=== PATIENT | male | born 1950 | race Caucasian/White ===

== ENCOUNTER 2018-03-29 13:04 | Inpatient (IN) ==
[2018-03-29] MEDS ORDERED: LACTATED RINGERS 1,000 ML IV ONE (13:56)
[2018-03-29] MEDS ORDERED: VANCOMYCIN 1,000 MG in 0.9 % SODIUM CHLORIDE 250 ML IV ONE ×2 (13:56→23:00)
--- NOTE | 2018-03-29 14:01 | Emergency Department Note ---
Lower Extremity Injury HPI - General Chief Complaint: Extremity Injury, Lower Stated Complaint: left toe pain Time Seen by Provider: 03/29/18 13:54 Source: patient Limitations: no limitations - History of Present Illness HPI Narrative: Patient comes in with the chief complaint of drainage and wound issues to the left large toe, history of gout in the past. Drainage and wound have been present for about 3 or 4 weeks, his was not informed of this. He wears socks all the time. He tends to sleep upright with his feet pain down. Poor historian. does state that he had a bout of diarrhea 2 weeks ago for which she was seen at [facility], admitted overnight and given IV fluids up. Was told he had renal insufficiency, poor kidney function, continues taking Plavix as well as aspirin. He is on methadone for chronic pain, denies chest pain he has a slight cough at this point, denies syncope, no fevers or chills, he does have neuropathy, poor sensation to both feet. History of high pass graft surgery to his left leg secondary to peripheral vascular disease. MD complaint: foot injury - Related Data Home Medications Medication Instructions Recorded Confirmed acetaminophen 325 mg tablet 650 mg PO TID PRN tab 12/21/16 12/31/16 albuterol sulfate HFA 90 2 puff INHALATION QID g 12/21/16 12/31/16 mcg/actuation aerosol inhaler allopurinol 300 mg tablet 300 mg PO QAM tab 12/21/16 12/31/16 aspirin 325 mg tablet 325 mg PO QDAY 12/21/16 12/31/16 atorvastatin 40 mg tablet 20 mg PO QHS tab 12/21/16 12/31/16 benzonatate 200 mg capsule 200 mg PO TID PRN 12/21/16 12/31/16 cholecalciferol (vitamin D3) 1,000 2,000 unit PO QAM tab 12/21/16 12/31/16 unit tablet clopidogrel 75 mg tablet 75 mg PO QDAY 12/21/16 12/31/16 diazepam 5 mg tablet 10 mg PO QID 12/21/16 12/31/16 furosemide 40 mg tablet 40 mg PO QDAY 12/21/16 12/31/16 ipratropium 20 mcg-albuterol 100 1 puff INHALATION QID 12/21/16 12/31/16 mcg/actuation mist for inhalation levothyroxine 175 mcg tablet 175 mcg PO QAM tab 12/21/16 12/31/16 lisinopril 10 mg tablet 10 mg PO QHS tab 12/21/16 12/31/16 magnesium oxide 420 mg tablet 420 mg PO BID tab 12/21/16 12/31/16 methadone 10 mg tablet 80 mg PO QDAY tab 12/21/16 12/31/16 mometasone 1 puff INHALATION BID 12/21/16 12/31/16 multivitamin with minerals capsule 1 cap PO QDAY 12/21/16 12/31/16 omeprazole 20 mg capsule,delayed 20 mg PO QAM cap 12/21/16 12/31/16 release polyethylene glycol 3350 17 17 g PO QDAY g 12/21/16 12/31/16 gram/dose oral powder potassium citrate ER 10 mEq (1,080 10 meq PO TID tab 12/21/16 12/31/16 mg) tablet,extended release tamsulosin 0.4 mg capsule 0.8 mg PO QPM cap 12/21/16 12/31/16 Allergies Allergy/AdvReac Type Severity Reaction Status Date / Time codeine Allergy Unknown Unknown Verified 12/31/16 10:42 interferon chanell-2b,recomb. Allergy Unknown Unknown Verified 12/31/16 10:42 interferon beta-1b Allergy Unknown Unknown Verified 12/31/16 10:42 theophylline Allergy Unknown Unknown Verified 12/31/16 10:42 peginterferon Allergy Unknown Unknown Uncoded 12/31/16 10:42 Review of Systems All systems ED: reviewed and negative except as stated. Cardiovascular: Denies: chest pain, palpitations Respiratory: Reports: shortness of breath, cough Genitourinary: Reports: other (decreased urinary output). Denies: dysuria Past Medical History - Past Medical History Source: obtained from family Medical history: Reports: chronic anticoagulation, chronic narcotics, COPD, other (history of gout) Surgical history ED: Reports: colectomy, colostomy, orthopedic, other, vascular surgery Family history: Reports: no significant family history - Social History smoking status: Former smoker Alcohol use: Reports: Occasionally Physical Exam Limitations: no limitations General appearance: alert, in no apparent distress Head: atraumatic, normocephalic Eye: Present: normal appearance, PERRL. Absent: EOMI ENT: normal exam, mucous membranes moist, normal external ear exam, nasal congestion Neck: Present: normal inspection, full ROM, trachea midline. Absent: te nderness, meningismus, lymphadenopathy Chest: Present: normal inspection, symmetric chest wall rise, rash. Absent: tenderness Respiratory: Present: wheezes. Absent: accessory muscle use, prolonged expiratory phase Cardiovascular: Present: regular rate, normal rhythm, normal heart sounds Abdominal: Present: soft, distention, normal bowel sounds. Absent: tenderness, guarding, rebound Extremities: Present: tenderness, pedal edema, joint swelling, other (diminished sensations in both feet. He does have 3+ pedal edema, dorsalis pedis pulses not palpable. Ulceration to the dorsum of his left large toe which is weeping fluid. Probing the wound does extend down to the joint, IP of his left large toe.) Back: Present: normal inspection, full ROM. Absent: CVA tenderness (R), CVA tenderness (L), vertebral tenderness Neurological: Present: alert, oriented X3 Psychiatric: Present: flat affect Skin: Present: warm, dry, intact, rash. Absent: cyanosis Course - Reevaluation(s) Reevaluation #1: We started IV fluids up. It is difficult to get his blood pressure much over 70s or 80s even with IV fluid Hyd ration, I believe that he might be on too much blood pressure medication, he certainly has renal insult from looking at his creatinine in February 12 last admission at [facility] March 13. He had an episode of diarrhea at that time and it sounds like he was dehydrated and he was hydrated and sent home at that time. He still does take lisinopril 20 mg a day and this might be too much blood pressure medication for him. I discussed this with Dr. Flynn and at this time he will need to be admitted for #1 hypotension #2 dehydration #3 left large toe infection. Vital Signs Temperature 98.0 F 03/29/18 13:05 Pulse Rate 78 03/29/18 13:05 Respiratory Rate 18 03/29/18 13:05 Blood Pressure 74/44 03/29/18 13:05 Pulse Oximetry (%) 97 03/29/18 13:05 Temperature 98.0 F 03/29/18 13:05 Pulse Rate 68 03/29/18 14:16 Respiratory Rate 18 03/29/18 13:05 Blood Pressure 83/51 03/29/18 15:46 Pulse Oximetry (%) 96 03/29/18 14:16 Extremity Injury, Lower - MDM Narrative Medical decision making narrative: Final diagnosis is cellulitis left leg #2 left large toe wound. #3 hypotension number for dehydration #5 renal insufficiency, acute on chronic. - Lab Data Result diagrams: 03/29/18 14:05 03/29/18 14:05 Lab Results 03/29/18 03/29/18 03/29/18 Range/Units 14:05 14:05 14:07 WBC 6.8 (4.5-11.0) K/mcL RBC 3.52 L (4.50-5.90) M/mcL Hgb 11.5 L (13.5-16.5) g/dL Hct 34.5 L (41.0-55.0) % MCV 97.9 (80.0-100.0) fL MCH 32.7 (26.0-34.0) pg MCHC 33.4 (31.0-36.0) g/dL RDW 12.9 (11.5-14.5) % Plt Count 182 (140-440) K/mcL MPV 9.6 (7.4-10.4) fL Gran % 64.7 (38.0-78.0) % Lymph % (Auto) 15.9 (15.5-49.0) % [place] % (Auto) 11.1 (1.0-12.0) % Eos % (Auto) 7.8 H (0.0-7.0) % Baso % (Auto) 0.5 (0.0-2.0) % Gran # 4.4 (1.8-8.0) K/mcL Lymph # (Auto) 1.1 L (1.5-4.8) K/mcL [place] # (Auto) 0.7 (0.1-0.9) K/mcL Eos # (Auto) 0.5 (0.0-0.7) K/mcL Baso # (Auto) 0 (0.0-0.3) K/mcL ESR 47 H (0-15) mm/hr VBG Lactic Acid 1.0 (0.5-2.0) mmol/L Sodium 140 (133-145) mmol/L Potassium 4.7 (3.3-5.1) mmol/L Chloride 100 (96-108) mmol/L Carbon Dioxide 31 H (22-30) mmol/L Anion Gap 9.0 (8-16) BUN 52 H (8-23) mg/dl Creatinine 2.9 H (0.7-1.2) mg/dl GFR Calculation 22 Glucose 84 (70-105) mg/dL Calcium 9.1 (8.6-10.4) mg/dl Total Bilirubin 0.3 (0.0-1.0) mg/dL AST 23 (0-37) U/l ALT 16 (0-40) U/l Alkaline Phosphatase 66 (39-117) U/L Total Protein 7.2 (5.9-8.4) gm/dL Albumin 3.9 (3.2-5.2) gm/dL Globulin 3.3 (2.2-3.7) gm/dL Albumin/Globulin Ratio 1.2 (1.0-2.3) Urine Color Urine Appearance Urine pH (5.0-9.0) Ur Specific [place] (1.000-1.035) Urine Protein (NEG) mg/dL Urine Glucose (UA) (NEG) mg/dL Urine Ketones (NEG) mg/dL Urine Occult Blood (<0.03) mg/dL Urine Nitrate (NEG) Urine Bilirubin (NEG) mg/dL Urine Urobilinogen (NEG) mg/dL Ur Leukocyte Esterase (NEG) /uL Ur Culture Indicated? 03/29/18 Range/Units 14:35 WBC (4.5-11.0) K/mcL RBC (4.50-5.90) M/mcL Hgb (13.5-16.5) g/dL Hct (41.0-55.0) % MCV (80.0-100.0) fL MCH (26.0-34.0) pg MCHC (31.0-36.0) g/dL RDW (11.5-14.5) % Plt Count (140-440) K/mcL MPV (7.4-10.4) fL Gran % (38.0-78.0) % Lymph % (Auto) (15.5-49.0) % [place] % (Auto) (1.0-12.0) % Eos % (Auto) (0.0-7.0) % Baso % (Auto) (0.0-2.0) % Gran # (1.8-8.0) K/mcL Lymph # (Auto) (1.5-4.8) K/mcL [place] # (Auto) (0.1-0.9) K/mcL Eos # (Auto) (0.0-0.7) K/mcL Baso # (Auto) (0.0-0.3) K/mcL ESR (0-15) mm/hr VBG Lactic Acid (0.5-2.0) mmol/L Sodium (133-145) mmol/L Potassium (3.3-5.1) mmol/L Chloride (96-108) mmol/L Carbon Dioxide (22-30) mmol/L Anion Gap (8-16) BUN (8-23) mg/dl Creatinine (0.7-1.2) mg/dl GFR Calculation Glucose (70-105) mg/dL Calcium (8.6-10.4) mg/dl Total Bilirubin (0.0-1.0) mg/dL AST (0-37) U/l ALT (0-40) U/l Alkaline Phosphatase (39-117) U/L Total Protein (5.9-8.4) gm/dL Albumin (3.2-5.2) gm/dL Globulin (2.2-3.7) gm/dL Albumin/Globulin Ratio (1.0-2.3) Urine Color Yellow Urine Appearance Clear Urine pH 5.0 (5.0-9.0) Ur Specific [place] 1.024 (1.000-1.035) Urine Protein Neg (NEG) mg/dL Urine Glucose (UA) Negative (NEG) mg/dL Urine Ketones Neg (NEG) mg/dL Urine Occult Blood Neg (<0.03) mg/dL Urine Nitrate Neg (NEG) Urine Bilirubin Neg (NEG) mg/dL Urine Urobilinogen Neg (NEG) mg/dL Ur Leukocyte Esterase Neg (NEG) /uL Ur Culture Indicated? 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
--- NOTE | 2018-03-29 14:31 | XRay Report ---
CLINICAL INFORMATION: Infection in the left first digit TECHNIQUE: AP, oblique, lateral left first digit COMPARISON: None. FINDINGS: There is a dressing in place. No cortical bone destruction. No plain film evidence for osteomyelitis. There is no soft tissue gas or radiopaque foreign body. IMPRESSION: No plain film evidence for osteomyelitis. Interpreted and Authenticated by: Anam Mccarthy 03/29/18
--- NOTE | 2018-03-29 14:32 | XRay Report ---
INDICATION: Fever TECHNIQUE: AP chest x-ray,portable semiupright COMPARISON: None FINDINGS:Lungs are negative. No parenchymal infiltrate or mass. Heart size and vascularity are normal. Cherelle and mediastinum are negative. IMPRESSION: Negative AP chest x-ray Interpreted and Authenticated by: Anam Mccarthy 03/29/18
[2018-03-29 15:02] LABS: Basophils # (Auto) 0 K/mcL (0.0-0.3); Basophils % (Auto) 0.5 % (0.0-2.0); Eosinophils # (Auto) 0.5 K/mcL (0.0-0.7); Eosinophils % (Auto) 7.8 % (0.0-7.0); Granulocytes % (Auto) 64.7 % (38.0-78.0); Lymphocytes # (Auto) 1.1 K/mcL (1.5-4.8); Lymphocytes % (Auto) 15.9 % (15.5-49.0); Mean Cell Volume 97.9 fL (80.0-100.0); Mean Corpuscular HGB Conc 33.4 g/dL (31.0-36.0); Monocytes # (Auto) 0.7 K/mcL (0.1-0.9); Monocytes % (Auto) 11.1 % (1.0-12.0); Platelet Count 182 K/mcL (140-440); RBC 3.52 M/mcL (4.50-5.90); Red Cell Distribution Width 12.9 % (11.5-14.5)
[2018-03-29 15:11] LABS: ALT/SGPT 16 U/l (0-40); Albumin 3.9 gm/dL (3.2-5.2); Albumin/Globulin Ratio 1.2 (1.0-2.3); Alkaline Phosphatase 66 U/L (39-117); Blood Urea Nitrogen 52 mg/dl (8-23)
[2018-03-29 15:41] LABS: Erythrocyte Sedimentation Rate 47 mm/hr (0-15)
[2018-03-29 15:43] LABS: Appearance,Urine CLEAR; Bilirubin,Urine NEG (NEG); Color,Urine YELLOW; Glucose,Urine (UA) NEGATIVE (NEG); Leukocyte Esterase,Urine NEG /uL (NEG); Protein,Urine NEG (NEG); Specific Gravity,Urine 1.024 (1.000-1.035); Urine Blood NEG mg/dL (<0.03); Urobilinogen,Urine NEG (NEG)
[2018-03-29] MEDS ORDERED: 0.9 % SODIUM CHLORIDE 1,000 ML IV SCH ×2 (16:15→22:00)
[2018-03-29 16:57] LABS: C-Reactive Protein 8.6 mg/dl (0.0-0.8)
[2018-03-29 17:13] LABS: Eosinophils % (Manual) 8 % (0-7); Lymphocytes % 15 % (15-49); Monocytes % (Manual) 6 % (1-12); Platelet Estimate NORMAL (NORMAL); RBC Morphology NORMAL (NORMAL); Segmented Neutrophils % 71 % (38-78)
--- NOTE | 2018-03-29 17:22 | Internal Med History&Physical ---
Medical - H&P: HPI Patient information: Note initiated : 03/29/18 at 5:13 pm Service Date, if different from initiated Date: [] Patient: Dmitry Luna 68 y/o M admitted on for left toe pain. Chief Complaint: [] History of present illness: Mr. Luna is a 68 year old M Presents to the ED for left toe redness swelling and drainage. He was in [facility] 2 weeks ago for diarrhea and acute kidney injury. Showed improvement with his acute kidney injury after IV fluids and was discharged the next day. Was given prednisone for what was thought to be a gout flare. Diarrhea has improved since that admission as well. He states he has had a wound to the dorsum of his left great toe for several months and that is been draining for at least a month. He believes it started from his shoes causing a pressure wound. He has been treating himself with [id number] topical antimicrobials has not seen her primary care provider for this. Because of the continued and worsening drainage swelling redness he came in. 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 He resides in a recliner most of the day. He will get up 10 times or so throughout the day and walk around his mobile home. But otherwise is sedentary and sleeps in his chair as well because he states he has COPD and he is short of breath when he lays flat. Denies any history of heart failure or [place]. He does take Lasix as needed for swelling in his legs. He has oxygen at home for his COPD and uses it occasionally as needed, but not consistently. In the ED he was found to be hypotensive with systolic pressures as low as 65 and were consistently running in the 80s after IV fluid hydration at the time I saw him his last systolic was 91. He also found to have significant purulent drainage from his toe which was cultured and cleaned up in the ED. And his renal function was found to be poor. Unknown what his baseline is but it was 2.9 today creatinine. It was 2.2 on discharge to [facility] and for on admission to [facility]. Last recorded labs in the system are in 2017 which are in the mid ones. He follows with the [facility] and is in between providers at the [facility]. He denies any fevers or chills. Review of Systems: Pertinent positives as above. Has chronic cough and shortness of breath at baseline. Denies headache/fever/chills/nausea/vomiting/chest or abdominal pain/diarrhea. Remaining 10 point review of systems reviewed negative Medical - H&P: PMH Medical history: Medical History (Last Reviewed 12/31/16 @ 10:43 by Nelly Zarate, RN) History of strokes DVT in the past x1 with thyroidism Hypertension COPD on as needed oxygen Chronic kidney disease at least stage III probably for next line peripheral vascular disease with bilateral lower extremity grafting Peripheral neuropathy since the vascular surgery Anxiety Chronic pain from the left left leg after surgery BPH GERD Past Surgical History (Last Reviewed 12/31/16 @ 10:43 by Nelly Zarate, RN) H/O angioplasty (Chronic) H/O laparoscopy (Chronic) History of Wilver fundoplication (Chronic) History of colon surgery (Chronic) History of colonoscopy (Chronic) History of decompression of median nerve (Chronic) History of esophagogastroduodenoscopy (EGD) (Chronic 02/14/12) History of facial surgery (Chronic) History of left knee surgery (Chronic ~1979) History of repair of left rotator cuff (Chronic) History of right-sided carotid endarterectomy (Chronic) History of shoulder surgery (Chronic) History of surgery (Chronic) Family History (Last Reviewed 12/31/16 @ 10:43 by Nelly Zarate, HIEU) Mother CAD (coronary artery disease) CVA (cerebral vascular accident) Father CAD (coronary artery disease) CVA (cerebral vascular accident) Grandfather Leukemia Grandmother Alcoholism Murder Grandfather Prostate cancer Social History (Last Updated 12/31/16 @ 11:15 by Dmitry Chavez MD) Quit smoking 20 years ago denies alcohol use occasionally ambulates with a cane lives at home with his Medical - H&P: Meds Home Medications Medication Instructions Recorded Confirmed Type acetaminophen 325 mg tablet 650 mg PO TID PRN tab 12/21/16 03/29/18 History albuterol sulfate HFA 90 2 puff INHALATION QID g 12/21/16 03/29/18 History mcg/actuation aerosol inhaler allopurinol 300 mg tablet 300 mg PO QAM tab 12/21/16 03/29/18 History aspirin 325 mg tablet 325 mg PO TID 12/21/16 03/29/18 History atorvastatin 40 mg tablet 20 mg PO QHS tab 12/21/16 03/29/18 History cholecalciferol (vitamin D3) 1,000 2,000 unit PO QAM tab 12/21/16 03/29/18 History unit tablet ipratropium 20 mcg-albuterol 100 1 puff INHALATION QID 12/21/16 03/29/18 History mcg/actuation mist for inhalation levothyroxine 175 mcg tablet 150 mcg PO QAM tab 12/21/16 03/29/18 History lisinopril 10 mg tablet 20 mg PO BID tab 12/21/16 03/29/18 History magnesium oxide 420 mg tablet 420 mg PO BID tab 12/21/16 03/29/18 History methadone 10 mg tablet 80 mg PO QDAY tab 12/21/16 03/29/18 History mometasone 1 puff INHALATION BID 12/21/16 03/29/18 History multivitamin with minerals capsule 1 cap PO QDAY 12/21/16 03/29/18 History omeprazole 20 mg capsule,delayed 20 mg PO QAM cap 12/21/16 03/29/18 History release tamsulosin 0.4 mg capsule 0.8 mg PO QPM cap 12/21/16 03/29/18 History Clopidogrel Bisulfate [Plavix] 75 mg PO QDAY 03/29/18 03/29/18 History Docusate Sodium [Colace] 100 mg PO QID 03/29/18 03/29/18 History Allergies Allergy/AdvReac Type Severity Reaction Status Date / Time codeine Allergy Unknown Unknown Verified 12/31/16 10:42 interferon chanell-2b,recomb. Allergy Unknown Unknown Verified 12/31/16 10:42 interferon beta-1b Allergy Unknown Unknown Verified 12/31/16 10:42 theophylline Allergy Unknown Unknown Verified 12/31/16 10:42 peginterferon Allergy Unknown Unknown Uncoded 12/31/16 10:42 Medical - H&P: Exam - Constitutional Vitals: Temp Pulse Resp BP Pulse Ox 98.0 F 70 18 111/74 97 03/29/18 13:05 03/29/18 17:01 03/29/18 13:05 03/29/18 17:01 03/29/18 17:01 Exam: General: Alert, Awake, No acute Distress Eyes/N/T: EOMI, PEERL, DMM Head/Neck: neck supple, normocephalic atraumatic CV: RRR, No murmurs, normal s1/s2 Pulm: Clear b/l, no wheezing/rhonchi/rales Abd: soft, nontender, +BS x4 Ext: no clubbing/cyanosis, 2+ b/l LE edema. Left toe with open nonhealing wound on dorsum, Neuro: Alert, no focal deficits, moves all extremities, symmetrical strength b/l upper/lower, decreased sensations bilateral lower extremities chronic Skin: warm/dry Medical - H&P: Reslt - Labs CBC & Chem 7: 03/29/18 14:05 03/29/18 14:05 Labs: Short CBC 03/29/18 Range/Units 14:05 WBC 6.8 (4.5-11.0) K/mcL Hgb 11.5 L (13.5-16.5) g/dL Hct 34.5 L (41.0-55.0) % Plt Count 182 (140-440) K/mcL BMP 03/29/18 14:05 Sodium 140 Potassium 4.7 Chloride 100 Carbon Dioxide 31 H BUN 52 H Creatinine 2.9 H Glucose 84 Calcium 9.1 Liver Function 03/29/18 Range/Units 14:05 Total Bilirubin 0.3 (0.0-1.0) mg/dL AST 23 (0-37) U/l ALT 16 (0-40) U/l Alkaline Phosphatase 66 (39-117) U/L Albumin 3.9 (3.2-5.2) gm/dL Urine 03/29/18 Range/Units 14:35 Urine Color Yellow Urine Appearance Clear Urine pH 5.0 (5.0-9.0) Ur Specific [place] 1.024 (1.000-1.035) Urine Protein Neg (NEG) mg/dL Urine Glucose (UA) Negative (NEG) mg/dL - Impressions Chest x-ray unremarkable urinalysis unremarkable toe x-ray did not show evidence of osteo-myelitis. Medical - H&P: A/P - Narrative A/P Narrative: A: *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(): *Hypotension: likely 2/2 intravascular volume depletion and medications *Left great toe nonhealing wound likely infected: -ESR 47, crp 8 *PVD with b/l LE grafting 15yrs ago with subsequent peripheral neuropathy and chronic pain -is on ASA/Plavix/statin *Chronic pain: as above, on methadone *Hypothyroid: *HTN: on lisinopril *Peripheral edema: On prn Lasix *Anxiety: *GERD *COPD(prn home O2): * P: -IVF's -monitor BP closely -Tino, pending WC -trend CRP -Wound care -LE arterial u/s -cont asa/plavix/statin -hold lisinopril and lasix -pt/ot -f/u with Dr. Carrasco depending on imaging -ppx: heparin/pepcid
[2018-03-29] MEDS ORDERED: IPRATROPIUM/ALBUTEROL 3 ML AMPUL.NEB NEB ONE (18:15)
[2018-03-29] MEDS ORDERED: SENNOSIDES 1 TABLET PO PRN (18:38)
[2018-03-29] MEDS ORDERED: IPRATROPIUM/ALBUTEROL 3 ML AMPUL.NEB NEB PRN (18:38)
[2018-03-29] MEDS ORDERED: POTASSIUM CHLORIDE 40 MEQ in DEXTROSE 5% IN WATER 500 ML IV PRN (18:38)
[2018-03-29] MEDS ORDERED: ACETAMINOPHEN 325 MG TABLET PO PRN (18:38)
[2018-03-29] MEDS ORDERED: MAGNESIUM SULFATE 2 GM/50 ML BAG IV PRN (18:38)
[2018-03-29] MEDS ORDERED: POTASSIUM CHLORIDE 20 MEQ TABLET PO PRN ×2 (18:38)
[2018-03-29] MEDS ORDERED: PIPERACILLIN SODIUM/TAZOBACTAM 3.375 GM in DEXTROSE 5% IN WATER 50 ML IV SCH (18:38)
[2018-03-29] MEDS ORDERED: ONDANSETRON 4 MG/2 ML VIAL IV PRN (18:38)
[2018-03-29] MEDS ORDERED: POLYETHYLENE GLYCOL 3350 17 GM PACKET PO PRN (18:38)
[2018-03-29] MEDS ORDERED: ALBUTEROL SULFATE 1 PUFF INHALER INH PRN (19:50)
[2018-03-29] MEDS ORDERED: VANCOMYCIN PER PHARMACY IV ONE (19:52)
[2018-03-29] MEDS ORDERED: ATORVASTATIN 20 MG TABLET PO SCH (21:00)
[2018-03-29] MEDS ORDERED: FAMOTIDINE 20 MG TABLET PO SCH (21:00)
[2018-03-29] MEDS ORDERED: TAMSULOSIN 0.4 MG CAPSULE PO SCH (21:00)
[2018-03-29] MEDS: IPRATROPIUM/ALBUTEROL SULFATE 1 PUFF INHALER INH SCH (21:12)
[2018-03-29] MEDS: DOCUSATE SODIUM 100 MG CAPSULE PO SCH (21:20)
[2018-03-29] MEDS: MOMETASONE INH SCH (21:21)
[2018-03-29] MEDS: HEPARIN 5,000 UNIT/ML VIAL SQ SCH (21:21)
[2018-03-29] MEDS: METHADONE 5 MG TABLET PO SCH (22:44)
[2018-03-29] MEDS: 0.9 % SODIUM CHLORIDE 10 ML SYRINGE IV SCH (22:45)
[2018-03-29] MEDS: guaiFENesin 600 MG TAB.SR.12H PO PRN (22:47)
[2018-03-30] MEDS: PIPERACILLIN SODIUM/TAZOBACTAM 2.25 GM in DEXTROSE 5% IN WATER 50 ML IV SCH ×4 (00:21→19:21)
[2018-03-30] MEDS: METHADONE 5 MG TABLET PO SCH ×6 (00:49→20:22)
[2018-03-30] MEDS ORDERED: 0.9 % SODIUM CHLORIDE 1,000 ML IV SCH ×2 (02:00→11:00)
[2018-03-30 05:30] LABS: Basophils # (Auto) 0 K/mcL (0.0-0.3); Basophils % (Auto) 0.6 % (0.0-2.0); Eosinophils # (Auto) 0.4 K/mcL (0.0-0.7); Lymphocytes % (Auto) 22.8 % (15.5-49.0); Mean Cell Volume 99.2 fL (80.0-100.0); Monocytes # (Auto) 0.5 K/mcL (0.1-0.9); Monocytes % (Auto) 12.6 % (1.0-12.0); Platelet Count 157 K/mcL (140-440); RBC 3.45 M/mcL (4.50-5.90); Red Cell Distribution Width 12.9 % (11.5-14.5)
[2018-03-30] MEDS: 0.9 % SODIUM CHLORIDE 10 ML SYRINGE IV SCH ×4 (05:41→19:21)
[2018-03-30 05:52] LABS: ALT/SGPT 14 U/l (0-40); Albumin 3.4 gm/dL (3.2-5.2); Albumin/Globulin Ratio 1.1 (1.0-2.3); Alkaline Phosphatase 61 U/L (39-117); Bilirubin,Direct < 0.2 mg/dL (0.0-0.3); Blood Urea Nitrogen 41 mg/dl (8-23); C-Reactive Protein 6.6 mg/dl (0.0-0.8); Gamma Glutamyl Transpeptidase 49 U/L (8-61); Uric Acid 6.1 mg/dL (2.5-8.0)
[2018-03-30] MEDS ORDERED: LEVOTHYROXINE 150 MCG TABLET PO SCH (07:30)
--- NOTE | 2018-03-30 07:40 | Internal Med Progress Note ---
Medical - PN: Subj Patient information: Note initiated : 03/30/18 at 7:36 am Service Date, if different from initiated Date: [] Patient: Dmitry Luna 68 y/o M admitted on 03/29/18 for left toe pain. Chief Complaint: [] Interval history: Mr. Luna is a 68 year old M Presents to the ED for left toe redness swelling and drainage. He was in [facility] 2 weeks ago for diarrhea and acute kidney injury. Showed improvement with his acute kidney injury after IV fluids and was discharged the next day. Was given prednisone for what was thought to be a gout flare. Diarrhea has improved since that admission as well. He states he has had a wound to the dorsum of his left great toe for several months and that is been draining for at least a month. He believes it started from his shoes causing a pressure wound. He has been treating himself with [id number] topical antimicrobials has not seen her primary care provider for this. Because of the continued and worsening drainage swelling redness he came in. 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 He resides in a recliner most of the day. He will get up 10 times or so throughout the day and walk around his mobile home. But otherwise is sedentary and sleeps in his chair as well because he states he has COPD and he is short of breath when he lays flat. Denies any history of heart failure or SD. He does take Lasix as needed for swelling in his legs. He has oxygen at home for his COPD and uses it occasionally as needed, but not consistently. In the ED he was found to be hypotensive with systolic pressures as low as 65 and were consistently running in the 80s after IV fluid hydration at the time I saw him his last systolic was 91. He also found to have significant purulent drainage from his toe which was cultured and cleaned up in the ED. And his renal function was found to be poor. Unknown what his baseline is but it was 2.9 today creatinine. It was 2.2 on discharge to [facility] and for on admission to [facility]. Last recorded labs in the system are in 2017 which are in the mid ones. He follows with [facility] and is in between providers at the [facility]. He denies any fevers or chills. 03/30 Seems to be feeling better today, no drainage of the wound today. Pressure stable. Wound culture growing staph aureus. CRP decreasing. Does have chronic mild cough and shortness of breath, but otherwise no complaints. Review of Systems: denies headache/fever/chills/nausea/vomiting/chest or abdominal pain/cough/dyspnea/diarrhea. Otherwise see above. - Constitutional Vitals: Vital Signs Temp Pulse Resp BP Pulse Ox 98.2 F 66 12 114/73 89 L 03/30/18 04:01 03/30/18 07:03 03/30/18 07:03 03/30/18 07:00 03/30/18 07:03 Period Temp Pulse Resp BP Sys/Robbins Pulse Ox Last 24 Hr 97.4 F-98.2 F 58-88 7-27 65-157/44-79 83-98 Intake and Output 03/29/18 03/30/18 03/30/18 21:59 05:59 13:59 Intake Total 1937 662 50 Output Total 1025 Balance 1937 50 Weight 108.862 kg Intake & Output: Intake & Output 03/29/18 03/30/18 03/30/18 21:59 05:59 13:59 Intake Total 1937 50 Output Total 1025 Balance 1937 50 Weight 108.[place] [address] 50 Sodium Chloride 0.9% 1,000 ml @ 688 250 mls/hr IV .Q4H [facility] Rx#: [id number] Lactated Ringers 1,000 ml @ 1000 Wide Open IV .Q0M ONE Rx#: [id number] Zosyn 2.25 gm In Dextrose 5% in 50 50 Water 50 ml @ 100 mls/hr IV Q6H [facility] Rx#:[id number] Vancomycin 1,000 mg In Sodium 250 250 Chloride 0.9% 250 ml @ 250 mls/ hr IV ONCE ONE Rx#:[id number] Output: Void Amount 1025 Other: Urine Appearance Clear Clear Urine Color Dark Yellow Bright Yellow Exam: General: Alert, Awake, No acute Distress Eyes/N/T: EOMI, Head/Neck: neck supple, CV: RRR, No murmurs, Pulm: Clear b/l, no wheezing/rhonchi/rales Abd: soft, nontender, +BS x4 Ext: no clubbing/cyanosis, 2+ b/l LE edema. Left toe with open nonhealing wound on dorsum, Neuro: Alert, no focal deficits, moves all extremities, decreased sensations bilateral lower extremities chronic Skin: warm/dry Medical - PN: Obj Da - Labs CBC & Chem 7: 03/30/18 03:31 03/30/18 03:31 Labs: Abnormal Lab Results 03/30/18 03/30/18 03/29/18 03:31 03:31 14:05 WBC 4.2 L RBC 3.45 L Hgb 11.3 L Hct 34.3 L [place] % (Auto) 12.6 H Eos % (Auto) 10.0 H Lymph # (Auto) 1.0 L Eosinophils % (Manual) ESR Carbon Dioxide Anion Gap 7.0 L BUN 41 H Creatinine 2.1 H Calcium 8.3 L C-Reactive Protein 6.6 H 8.6 H 03/29/18 03/29/18 03/29/18 14:05 14:05 14:05 WBC RBC 3.52 L Hgb 11.5 L Hct 34.5 L [place] % (Auto) Eos % (Auto) 7.8 H Lymph # (Auto) 1.1 L Eosinophils % (Manual) 8 H ESR 47 H Carbon Dioxide 31 H Anion Gap BUN 52 H Creatinine 2.9 H Calcium C-Reactive Protein Meds: Medications Acetaminophen (Tylenol) 650 mg PO TID PRN PRN Reason: Pain Albuterol Sulfate (Ventolin) 1 puff INH Q4HP PRN PRN Reason: Shortness Of Breath Albuterol/Ipratropium (Duoneb) 3 ml NEB Q4HP PRN PRN Reason: Shortness Of Breath Last Admin: 03/30/18 04:23 Dose: 3 ml Documented by: Albuterol/Ipratropium (Combivent) 1 puff INH QID [facility] Last Admin: 03/29/18 21:12 Dose: Not Given Documented by: Allopurinol (Zylopriim) 300 mg PO QAM [facility] Atorvastatin Calcium (Lipitor) 20 mg PO HS [facility] Last Admin: 03/29/18 21:20 Dose: 20 mg Documented by: Clopidogrel Bisulfate (Plavix) 75 mg PO QDAY [facility] Docusate Sodium (Colace) 100 mg PO BID [facility] Last Admin: 03/29/18 21:20 Dose: 100 mg Documented by: Famotidine (Pepcid) 20 mg PO HS [facility] Last Admin: 03/29/18 21:20 Dose: 20 mg Documented by: Guaifenesin (Mucinex) 600 mg PO BIDP PRN PRN Reason: Congestion Last Admin: 03/29/18 22:47 Dose: 600 mg Documented by: Heparin Sodium (Porcine) (Heparin) 5,000 unit SQ Q12 [facility] Last Admin: 03/29/18 21:21 Dose: 5,000 unit Documented by: Potassium Chloride 40 meq/ (Dextrose) 520 mls @ 130 mls/hr IV ONCE PRN PRN Reason: Potassium < 3 Magnesium Sulfate (Magnesium Sulfate) 2 gm in 50 mls @ 50 mls/hr IV ONCE PRN PRN Reason: Magnesium </= 1.6 Piperacillin Sod/Tazobactam (Sod 2.25 gm/ Dextrose) 50 mls @ 100 mls/hr IV Q6H [facility] Last Infusion: 03/30/18 07:17 Dose: Infused Documented by: Sodium Chloride (Sodium Chloride 0.9%) 1,000 mls @ 125 mls/hr IV .Q8H [facility] Stop: 03/30/18 09:59 Last Admin: 03/30/18 02:16 Dose: 125 mls/hr Documented by: Levothyroxine Sodium (Synthroid) 150 mcg PO QAMAC BHAKTI Methadone HCl (Dolophine) 10 mg PO Q4H [facility] Last Admin: 03/30/18 03:10 Dose: 10 mg Documented by: Ondansetron HCl (Zofran) 4 mg IV Q4HP PRN PRN Reason: Nausea And Vomiting Mometasone Inhaler 1 dose INH BID [facility] Last Admin: 03/29/18 21:21 Dose: Not Given Documented by: Polyethylene Glycol (Miralax) 17 gm PO DAILYP PRN PRN Reason: Constipation Potassium Chloride (Kdur) 40 meq PO ONCE PRN PRN Reason: Potssium is 3-3.5 Potassium Chloride (Kdur) 40 meq PO ONCE PRN PRN Reason: Potassium < 3 Senna (Senokot) 2 tab PO HSP PRN PRN Reason: Constipation Sodium Chloride (Saline Flush) 10 ml IV Q8 [facility] Last Admin: 03/30/18 05:41 Dose: 10 ml Documented by: Tamsulosin HCl (Flomax) 0.8 mg PO QPM BHAKTI Last Admin: 03/29/18 21:21 Dose: 0.8 mg Documented by: Vancomycin HCl (Vancomycin Per Pharmacy) 1 order IV ONCE ONE Stop: 03/29/18 19:53 Last Admin: 03/29/18 23:45 Dose: Not Given Documented by: Medical - PN: A/P - Time Spent With Patient Total time spent is greater than 50% in coordination of care (as documented) at patient's floor/unit and/or counseling patient: - Narrative A/P Narrative: A: *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(): -2.1<2.9 *Hypotension: likely 2/2 intravascular volume depletion and medications -resolved with IVF's *Left great toe nonhealing wound with infection: -ESR 47, crp 8 -WC growing Staph aureus (MRSA screen +) *PVD with b/l LE grafting 15yrs ago with subsequent peripheral neuropathy and chronic pain -is on ASA/Plavix/statin *Chronic pain: as above, on methadone *Hypothyroid: *HTN: on lisinopril *Peripheral edema: On prn Lasix *Anxiety: *GERD *COPD(prn home O2): * P: -IVF's today -Zosyn/vanco, pending final WC -trend CRP -Wound care consult -LE arterial u/s -cont asa/plavix/statin -hold lisinopril and lasix -pt/ot -f/u with Dr. Carrasco depending on imaging -ppx: heparin/pepcid Medical - PN: Qual - VTE Deep Vein Thrombosis/Pulmonary Embolism Present on Admission: No
[2018-03-30] MEDS: HEPARIN 5,000 UNIT/ML VIAL SQ SCH ×2 (08:35→20:24)
[2018-03-30] MEDS: guaiFENesin 600 MG TAB.SR.12H PO PRN (08:35)
[2018-03-30] MEDS: DOCUSATE SODIUM 100 MG CAPSULE PO SCH ×2 (08:35→20:23)
[2018-03-30] MEDS ORDERED: ALLOPURINOL 300 MG TABLET PO SCH (09:00)
[2018-03-30] MEDS ORDERED: CLOPIDOGREL 75 MG TABLET PO SCH (09:00)
[2018-03-30] MEDS ORDERED: METHADONE HCL 80 MG PO SCH (09:00)
[2018-03-30 09:32] LABS: Vancomycin,Random 13.3 ug/mL
[2018-03-30] MEDS ORDERED: VANCOMYCIN PER PHARMACY IV SCH ×2 (09:45→13:38)
[2018-03-30] MEDS ORDERED: VANCOMYCIN 1,500 MG in 0.9 % SODIUM CHLORIDE 500 ML IV SCH (10:00)
[2018-03-30] MEDS ORDERED: POLYETHYLENE GLYCOL 3350 17 GM PACKET PO ONE (11:08)
[2018-03-30] MEDS: IPRATROPIUM/ALBUTEROL SULFATE 1 PUFF INHALER INH SCH ×4 (11:55→20:34)
[2018-03-30] MEDS: MOMETASONE INH SCH (11:56)
[2018-03-30] MEDS ORDERED: POTASSIUM CHLORIDE 20 MEQ TABLET PO PRN ×2 (13:38)
[2018-03-30] MEDS ORDERED: POLYETHYLENE GLYCOL 3350 17 GM PACKET PO PRN (13:38)
[2018-03-30] MEDS ORDERED: ONDANSETRON 4 MG/2 ML VIAL IV PRN (13:38)
[2018-03-30] MEDS ORDERED: MAGNESIUM SULFATE 2 GM/50 ML BAG IV PRN (13:38)
[2018-03-30] MEDS ORDERED: SENNOSIDES 1 TABLET PO PRN (13:38)
[2018-03-30] MEDS ORDERED: guaiFENesin 600 MG TAB.SR.12H PO PRN (13:38)
[2018-03-30] MEDS ORDERED: ACETAMINOPHEN 325 MG TABLET PO PRN (13:38)
[2018-03-30] MEDS ORDERED: ALBUTEROL SULFATE 1 PUFF INHALER INH PRN (13:38)
[2018-03-30] MEDS ORDERED: POTASSIUM CHLORIDE 40 MEQ in DEXTROSE 5% IN WATER 500 ML IV PRN (13:38)
--- NOTE | 2018-03-30 13:52 | Ultrasound Report ---
CLINICAL INFORMATION: Nonhealing left toe wound TECHNIQUE: Grayscale and color flow Doppler spectral imaging COMPARISON: None. FINDINGS: Patient is a history of bilateral common femoral and superficial femoral artery stents. These are not well visualized. Right common femoral artery is patent. No velocity elevation. Triphasic flow is demonstrated. No detectable hemodynamically significant stenosis or occlusion in the right superficial femoral artery. Doppler wave form in the mid and distal right superficial femoral artery is monophasic. A proximal stenosis is not identified. Right popliteal artery is patent without focal stenosis identified. No focal velocity elevation. Waveforms in the distal popliteal artery is monophasic. Anterior tibial artery, peroneal artery, posterior tibial artery appear patent in the right calf. Dorsalis pedis artery is patent although systolic flow velocity is diminished with maximum systolic flow velocity of 36 cm/s. Monophasic waveforms are demonstrated. Left common femoral artery is patent with probable biphasic waveform. Left superficial femoral artery appears patent without detectable stenosis. Left popliteal artery demonstrates monophasic flow but no detectable stenosis. No velocity elevation. Left anterior tibial artery, peroneal artery, and posterior tibial artery are visualized and are at least partially patent. There is flow in the left dorsalis pedis artery with maximum systolic flow velocity of 105. Monophasic waveforms are demonstrated previously Anatomic evaluation including CTA or MRA may be helpful for better evaluation IMPRESSION: 1. No detectable occlusions or significant stenoses. 2. Monophasic waveforms are demonstrated in both calves without detectable proximal stenosis Interpreted and Authenticated by: Anam Mccarthy 03/30/18
--- NOTE | 2018-03-30 14:05 | General Surgery Consult Note ---
History of Present Illness Patient information: Note initiated : 03/30/18 at 1:56 pm Service Date, if different from initiated Date: [] Patient: Dmitry Luna 68 y/o M admitted on 03/29/18 for left toe pain. Chief Complaint: [] Consult date: 03/30/18 Requesting physician: Jasbir Flynn (Cellulitis Left 1 st toe) History of present illness: I saw this patient in room 120/D with ICU nursing staff. Mr. Luna is a 68/M admitted via ER with CSSSI, evolving sepsis AND left 1 st toe cellulitis. Patient recalls that about a month ago, he noticed pain and swelling of LEFT 1 st toe. He attributes this to pressure from wearing cowboy boots and walking . Denies h/o fever, chills bleeding. He did have some drainage from dorsal ulcer of LEFT 1 st IPJ. Upon admission, he had an X Ray of toe, which is negative for osteomyelitis. He had vascular Doppler studies showing monophasic waveforms over pedal vessels Left foot, ( H/O Stents on both LE arteries ) He was recently admitted at [facility] [place] Treated for dehydration with IV fluids, observed and discharged. Noted to have CKD. Creatinine 2.6, prior to hydration. Now he has creatinine of 2.1. He has MRSA on nasal swab. Medications and Allergies Home Medications Medication Instructions Recorded Confirmed Type acetaminophen 325 mg tablet 650 mg PO TID PRN tab 12/21/16 03/29/18 History albuterol sulfate HFA 90 2 puff INHALATION QID g 12/21/16 03/29/18 History mcg/actuation aerosol inhaler allopurinol 300 mg tablet 300 mg PO QAM tab 12/21/16 03/29/18 History aspirin 325 mg tablet 325 mg PO TID 12/21/16 03/29/18 History atorvastatin 40 mg tablet 20 mg PO QHS tab 12/21/16 03/29/18 History cholecalciferol (vitamin D3) 1,000 2,000 unit PO QAM tab 12/21/16 03/29/18 History unit tablet ipratropium 20 mcg-albuterol 100 1 puff INHALATION QID 12/21/16 03/29/18 History mcg/actuation mist for inhalation levothyroxine 175 mcg tablet 150 mcg PO QAM tab 12/21/16 03/29/18 History lisinopril 10 mg tablet 20 mg PO BID tab 12/21/16 03/29/18 History magnesium oxide 420 mg tablet 420 mg PO BID tab 12/21/16 03/29/18 History methadone 10 mg tablet 20 mg PO TID tab 12/21/16 03/31/18 History mometasone 1 puff INHALATION BID 12/21/16 03/29/18 History multivitamin with minerals capsule 1 cap PO QDAY 12/21/16 03/29/18 History omeprazole 20 mg capsule,delayed 20 mg PO QAM cap 12/21/16 03/29/18 History release tamsulosin 0.4 mg capsule 0.8 mg PO QPM cap 12/21/16 03/29/18 History Clopidogrel Bisulfate [Plavix] 75 mg PO QDAY 03/29/18 03/29/18 History Docusate Sodium [Colace] 100 mg PO QID 03/29/18 03/29/18 History Doxycycline Monohydrate 100 mg PO BID #14 tab 04/01/18 Rx Allergies Allergy/AdvReac Type Severity Reaction Status Date / Time theophylline Allergy Intermediate "Hard to Verified 03/30/18 13:58 breath" interferon beta-1b AdvReac Severe "Mentally Verified 03/30/18 13:58 went crazy" codeine AdvReac Mild Itching/Upset Verified 03/30/18 13:58 Stomach Exam Temp Pulse Resp BP Pulse Ox 98.4 F 96 H 10 L 146/67 96 03/30/18 13:00 03/30/18 13:00 03/30/18 13:00 03/30/18 13:00 03/30/18 13:00 - General physical appearance well developed, well nourished, no distress, obese - Eyes PERRL, normal ocular movement - ENT normal pinna, normal nares, normal mucosa, no congestion, other (HARD OF HEARING, Wears hearing aid Right ear. ) - Head Head exam IM: Present: atraumatic, normal inspection, normocephalic - Neck no masses, no bruits, trachea midline - Cardiovascular Cardiovascular exam IM: Present: normal rate and rhythm - Respiratory normal respiratory effort, clear to auscultation - Abdomen Abdomen: Present: soft, non tender, bowel sounds - Integumentary Present: other (Cellulitis and CSSSI around Left great toe dorsal aspect of IPJ, Extending to anterior lower 1/2 of [place] area. ) - Neurologic Present: other (Peripheral neuropathy) - Musculoskeletal Present: other (Dry ulcer dorsal aspect of LEFT 1 st toe IPJ. Toe nails are mycotic both feet. ) - Psychiatric Present: oriented to person, oriented to place, speech is normal Results - Labs 03/31/18 04:09 03/31/18 04:09 Abnormal lab results 03/29/18 03/29/18 03/29/18 Range/Units 14:05 14:05 14:05 WBC (4.5-11.0) K/mcL RBC 3.52 L (4.50-5.90) M/mcL Hgb 11.5 L (13.5-16.5) g/dL Hct 34.5 L (41.0-55.0) % [place] % (Auto) (1.0-12.0) % Eos % (Auto) 7.8 H (0.0-7.0) % Lymph # (Auto) 1.1 L (1.5-4.8) K/mcL Eosinophils % (Manual) 8 H (0-7) % ESR 47 H (0-15) mm/hr Carbon Dioxide 31 H (22-30) mmol/L Anion Gap (8-16) BUN 52 H (8-23) mg/dl Creatinine 2.9 H (0.7-1.2) mg/dl Calcium (8.6-10.4) mg/dl C-Reactive Protein (0.0-0.8) mg/dl 03/29/18 03/30/18 03/30/18 Range/Units 14:05 03:31 03:31 WBC 4.2 L (4.5-11.0) K/mcL RBC 3.45 L (4.50-5.90) M/mcL Hgb 11.3 L (13.5-16.5) g/dL Hct 34.3 L (41.0-55.0) % [place] % (Auto) 12.6 H (1.0-12.0) % Eos % (Auto) 10.0 H (0.0-7.0) % Lymph # (Auto) 1.0 L (1.5-4.8) K/mcL Eosinophils % (Manual) (0-7) % ESR (0-15) mm/hr Carbon Dioxide (22-30) mmol/L Anion Gap 7.0 L (8-16) BUN 41 H (8-23) mg/dl Creatinine 2.1 H (0.7-1.2) mg/dl Calcium 8.3 L (8.6-10.4) mg/dl C-Reactive Protein 8.6 H 6.6 H (0.0-0.8) mg/dl Diabetes panel 03/29/18 03/30/18 Range/Units 14:05 03:31 Sodium 140 140 (133-145) mmol/L Potassium 4.7 4.9 (3.3-5.1) mmol/L Chloride 100 105 (96-108) mmol/L Carbon Dioxide 31 H 28 (22-30) mmol/L BUN 52 H 41 H (8-23) mg/dl Creatinine 2.9 H 2.1 H (0.7-1.2) mg/dl Glucose 84 88 (70-105) mg/dL Calcium 9.1 8.3 L (8.6-10.4) mg/dl AST 23 23 (0-37) U/l ALT 16 14 (0-40) U/l Alkaline Phosphatase 66 61 (39-117) U/L Total Protein 7.2 6.6 (5.9-8.4) gm/dL Albumin 3.9 3.4 (3.2-5.2) gm/dL Triglycerides 74 (<150) mg/dl Calcium panel 03/29/18 03/30/18 Range/Units 14:05 03:31 Calcium 9.1 8.3 L (8.6-10.4) mg/dl Phosphorus 3.4 (2.7-4.5) mg/dL Albumin 3.9 3.4 (3.2-5.2) gm/dL Pituitary panel 03/29/18 03/30/18 Range/Units 14:05 03:31 Sodium 140 140 (133-145) mmol/L Potassium 4.7 4.9 (3.3-5.1) mmol/L Chloride 100 105 (96-108) mmol/L Carbon Dioxide 31 H 28 (22-30) mmol/L BUN 52 H 41 H (8-23) mg/dl Creatinine 2.9 H 2.1 H (0.7-1.2) mg/dl Glucose 84 88 (70-105) mg/dL Calcium 9.1 8.3 L (8.6-10.4) mg/dl Adrenal panel 03/29/18 03/30/18 Range/Units 14:05 03:31 Sodium 140 140 (133-145) mmol/L Potassium 4.7 4.9 (3.3-5.1) mmol/L Chloride 100 105 (96-108) mmol/L Carbon Dioxide 31 H 28 (22-30) mmol/L BUN 52 H 41 H (8-23) mg/dl Creatinine 2.9 H 2.1 H (0.7-1.2) mg/dl Glucose 84 88 (70-105) mg/dL Calcium 9.1 8.3 L (8.6-10.4) mg/dl Total Bilirubin 0.3 0.2 (0.0-1.0) mg/dL AST 23 23 (0-37) U/l ALT 16 14 (0-40) U/l Alkaline Phosphatase 66 61 (39-117) U/L Total Protein 7.2 6.6 (5.9-8.4) gm/dL Albumin 3.9 3.4 (3.2-5.2) gm/dL All other labs normal. Assessment and Plan (1) Cellulitis of toe of left foot Status: Acute (2) Cellulitis and abscess of toe of right foot Assessment: Cellulitis Right leg and ?? abscess LEFT first toe IPJ. Plan: Continue current treatment . Possible debridement at bedside and tissue samples for c/s Status: Acute Comment: Responding to IV Zosyn ansd Vancomycin
[2018-03-30] MEDS: MUPIROCIN OINT 2% 22GM TOPICAL SCH (19:26)
[2018-03-30] MEDS: ATORVASTATIN 20 MG TABLET PO SCH (20:23)
[2018-03-30] MEDS: FAMOTIDINE 20 MG TABLET PO SCH (20:23)
[2018-03-30] MEDS: TAMSULOSIN 0.4 MG CAPSULE PO SCH (20:23)
[2018-03-30] MEDS: PATIENTS OWN MEDICATION 1 DOSE MISCELL INH SCH (20:28)
[2018-03-30] MEDS: IPRATROPIUM/ALBUTEROL 3 ML AMPUL.NEB NEB PRN (21:18)
[2018-03-31] MEDS: METHADONE 5 MG TABLET PO SCH ×6 (00:17→21:13)
[2018-03-31] MEDS: 0.9 % SODIUM CHLORIDE 10 ML SYRINGE IV SCH ×5 (00:46→21:24)
[2018-03-31] MEDS: PIPERACILLIN SODIUM/TAZOBACTAM 2.25 GM in DEXTROSE 5% IN WATER 50 ML IV SCH ×2 (00:49→05:42)
[2018-03-31] MEDS: IPRATROPIUM/ALBUTEROL 3 ML AMPUL.NEB NEB PRN (04:36)
[2018-03-31 04:54] LABS: Basophils # (Auto) 0 K/mcL (0.0-0.3); Basophils % (Auto) 0.4 % (0.0-2.0); Eosinophils # (Auto) 0.5 K/mcL (0.0-0.7); Eosinophils % (Auto) 11.2 % (0.0-7.0); Granulocytes % (Auto) 45.9 % (38.0-78.0); Lymphocytes # (Auto) 1.2 K/mcL (1.5-4.8); Mean Cell Volume 97.9 fL (80.0-100.0); Mean Corpuscular HGB Conc 33.2 g/dL (31.0-36.0); Monocytes # (Auto) 0.5 K/mcL (0.1-0.9); Monocytes % (Auto) 13.5 % (1.0-12.0); Platelet Count 162 K/mcL (140-440); RBC 3.55 M/mcL (4.50-5.90); Red Cell Distribution Width 12.3 % (11.5-14.5)
[2018-03-31 05:45] LABS: Blood Urea Nitrogen 25 mg/dl (8-23)
--- NOTE | 2018-03-31 07:20 | Internal Med Progress Note ---
Medical - PN: Subj Patient information: Note initiated : 03/31/18 at 7:16 am Service Date, if different from initiated Date: [] Patient: Dmitry Luna 68 y/o M admitted on 03/29/18 for left toe pain. Chief Complaint: [] Interval history: Mr. Luna is a 68 year old M Presents to the ED for left toe redness swelling and drainage. He was in [facility] 2 weeks ago for diarrhea and acute kidney injury. Showed improvement with his acute kidney injury after IV fluids and was discharged the next day. Was given prednisone for what was thought to be a gout flare. Diarrhea has improved since that admission as well. He states he has had a wound to the dorsum of his left great toe for several months and that is been draining for at least a month. He believes it started from his shoes causing a pressure wound. He has been treating himself with [id number] topical antimicrobials has not seen her primary care provider for this. Because of the continued and worsening drainage swelling redness he came in. 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 He resides in a recliner most of the day. He will get up 10 times or so throughout the day and walk around his mobile home. But otherwise is sedentary and sleeps in his chair as well because he states he has COPD and he is short of breath when he lays flat. Denies any history of heart failure or CT. He does take Lasix as needed for swelling in his legs. He has oxygen at home for his COPD and uses it occasionally as needed, but not consistently. In the ED he was found to be hypotensive with systolic pressures as low as 65 and were consistently running in the 80s after IV fluid hydration at the time I saw him his last systolic was 91. He also found to have significant purulent drainage from his toe which was cultured and cleaned up in the ED. And his renal function was found to be poor. Unknown what his baseline is but it was 2.9 today creatinine. It was 2.2 on discharge to [facility] and for on admission to [facility]. Last recorded labs in the system are in 2017 which are in the mid ones. He follows with [facility] and is in [facility] providers at the [facility]. He denies any fevers or chills. 03/30 Seems to be feeling better today, no drainage of the wound today. Pressure stable. Wound culture growing staph aureus. CRP decreasing. Does have chronic mild cough and shortness of breath, but otherwise no complaints. 03/31 Feeling better. Renal function and inflammatory markers improving. Seen by Dr. field yesterday. Awaiting final culture sensitivities Review of Systems: denies headache/fever/chills/nausea/vomiting/chest or abdominal pain/cough/dyspnea/diarrhea. Otherwise see above. - Constitutional Vitals: Vital Signs Temp Pulse Resp BP Pulse Ox 98.1 F 72 20 129/70 91 03/31/18 06:55 03/31/18 04:36 03/31/18 06:55 03/31/18 06:55 03/31/18 06:55 Period Temp Pulse Resp BP Sys/Robbins Pulse Ox Last 24 Hr 97.9 F-98.8 F 64-96 10-20 118-146/63-86 91-96 Intake and Output 03/30/18 03/31/18 03/31/18 21:59 05:59 13:59 Intake Total 50 150 Output Total 1000 200 Balance -950 -50 Weight 111.584 kg Intake & Output: Intake & Output 03/30/18 03/31/18 03/31/18 21:59 05:59 13:59 Intake Total 50 150 Output Total 1000 200 Balance -950 -50 Weight 111.584 kg Intake: IV 50 50 Zosyn 2.25 gm In Dextrose 5% in 50 50 Water 50 ml @ 100 mls/hr IV Q6H [facility] Rx#:[id number] Oral 100 Output: Void Amount 1000 200 Other: Meal Dinner Percent of Meal Consumed 100% Feeding Ability Independent Urine Color Bright Yellow Urine Odor Normal Stool Size Large Stool Color Brown Stool Consistency Formed Exam: General: Alert, Awake, No acute Distress Eyes/N/T: EOMI, Head/Neck: neck supple, CV: RRR, No murmurs, Pulm: Clear b/l, no wheezing/rhonchi/rales Abd: soft, nontender, +BS x4 Ext: no clubbing/cyanosis, 1-2+ b/l LE edema improving. Left toe with open nonhealing wound on dorsum dressing in place, Neuro: Alert, no focal deficits, moves all extremities, decreased sensations bilateral lower extremities chronic Skin: warm/dry Medical - PN: Obj Da - Labs CBC & Chem 7: 03/31/18 04:09 03/31/18 04:09 Labs: Abnormal Lab Results 03/31/18 03/31/18 03/30/18 04:09 04:09 03:31 WBC 4.1 L RBC 3.55 L Hgb 11.6 L Hct 34.8 L [place] % (Auto) 13.5 H Eos % (Auto) 11.2 H Lymph # (Auto) 1.2 L Eosinophils % (Manual) ESR Carbon Dioxide Anion Gap 7.0 L BUN 25 H 41 H Creatinine 1.5 H 2.1 H Calcium 8.3 L C-Reactive Protein 6.6 H 03/30/18 03/29/18 03/29/18 03:31 14:05 14:05 WBC 4.2 L RBC 3.45 L Hgb 11.3 L Hct 34.3 L [place] % (Auto) 12.6 H Eos % (Auto) 10.0 H Lymph # (Auto) 1.0 L Eosinophils % (Manual) 8 H ESR Carbon Dioxide Anion Gap BUN Creatinine Calcium C-Reactive Protein 8.6 H 03/29/18 03/29/18 14:05 14:05 WBC RBC 3.52 L Hgb 11.5 L Hct 34.5 L [place] % (Auto) Eos % (Auto) 7.8 H Lymph # (Auto) 1.1 L Eosinophils % (Manual) ESR 47 H Carbon Dioxide 31 H Anion Gap BUN 52 H Creatinine 2.9 H Calcium C-Reactive Protein Meds: Medications Acetaminophen (Tylenol) 650 mg PO TID PRN PRN Reason: Pain Albuterol Sulfate (Ventolin) 1 puff INH Q4HP PRN PRN Reason: Shortness Of Breath Albuterol/Ipratropium (Duoneb) 3 ml NEB Q4HP PRN PRN Reason: Shortness Of Breath Last Admin: 03/31/18 04:36 Dose: 3 ml Documented by: Albuterol/Ipratropium (Combivent) 1 puff INH QID BHAKTI Last Admin: 03/30/18 20:34 Dose: Not Given Documented by: Allopurinol (Zylopriim) 300 mg PO QAM BHAKTI Atorvastatin Calcium (Lipitor) 20 mg PO HS [facility] Last Admin: 03/30/18 20:23 Dose: 20 mg Documented by: Clopidogrel Bisulfate (Plavix) 75 mg PO QDAY [facility] Docusate Sodium (Colace) 100 mg PO BID [facility] Last Admin: 03/30/18 20:23 Dose: 100 mg Documented by: Famotidine (Pepcid) 20 mg PO HS [facility] Last Admin: 03/30/18 20:23 Dose: 20 mg Documented by: Guaifenesin (Mucinex) 600 mg PO BIDP PRN PRN Reason: Congestion Heparin Sodium (Porcine) (Heparin) 5,000 unit SQ Q12 [facility] Last Admin: 03/30/18 20:24 Dose: 5,000 unit Documented by: Potassium Chloride 40 meq/ (Dextrose) 520 mls @ 130 mls/hr IV ONCE PRN PRN Reason: Potassium < 3 Magnesium Sulfate (Magnesium Sulfate) 2 gm in 50 mls @ 50 mls/hr IV ONCE PRN PRN Reason: Magnesium </= 1.6 Piperacillin Sod/Tazobactam (Sod 2.25 gm/ Dextrose) 50 mls @ 100 mls/hr IV Q6H [facility] Last Admin: 03/31/18 05:42 Dose: 100 mls/hr Documented by: Vancomycin HCl 1,500 mg/ (Sodium Chloride) 500 mls @ 333.3 mls/hr IV Q24H [facility] Levothyroxine Sodium (Synthroid) 150 mcg PO QAMAC [facility] Methadone HCl (Dolophine) 10 mg PO Q4H [facility] Last Admin: 03/31/18 03:59 Dose: 10 mg Documented by: Mupirocin (Bactroban Oint 2%) 0 dose TOPICAL BID [facility] Last Admin: 03/30/18 19:26 Dose: 1 dose Documented by: Ondansetron HCl (Zofran) 4 mg IV Q4HP PRN PRN Reason: Nausea And Vomiting Patient Own Medication () 1 dose INH BID [facility] Last Admin: 03/30/18 20:28 Dose: Not Given Documented by: Polyethylene Glycol (Miralax) 17 gm PO DAILYP PRN PRN Reason: Constipation Potassium Chloride (Kdur) 40 meq PO ONCE PRN PRN Reason: Potssium is 3-3.5 Potassium Chloride (Kdur) 40 meq PO ONCE PRN PRN Reason: Potassium < 3 Senna (Senokot) 2 tab PO HSP PRN PRN Reason: Constipation Sodium Chloride (Saline Flush) 10 ml IV Q8 [facility] Last Admin: 03/31/18 05:43 Dose: 10 ml Documented by: Tamsulosin HCl (Flomax) 0.8 mg PO QPM [facility] Last Admin: 03/30/18 20:23 Dose: 0.8 mg Documented by: Vancomycin HCl (Vancomycin Per Pharmacy) 1 order IV UD [facility] Medical - PN: A/P - Time Spent With Patient Total time spent is greater than 50% in coordination of care (as documented) at patient's floor/unit and/or counseling patient: - Narrative A/P Narrative: A: *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(): -1.5<2.1<2.9 *Hypotension: likely 2/2 intravascular volume depletion and medications -resolved with IVF's *Left great toe nonhealing wound with infection: -ESR 47 & crp 8 on admit, CRP improved -WC growing Staph aureus (MRSA screen +) -arterial u/l LE's no sig stenosis *PVD with b/l LE grafting 15yrs ago with subsequent peripheral neuropathy and chronic pain -is on ASA/Plavix/statin *Chronic pain: as above, on methadone *Hypothyroid: *HTN: on lisinopril *Peripheral edema: On prn Lasix *Anxiety: *GERD *COPD(prn home O2): * P: -Zosyn/vanco, pending final WC -trend CRP -Wound care consult, -cont asa/plavix/statin -hold lisinopril and lasix -pt/ot -ppx: heparin/pepcid Medical - PN: Qual - VTE Deep Vein Thrombosis/Pulmonary Embolism Present on Admission: No
[2018-03-31] MEDS: LEVOTHYROXINE 150 MCG TABLET PO SCH (08:10)
[2018-03-31] MEDS: DOCUSATE SODIUM 100 MG CAPSULE PO SCH ×2 (09:47→21:12)
[2018-03-31] MEDS: HEPARIN 5,000 UNIT/ML VIAL SQ SCH ×2 (09:47→21:14)
[2018-03-31] MEDS: CLOPIDOGREL 75 MG TABLET PO SCH (09:48)
[2018-03-31] MEDS: ALLOPURINOL 300 MG TABLET PO SCH (09:48)
[2018-03-31] MEDS: MUPIROCIN OINT 2% 22GM TOPICAL SCH ×2 (09:49→21:15)
[2018-03-31] MEDS: IPRATROPIUM/ALBUTEROL SULFATE 1 PUFF INHALER INH SCH ×5 (09:50→21:35)
[2018-03-31] MEDS: PATIENTS OWN MEDICATION 1 DOSE MISCELL INH SCH ×2 (09:51→21:35)
[2018-03-31] MEDS ORDERED: VANCOMYCIN 1,500 MG in 0.9 % SODIUM CHLORIDE 500 ML IV SCH (10:00)
--- NOTE | 2018-03-31 10:16 | Discharge Summary ---
Medical - DS: Prov Patient information: Note initiated : 03/31/18 at 10:13 am Service Date, if different from initiated Date: [] Patient: Dmitry Luna 68 y/o M admitted on 03/29/18 for left toe pain. Chief Complaint: [] Date of admission: 03/29/18 18:36 Discharge date: 04/01/18 Consults: 03/29/18 16:08 Consult to Physician [CONS] Stat Comment: Consulting Provider: Jasbir Flynn Reason For Exam: Physician to Consult 03/29/18 18:38 Consult to Physician [CONS] Routine Comment: nonhealing left toe wound Consulting Provider: Newton Mead Reason For Exam: Physician to Consult Medical - DS: Meds - Discharge Medications Prescriptions: Linezolid [Zyvox] 600 mg PO Q12 #14 tab Active and Home Medications: Home Medications acetaminophen 325 mg tablet 650 mg PO TID PRN tab 12/21/16 [History Confirmed 03/29/18 Last Taken Unknown] albuterol sulfate HFA 90 mcg/actuation aerosol inhaler 2 puff INHALATION QID g 12/21/16 [History Confirmed 03/29/18 Last Taken Unknown] allopurinol 300 mg tablet 300 mg PO QAM tab 12/21/16 [History Confirmed 03/29/18 Last Taken Unknown] aspirin 325 mg tablet 325 mg PO TID 12/21/16 [History Confirmed 03/29/18 Last Taken Unknown] atorvastatin 40 mg tablet 20 mg PO QHS tab 12/21/16 [History Confirmed 03/29/18 Last Taken Unknown] cholecalciferol (vitamin D3) 1,000 unit tablet 2,000 unit PO QAM tab 12/21/16 [History Confirmed 03/29/18 Last Taken Unknown] ipratropium 20 mcg-albuterol 100 mcg/actuation mist for inhalation 1 puff INHALATION QID 12/21/16 [History Confirmed 03/29/18 Last Taken Unknown] levothyroxine 175 mcg tablet 150 mcg PO QAM tab 12/21/16 [History Confirmed 03/29/18 Last Taken Unknown] lisinopril 10 mg tablet 20 mg PO BID tab 12/21/16 [History Confirmed 03/29/18 Last Taken Unknown] magnesium oxide 420 mg tablet 420 mg PO BID tab 12/21/16 [History Confirmed 03/29/18 Last Taken Unknown] methadone 10 mg tablet 10 mg PO Q4H tab 12/21/16 [History Confirmed 03/29/18 Last Taken Unknown] mometasone 1 puff INHALATION BID 12/21/16 [History Confirmed 03/29/18 Last Taken Unknown] multivitamin with minerals capsule 1 cap PO QDAY 12/21/16 [History Confirmed 03/29/18 Last Taken Unknown] omeprazole 20 mg capsule,delayed release 20 mg PO QAM cap 12/21/16 [History Confirmed 03/29/18 Last Taken Unknown] tamsulosin 0.4 mg capsule 0.8 mg PO QPM cap 12/21/16 [History Confirmed 03/29/18 Last Taken Unknown] Clopidogrel Bisulfate [Plavix] 75 mg PO QDAY 03/29/18 [History Confirmed 03/29/18 Last Taken Unknown] Docusate Sodium [Colace] 100 mg PO QID 03/29/18 [History Confirmed 03/29/18 Last Taken Unknown] Home Medications acetaminophen 325 mg tablet 650 mg PO TID PRN tab 12/21/16 [History Confirmed 03/29/18 Last Taken Unknown] albuterol sulfate HFA 90 mcg/actuation aerosol inhaler 2 puff INHALATION QID g 12/21/16 [History Confirmed 03/29/18 Last Taken Unknown] allopurinol 300 mg tablet 300 mg PO QAM tab 12/21/16 [History Confirmed 03/29/18 Last Taken Unknown] aspirin 325 mg tablet 325 mg PO TID 12/21/16 [History Confirmed 03/29/18 Last Taken Unknown] atorvastatin 40 mg tablet 20 mg PO QHS tab 12/21/16 [History Confirmed 03/29/18 Last Taken Unknown] cholecalciferol (vitamin D3) 1,000 unit tablet 2,000 unit PO QAM tab 12/21/16 [History Confirmed 03/29/18 Last Taken Unknown] ipratropium 20 mcg-albuterol 100 mcg/actuation mist for inhalation 1 puff INH ALATION QID 12/21/16 [History Confirmed 03/29/18 Last Taken Unknown] levothyroxine 175 mcg tablet 150 mcg PO QAM tab 12/21/16 [History Confirmed 03/29/18 Last Taken Unknown] lisinopril 10 mg tablet 20 mg PO BID tab 12/21/16 [History Confirmed 03/29/18 Last Taken Unknown] magnesium oxide 420 mg tablet 420 mg PO BID tab 12/21/16 [History Confirmed 03/29/18 Last Taken Unknown] methadone 10 mg tablet 20 mg PO TID tab 12/21/16 [History Confirmed 03/31/18 Last Taken Unknown] mometasone 1 puff INHALATION BID 12/21/16 [History Confirmed 03/29/18 Last Taken Unknown] multivitamin with minerals capsule 1 cap PO QDAY 12/21/16 [History Confirmed 03/29/18 Last Taken Unknown] omeprazole 20 mg capsule,delayed release 20 mg PO QAM cap 12/21/16 [History Confirmed 03/29/18 Last Taken Unknown] tamsulosin 0.4 mg capsule 0.8 mg PO QPM cap 12/21/16 [History Confirmed 03/29/18 Last Taken Unknown] Clopidogrel Bisulfate [Plavix] 75 mg PO QDAY 03/29/18 [History Confirmed 03/29/18 Last Taken Unknown] Docusate Sodium [Colace] 100 mg PO QID 03/29/18 [History Confirmed 03/29/18 Last Taken Unknown] Linezolid [Zyvox] 600 mg PO Q12 #14 tab 03/31/18 [Rx Last Taken Unknown] Medical - DS: Hosp Hospital course: Mr. Luna is a 68 year old M Mr. Luna is a 68 year old M Presents to the ED for left toe redness swelling and drainage. He was in [facility] 2 weeks ago for diarrhea and acute kidney injury. Showed improvement with his acute kidney injury after IV fluids and was discharged the next day. Was given prednisone for what was thought to be a gout flare. Diarrhea has improved since that admission as well. He states he has had a wound to the dorsum of his left great toe for several months and that is been draining for at least a month. He believes it started from his shoes causing a pressure wound. He has been treating himself with [id number] topical antimicrobials has not seen her primary care provider for this. Because of the continued and worsening drainage swelling redness he came in. 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 He resides in a recliner most of the day. He will get up 10 times or so throughout the day and walk around his mobile home. But otherwise is sedentary and sleeps in his chair as well because he states he has COPD and he is short of breath when he lays flat. Denies any history of heart failure or [place]. He does take Lasix as needed for swelling in his legs. He has oxygen at home for his COPD and uses it occasionally as needed, but not consistently. In the ED he was found to be hypotensive with systolic pressures as low as 65 and were consistently running in the 80s after IV fluid hydration at the time I saw him his last systolic was 91. He also found to have significant purulent drainage from his toe which was cultured and cleaned up in the ED. And his renal function was found to be poor. Unknown what his baseline is but it was 2.9 today creatinine. It was 2.2 on discharge to [facility] and for on admission to [facility]. Last recorded labs in the system are in 2017 which are in the mid ones. [facility] follows [facility] and is in [facility] providers at [facility]. He denies any fevers or chills. 03/30 Seems to be feeling better today, no drainage of the wound today. Pressure stable. Wound culture growing staph aureus. CRP decreasing. Does have chronic mild cough and shortness of breath, but otherwise no complaints. 03/31 Feeling better. Renal function and inflammatory markers improving. Seen by Dr. slater yesterday. Awaiting final culture sensitivities 04/01 Doing well today. No overnight issues. No new complaints. Culture grew back MRSA. Started on Zyvox. Stable for discharge Discharge diagnosis: Left great toe nonhealing wound infection with cellulitis Secondary discharge diagnosis: Hypotension from medications and volume depletion acute kidney injury on chronic kidney disease stage III-IV peripheral vascular disease with previous grafting chronic pain hypothyroidism hypertension peripheral edema anxiety GERD COPD - Time Spent with Patient Total time spent providing and/or coordinating discharge services: Greater than 30 minutes Medical - DS: Exam - Constitutional Vitals: Vital Signs Temp Pulse Pulse Resp BP BP Pulse Ox 03/31/18 06:55 98.1 F 20 129/70 91 03/31/18 04:36 72 19 03/31/18 04:00 97.9 F 66 20 121/69 91 03/31/18 00:00 98.7 F 72 18 118/63 92 03/30/18 21:18 70 20 03/30/18 20:15 98.1 F 70 20 126/67 93 03/30/18 13:21 12 03/30/18 13:00 98.4 F 96 H 10 L 146/67 96 03/30/18 12:17 10 L 03/30/18 12:00 98.8 F 10 L 132/82 03/30/18 11:59 10 L 03/30/18 11:00 18 129/72 Intake and Output 03/30/18 03/31/18 03/31/18 21:59 05:59 13:59 Intake Total 50 150 120 Output Total 1000 200 Balance -950 -50 120 Intake: IV 50 50 Zosyn 2.25 gm In Dextrose 5% in 50 50 Water 50 ml @ 100 mls/hr IV Q6H [facility] Rx#:[id number] Oral 100 120 Output: Void Amount 1000 200 Other: Meal Dinner Breakfast Percent of Meal Consumed 100% 100% Feeding Ability Independent Urine Color Bright Yellow Urine Odor Normal Stool Size Large Stool Color Brown Stool Consistency Formed Weight 111.584 kg Medical - DS: Data Labs on day of discharge: Labs from last 24 hours 03/31/18 03/31/18 03/31/18 04:09 04:09 04:09 WBC 4.1 L RBC 3.55 L Hgb 11.6 L Hct 34.8 L MCV 97.9 MCH 32.5 MCHC 33.2 RDW 12.3 Plt Count 162 MPV 9.0 Gran % 45.9 Lymph % (Auto) 29.0 [place] % (Auto) 13.5 H Eos % (Auto) 11.2 H Baso % (Auto) 0.4 Gran # 1.9 Lymph # (Auto) 1.2 L [place] # (Auto) 0.5 Eos # (Auto) 0.5 Baso # (Auto) 0 Sodium 137 Potassium 5.0 Chloride 102 Carbon Dioxide 27 Anion Gap 8.0 BUN 25 H Creatinine 1.5 H GFR Calculation 48 Glucose 84 Calcium 9.0 C-Reactive Protein 4.0 H Preliminary micro results at discharge 03/29/18 13:45 Wound Culture - Preliminary Foot - Left Staphylococcus aureus Medical - DS: A/P - Patient/Caregiver Discharge Instructions Activity: increase activity as tolerated Diet: Cardiac Prescriptions: Linezolid [Zyvox] 600 mg PO Q12 #14 tab - Follow up Plan Follow up with: Newton Mead MD [Physician] - 04/07/18 10:00 am Disposition: Home, Self-Care Prognosis: Fair Rehab Potential: Fair Overall status at discharge: patient is progressing back to baseline Medical - DS: Qual - VTE Deep Vein Thrombosis/Pulmonary Embolism Present on Admission: No
[2018-03-31] MEDS: PIPERACILLIN SODIUM/TAZOBACTAM 3.375 GM in DEXTROSE 5% IN WATER 50 ML IV SCH ×3 (12:34→23:35)
--- NOTE | 2018-03-31 15:19 | General Surgery Progress Note ---
Subjective Patient reports: other (Progressing well. Transferred from ICU to Med Surg floor. Ambulating freeely. C/O drainage from Right great toe wound dorsal aspect of IPJ. ) Narrative: Note initiated : 03/31/18 at 3:16 pm Service Date, if different from initiated Date: [] Patient: Dmitry Luna 68 y/o M admitted on 03/29/18 for left toe pain. Chief Complaint: [] Objective Temp Pulse Resp BP Pulse Ox 97.8 F 72 20 118/68 92 03/31/18 11:14 03/31/18 04:36 03/31/18 11:14 03/31/18 11:14 03/31/18 11:14 - Additional Data Intake & Output - Last 24 hours: Intake & Output 03/29/18 03/30/18 03/31/18 04/01/18 05:59 05:59 05:59 05:59 Intake Total 2600 3023 670 Output Total 1025 3425 Balance 1575 -402 670 Weight 240 lb 246 lb 03/31/18 15:17 AVSS. No change DAISY. L/E: Significant improvement in cellulitis of left foot and leg. Edema Right leg has started to resolve. Eschar dorsal surface of left FIRST toe IPJ with fluctuance. 04/02/18 13:44 - Labs 03/31/18 04:09 03/31/18 04:09 Diabetes panel 03/31/18 Range/Units 04:09 Sodium 137 (133-145) mmol/L Potassium 5.0 (3.3-5.1) mmol/L Chloride 102 (96-108) mmol/L Carbon Dioxide 27 (22-30) mmol/L BUN 25 H (8-23) mg/dl Creatinine 1.5 H (0.7-1.2) mg/dl Glucose 84 (70-105) mg/dL Calcium 9.0 (8.6-10.4) mg/dl Calcium panel 03/31/18 Range/Units 04:09 Calcium 9.0 (8.6-10.4) mg/dl Pituitary panel 03/31/18 Range/Units 04:09 Sodium 137 (133-145) mmol/L Potassium 5.0 (3.3-5.1) mmol/L Chloride 102 (96-108) mmol/L Carbon Dioxide 27 (22-30) mmol/L BUN 25 H (8-23) mg/dl Creatinine 1.5 H (0.7-1.2) mg/dl Glucose 84 (70-105) mg/dL Calcium 9.0 (8.6-10.4) mg/dl Adrenal panel 03/31/18 Range/Units 04:09 Sodium 137 (133-145) mmol/L Potassium 5.0 (3.3-5.1) mmol/L Chloride 102 (96-108) mmol/L Carbon Dioxide 27 (22-30) mmol/L BUN 25 H (8-23) mg/dl Creatinine 1.5 H (0.7-1.2) mg/dl Glucose 84 (70-105) mg/dL Calcium 9.0 (8.6-10.4) mg/dl Assessment and Plan (1) Cellulitis of toe of left foot Status: Acute (2) Cellulitis and abscess of toe of right foot Status: Acute - Narrative A/P Narrative: Assessment: Satisfactory progress and resolution of cellulitis. Abscess dorsal surface of left first toe IPJ Plan: Debridement at bedside and tissue for c/s. - Time Spent With Patient Total time spent is greater than 50% in coordination of care (as documented) at patient's floor/unit and/or counseling patient: 25 - 35 minutes
--- NOTE | 2018-03-31 15:44 | General Surgery Procedure Note ---
Date of procedure: Note initiated : 03/31/18 at 3:42 pm Service Date, if different from initiated Date: [] Pre-op diagnosis: Abscess dorsal aspect of RIGHT first toe IPJ Post-op diagnosis: same Procedure: Excisional debridement at bedside. Findings: 1 x 0.5 x 0.3 CM abscess involving skin, sub cutaneous synovial tissue. Tissue for culture and sensitivity. Anesthesia: none Surgeon: Newton Mead Estimated blood loss: 1 Pathology: other Condition: stable Disposition: floor (Procedure well tolerated.)
--- NOTE | 2018-03-31 16:14 | Operative Note ---
DATE OF OPERATION: 03/31/2018 PREOPERATIVE DIAGNOSIS: Abscess of skin and subcutaneous tissue synovial, dorsal aspect right first toe interphalangeal joint. POSTOPERATIVE DIAGNOSIS: Abscess of skin and subcutaneous tissue synovial, dorsal aspect right first toe interphalangeal joint. OPERATION: Excision and debridement at bedside. SURGEON: Newton Mead M.D. ANESTHESIA: None. FINDINGS: 1 x 0.5 x 0.3 cm abscess involving the skin and subcutaneous synovial tissue. Tissue obtained for culture and sensitivity. PROCEDURE: After informing the patient about the intended surgical debridement at the bedside, this was carried out with the help of nursing aide. The area was widely cleaned, prepped and draped in a standard fashion. Using a pickup and scissors, the nonviable skin was excised. The subcutaneous tissue and synovial tissue was then carefully debrided selectively with sharp dissection. Deep tissue specimen obtained for culture and sensitivity. Hemostasis achieved with pressure. Bacitracin ointment, dry gauze and absorbent dressings were applied and procedure terminated. Operation was well tolerated. VD:john Job ID: [id number] Doc ID: [id number] Newton Mead MD
[2018-03-31] MEDS: ATORVASTATIN 20 MG TABLET PO SCH (21:13)
[2018-03-31] MEDS: TAMSULOSIN 0.4 MG CAPSULE PO SCH (21:14)
[2018-03-31] MEDS: FAMOTIDINE 20 MG TABLET PO SCH (21:14)
[2018-04-01] MEDS: PIPERACILLIN SODIUM/TAZOBACTAM 3.375 GM in DEXTROSE 5% IN WATER 50 ML IV SCH (05:06)
[2018-04-01] MEDS: 0.9 % SODIUM CHLORIDE 10 ML SYRINGE IV SCH (05:11)
--- NOTE | 2018-04-01 07:41 | Internal Med Progress Note ---
Medical - PN: Subj Patient information: Note initiated : 04/01/18 at 7:39 am Service Date, if different from initiated Date: [] Patient: Dmitry Luna 68 y/o M admitted on 03/29/18 for left toe pain. Chief Complaint: [] Interval history: Mr. Luna is a 68 year old M Presents to the ED for left toe redness swelling and drainage. He was in [facility] 2 weeks ago for diarrhea and acute kidney injury. Showed improvement with his acute kidney injury after IV fluids and was discharged the next day. Was given prednisone for what was thought to be a gout flare. Diarrhea has improved since that admission as well. He states he has had a wound to the dorsum of his left great toe for several months and that is been draining for at least a month. He believes it started from his shoes causing a pressure wound. He has been treating himself with [id number] topical antimicrobials has not seen her primary care provider for this. Because of the continued and worsening drainage swelling redness he came in. 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 He resides in a recliner most of the day. He will get up 10 times or so throughout the day and walk around his mobile home. But otherwise is sedentary and sleeps in his chair as well because he states he has COPD and he is short of breath when he lays flat. Denies any history of heart failure or [place]. He does take Lasix as needed for swelling in his legs. He has oxygen at home for his COPD and uses it occasionally as needed, but not consistently. In the ED he was found to be hypotensive with systolic pressures as low as 65 and were consistently running in the 80s after IV fluid hydration at the time I saw him his last systolic was 91. He also found to have significant purulent drainage from his toe which was cultured and cleaned up in the ED. And his renal function was found to be poor. Unknown what his baseline is but it was 2.9 today creatinine. It was 2.2 on discharge to [facility] and for on admission to [facility]. Last recorded labs in the system are in 2017 which are in the mid ones. He follows with the [place] and is in between providers at the [place]. He denies any fevers or chills. 03/30 Seems to be feeling better today, no drainage of the wound today. Pressure stable. Wound culture growing staph aureus. CRP decreasing. Does have chronic mild cough and shortness of breath, but otherwise no complaints. 03/31 Feeling better. Renal function and inflammatory markers improving. Seen by Dr. field yesterday. Awaiting final culture sensitivities 04/01 Doing well today. No overnight issues. No new complaints. Review of Systems: denies headache/fever/chills/nausea/vomiting/chest or abdominal pain/cough/dyspnea/diarrhea. Otherwise see above. - Constitutional Vitals: Vital Signs Temp Pulse Resp BP Pulse Ox 97.5 F 69 12 130/60 90 04/01/18 03:57 04/01/18 03:57 04/01/18 03:57 04/01/18 03:57 04/01/18 03:57 Period Temp Pulse Resp BP Sys/Robbins Pulse Ox Last 24 Hr 97.5 F-98.6 F 69-72 12-20 118-140/60-90 90-95 Intake and Output 03/31/18 04/01/18 04/01/18 21:59 05:59 13:59 Intake Total 630 740 Output Total 1050 1300 Balance -420 -560 Weight 111.584 kg Intake & Output: Intake & Output 03/31/18 04/01/18 04/01/18 21:59 05:59 13:59 Intake Total 630 740 Output Total 1050 1300 Balance -420 -560 Weight 111.584 kg Intake: IV 50 50 Zosyn 3.375 gm In Dextrose 5% 50 50 in Water 50 ml @ 100 mls/hr IV Q6H [facility] Rx#:[id number] Oral 580 690 Output: Void Amount 1050 1300 Other: Meal Dinner Percent of Meal Consumed 100% Urine Appearance Clear Clear Urine Color Pale Pale # Voids 1 Exam: General: Alert, Awake, No acute Distress Eyes/N/T: EOMI, Head/Neck: neck supple, CV: RRR, No murmurs, Pulm: Clear b/l, no wheezing/rhonchi/rales Abd: soft, nontender, +BS x4 Ext: no clubbing/cyanosis, 1-2+ b/l LE edema improving. Left toe with dressings intact neuro: Alert, no focal deficits, moves all extremities, decreased sensations bilateral lower extremities chronic Skin: warm/dry Medical - PN: Obj Da - Labs CBC & Chem 7: 03/31/18 04:09 03/31/18 04:09 Labs: Abnormal Lab Results 03/31/18 03/31/18 03/31/18 04:09 04:09 04:09 WBC 4.1 L RBC 3.55 L Hgb 11.6 L Hct 34.8 L [place] % (Auto) 13.5 H Eos % (Auto) 11.2 H Lymph # (Auto) 1.2 L Eosinophils % (Manual) ESR Carbon Dioxide Anion Gap BUN 25 H Creatinine 1.5 H Calcium C-Reactive Protein 4.0 H 03/30/18 03/30/18 03/29/18 03:31 03:31 14:05 WBC 4.2 L RBC 3.45 L Hgb 11.3 L Hct 34.3 L [place] % (Auto) 12.6 H Eos % (Auto) 10.0 H Lymph # (Auto) 1.0 L Eosinophils % (Manual) ESR Carbon Dioxide Anion Gap 7.0 L BUN 41 H Creatinine 2.1 H Calcium 8.3 L C-Reactive Protein 6.6 H 8.6 H 03/29/18 03/29/18 03/29/18 14:05 14:05 14:05 WBC RBC 3.52 L Hgb 11.5 L Hct 34.5 L [place] % (Auto) Eos % (Auto) 7.8 H Lymph # (Auto) 1.1 L Eosinophils % (Manual) 8 H ESR 47 H Carbon Dioxide 31 H Anion Gap BUN 52 H Creatinine 2.9 H Calcium C-Reactive Protein Meds: Medications Acetaminophen (Tylenol) 650 mg PO TID PRN PRN Reason: Pain Albuterol Sulfate (Ventolin) 1 puff INH Q4HP PRN PRN Reason: Shortness Of Breath Albuterol/Ipratropium (Duoneb) 3 ml NEB Q4HP PRN PRN Reason: Shortness Of Breath Last Admin: 03/31/18 04:36 Dose: 3 ml Documented by: Albuterol/Ipratropium (Combivent) 1 puff INH QID [facility] Last Admin: 03/31/18 21:35 Dose: 1 puff Documented by: Allopurinol (Zylopriim) 300 mg PO QAM [facility] Last Admin: 03/31/18 09:48 Dose: 300 mg Documented by: Atorvastatin Calcium (Lipitor) 20 mg PO HS [facility] Last Admin: 03/31/18 21:13 Dose: 20 mg Documented by: Clopidogrel Bisulfate (Plavix) 75 mg PO QDAY [facility] Last Admin: 03/31/18 09:48 Dose: 75 mg Documented by: Docusate Sodium (Colace) 100 mg PO BID [facility] Last Admin: 03/31/18 21:12 Dose: 100 mg Documented by: Famotidine (Pepcid) 20 mg PO HS [facility] Last Admin: 03/31/18 21:14 Dose: 20 mg Documented by: Guaifenesin (Mucinex) 600 mg PO BIDP PRN PRN Reason: Congestion Heparin Sodium (Porcine) (Heparin) 5,000 unit SQ Q12 [facility] Last Admin: 03/31/18 21:14 Dose: 5,000 unit Documented by: Potassium Chloride 40 meq/ (Dextrose) 520 mls @ 130 mls/hr IV ONCE PRN PRN Reason: Potassium < 3 Magnesium Sulfate (Magnesium Sulfate) 2 gm in 50 mls @ 50 mls/hr IV ONCE PRN PRN Reason: Magnesium </= 1.6 Vancomycin HCl 1,500 mg/ (Sodium Chloride) 500 mls @ 333.3 mls/hr IV Q24H [facility] Last Infusion: 03/31/18 12:49 Dose: Infused Documented by: Piperacillin Sod/Tazobactam (Sod 3.375 gm/ Dextrose) 50 mls @ 100 mls/hr IV Q6H [facility] Last Admin: 04/01/18 05:06 Dose: 100 mls/hr Documented by: Levothyroxine Sodium (Synthroid) 150 mcg PO QAMAC [facility] Last Admin: 03/31/18 08:10 Dose: 150 mcg Documented by: Methadone HCl (Dolophine) 10 mg PO QID [facility] Last Admin: 03/31/18 21:13 Dose: 10 mg Documented by: Mupirocin (Bactroban Oint 2%) 0 dose TOPICAL BID [facility] Last Admin: 03/31/18 21:15 Dose: 1 dose Documented by: Ondansetron HCl (Zofran) 4 mg IV Q4HP PRN PRN Reason: Nausea And Vomiting Patient Own Medication () 1 dose INH BID [facility] Last Admin: 03/31/18 21:35 Dose: 1 dose Documented by: Polyethylene Glycol (Miralax) 17 gm PO DAILYP PRN PRN Reason: Constipation Potassium Chloride (Kdur) 40 meq PO ONCE PRN PRN Reason: Potssium is 3-3.5 Potassium Chloride (Kdur) 40 meq PO ONCE PRN PRN Reason: Potassium < 3 Senna (Senokot) 2 tab PO HSP PRN PRN Reason: Constipation Sodium Chloride (Saline Flush) 10 ml IV Q8 [facility] Last Admin: 04/01/18 05:11 Dose: 10 ml Documented by: Tamsulosin HCl (Flomax) 0.8 mg PO QPM [facility] Last Admin: 03/31/18 21:14 Dose: 0.8 mg Documented by: Vancomycin HCl (Vancomycin Per Pharmacy) 1 order IV UD [facility] Medical - PN: A/P - Time Spent With Patient Total time spent is greater than 50% in coordination of care (as documented) at patient's floor/unit and/or counseling patient: - Narrative A/P Narrative: A: *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(): -1.5<2.1<2.9 *Hypotension: likely 2/2 intravascular volume depletion and medications -resolved with IVF's *Left great toe nonhealing wound with abscess and surrounding cellulitis: s/p bedside Debridement by wound surgeon (03/31) -ESR 47 & crp 8 on admit, CRP improved -WC growing MRSA -arterial u/l LE's no sig stenosis *PVD with b/l LE grafting 15yrs ago with subsequent peripheral neuropathy and chronic pain -is on ASA/Plavix/statin *Chronic pain: as above, on methadone *Hypothyroid: *HTN: on lisinopril *Peripheral edema: On prn Lasix *Anxiety: *GERD *COPD(prn home O2): * P: -d/c Zosyn/vanco and start zyvox -Wound care following, -cont asa/plavix/statin -restart lisinopril, hold lasix -pt/ot -ppx: heparin/pepcid Medical - PN: Qual - VTE Deep Vein Thrombosis/Pulmonary Embolism Present on Admission: No
[2018-04-01] MEDS ORDERED: LINEZOLID 600 MG TABLET PO SCH (09:00)
[2018-04-01] MEDS ORDERED: LISINOPRIL 20 MG TABLET PO SCH (09:00)
[2018-04-01] MEDS: LEVOTHYROXINE 150 MCG TABLET PO SCH (09:09)
[2018-04-01] MEDS: METHADONE 5 MG TABLET PO SCH (09:09)
[2018-04-01] MEDS: CLOPIDOGREL 75 MG TABLET PO SCH (09:09)
[2018-04-01] MEDS: ALLOPURINOL 300 MG TABLET PO SCH (09:10)
[2018-04-01] MEDS: DOCUSATE SODIUM 100 MG CAPSULE PO SCH (09:10)
[2018-04-01] MEDS: HEPARIN 5,000 UNIT/ML VIAL SQ SCH (09:10)
[2018-04-01] MEDS: PATIENTS OWN MEDICATION 1 DOSE MISCELL INH SCH (09:13)
[2018-04-01] MEDS: IPRATROPIUM/ALBUTEROL SULFATE 1 PUFF INHALER INH SCH (09:14)
[2018-04-01] MEDS: MUPIROCIN OINT 2% 22GM TOPICAL SCH (09:14)
--- NOTE | 2018-04-01 09:27 | General Surgery Progress Note ---
Subjective Narrative: Note initiated : 04/01/18 at 9:25 am Service Date, if different from initiated Date: [] Patient: Dmitry Luna 68 y/o M admitted on 03/29/18 for left toe pain. Chief Complaint: [] Patient seen on rounds with Scarlet HAGEN. Doing well. LEFT foot csssi responding to local wound care. MRSA wound LEFT 1 st toe and Nasal swab. ( Colonized ) Objective Temp Pulse Resp BP Pulse Ox 97.2 F 67 12 138/78 93 04/01/18 08:00 04/01/18 08:00 04/01/18 08:00 04/01/18 08:00 04/01/18 08:00 AVSS. No changes DAISY. L/E. Resolving inflammatory changes LEFT foot and 1 st toe wound. - Additional Data Intake & Output - Last 24 hours: Intake & Output 03/30/18 03/31/18 04/01/18 04/02/18 05:59 05:59 05:59 05:59 Intake Total 2600 3023 2040 Output Total 1025 3425 2350 Balance 1575 -402 -310 Weight 240 lb 246 lb 246 lb - Labs 03/31/18 04:09 03/31/18 04:09 Assessment and Plan (1) Cellulitis of toe of left foot Status: Acute Current Visit: Yes (2) Cellulitis and abscess of toe of right foot Problem details: Responding to IV Zosyn ansd Vancomycin Status: Acute Current Visit: Yes - Time Spent With Patient Total time spent is greater than 50% in coordination of care (as documented) at patient's floor/unit and/or counseling patient: Assessment: CSSSI cMRSA Left foot skin and sub q and wound first toe . Responding to treatment. Discussed with Dr. Flynn, Hospitalist Physician. Plan: OK to discharge home with instructions. Clean with chlorhexidine soap and pat dry. LOCAL wound care and Bactroban ointment to LEFT FIRST toe wound. PO antibiotics per Dr. Flynn. F/u at wound care center ONE week. 15 - 24 minutes
== END 2018-04-01 12:50 | disposition home or self-care (01) | DRG 571 ==
LOC: ED 13:04 → ICU 18:35 → MEDSUR 03-30 18:45
PROVIDERS: ADMIT Internal Medicine; ATTEND Internal Medicine

== ENCOUNTER 2019-09-07 18:45 | Inpatient (IN) ==
[2019-09-07] MEDS ORDERED: VANCOMYCIN 1,000 MG in 0.9 % SODIUM CHLORIDE 250 ML IV ONE (20:00)
[2019-09-07 20:37] LABS: Hematocrit 29.6 % (40.1-51.0); Hemoglobin 9.8 g/dL (13.7-17.5); Mean Cell Volume 98.7 fL (80.0-100.0); Mean Corpuscular HGB Conc 33.1 g/dL (31.0-36.0); Mean Platelet Volume 10.3 fL (7.4-10.4); Platelet Count 398 K/mcL (140-440); Red Cell Distribution Width 12.7 % (11.5-14.5); WBC 11.2 K/mcL (4.50-11.00)
[2019-09-07 20:54] LABS: ALT/SGPT 33 U/l (0-40); AST/SGOT 41 U/l (0-37); Albumin 3.2 gm/dL (3.2-5.2); Albumin/Globulin Ratio 0.6 (1.0-2.3); Alkaline Phosphatase 132 U/L (39-117); Bilirubin,Total 0.2 mg/dL (0.0-1.0); Blood Urea Nitrogen 40 mg/dl (8-23); Calcium 9.3 mg/dl (8.6-10.4); Carbon Dioxide 28 mmol/L (22-30); Chloride 92 mmol/L (96-108); Globulin 5.1 gm/dL (2.2-3.7); Glomerular Filtration Rate 34; Glucose 124 mg/dL (70-105)
[2019-09-07 21:18] LABS: Band Neutrophils % 1 % (0-10); Eosinophils % (Manual) 2 % (0-7); Hypochromasia 1+ (NONE SEEN); Lymphocytes % 14 % (15-49); Monocytes % (Manual) 8 % (1-12); Platelet Estimate NORMAL (NORMAL); RBC Morphology ABNORM (NORMAL); Segmented Neutrophils % 75 % (38-78)
[2019-09-07] MEDS ORDERED: METHADONE 5 MG TABLET PO ONE (21:30)
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
[2019-09-08] MEDS ORDERED: ONDANSETRON 4 MG/2 ML VIAL IV PRN (00:34)
[2019-09-08] MEDS ORDERED: VANCOMYCIN PER PHARMACY IV ONE (00:40)
[2019-09-08] MEDS ORDERED: cefTRIAXone 1 GM in DEXTROSE 5% IN WATER 50 ML IV SCH (00:45)
[2019-09-08] MEDS ORDERED: METHADONE 20 MG PO SCH (00:45)
[2019-09-08] MEDS ORDERED: LORazepam 2 MG/ML VIAL IV PRN (00:47)
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
[2019-09-08] MEDS ORDERED: cefTRIAXone 1 GM VIAL ONE (01:16)
[2019-09-08] MEDS: 0.9 % SODIUM CHLORIDE 1,000 ML IV SCH ×3 (01:35→16:27)
[2019-09-08] MEDS ORDERED: IBUPROFEN 200 MG TABLET PO PRN (03:51)
[2019-09-08] MEDS: 0.9 % SODIUM CHLORIDE 10 ML SYRINGE IV SCH ×3 (04:05→21:11)
--- NOTE | 2019-09-08 04:50 | Ultrasound Report ---
CLINICAL INFORMATION: Diffuse edema and pain COMPARISON: None. FINDINGS: The entire deep venous system including the common femoral, superficial femoral, popliteal and paired trifurcation calf veins are easily compressible and show normal venous blood flow on color and spectral Doppler. No evidence of thrombus IMPRESSION: Negative exam - no evidence of deep vein thrombosis. Interpreted and Authenticated by: Anam Jimenez 09/08/19
[2019-09-08] MEDS: METHADONE 5 MG TABLET PO SCH ×3 (06:16→21:10)
[2019-09-08] MEDS ORDERED: VANCOMYCIN PER PHARMACY IV SCH (06:30)
[2019-09-08 07:02] LABS: Basophils # (Auto) 0.01 K/mcL (0.00-0.30); Basophils % (Auto) 0.1 % (0.0-2.0); Eosinophils # (Auto) 0.17 K/mcL (0.00-0.70); Eosinophils % (Auto) 1.7 % (0.0-7.0); Granulocytes % (Auto) 79.1 % (38.0-78.0); Hemoglobin 9.3 g/dL (13.7-17.5); Lymphocytes # (Auto) 1.22 K/mcL (1.50-4.80); Lymphocytes % (Auto) 12.3 % (15.5-49.0); Mean Cell Volume 97.9 fL (80.0-100.0); Mean Corpuscular HGB Conc 33.2 g/dL (31.0-36.0); Mean Platelet Volume 10.3 fL (7.4-10.4); Monocytes # (Auto) 0.68 K/mcL (0.10-0.90); Monocytes % (Auto) 6.8 % (1.0-12.0); Platelet Count 393 K/mcL (140-440); RBC 2.86 M/mcL (4.63-6.08); Red Cell Distribution Width 12.8 % (11.5-14.5)
[2019-09-08] MEDS: LEVOTHYROXINE SODIUM 112 MCG TABLET PO SCH (07:12)
[2019-09-08] MEDS: OMEPRAZOLE 20 MG CAPSULE PO SCH (07:12)
[2019-09-08 07:42] LABS: ALT/SGPT 30 U/l (0-40); AST/SGOT 38 U/l (0-37); Albumin 2.9 gm/dL (3.2-5.2); Albumin/Globulin Ratio 0.6 (1.0-2.3); Alkaline Phosphatase 120 U/L (39-117); Bilirubin,Total 0.3 mg/dL (0.0-1.0); Blood Urea Nitrogen 39 mg/dl (8-23); Carbon Dioxide 26 mmol/L (22-30); Chloride 90 mmol/L (96-108); Glomerular Filtration Rate 38; Glucose 109 mg/dL (70-105); HDL Cholesterol 37 mg/dl (>40); LDL Cholesterol,Calculated 46 mg/dl (SEE CHART); Non-HDL Cholesterol 65 (LDL TARGET+30); Triglycerides 97 mg/dl (<150)
[2019-09-08] MEDS ORDERED: MULTIVITAMIN WITH MINERALS PO SCH (09:00)
[2019-09-08] MEDS ORDERED: DOCUSATE SODIUM 100 MG CAPSULE PO SCH (09:00)
[2019-09-08] MEDS: HEPARIN 5,000 UNIT/ML VIAL SQ SCH ×2 (10:08→21:07)
[2019-09-08] MEDS: ASPIRIN 81 MG TAB.CHEW CHEWED SCH (10:08)
[2019-09-08] MEDS: DOCUSATE SODIUM 100 MG CAPSULE PO SCH ×2 (10:08→21:08)
[2019-09-08] MEDS: MULTIVIT,THER IRON,CA,FA & MIN 1 TABLET PO SCH ×2 (10:09→21:08)
[2019-09-08] MEDS: VANCOMYCIN 1,500 MG in 0.9 % SODIUM CHLORIDE 500 ML IV SCH ×2 (10:09→21:08)
[2019-09-08] MEDS: CLOPIDOGREL 75 MG TABLET PO SCH (10:09)
[2019-09-08] MEDS: ALLOPURINOL 300 MG TABLET PO SCH (10:10)
[2019-09-08] MEDS: THIAMINE 100 MG TABLET PO SCH ×3 (10:10→21:08)
[2019-09-08] MEDS: VITAMIN D3 1,000 UNIT TABLET PO SCH (10:10)
[2019-09-08] MEDS: VITAMIN B COMPLEX 1 CAPSULE PO SCH ×2 (10:10→21:08)
[2019-09-08] MEDS: ALBUTEROL SULFATE 200 PUFF INHALER INH SCH ×4 (10:13→21:09)
[2019-09-08] MEDS: MOMETASONE INH SCH ×2 (10:13→21:09)
[2019-09-08] MEDS: IPRATROPIUM/ALBUTEROL SULFATE 1 PUFF INHALER INH SCH ×4 (10:18→21:08)
[2019-09-08] MEDS ORDERED: SODIUM CHLORIDE NASAL 1 SPRAY BOTTLE NAS PRN (10:51)
[2019-09-08] MEDS ORDERED: cefTRIAXone 1 GM VIAL IV SCH (15:00)
[2019-09-08] MEDS: SODIUM CHLORIDE NASAL 1 SPRAY BOTTLE NAS PRN ×2 (16:21→21:08)
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
--- NOTE | 2019-09-08 17:58 | Cat Scan Report ---
CLINICAL INFORMATION: Diffuse left lower extremity cellulitis. Evaluate for necrotizing fasciitis COMPARISON: None. TECHNIQUE: 0.625 mm helical slices were obtained from the super acetabular region through the entire lower extremity including the foot and ankle. Following reconstruction, 2.5 in the sagittal, coronal and axial reformatted images were processed and reviewed in bone and soft tissue windows FINDINGS: There is no evidence of osteomyelitis or other focal osseous abnormality. The left hip, patellofemoral and tibiofemoral joints, ankle mortise and all joints of the foot are normal with alignment without arthritic change. The muscle and fascial planes are unremarkable: there is no evidence of necrotizing fasciitis. There is, however, marked diffuse cellulitis confined to the subcutaneous fat. Within the thigh, predominantly involvement is in the medial and posterior soft tissues. In this region, there is a 5.5 cm x 12 cm simple appearing fluid collection in the subcutaneous fat adjacent to the lateral compartment. In the calf, cellulitis predominantly within the anterolateral subcutaneous fat with a 5.5 x 19 cm fluid collection in the anterior subcutaneous fat of the pretibial region. IMPRESSION: 1. No evidence of necrotizing fasciitis. The muscle and fascial planes of the thigh and calf are unremarkable. 2. Moderate cellulitis predominantly in the posterior lateral subcutaneous soft tissues of the thigh and and the anterior lateral subcutaneous soft tissues of the calf. Within the cellulitis, there are two simple appearing fluid collections: 12 x 5.5 cm in the posterior medial soft tissues of the calf and 19 x 5.5 cm in the anterior activity is fat in the pretibial region Interpreted and Authenticated by: Anam Jimenez 09/08/19
--- NOTE | 2019-09-08 18:52 | Ultrasound Report ---
CLINICAL INFORMATION: alcoholism COMPARISON: None. FINDINGS: Liver is mildly enlarged - 19 cm in vertical dimension midclavicular line. Liver is hyperechoic compatible with fatty change or other diffuse hepatocellular process. No focal hepatic lesion. Gallbladder and bile ducts are normal CBD is 6 mm. Both kidneys, and spleen are normal. Aorta and pancreas not visualized. No free fluid IMPRESSION: Mildly enlarged hyperechoic liver compatible with fatty change or other diffuse hepatocellular process. Interpreted and Authenticated by: Anam Jimenez 09/08/19
[2019-09-08] MEDS: PIPERACILLIN SODIUM/TAZOBACTAM 3.375 GM in DEXTROSE 5% IN WATER 50 ML IV SCH ×2 (19:46→23:45)
[2019-09-08] MEDS: ATORVASTATIN 40 MG TABLET PO SCH (21:07)
[2019-09-08] MEDS: TAMSULOSIN 0.4 MG CAPSULE PO SCH (21:07)
[2019-09-09] MEDS: METHOCARBAMOL 750 MG TABLET PO PRN ×2 (00:11→19:59)
[2019-09-09] MEDS: 0.9 % SODIUM CHLORIDE 10 ML SYRINGE IV SCH ×3 (04:12→22:25)
[2019-09-09] MEDS: 0.9 % SODIUM CHLORIDE 1,000 ML IV SCH ×3 (04:12→16:16)
[2019-09-09] MEDS: SODIUM CHLORIDE NASAL 1 SPRAY BOTTLE NAS PRN ×2 (05:52→09:24)
[2019-09-09] MEDS: PIPERACILLIN SODIUM/TAZOBACTAM 3.375 GM in DEXTROSE 5% IN WATER 50 ML IV SCH ×3 (05:52→20:42)
[2019-09-09] MEDS: METHADONE 5 MG TABLET PO SCH ×3 (05:53→21:21)
[2019-09-09 06:50] LABS: Basophils # (Auto) 0.03 K/mcL (0.00-0.30); Basophils % (Auto) 0.4 % (0.0-2.0); Eosinophils # (Auto) 0.28 K/mcL (0.00-0.70); Eosinophils % (Auto) 3.5 % (0.0-7.0); Granulocytes % (Auto) 63.3 % (38.0-78.0); Hematocrit 27.7 % (40.1-51.0); Hemoglobin 8.7 g/dL (13.7-17.5); Lymphocytes # (Auto) 1.86 K/mcL (1.50-4.80); Lymphocytes % (Auto) 23.1 % (15.5-49.0); Mean Cell Volume 104.1 fL (80.0-100.0); Mean Corpuscular HGB Conc 31.4 g/dL (31.0-36.0); Mean Platelet Volume 10.1 fL (7.4-10.4); Monocytes # (Auto) 0.78 K/mcL (0.10-0.90); Monocytes % (Auto) 9.7 % (1.0-12.0); Platelet Count 360 K/mcL (140-440); RBC 2.66 M/mcL (4.63-6.08); WBC 8.1 K/mcL (4.50-11.00)
[2019-09-09 07:14] LABS: ALT/SGPT 45 U/l (0-40); AST/SGOT 64 U/l (0-37); Albumin 2.3 gm/dL (3.2-5.2); Albumin/Globulin Ratio 0.5 (1.0-2.3); Alkaline Phosphatase 102 U/L (39-117); Bilirubin,Total 0.2 mg/dL (0.0-1.0); Blood Urea Nitrogen 28 mg/dl (8-23); Calcium 8.6 mg/dl (8.6-10.4); Carbon Dioxide 24 mmol/L (22-30); Chloride 97 mmol/L (96-108); Glomerular Filtration Rate 47; Glucose 88 mg/dL (70-105)
[2019-09-09] MEDS: THIAMINE 100 MG TABLET PO SCH ×3 (09:23→21:22)
[2019-09-09] MEDS: LEVOTHYROXINE SODIUM 112 MCG TABLET PO SCH (09:23)
[2019-09-09] MEDS: DOCUSATE SODIUM 100 MG CAPSULE PO SCH ×2 (09:23→21:22)
[2019-09-09] MEDS: VITAMIN D3 1,000 UNIT TABLET PO SCH (09:23)
[2019-09-09] MEDS: CLOPIDOGREL 75 MG TABLET PO SCH (09:23)
[2019-09-09] MEDS: ASPIRIN 81 MG TAB.CHEW CHEWED SCH (09:23)
[2019-09-09] MEDS: OMEPRAZOLE 20 MG CAPSULE PO SCH (09:23)
[2019-09-09] MEDS: MULTIVIT,THER IRON,CA,FA & MIN 1 TABLET PO SCH ×2 (09:23→21:22)
[2019-09-09] MEDS: VITAMIN B COMPLEX 1 CAPSULE PO SCH ×2 (09:23→21:22)
[2019-09-09] MEDS: ALLOPURINOL 300 MG TABLET PO SCH (09:23)
[2019-09-09] MEDS: IPRATROPIUM/ALBUTEROL SULFATE 1 PUFF INHALER INH SCH ×4 (09:24→22:44)
[2019-09-09] MEDS: HEPARIN 5,000 UNIT/ML VIAL SQ SCH ×2 (09:30→21:23)
[2019-09-09] MEDS: MOMETASONE INH SCH ×2 (09:30→22:44)
--- NOTE | 2019-09-09 09:44 | Ultrasound Report ---
CLINICAL INFORMATION: Peripheral arterial vascular disease. History of bilateral common femoral and popliteal artery grafts COMPARISON: None. FINDINGS: The infrarenal abdominal aorta and both common iliac arteries are obscured by bowel gas. There is stenoses of approximately 50% of both distal external iliac arteries. Both [place] superficial femoral arteries are occluded. Bilateral common femoral to popliteal artery bypass grafts are widely patent. A 75% stenosis of the right profunda femoral origin is appreciated. The left profunda femoral artery is not visualized and presumably occluded. The right popliteal artery is widely patent. 75% stenoses are seen in the proximal right posterior tibial and distal anterior tibial arteries. Patient refused examination of the left popliteal and trifurcation arteries. IMPRESSION: 1. Abdominal aorta and common iliac arteries obscured by bowel gas. 2. 50% stenosis of both distal external iliac arteries 3. Both [place] superficial femoral arteries are completely occluded. Bilateral common femoral to popliteal bypass are widely patent. 4. 75% stenosis of the right profunda femoris origin. The left profunda femoris artery is not visualized and may be occluded. 5. Right trifurcation arteries: 75% stenosis proximal posterior tibial artery and 75% stenosis distal anterior tibial tibial artery. 6. Patient refused left popliteal and trifurcation artery exam. Suggest: CT abdominal aortogram with run off. If the patient cannot not tolerate iodinated contrast only been a MRI abdominal aortogram with runoff would be adequate substitute exam. Interpreted and Authenticated by: Anam Jimenez 09/09/19
[2019-09-09] MEDS: ALBUTEROL SULFATE 200 PUFF INHALER INH SCH ×4 (09:50→22:44)
--- NOTE | 2019-09-09 09:59 | Internal Med Progress Note ---
SUBJECTIVE Subjective Patient information: Note initiated : 09/09/19 at 9:53 am Service Date, if different from initiated Date: [] Patient: Dmitry Luna 69 y/o M admitted on 09/07/19 for left lower leg swelling. Chief Complaint: History of present illness: Mr. Luna is a 69 year old M with a history of CKD stage 3, hepatitis C, COPD, and high blood pressure who was presented to the ER due to left leg redness and pain. As per patient, patient left leg has been red, warm and painful for 2 weeks. He just came back from a trip 3 days before the the symptoms are started. He cannot exclude the possibility of insect bites. Otherwise patient denies headache, dizziness, chest pain, shortness of breath, nausea, vomiting, fever, chills, abdominal pain or dysuria. Patient denies drinking alcohol but he is a alcohol abuser from his medical chart. In the ER, ultrasound Doppler vein was performed. 09/08-patient on broad-spectrum antibiotics. CT lower extremity shows no evidence of neck fashion however extent cellulitis. Wound care on board. On antibiotic coverage including Zosyn/vancomycin. Cultures pending. White count down from 11.2-8.1. Sodium improved to 133, creatinine down from 2-1.5, mild LFT elevation noted Constitutional Vitals: Vital Signs Temp Pulse Resp BP Pulse Ox 100.3 F H 80 18 144/66 96 09/09/19 06:33 09/09/19 06:33 09/09/19 06:33 09/09/19 06:33 09/09/19 06:33 Period Temp Pulse Resp BP Sys/Robbins Pulse Ox Last 24 Hr 98.7 F-100.7 F 70-89 12-24 128-144/66-85 90-98 Intake and Output 09/08/19 09/09/19 09/09/19 21:59 05:59 13:59 Intake Total 2490 1290 290 Output Total 800 975 325 Balance 1690 315 -35 Weight 101.831 kg alert and oriented Anxious Nonlabored breathing Left leg significant redness extending up to the groin/medial thigh with purulent discharge back of calf Obese Intake & Output: Intake & Output 09/08/19 09/09/19 09/09/19 21:59 05:59 13:59 Intake Total 2490 1290 290 Output Total 800 975 325 Balance 1690 315 -35 Weight 101.831 kg Intake: IV 1050 1050 50 Sodium Chloride 0.9% 1,000 ml @ 1000 1000 75 mls/hr IV .[id number] [facility] Rx#: [id number] Zosyn 3.375 gm In Dextrose 5% 50 50 50 in Water 50 ml @ 100 mls/hr IV Q6H [facility] Rx#:[id number] Oral 1440 240 240 Output: Void Amount 800 975 325 Other: Meal Breakfast Breakfast Percent of Meal Consumed 100% 100% Feeding Ability Independent Urine Appearance Clear Clear Urine Color Bright Yellow Bright Yellow Stool Size Moderate Small Stool Color Brown Brown Stool Consistency Formed Treva # Voids 1 # Bowel Movements 1 1 OBJ DATA Labs CBC & Chem 7: 09/09/19 05:16 09/09/19 05:16 Labs: Abnormal Lab Results 09/09/19 09/09/19 09/08/19 05:16 05:16 05:45 WBC RBC 2.66 L 2.86 L Hgb 8.7 L 9.3 L Hct 27.7 L 28.0 L MCV 104.1 H Gran % 79.1 H Lymph % (Auto) 12.3 L Lymph # (Auto) 1.22 L Lymphocytes % RBC Morphology Hypochromasia Sodium Chloride BUN 28 H Creatinine 1.5 H Glucose AST 64 H ALT 45 H Alkaline Phosphatase Albumin 2.3 L Globulin 5.0 H Albumin/Globulin Ratio 0.5 L HDL Cholesterol 09/08/19 09/07/19 09/07/19 05:45 19:41 19:41 WBC 11.2 H RBC 3.00 L Hgb 9.8 L Hct 29.6 L MCV Gran % Lymph % (Auto) Lymph # (Auto) Lymphocytes % 14 L RBC Morphology Abnorm A Hypochromasia 1+ A Sodium 131 L Chloride 90 L 92 L BUN 39 H 40 H Creatinine 1.8 H 2.0 H Glucose 109 H 124 H AST 38 H 41 H ALT Alkaline Phosphatase 120 H 132 H Albumin 2.9 L Globulin 5.0 H 5.1 H Albumin/Globulin Ratio 0.6 L 0.6 L HDL Cholesterol 37 L Meds: Medications Albuterol Sulfate (Ventolin) 2 puff INH QID [facility] Last Admin: 09/09/19 09:50 Dose: Not Given Documented by: Albuterol/Ipratropium (Combivent) 1 puff INH QID [facility] Last Admin: 09/09/19 09:24 Dose: 1 puff Documented by: Allopurinol (Zylopriim) 300 mg PO QAM [facility] Last Admin: 09/09/19 09:23 Dose: 300 mg Documented by: Aspirin (Aspirin) 81 mg CHEWED DAILY [facility] Last Admin: 09/09/19 09:23 Dose: 81 mg Documented by: Atorvastatin Calcium (Lipitor) 20 mg PO QHS [facility] Last Admin: 09/08/19 21:07 Dose: 20 mg Documented by: Clopidogrel Bisulfate (Plavix) 75 mg PO DAILY [facility] Last Admin: 09/09/19 09:23 Dose: 75 mg Documented by: Docusate Sodium (Colace) 100 mg PO BID [facility] Last Admin: 09/09/19 09:23 Dose: 100 mg Documented by: Heparin Sodium (Porcine) (Heparin) 5,000 unit SQ Q12 [facility] Last Admin: 09/09/19 09:30 Dose: 5,000 unit Documented by: Sodium Chloride (Sodium Chloride 0.9%) 1,000 mls @ 75 mls/hr IV .[id number] [facility] Last Admin: 09/09/19 09:03 Dose: 75 mls/hr Documented by: Vancomycin HCl 1,500 mg/ (Sodium Chloride) 500 mls @ 333.3 mls/hr IV Q12H [facility] Last Admin: 09/08/19 21:08 Dose: 333 mls/hr Documented by: Piperacillin Sod/Tazobactam (Sod 3.375 gm/ Dextrose) 50 mls @ 100 mls/hr IV Q6H [facility]; Protocol Last Infusion: 09/09/19 06:22 Dose: Infused Documented by: Ibuprofen (Motrin) 200 mg PO Q6HP PRN; Protocol PRN Reason: PAIN/FEVER > 101 Last Admin: 09/08/19 04:20 Dose: 200 mg Documented by: Iron Carb/Multivit/[place]/Folic Acid (Multivitamin W/Minerals) 1 tab PO BID [facility] Stop: 09/12/19 21:01 Last Admin: 09/09/19 09:23 Dose: 1 tab Documented by: Levothyroxine Sodium (Synthroid) 112 mcg PO QAMAC [facility] Last Admin: 09/09/19 09:23 Dose: 112 mcg Documented by: Lorazepam (Ativan) 0.5 mg IV Q6HP PRN PRN Reason: Alcohol Withdrawal Methadone HCl (Dolophine) 20 mg PO Q8 [facility] Last Admin: 09/09/19 05:53 Dose: 20 mg Documented by: Methocarbamol (Robaxin) 750 mg PO BIDP PRN PRN Reason: Muscle Spasm Last Admin: 09/09/19 00:11 Dose: 750 mg Documented by: Omeprazole (Prilosec) 20 mg PO QAMAC [facility] Last Admin: 09/09/19 09:23 Dose: 20 mg Documented by: Ondansetron HCl (Zofran) 4 mg IV Q6HP PRN PRN Reason: Nausea And Vomiting Mometasone 1 Puff (Inhaler) 1 dose INH BID [facility] Last Admin: 09/09/19 09:30 Dose: Not Given Documented by: Sodium Chloride (Saline Flush) 10 ml IV Q8 [facility] Last Admin: 09/09/19 04:12 Dose: Not Given Documented by: Sodium Chloride ([place] Nasal) 1 spray GILES Q4HP PRN PRN Reason: Congestion Last Admin: 09/09/19 09:24 Dose: 1 spray Documented by: Tamsulosin HCl (Flomax) 0.8 mg PO QPM [facility] Last Admin: 09/08/19 21:07 Dose: 0.8 mg Documented by: Thiamine HCl (Vitamin B1) 100 mg PO TID [facility] Stop: 09/10/19 21:01 Last Admin: 09/09/19 09:23 Dose: 100 mg Documented by: Vancomycin HCl (Vancomycin Per Pharmacy) 1 order IV UD [facility]; Protocol Vitamin B Complex (Vitamin B Complex) 1 cap PO BID [facility] Stop: 09/12/19 21:01 Last Admin: 09/09/19 09:23 Dose: 1 cap Documented by: Vitamin D (Vitamin D3) 2,000 unit PO QAM [facility] Last Admin: 09/09/19 09:23 Dose: 2,000 unit Documented by: A/P Narrative A/P Narrative: A: * Left lower extremity complicated skin-soft tissue infection: CT no evidence of necrotizing fasciitis however extensive soft tissue cellulitis. Continue broad-spectrum antibiotic as per ID. * Severe sepsis secondary to above. Multiple endorgan dysfunction with elevated LFTs/creatinine. * Acute on chronic KD: Improving. Creatinine down from 2-1.5 * History of hep C * History of COPD continue bronchodilators * History of alcohol abuse low CIWA scores. Continue multivitamin * Hypertension continue thiazide/JAMEY inhibitor * Peripheral disease continue aspirin Plavix Lipitor * DVT prophylaxis on heparin Plan * Continue antibiotics per ID * Sepsis management guidelines * Avoid nephrotoxins/monitor renal function * pre-existing medical condition management on home medications * Wound care/PT OT/dietary intervention * Discharge planning likely SNF Time Spent With Patient Time: Total time spent is greater than 50% in coordination of care (as documented) at patient's floor/unit and/or counseling patient: QUALITY VTE Deep Vein Thrombosis/Pulmonary Embolism Present on Admission: No
--- NOTE | 2019-09-09 11:24 | Internal Med Progress Note ---
SUBJECTIVE Subjective Patient information: Note initiated : 09/09/19 at 11:20 am Service Date, if different from initiated Date: [] Patient: Dmitry Luna 69 y/o M admitted on 09/07/19 for left lower leg swelling. Chief Complaint: [Pt feels slightly better than yesterday. denied any fever, chills, n/v, diarrhea. Is keeping the left leg elevated. ] Constitutional Vitals: Vital Signs Temp Pulse Resp BP Pulse Ox 37.9 C H 80 18 144/66 96 09/09/19 06:33 09/09/19 06:33 09/09/19 06:33 09/09/19 06:33 09/09/19 06:33 Period Temp Pulse Resp BP Sys/Robbins Pulse Ox Last 24 Hr 37.1 C-38.2 C 70-89 12-24 128-144/66-85 90-98 Intake and Output 09/08/19 09/09/19 09/09/19 21:59 05:59 13:59 Intake Total 2490 1290 290 Output Total 800 975 525 Balance 1690 315 -235 Weight 101.831 kg Intake & Output: Intake & Output 09/08/19 09/09/19 09/09/19 21:59 05:59 13:59 Intake Total 2490 1290 290 Output Total 800 975 525 Balance 1690 315 -235 Weight 101.831 kg Intake: IV 1050 1050 50 Sodium Chloride 0.9% 1,000 ml @ 1000 1000 75 mls/hr IV .[id number] [facility] Rx#: [id number] Zosyn 3.375 gm In Dextrose 5% 50 50 50 in Water 50 ml @ 100 mls/hr IV Q6H [facility] Rx#:[id number] Oral 1440 240 240 Output: Void Amount 800 975 525 Other: Meal Breakfast Breakfast Percent of Meal Consumed 100% 100% Feeding Ability Independent Urine Appearance Clear Clear Urine Color Bright Yellow Bright Yellow Stool Size Moderate Small Stool Color Brown Brown Stool Consistency Formed Treva # Voids 1 # Bowel Movements 1 1 Additional findings Additional findings: ao x 3, in nad chest has b/l expiratory wheezing and VBS with prolonged expiration s1 s2 normal bs ++, nttd left leg and thigh: the redness has slightly receded from marked areas. Still is exquisitely tender. Has 3 scabbed areas. No crepitus felt Left foot: swollen with redness on dorsal aspect with DP palpable OBJ DATA Labs CBC & Chem 7: 09/09/19 05:16 09/09/19 05:16 Labs: Abnormal Lab Results 09/09/19 09/09/19 09/08/19 05:16 05:16 05:45 WBC RBC 2.66 L 2.86 L Hgb 8.7 L 9.3 L Hct 27.7 L 28.0 L MCV 104.1 H Gran % 79.1 H Lymph % (Auto) 12.3 L Lymph # (Auto) 1.22 L Lymphocytes % RBC Morphology Hypochromasia Sodium Chloride BUN 28 H Creatinine 1.5 H Glucose AST 64 H ALT 45 H Alkaline Phosphatase Albumin 2.3 L Globulin 5.0 H Albumin/Globulin Ratio 0.5 L HDL Cholesterol 09/08/19 09/07/19 09/07/19 05:45 19:41 19:41 WBC 11.2 H RBC 3.00 L Hgb 9.8 L Hct 29.6 L MCV Gran % Lymph % (Auto) Lymph # (Auto) Lymphocytes % 14 L RBC Morphology Abnorm A Hypochromasia 1+ A Sodium 131 L Chloride 90 L 92 L BUN 39 H 40 H Creatinine 1.8 H 2.0 H Glucose 109 H 124 H AST 38 H 41 H ALT Alkaline Phosphatase 120 H 132 H Albumin 2.9 L Globulin 5.0 H 5.1 H Albumin/Globulin Ratio 0.6 L 0.6 L HDL Cholesterol 37 L Meds: Medications Albuterol Sulfate (Ventolin) 2 puff INH QID [facility] Last Admin: 09/09/19 09:50 Dose: Not Given Documented by: Albuterol/Ipratropium (Combivent) 1 puff INH QID [facility] Last Admin: 09/09/19 09:24 Dose: 1 puff Documented by: Allopurinol (Zylopriim) 300 mg PO QAM [facility] Last Admin: 09/09/19 09:23 Dose: 300 mg Documented by: Aspirin (Aspirin) 81 mg CHEWED DAILY [facility] Last Admin: 09/09/19 09:23 Dose: 81 mg Documented by: Atorvastatin Calcium (Lipitor) 20 mg PO QHS [facility] Last Admin: 09/08/19 21:07 Dose: 20 mg Documented by: Clopidogrel Bisulfate (Plavix) 75 mg PO DAILY [facility] Last Admin: 09/09/19 09:23 Dose: 75 mg Documented by: Docusate Sodium (Colace) 100 mg PO BID [facility] Last Admin: 09/09/19 09:23 Dose: 100 mg Documented by: Heparin Sodium (Porcine) (Heparin) 5,000 unit SQ Q12 [facility] Last Admin: 09/09/19 09:30 Dose: 5,000 unit Documented by: Sodium Chloride (Sodium Chloride 0.9%) 1,000 mls @ 75 mls/hr IV .[id number] [facility] Last Admin: 09/09/19 09:03 Dose: 75 mls/hr Documented by: Vancomycin HCl 1,500 mg/ (Sodium Chloride) 500 mls @ 333.3 mls/hr IV Q12H [facility] Last Admin: 09/08/19 21:08 Dose: 333 mls/hr Documented by: Piperacillin Sod/Tazobactam (Sod 3.375 gm/ Dextrose) 50 mls @ 100 mls/hr IV Q6H [facility]; Protocol Last Infusion: 09/09/19 06:22 Dose: Infused Documented by: Ibuprofen (Motrin) 200 mg PO Q6HP PRN; Protocol PRN Reason: PAIN/FEVER > 101 Last Admin: 09/08/19 04:20 Dose: 200 mg Documented by: Iron Carb/Multivit/[place]/Folic Acid (Multivitamin W/Minerals) 1 tab PO BID [facility] Stop: 09/12/19 21:01 Last Admin: 09/09/19 09:23 Dose: 1 tab Documented by: Levothyroxine Sodium (Synthroid) 112 mcg PO [facility] Last Admin: 09/09/19 09:23 Dose: 112 mcg Documented by: Lorazepam (Ativan) 0.5 mg IV Q6HP PRN PRN Reason: Alcohol Withdrawal Methadone HCl (Dolophine) 20 mg PO Q8 [facility] Last Admin: 09/09/19 05:53 Dose: 20 mg Documented by: Methocarbamol (Robaxin) 750 mg PO BIDP PRN PRN Reason: Muscle Spasm Last Admin: 09/09/19 00:11 Dose: 750 mg Documented by: Omeprazole (Prilosec) 20 mg PO QAMAC [facility] Last Admin: 09/09/19 09:23 Dose: 20 mg Documented by: Ondansetron HCl (Zofran) 4 mg IV Q6HP PRN PRN Reason: Nausea And Vomiting Mometasone 1 Puff (Inhaler) 1 dose INH BID [facility] Last Admin: 09/09/19 09:30 Dose: Not Given Documented by: Sodium Chloride (Saline Flush) 10 ml IV Q8 [facility] Last Admin: 09/09/19 04:12 Dose: Not Given Documented by: Sodium Chloride ([place] Nasal) 1 spray GILES Q4HP PRN PRN Reason: Congestion Last Admin: 09/09/19 09:24 Dose: 1 spray Documented by: Tamsulosin HCl (Flomax) 0.8 mg PO QPM [facility] Last Admin: 09/08/19 21:07 Dose: 0.8 mg Documented by: Thiamine HCl (Vitamin B1) 100 mg PO TID [facility] Stop: 09/10/19 21:01 Last Admin: 09/09/19 09:23 Dose: 100 mg Documented by: Vancomycin HCl (Vancomycin Per Pharmacy) 1 order IV UD [facility]; Protocol Vitamin B Complex (Vitamin B Complex) 1 cap PO BID [facility] Stop: 09/12/19 21:01 Last Admin: 09/09/19 09:23 Dose: 1 cap Documented by: Vitamin D (Vitamin D3) 2,000 unit PO QAM [facility] Last Admin: 09/09/19 09:23 Dose: 2,000 unit Documented by: A/P Narrative A/P Narrative: A: 1. Left lower extremity complicated skin-soft tissue infection: pain disproportionate to exam findings. CT leg neg for nec fascitis, but shows extensive cellulitis and 2 simple but large fluid collections in anterior tibial and thigh area. Clinically redness receding with antibiotics. 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 NIKO: resolving 3. COPD: on 2-3 l of O2 via NC Recommendations: - US guided drainage of left leg fluid collections. Send aspirate for GS and C/S - Continue IV Vanc per pharmacy assisted dosing. Vanc level of 16 noted - Continue IV Zosyn 3.375 gm q6 hrs - will deescalate antibiotics based on Cx results. - await wound Cx and blood Cx - Decolonization with 2% CHG wipes once daily for 5 days, day 2/5. - leg elevation - wound care will follow Nicko Lazo MD Infectious diseases Time Spent With Patient Time: Total time spent is greater than 50% in coordination of care (as documented) at patient's floor/unit and/or counseling patient: QUALITY VTE Deep Vein Thrombosis/Pulmonary Embolism Present on Admission: No
[2019-09-09] MEDS: VANCOMYCIN 1,500 MG in 0.9 % SODIUM CHLORIDE 500 ML IV SCH ×2 (12:28→22:19)
--- NOTE | 2019-09-09 17:33 | Ultrasound Report ---
CLINICAL INFORMATION: Complex cystic area fluid collection in the subcutaneous fat medial anterior calf COMPARISON: None. TECHNIQUE: Procedure and risks including the possibility of inadequate drainage and bleeding were explained to the patient. He understood and wished to proceed. An 8 cm fusiform complex fluid collection in the subcutaneous fat in the anterior medial mid calf was first localized. It contains multiple septations. The skin overlying the lesion was marked, prepped and locally anesthetized with 1% lidocaine using a 25-gauge needle. An 18-gauge Yueh needle was then placed under sonographic guidance into the center of the cavity.. Unfortunately only approximately 5 cc of sanguinous - additional fluid could be aspirated even after saline was infused in an attempt to break up adhesions. The original fluid was sent for Gram stain and culture. No apparent complication. IMPRESSION: 8 cm complex fluid collection in the subcutaneous fat of the anterior medial mid calf. This yielded 5 cc of sanguinous fluid with did not appear purulent. Fluid was sent for Gram stain culture and sensitivity. No complications Interpreted and Authenticated by: Anam Jimenez 09/09/19
[2019-09-09] MEDS: HYDROmorphone 0.5 MG/0.5 ML SYRINGE IV PRN (21:05)
[2019-09-09] MEDS: ACETAMINOPHEN 650 MG/65 ML BOTTLE IV PRN (21:05)
[2019-09-09] MEDS: ATORVASTATIN 40 MG TABLET PO SCH (21:22)
[2019-09-09] MEDS: TAMSULOSIN 0.4 MG CAPSULE PO SCH (21:22)
[2019-09-10] MEDS: PIPERACILLIN SODIUM/TAZOBACTAM 3.375 GM in DEXTROSE 5% IN WATER 50 ML IV SCH ×3 (01:03→12:25)
[2019-09-10] MEDS: 0.9 % SODIUM CHLORIDE 10 ML SYRINGE IV SCH ×3 (04:11→20:21)
[2019-09-10] MEDS: METHADONE 5 MG TABLET PO SCH ×3 (06:00→22:15)
[2019-09-10] MEDS: 0.9 % SODIUM CHLORIDE 1,000 ML IV SCH ×2 (06:02→20:56)
[2019-09-10 06:35] LABS: Basophils # (Auto) 0.03 K/mcL (0.00-0.30); Basophils % (Auto) 0.5 % (0.0-2.0); Eosinophils # (Auto) 0.33 K/mcL (0.00-0.70); Eosinophils % (Auto) 5.7 % (0.0-7.0); Granulocytes % (Auto) 57.5 % (38.0-78.0); Hemoglobin 8.7 g/dL (13.7-17.5); Lymphocytes # (Auto) 1.51 K/mcL (1.50-4.80); Lymphocytes % (Auto) 26.2 % (15.5-49.0); Mean Cell Volume 104.5 fL (80.0-100.0); Mean Corpuscular HGB Conc 31.1 g/dL (31.0-36.0); Mean Platelet Volume 10.1 fL (7.4-10.4); Monocytes # (Auto) 0.58 K/mcL (0.10-0.90); Monocytes % (Auto) 10.1 % (1.0-12.0); Platelet Count 378 K/mcL (140-440); RBC 2.68 M/mcL (4.63-6.08); Red Cell Distribution Width 12.9 % (11.5-14.5); WBC 5.8 K/mcL (4.50-11.00)
[2019-09-10 07:03] LABS: Chloride 98 mmol/L (96-108)
[2019-09-10 07:13] LABS: ALT/SGPT 72 U/l (0-40); AST/SGOT 94 U/l (0-37); Albumin 2.1 gm/dL (3.2-5.2); Albumin/Globulin Ratio 0.4 (1.0-2.3); Alkaline Phosphatase 102 U/L (39-117); Bilirubin,Total 0.3 mg/dL (0.0-1.0); Blood Urea Nitrogen 20 mg/dl (8-23); Calcium 8.6 mg/dl (8.6-10.4); Carbon Dioxide 24 mmol/L (22-30); Glomerular Filtration Rate 62; Glucose 115 mg/dL (70-105)
--- NOTE | 2019-09-10 09:27 | Internal Med Progress Note ---
SUBJECTIVE Subjective Patient information: Note initiated : 09/10/19 at 9:22 am Service Date, if different from initiated Date: [] Patient: Dmitry Luna 69 y/o M admitted on 09/07/19 for left lower leg swelling. Chief Complaint: [] History of present illness: Mr. Luna is a 69 year old M with a history of CKD stage 3, hepatitis C, COPD, and high blood pressure who was presented to the ER due to left leg redness and pain. As per patient, patient left leg has been red, warm and painful for 2 weeks. He just came back from a trip 3 days before the the symptoms are started. He cannot exclude the possibility of insect bites. Otherwise patient denies headache, dizziness, chest pain, shortness of breath, nausea, vomiting, fever, chills, abdominal pain or dysuria. Patient denies drinking alcohol but he is a alcohol abuser from his medical chart. In the ER, ultrasound Doppler vein was performed. 09/08-patient on broad-spectrum antibiotics. CT lower extremity shows no evidence of neck fashion however extent cellulitis. Wound care on board. On antibiotic coverage including Zosyn/vancomycin. Cultures pending. White count down from 11.2-8.1. Sodium improved to 133, creatinine down from 2-1.5, mild LFT elevation noted 09/09-patient doing well. Status post ultrasound-guided drainage lower extremity abscess. Cultures pending. On antibiotic coverage per ID. Clinically improving but endorses to pain left lower extremity 6-8 out of 10 managed on opioids/. No overnight fever or chills. White count normalized at 5.8 creatinine down to 1.2. Elevated LFTs. Constitutional Vitals: Vital Signs Temp Pulse Resp BP Pulse Ox 97.1 F 77 16 126/71 94 09/10/19 07:24 09/10/19 07:24 09/10/19 07:54 09/10/19 07:24 09/10/19 07:54 Period Temp Pulse Resp BP Sys/Robbins Pulse Ox Last 24 Hr 97.1 F-100.0 F 75-83 14-18 102-146/62-82 91-94 Intake and Output 09/09/19 09/10/19 09/10/19 21:59 05:59 13:59 Intake Total 855 1050 Output Total 875 1255 Weight 103.691 kg Alert oriented Left lower extremity covered in dressing/soaking noted Improving erythema now down to the popliteal fossa. Edema no anxiety Intake & Output: Intake & Output 09/09/19 09/10/19 09/10/19 21:59 05:59 13:59 Intake Total 855 1050 Output Total 875 1255 Weight 103.691 kg Intake: IV 165 1050 Sodium Chloride 0.9% 1,000 ml @ 1000 75 mls/hr IV .[id number] [id number] Rx#: [id number] Zosyn 3.375 gm In Dextrose 5% 100 50 in Water 50 ml @ 100 mls/hr IV Q6H [facility]AK[facility] Rx#:[id number] Oral 690 Output: Void Amount 875 1255 Other: Meal Dinner Percent of Meal Consumed 100% Feeding Ability Independent Urine Appearance Clear Clear Urine Color Bright Yellow Bright Yellow Urine Odor Normal Stool Size Moderate Stool Color Brown Stool Consistency Formed # Bowel Movements 1 # of times incontinent of 0 Bowels OBJ DATA Labs CBC & Chem 7: 09/10/19 05:24 09/10/19 05:24 Labs: Abnormal Lab Results 09/10/19 09/10/19 09/09/19 05:24 05:24 05:16 WBC RBC 2.68 L Hgb 8.7 L Hct 28.0 L MCV 104.5 H Gran % Lymph % (Auto) Lymph # (Auto) Lymphocytes % RBC Morphology Hypochromasia Sodium Chloride BUN 28 H Creatinine 1.5 H Glucose 115 H AST 94 H 64 H ALT 72 H 45 H Alkaline Phosphatase Albumin 2.1 L 2.3 L Globulin 5.0 H 5.0 H Albumin/Globulin Ratio 0.4 L 0.5 L HDL Cholesterol 09/09/19 09/08/19 09/08/19 05:16 05:45 05:45 WBC RBC 2.66 L 2.86 L Hgb 8.7 L 9.3 L Hct 27.7 L 28.0 L MCV 104.1 H Gran % 79.1 H Lymph % (Auto) 12.3 L Lymph # (Auto) 1.22 L Lymphocytes % RBC Morphology Hypochromasia Sodium 131 L Chloride 90 L BUN 39 H Creatinine 1.8 H Glucose 109 H AST 38 H ALT Alkaline Phosphatase 120 H Albumin 2.9 L Globulin 5.0 H Albumin/Globulin Ratio 0.6 L HDL Cholesterol 37 L 09/07/19 09/07/19 19:41 19:41 WBC 11.2 H RBC 3.00 L Hgb 9.8 L Hct 29.6 L MCV Gran % Lymph % (Auto) Lymph # (Auto) Lymphocytes % 14 L RBC Morphology Abnorm A Hypochromasia 1+ A Sodium Chloride 92 L BUN 40 H Creatinine 2.0 H Glucose 124 H AST 41 H ALT Alkaline Phosphatase 132 H Albumin Globulin 5.1 H Albumin/Globulin Ratio 0.6 L HDL Cholesterol Meds: Medications Albuterol Sulfate (Ventolin) 2 puff INH QID [facility] Last Admin: 09/09/19 22:44 Dose: Not Given Documented by: Albuterol/Ipratropium (Combivent) 1 puff INH QID [facility] Last Admin: 09/09/19 22:44 Dose: 1 puff Documented by: Allopurinol (Zylopriim) 300 mg PO QAM [facility] Last Admin: 09/09/19 09:23 Dose: 300 mg Documented by: Aspirin (Aspirin) 81 mg CHEWED DAILY [facility] Last Admin: 09/09/19 09:23 Dose: 81 mg Documented by: Atorvastatin Calcium (Lipitor) 20 mg PO QHS [facility] Last Admin: 09/09/19 21:22 Dose: 20 mg Documented by: Clopidogrel Bisulfate (Plavix) 75 mg PO DAILY [facility] Last Admin: 09/09/19 09:23 Dose: 75 mg Documented by: Docusate Sodium (Colace) 100 mg PO BID [facility] Last Admin: 09/09/19 21:22 Dose: 100 mg Documented by: Heparin Sodium (Porcine) (Heparin) 5,000 unit SQ Q12 [facility] Last Admin: 09/09/19 21:23 Dose: 5,000 unit Documented by: Hydromorphone HCl (Dilaudid) 0.25 mg IV Q4HP PRN; Protocol PRN Reason: Per Pain Protocol Last Admin: 09/09/19 21:05 Dose: 0.25 mg Documented by: Sodium Chloride (Sodium Chloride 0.9%) 1,000 mls @ 75 mls/hr IV .[id number] [facility] Last Admin: 09/10/19 06:02 Dose: 75 mls/hr Documented by: Vancomycin HCl 1,500 mg/ (Sodium Chloride) 500 mls @ 333.3 mls/hr IV Q12H [facility] Last Admin: 09/09/19 22:19 Dose: 333 mls/hr Documented by: Piperacillin Sod/Tazobactam (Sod 3.375 gm/ Dextrose) 50 mls @ 100 mls/hr IV Q6H [facility]; Protocol Last Admin: 09/10/19 06:02 Dose: 100 mls/hr Documented by: Acetaminophen (Ofirmev) 650 mg in 65 mls @ 130 mls/hr IV Q6HP PRN; Protocol PRN Reason: PAIN/FEVER > 101 Last Infusion: 09/09/19 21:35 Dose: Infused Documented by: Ibuprofen (Motrin) 200 mg PO Q6HP PRN; Protocol PRN Reason: PAIN/FEVER > 101 Last Admin: 09/08/19 04:20 Dose: 200 mg Documented by: Iron Carb/Multivit/Moselle/Folic Acid (Multivitamin W/Minerals) 1 tab PO BID [facility] Stop: 09/12/19 21:01 Last Admin: 09/09/19 21:22 Dose: 1 tab Documented by: Levothyroxine Sodium (Synthroid) 112 mcg PO [facility] Last Admin: 09/09/19 09:23 Dose: 112 mcg Documented by: Lorazepam (Ativan) 0.5 mg IV Q6HP PRN PRN Reason: Alcohol Withdrawal Methadone HCl (Dolophine) 20 mg PO Q8 [facility] Last Admin: 09/10/19 06:00 Dose: 20 mg Documented by: Methocarbamol (Robaxin) 750 mg PO BIDP PRN PRN Reason: Muscle Spasm Last Admin: 09/09/19 19:59 Dose: 750 mg Documented by: Omeprazole (Prilosec) 20 mg PO QAMAC [facility] Last Admin: 09/09/19 09:23 Dose: 20 mg Documented by: Ondansetron HCl (Zofran) 4 mg IV Q6HP PRN PRN Reason: Nausea And Vomiting Mometasone 1 Puff (Inhaler) 1 dose INH BID [facility] Last Admin: 09/09/19 22:44 Dose: Not Given Documented by: Sodium Chloride (Saline Flush) 10 ml IV Q8 [facility] Last Admin: 09/10/19 04:11 Dose: Not Given Documented by: Sodium Chloride (Bacon Nasal) 1 spray GILES Q4HP PRN PRN Reason: Congestion Last Admin: 09/09/19 09:24 Dose: 1 spray Documented by: Tamsulosin HCl (Flomax) 0.8 mg PO QPM [facility] Last Admin: 09/09/19 21:22 Dose: 0.8 mg Documented by: Thiamine HCl (Vitamin B1) 100 mg PO TID [facility] Stop: 09/10/19 21:01 Last Admin: 09/09/19 21:22 Dose: 100 mg Documented by: Vancomycin HCl (Vancomycin Per Pharmacy) 1 order IV UD [facility]; Protocol Vitamin B Complex (Vitamin B Complex) 1 cap PO BID [facility] Stop: 09/12/19 21:01 Last Admin: 09/09/19 21:22 Dose: 1 cap Documented by: Vitamin D (Vitamin D3) 2,000 unit PO QAM [facility] Last Admin: 09/09/19 09:23 Dose: 2,000 unit Documented by: A/P Narrative A/P Narrative: A: * Left lower extremity complicated skin-soft tissue infection: CT no evidence of necrotizing fasciitis however extensive soft tissue cellulitis with area of abscess pocket. Status post drainage by IR. Await cultures. On antibiotic coverage per ID * Severe sepsis secondary to above. Multiple endorgan dysfunction with elevated LFTs/creatinine now with gradual improvement. White count normalized. * Acute on chronic KD: Improving. Creatinine down from 2->1.2 * History of hep C,/elevated LFTs. Continue monitoring * History of COPD continue bronchodilators * History of alcohol abuse-continue MVI/watch for withdrawals * Hypertension continue thiazide/JAMEY inhibitor * Peripheral disease continue aspirin Plavix Lipitor * DVT prophylaxis on heparin Plan * Continue antibiotics per ID * MRSA decolonization per ID * Monitor renal function * pre-existing medical condition management on home medications * Wound care/PT OT/dietary intervention * Discharge planning likely SNF in 48 hours pending wound culture sensitivities and antibiotic de-escalation Time Spent With Patient Time: Total time spent is greater than 50% in coordination of care (as documented) at patient's floor/unit and/or counseling patient: Total time spent with greater than 50% in coordination of care (as documented) at patient's floor/unit and/or counseling patient:: Greater than 35 minutes QUALITY VTE Deep Vein Thrombosis/Pulmonary Embolism Present on Admission: No
[2019-09-10] MEDS: VITAMIN D3 1,000 UNIT TABLET PO SCH (11:52)
[2019-09-10] MEDS: ASPIRIN 81 MG TAB.CHEW CHEWED SCH (11:53)
[2019-09-10] MEDS: VITAMIN B COMPLEX 1 CAPSULE PO SCH ×2 (11:53→20:21)
[2019-09-10] MEDS: OMEPRAZOLE 20 MG CAPSULE PO SCH (11:53)
[2019-09-10] MEDS: DOCUSATE SODIUM 100 MG CAPSULE PO SCH ×2 (11:53→20:20)
[2019-09-10] MEDS: CLOPIDOGREL 75 MG TABLET PO SCH (11:54)
[2019-09-10] MEDS: THIAMINE 100 MG TABLET PO SCH ×3 (11:54→20:20)
[2019-09-10] MEDS: ALLOPURINOL 300 MG TABLET PO SCH (11:54)
[2019-09-10] MEDS: MULTIVIT,THER IRON,CA,FA & MIN 1 TABLET PO SCH ×2 (11:54→20:20)
[2019-09-10] MEDS: LEVOTHYROXINE SODIUM 112 MCG TABLET PO SCH (11:54)
[2019-09-10] MEDS: HEPARIN 5,000 UNIT/ML VIAL SQ SCH ×2 (11:55→20:19)
[2019-09-10] MEDS: MOMETASONE INH SCH ×2 (11:55→20:21)
[2019-09-10] MEDS: ALBUTEROL SULFATE 200 PUFF INHALER INH SCH ×4 (11:56→20:21)
[2019-09-10] MEDS: VANCOMYCIN 1,500 MG in 0.9 % SODIUM CHLORIDE 500 ML IV SCH (12:11)
[2019-09-10] MEDS: IPRATROPIUM/ALBUTEROL SULFATE 1 PUFF INHALER INH SCH ×4 (12:12→20:19)
[2019-09-10] MEDS: SODIUM CHLORIDE NASAL 1 SPRAY BOTTLE NAS PRN ×2 (13:06→17:25)
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
--- NOTE | 2019-09-10 13:36 | Internal Med Progress Note ---
SUBJECTIVE Subjective Patient information: Note initiated : 09/10/19 at 1:35 pm Service Date, if different from initiated Date: [] Patient: Dmitry Luna 69 y/o M admitted on 09/07/19 for left lower leg swelling. Chief Complaint: [] Pt feels better than yesterday. Denies any fever, chills, nausea, vomiting, diarrhea. Reports less pain in the left leg. Constitutional Vitals: Vital Signs Temp Pulse Resp BP Pulse Ox 37.3 C H 77 20 144/92 92 09/10/19 12:00 09/10/19 07:24 09/10/19 12:00 09/10/19 12:00 09/10/19 12:00 Period Temp Pulse Resp BP Sys/Robbins Pulse Ox Last 24 Hr 36.2 C-37.8 C 75-83 14-20 126-146/62-92 91-94 Intake and Output 09/09/19 09/10/19 09/10/19 21:59 05:59 13:59 Intake Total 855 1550 170 Output Total 875 1255 1 Balance -20 295 169 Weight 103.691 kg Intake & Output: Intake & Output 09/09/19 09/10/19 09/10/19 21:59 05:59 13:59 Intake Total 855 1550 170 Output Total 875 1255 1 Balance -20 295 169 Weight 103.691 kg Intake: IV 165 1550 50 Sodium Chloride 0.9% 1,000 ml @ 1000 75 mls/hr IV .[id number] [facility] Rx#: [id number] Zosyn 3.375 gm In Dextrose 5% 100 50 50 in Water 50 ml @ 100 mls/hr IV Q6H [facility] Rx#:[id number] Vancomycin 1,500 mg In Sodium 500 Chloride 0.9% 500 ml @ 333.3 mls/hr IV Q12H [facility] Rx#: [id number] Oral 690 120 Output: Void Amount 875 1255 1 Other: Meal Dinner Breakfast Percent of Meal Consumed 100% 100% Feeding Ability Independent Urine Appearance Clear Clear Urine Color Bright Yellow Bright Yellow Urine Odor Normal Stool Size Moderate Stool Color Brown Stool Consistency Formed # Bowel Movements 1 # of times incontinent of 0 Bowels Additional findings Additional findings: ao x 3, in nad no thrush chest has mild wheezing (less than yesterday) with Rt > Lt s1 s2 normal, no m/r bs ++, non tender, distended left leg and thigh: the redness is clearly receding from marked areas, and is less tender. There are prominent wrinkles over left leg. No blisters. Few dark scabbed areas at sites of previous blisters, clotted blood? Distal foot looks less swollen and red, and less tender OBJ DATA Labs CBC & Chem 7: 09/10/19 05:24 09/10/19 05:24 Labs: Abnormal Lab Results 09/10/19 09/10/19 09/09/19 05:24 05:24 05:16 WBC RBC 2.68 L Hgb 8.7 L Hct 28.0 L MCV 104.5 H Gran % Lymph % (Auto) Lymph # (Auto) Lymphocytes % RBC Morphology Hypochromasia Sodium Chloride BUN 28 H Creatinine 1.5 H Glucose 115 H AST 94 H 64 H ALT 72 H 45 H Alkaline Phosphatase Albumin 2.1 L 2.3 L Globulin 5.0 H 5.0 H Albumin/Globulin Ratio 0.4 L 0.5 L HDL Cholesterol 09/09/19 09/08/19 09/08/19 05:16 05:45 05:45 WBC RBC 2.66 L 2.86 L Hgb 8.7 L 9.3 L Hct 27.7 L 28.0 L MCV 104.1 H Gran % 79.1 H Lymph % (Auto) 12.3 L Lymph # (Auto) 1.22 L Lymphocytes % RBC Morphology Hypochromasia Sodium 131 L Chloride 90 L BUN 39 H Creatinine 1.8 H Glucose 109 H AST 38 H ALT Alkaline Phosphatase 120 H Albumin 2.9 L Globulin 5.0 H Albumin/Globulin Ratio 0.6 L HDL Cholesterol 37 L 09/07/19 09/07/19 19:41 19:41 WBC 11.2 H RBC 3.00 L Hgb 9.8 L Hct 29.6 L MCV Gran % Lymph % (Auto) Lymph # (Auto) Lymphocytes % 14 L RBC Morphology Abnorm A Hypochromasia 1+ A Sodium Chloride 92 L BUN 40 H Creatinine 2.0 H Glucose 124 H AST 41 H ALT Alkaline Phosphatase 132 H Albumin Globulin 5.1 H Albumin/Globulin Ratio 0.6 L HDL Cholesterol Meds: Medications Albuterol Sulfate (Ventolin) 2 puff INH QID [facility] Last Admin: 09/10/19 13:07 Dose: Not Given Documented by: Albuterol/Ipratropium (Combivent) 1 puff INH QID [facility] Last Admin: 09/10/19 13:06 Dose: 1 puff Documented by: Allopurinol (Zylopriim) 300 mg PO QAM [facility] Last Admin: 09/10/19 11:54 Dose: 300 mg Documented by: Aspirin (Aspirin) 81 mg CHEWED DAILY [facility] Last Admin: 09/10/19 11:53 Dose: 81 mg Documented by: Atorvastatin Calcium (Lipitor) 20 mg PO QHS [facility] Last Admin: 09/09/19 21:22 Dose: 20 mg Documented by: Cefepime HCl (Maxipime) 2 gm IV Q8H [facility]; Protocol Clopidogrel Bisulfate (Plavix) 75 mg PO DAILY [facility] Last Admin: 09/10/19 11:54 Dose: 75 mg Documented by: Docusate Sodium (Colace) 100 mg PO BID [facility] Last Admin: 09/10/19 11:53 Dose: 100 mg Documented by: Heparin Sodium (Porcine) (Heparin) 5,000 unit SQ Q12 [facility] Last Admin: 09/10/19 11:55 Dose: 5,000 unit Documented by: Hydromorphone HCl (Dilaudid) 0.25 mg IV Q4HP PRN; Protocol PRN Reason: Per Pain Protocol Last Admin: 09/09/19 21:05 Dose: 0.25 mg Documented by: Sodium Chloride (Sodium Chloride 0.9%) 1,000 mls @ 75 mls/hr IV .[id number] [facility] Last Admin: 09/10/19 06:02 Dose: 75 mls/hr Documented by: Acetaminophen (Ofirmev) 650 mg in 65 mls @ 130 mls/hr IV Q6HP PRN; Protocol PRN Reason: PAIN/FEVER > 101 Last Infusion: 09/09/19 21:35 Dose: Infused Documented by: Ibuprofen (Motrin) 200 mg PO Q6HP PRN; Protocol PRN Reason: PAIN/FEVER > 101 Last Admin: 09/08/19 04:20 Dose: 200 mg Documented by: Iron Carb/Multivit/[place]/Folic Acid (Multivitamin W/Minerals) 1 tab PO BID [facility] Stop: 09/12/19 21:01 Last Admin: 09/10/19 11:54 Dose: 1 tab Documented by: Levothyroxine Sodium (Synthroid) 112 mcg PO QAMAC [facility] Last Admin: 09/10/19 11:54 Dose: 112 mcg Documented by: Lorazepam (Ativan) 0.5 mg IV Q6HP PRN PRN Reason: Alcohol Withdrawal Methadone HCl (Dolophine) 20 mg PO Q8 [facility] Last Admin: 09/10/19 06:00 Dose: 20 mg Documented by: Methocarbamol (Robaxin) 750 mg PO BIDP PRN PRN Reason: Muscle Spasm Last Admin: 09/09/19 19:59 Dose: 750 mg Documented by: Mupirocin (Bactroban Oint 2%) 1 dose TOPICAL DAILY [facility] Omeprazole (Prilosec) 20 mg PO QAMAC [facility] Last Admin: 09/10/19 11:53 Dose: 20 mg Documented by: Ondansetron HCl (Zofran) 4 mg IV Q6HP PRN PRN Reason: Nausea And Vomiting Mometasone 1 Puff (Inhaler) 1 dose INH BID [facility] Last Admin: 09/10/19 11:55 Dose: Not Given Documented by: Sodium Chloride (Saline Flush) 10 ml IV Q8 [facility] Last Admin: 09/10/19 12:18 Dose: Not Given Documented by: Sodium Chloride ([place] Nasal) 1 spray GILES Q4HP PRN PRN Reason: Congestion Last Admin: 09/10/19 13:06 Dose: 1 spray Documented by: Tamsulosin HCl (Flomax) 0.8 mg PO QPM [facility] Last Admin: 09/09/19 21:22 Dose: 0.8 mg Documented by: Thiamine HCl (Vitamin B1) 100 mg PO TID [facility] Stop: 09/10/19 21:01 Last Admin: 09/10/19 11:54 Dose: 100 mg Documented by: Vitamin B Complex (Vitamin B Complex) 1 cap PO BID [facility] Stop: 09/12/19 21:01 Last Admin: 09/10/19 11:53 Dose: 1 cap Documented by: Vitamin D (Vitamin D3) 2,000 unit PO QAM [facility] Last Admin: 09/10/19 11:52 Dose: 2,000 unit Documented by: A/P Narrative A/P Narrative: A: 1. Left lower extremity complicated skin-soft tissue infection: pain disproportionate to exam findings. CT leg neg for nec fascitis, but shows extensive cellulitis and 2 simple but large fluid collections in anterior tibial and thigh area. 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 NIKO: resolving 3. COPD: on 2-3 l of O2 via NC Recommendations: - Stop IV Vanc and IV Zosyn - Start IV Cefepime 2 gm q8 hrs - will switch to a PO option at discharge. anticipate 2 week course given complicated nature of infection - Decolonization with 2% CHG wipes once daily for 5 days, day 3/5. - leg elevation - wound care will follow Nicko Lazo MD Infectious diseases Time Spent With Patient Time: Total time spent is greater than 50% in coordination of care (as documented) at patient's floor/unit and/or counseling patient: QUALITY VTE Deep Vein Thrombosis/Pulmonary Embolism Present on Admission: No
[2019-09-10] MEDS: CEFEPIME 2 GM VIAL IV SCH ×2 (14:29→22:16)
[2019-09-10] MEDS: HYDROmorphone 0.5 MG/0.5 ML SYRINGE IV PRN (20:19)
[2019-09-10] MEDS: METHOCARBAMOL 750 MG TABLET PO PRN (20:20)
[2019-09-10] MEDS: ATORVASTATIN 40 MG TABLET PO SCH (20:20)
[2019-09-10] MEDS: TAMSULOSIN 0.4 MG CAPSULE PO SCH (20:20)
[2019-09-11] MEDS: HYDROmorphone 0.5 MG/0.5 ML SYRINGE IV PRN ×5 (00:22→17:39)
[2019-09-11] MEDS: ACETAMINOPHEN 650 MG/65 ML BOTTLE IV PRN ×2 (02:36→20:11)
[2019-09-11] MEDS: CEFEPIME 2 GM VIAL IV SCH ×3 (05:51→21:58)
[2019-09-11] MEDS: 0.9 % SODIUM CHLORIDE 10 ML SYRINGE IV SCH ×3 (05:54→22:03)
[2019-09-11] MEDS: HEPARIN 5,000 UNIT/ML VIAL SQ SCH ×2 (07:47→20:15)
[2019-09-11] MEDS: VITAMIN B COMPLEX 1 CAPSULE PO SCH ×2 (07:48→20:15)
[2019-09-11] MEDS: CLOPIDOGREL 75 MG TABLET PO SCH (07:48)
[2019-09-11] MEDS: VITAMIN D3 1,000 UNIT TABLET PO SCH (07:48)
[2019-09-11] MEDS: ALLOPURINOL 300 MG TABLET PO SCH (07:48)
[2019-09-11] MEDS: ASPIRIN 81 MG TAB.CHEW CHEWED SCH (07:48)
[2019-09-11] MEDS: OMEPRAZOLE 20 MG CAPSULE PO SCH (07:48)
[2019-09-11] MEDS: LEVOTHYROXINE SODIUM 112 MCG TABLET PO SCH (07:48)
[2019-09-11] MEDS: DOCUSATE SODIUM 100 MG CAPSULE PO SCH ×2 (07:48→21:39)
[2019-09-11] MEDS: MULTIVIT,THER IRON,CA,FA & MIN 1 TABLET PO SCH ×2 (07:48→21:59)
[2019-09-11] MEDS: ALBUTEROL SULFATE 200 PUFF INHALER INH SCH ×4 (07:49→21:46)
[2019-09-11] MEDS: METHADONE 5 MG TABLET PO SCH ×3 (07:55→21:58)
[2019-09-11] MEDS: MOMETASONE INH SCH ×2 (07:58→21:46)
[2019-09-11] MEDS: 0.9 % SODIUM CHLORIDE 1,000 ML IV SCH ×3 (09:18→23:31)
[2019-09-11] MEDS: IPRATROPIUM/ALBUTEROL SULFATE 1 PUFF INHALER INH SCH ×4 (09:19→20:15)
[2019-09-11 10:01] LABS: ALT/SGPT 69 U/l (0-40); AST/SGOT 70 U/l (0-37); Albumin 2.5 gm/dL (3.2-5.2); Albumin/Globulin Ratio 0.5 (1.0-2.3); Alkaline Phosphatase 111 U/L (39-117); Bilirubin,Direct < 0.2 mg/dL (0.0-0.3); Bilirubin,Total 0.3 mg/dL (0.0-1.0); Blood Urea Nitrogen 17 mg/dl (8-23); Calcium 9.3 mg/dl (8.6-10.4); Carbon Dioxide 23 mmol/L (22-30); Chloride 99 mmol/L (96-108); Globulin 4.9 gm/dL (2.2-3.7); Glomerular Filtration Rate 78; Glucose 107 mg/dL (70-105); Lactate Dehydrogenase 181 U/L (94-250); Phosphorous 3.2 mg/dL (2.7-4.5); Triglycerides 119 mg/dl (<150); Uric Acid 3.8 mg/dL (2.5-8.0)
[2019-09-11 10:06] LABS: Basophils # (Auto) 0.03 K/mcL (0.00-0.30); Basophils % (Auto) 0.5 % (0.0-2.0); Eosinophils # (Auto) 0.33 K/mcL (0.00-0.70); Eosinophils % (Auto) 5.9 % (0.0-7.0); Granulocytes % (Auto) 50.9 % (38.0-78.0); Hematocrit 28.8 % (40.1-51.0); Hemoglobin 9.4 g/dL (13.7-17.5); Mean Cell Volume 101.1 fL (80.0-100.0); Mean Corpuscular HGB Conc 32.6 g/dL (31.0-36.0); Mean Platelet Volume 10.1 fL (7.4-10.4); Monocytes % (Auto) 10.7 % (1.0-12.0); Platelet Count 431 K/mcL (140-440); RBC 2.85 M/mcL (4.63-6.08); Red Cell Distribution Width 12.6 % (11.5-14.5); WBC 5.6 K/mcL (4.50-11.00)
[2019-09-11] MEDS: MUPIROCIN OINT 2% 22GM TOPICAL SCH (10:30)
--- NOTE | 2019-09-11 11:00 | Internal Med Progress Note ---
SUBJECTIVE Subjective Patient information: Note initiated : 09/11/19 at 10:57 am Service Date, if different from initiated Date: [] Patient: Dmitry Luna 69 y/o M admitted on 09/07/19 for left lower leg swelling. Chief Complaint: [] History of present illness: Mr. Luna is a 69 year old M with a history of CKD stage 3, hepatitis C, COPD, and high blood pressure who was presented to the ER due to left leg redness and pain. As per patient, patient left leg has been red, warm and painful for 2 weeks. He just came back from a trip 3 days before the the symptoms are started. He cannot exclude the possibility of insect bites. Otherwise patient denies headache, dizziness, chest pain, shortness of breath, nausea, vomiting, fever, chills, abdominal pain or dysuria. Patient denies drinking alcohol but he is a alcohol abuser from his medical chart. In the ER, ultrasound Doppler vein was performed. 09/08-patient on broad-spectrum antibiotics. CT lower extremity shows no evidence of neck fashion however extent cellulitis. Wound care on board. On antibiotic coverage including Zosyn/vancomycin. Cultures pending. White count down from 11.2-8.1. Sodium improved to 133, creatinine down from 2-1.5, mild LFT elevation noted 09/09-patient doing well. Status post ultrasound-guided drainage lower extremity abscess. Cultures pending. On antibiotic coverage per ID. Clinically improving but endorses to pain left lower extremity 6-8 out of 10 managed on opioids/. No overnight fever or chills. White count normalized at 5.8 creatinine down to 1.2. Elevated LFTs. 09/10-patient complains of 8 out of 10 10 out of 10 pain and unable to sleep at night. Started breakthrough medication on top of existing methadone. Wound culture Pseudomonas. ID recommends continuing cefepime. Wound care ongoing by Dr. james. Will likely undergo debridement. White count 5.6, LFTs downtrending creatinine at 1 Constitutional Vitals: Vital Signs Temp Pulse Resp BP Pulse Ox 97 F 79 18 141/87 93 09/11/19 07:30 09/11/19 07:30 09/11/19 07:30 09/11/19 07:30 09/11/19 07:30 Period Temp Pulse Resp BP Sys/Robbins Pulse Ox Last 24 Hr 97 F-99.2 F 73-80 12-20 141-157/83-94 91-98 Intake and Output 09/10/19 09/11/19 09/11/19 21:59 05:59 13:59 Intake Total 6882 834 2435 Output Total 580 880 875 Balance 670 -595 125 Weight 116.301 kg Alert oriented Nonlabored breathing Left lower extremity redness improving receding erythema and induration. Dressing in place. No anxiety Intake & Output: Intake & Output 09/10/19 09/11/19 09/11/19 21:59 05:59 13:59 Intake Total 3294 706 1770 Output Total 580 880 875 Balance 670 -595 125 Weight 116.301 kg Intake: IV 1000 65 1000 Sodium Chloride 0.9% 1,000 ml @ 1000 1000 75 mls/hr IV .[id number] [facility] Rx#: [id number] Oral 250 220 Output: Void Amount 580 880 875 Other: Meal Dinner Breakfast Percent of Meal Consumed 100% 100% Feeding Ability Independent Urine Appearance Clear Clear Clear Urine Color Bright Yellow Bright Yellow Bright Yellow Urine Odor Normal Normal Normal OBJ DATA Labs CBC & Chem 7: 09/11/19 08:47 09/11/19 08:47 Labs: Abnormal Lab Results 09/11/19 09/11/19 09/10/19 08:47 08:47 05:24 RBC 2.85 L Hgb 9.4 L Hct 28.8 L MCV 101.1 H BUN Creatinine Glucose 107 H 115 H GGT 126 H AST 70 H 94 H ALT 69 H 72 H Albumin 2.5 L 2.1 L Globulin 4.9 H 5.0 H Albumin/Globulin Ratio 0.5 L 0.4 L 09/10/19 09/09/19 09/09/19 05:24 05:16 05:16 RBC 2.68 L 2.66 L Hgb 8.7 L 8.7 L Hct 28.0 L 27.7 L MCV 104.5 H 104.1 H BUN 28 H Creatinine 1.5 H Glucose GGT AST 64 H ALT 45 H Albumin 2.3 L Globulin 5.0 H Albumin/Globulin Ratio 0.5 L Meds: Medications Hydrocodone Bitart/Acetaminophen ([place] 5/325mg) 1 - 2 tab PO Q4HP PRN; Protocol PRN Reason: Per Pain Protocol Albuterol Sulfate (Ventolin) 2 puff INH QID [facility] Last Admin: 09/11/19 07:49 Dose: Not Given Documented by: Albuterol/Ipratropium (Combivent) 1 puff INH QID [facility] Last Admin: 09/11/19 09:19 Dose: 1 puff Documented by: Allopurinol (Zylopriim) 300 mg PO QAM [facility] Last Admin: 09/11/19 07:48 Dose: 300 mg Documented by: Aspirin (Aspirin) 81 mg CHEWED DAILY [facility] Last Admin: 09/11/19 07:48 Dose: 81 mg Documented by: Atorvastatin Calcium (Lipitor) 20 mg PO QHS [facility] Last Admin: 09/10/19 20:20 Dose: 20 mg Documented by: Cefepime HCl (Maxipime) 2 gm IV Q8H [facility]; Protocol Last Admin: 09/11/19 05:51 Dose: 2 gm Documented by: Clopidogrel Bisulfate (Plavix) 75 mg PO DAILY [facility] Last Admin: 09/11/19 07:48 Dose: 75 mg Documented by: Docusate Sodium (Colace) 100 mg PO BID [facility] Last Admin: 09/11/19 07:48 Dose: 100 mg Documented by: Heparin Sodium (Porcine) (Heparin) 5,000 unit SQ Q12 [facility] Last Admin: 09/11/19 07:47 Dose: 5,000 unit Documented by: Hydromorphone HCl (Dilaudid) 0.25 mg IV Q4HP PRN; Protocol PRN Reason: Per Pain Protocol Last Admin: 09/11/19 07:34 Dose: 0.25 mg Documented by: Sodium Chloride (Sodium Chloride 0.9%) 1,000 mls @ 75 mls/hr IV .[id number] [facility] Last Admin: 09/11/19 10:30 Dose: 75 mls/hr Documented by: Acetaminophen (Ofirmev) 650 mg in 65 mls @ 130 mls/hr IV Q6HP PRN; Protocol PRN Reason: PAIN/FEVER > 101 Last Infusion: 09/11/19 03:10 Dose: Infused Documented by: Ibuprofen (Motrin) 200 mg PO Q6HP PRN; Protocol PRN Reason: PAIN/FEVER > 101 Last Admin: 09/08/19 04:20 Dose: 200 mg Documented by: Iron Carb/Multivit/Tab/Folic Acid (Multivitamin W/Minerals) 1 tab PO BID [facility] Stop: 09/12/19 21:01 Last Admin: 09/11/19 07:48 Dose: 1 tab Documented by: Levothyroxine [facility]) [facility] Last Admin: 09/11/19 07:48 Dose: 112 mcg Documented by: Lorazepam (Ativan) 0.5 mg IV Q6HP PRN PRN Reason: Alcohol Withdrawal Methadone HCl (Dolophine) 20 mg PO Q8 [facility] Last Admin: 09/11/19 07:55 Dose: 20 mg Documented by: Methocarbamol (Robaxin) 750 mg PO BIDP PRN PRN Reason: Muscle Spasm Last Admin: 09/10/19 20:20 Dose: 750 mg Documented by: Mupirocin (Bactroban Oint 2%) 1 dose TOPICAL DAILY [facility] Last Admin: 09/11/19 10:30 Dose: 1 dose Documented by: Omeprazole ([facility]c) [facility] Last Admin: 09/11/19 07:48 Dose: 20 mg Documented by: Ondansetron HCl (Zofran) 4 mg IV Q6HP PRN PRN Reason: Nausea And Vomiting Mometasone 1 Puff (Inhaler) 1 dose INH BID [facility] Last Admin: 09/11/19 07:58 Dose: Not Given Documented by: Sodium Chloride (Saline Flush) 10 ml IV Q8 [facility] Last Admin: 09/11/19 05:54 Dose: Not Given Documented by: Sodium Chloride ([place] Nasal) 1 spray GILES Q4HP PRN PRN Reason: Congestion Last Admin: 09/10/19 17:25 Dose: 1 spray Documented by: Tamsulosin HCl (Flomax) 0.8 mg PO QPM [facility] Last Admin: 09/10/19 20:20 Dose: 0.8 mg Documented by: Vitamin B Complex (Vitamin B Complex) 1 cap PO BID [facility] Stop: 09/12/19 21:01 Last Admin: 09/11/19 07:48 Dose: 1 cap Documented by: Vitamin D (Vitamin D3) 2,000 unit PO QAM [facility] Last Admin: 09/11/19 07:48 Dose: 2,000 unit Documented by: A/P Narrative A/P Narrative: A: * Left lower extremity complicated skin-soft tissue infection: Status post drainage by IR. Pseudomonas on cultures. Continuing on antibiotic coverage per ID * Severe sepsis secondary to above. Clinically resolved. Multiple endorgan dysfunction with elevated LFTs/creatinine now with gradual improvement. * Acute on chronic KD: Improving. Creatinine down from 2->1 * History of hep C,/elevated LFTs. Continue monitoring * History of COPD continue bronchodilators * History of alcohol abuse-continue MVI/watch for withdrawals * Hypertension continue thiazide/JAMEY inhibitor * Peripheral disease continue aspirin Plavix Lipitor * DVT prophylaxis on heparin Plan * Continue antibiotics per ID * MRSA decolonization per ID * Monitor renal function * pre-existing medical condition management on home medications * Wound care/PT OT/dietary intervention * Discharge planning likely SNF Time Spent With Patient Time: Total time spent is greater than 50% in coordination of care (as documented) at patient's floor/unit and/or counseling patient: Total time spent with greater than 50% in coordination of care (as documented) at patient's floor/unit and/or counseling patient:: Greater than 35 minutes QUALITY VTE Deep Vein Thrombosis/Pulmonary Embolism Present on Admission: No
[2019-09-11] MEDS: HYDROcodone/APAP 5/325MG TABLET PO PRN ×2 (11:40→18:36)
--- NOTE | 2019-09-11 11:46 | Internal Med Progress Note ---
SUBJECTIVE Subjective Patient information: Note initiated : 09/11/19 at 11:41 am Service Date, if different from initiated Date: [] Patient: Dmitry Luna 69 y/o M admitted on 09/07/19 for left lower leg swelling. Chief Complaint: [] Patient feels the same as yesterday in terms of leg pain. Denies any fever, chills, nausea, vomiting, diarrhea. Request for more methadone for pain control. Patient is elevating left leg with few pillows. Constitutional Vitals: Vital Signs Temp Pulse Resp BP Pulse Ox 36.1 C 79 18 141/87 93 09/11/19 07:30 09/11/19 07:30 09/11/19 07:30 09/11/19 07:30 09/11/19 07:30 Period Temp Pulse Resp BP Sys/Robbins Pulse Ox Last 24 Hr 36.1 C-37.3 C 73-80 12-20 141-157/83-94 91-98 Intake and Output 09/10/19 09/11/19 09/11/19 21:59 05:59 13:59 Intake Total 6411 146 3538 Output Total 580 880 875 Balance 670 -595 125 Weight 116.301 kg Intake & Output: Intake & Output 09/10/19 09/11/19 09/11/19 21:59 05:59 13:59 Intake Total 2241 619 2381 Output Total 580 880 875 Balance 670 -595 125 Weight 116.301 kg Intake: IV 1000 65 1000 Sodium Chloride 0.9% 1,000 ml @ 1000 1000 75 mls/hr IV .[id number] [facility] Rx#: [id number] Oral 250 220 Output: Void Amount 580 880 875 Other: Meal Dinner Breakfast Percent of Meal Consumed 100% 100% Feeding Ability Independent Urine Appearance Clear Clear Clear Urine Color Bright Yellow Bright Yellow Bright Yellow Urine Odor Normal Normal Normal Additional findings Additional findings: Alert, oriented x3 No thrush Chest clear to auscultation with no wheezing Left leg and thigh: The redness continues to recede beyond the marked areas. There are few scabs with some fluid seeping through them over the leg. Tender. Few dark areas of skin. Prominent wrinkles over the surface. Distal foot appears minimally swollen with no redness OBJ DATA Labs CBC & Chem 7: 09/11/19 08:47 09/11/19 08:47 Labs: Abnormal Lab Results 09/11/19 09/11/19 09/10/19 08:47 08:47 05:24 RBC 2.85 L Hgb 9.4 L Hct 28.8 L MCV 101.1 H BUN Creatinine Glucose 107 H 115 H GGT 126 H AST 70 H 94 H ALT 69 H 72 H Albumin 2.5 L 2.1 L Globulin 4.9 H 5.0 H Albumin/Globulin Ratio 0.5 L 0.4 L 09/10/19 09/09/19 09/09/19 05:24 05:16 05:16 RBC 2.68 L 2.66 L Hgb 8.7 L 8.7 L Hct 28.0 L 27.7 L MCV 104.5 H 104.1 H BUN 28 H Creatinine 1.5 H Glucose GGT AST 64 H ALT 45 H Albumin 2.3 L Globulin 5.0 H Albumin/Globulin Ratio 0.5 L Meds: Medications Hydrocodone Bitart/Acetaminophen ([place] 5/325mg) 1 - 2 tab PO Q4HP PRN; Protocol PRN Reason: Per Pain Protocol Last Admin: 09/11/19 11:40 Dose: 2 tab Documented by: Albuterol Sulfate (Ventolin) 2 puff INH QID [facility] Last Admin: 09/11/19 07:49 Dose: Not Given Documented by: Albuterol/Ipratropium (Combivent) 1 puff INH QID [facility] Last Admin: 09/11/19 09:19 Dose: 1 puff Documented by: Allopurinol (Zylopriim) 300 mg PO QAM [facility] Last Admin: 09/11/19 07:48 Dose: 300 mg Documented by: Aspirin (Aspirin) 81 mg CHEWED DAILY [facility] Last Admin: 09/11/19 07:48 Dose: 81 mg Documented by: Atorvastatin Calcium (Lipitor) 20 mg PO QHS [facility] Last Admin: 09/10/19 20:20 Dose: 20 mg Documented by: Cefepime HCl (Maxipime) 2 gm IV Q8H [facility]; Protocol Last Admin: 09/11/19 05:51 Dose: 2 gm Documented by: Clopidogrel Bisulfate (Plavix) 75 mg PO DAILY [facility] Last Admin: 09/11/19 07:48 Dose: 75 mg Documented by: Docusate Sodium (Colace) 100 mg PO BID [facility] Last Admin: 09/11/19 07:48 Dose: 100 mg Documented by: Heparin Sodium (Porcine) (Heparin) 5,000 unit SQ Q12 [facility] Last Admin: 09/11/19 07:47 Dose: 5,000 unit Documented by: Hydromorphone HCl (Dilaudid) 0.25 mg IV Q4HP PRN; Protocol PRN Reason: Per Pain Protocol Last Admin: 09/11/19 07:34 Dose: 0.25 mg Documented by: Sodium Chloride (Sodium Chloride 0.9%) 1,000 mls @ 75 mls/hr IV .[id number] [facility] Last Admin: 09/11/19 10:30 Dose: 75 mls/hr Documented by: Acetaminophen (Ofirmev) 650 mg in 65 mls @ 130 mls/hr IV Q6HP PRN; Protocol PRN Reason: PAIN/FEVER > 101 Last Infusion: 09/11/19 03:10 Dose: Infused Documented by: Ibuprofen (Motrin) 200 mg PO Q6HP PRN; Protocol PRN Reason: PAIN/FEVER > 101 Last Admin: 09/08/19 04:20 Dose: 200 mg Documented by: Iron Carb/Multivit/Josephine/Folic Acid (Multivitamin W/Minerals) 1 tab PO BID [facility] Stop: 09/12/19 21:01 Last Admin: 09/11/19 07:48 Dose: 1 tab Documented by: [facility]othy[facility]ine [facility]) [facility] Admin: 09/11/19 07:48 Dose: 112 mcg Documented by: Lorazepam (Ativan) 0.5 mg IV Q6HP PRN PRN Reason: Alcohol Withdrawal Methadone HCl (Dolophine) 20 mg PO Q8 [facility] Last Admin: 09/11/19 07:55 Dose: 20 mg Documented by: Methocarbamol (Robaxin) 750 mg PO BIDP PRN PRN Reason: Muscle Spasm Last Admin: 09/10/19 20:20 Dose: 750 mg Documented by: Mupirocin (Bactroban Oint 2%) 1 dose TOPICAL DAILY [facility] Last Admin: 09/11/19 10:30 Dose: 1 dose Documented by: Omeprazole (Prilosec) 20 mg PO QAMAC [facility] Last Admin: 09/11/19 07:48 Dose: 20 mg Documented by: Ondansetron HCl (Zofran) 4 mg IV Q6HP PRN PRN Reason: Nausea And Vomiting Mometasone 1 Puff (Inhaler) 1 dose INH BID [facility] Last Admin: 09/11/19 07:58 Dose: Not Given Documented by: Sodium Chloride (Saline Flush) 10 ml IV Q8 [facility] Last Admin: 09/11/19 05:54 Dose: Not Given Documented by: Sodium Chloride ([place] Nasal) 1 spray GILES Q4HP PRN PRN Reason: Congestion Last Admin: 09/10/19 17:25 Dose: 1 spray Documented by: Tamsulosin HCl (Flomax) 0.8 mg PO QPM [facility] Last Admin: 09/10/19 20:20 Dose: 0.8 mg Documented by: Vitamin B Complex (Vitamin B Complex) 1 cap PO BID [facility] Stop: 09/12/19 21:01 Last Admin: 09/11/19 07:48 Dose: 1 cap Documented by: Vitamin D (Vitamin D3) 2,000 unit PO QAM [facility] Last Admin: 09/11/19 07:48 Dose: 2,000 unit Documented by: A/P Narrative A/P Narrative: A: 1. Left lower extremity complicated skin-soft tissue infection: pain disproportionate to exam findings. CT leg neg for nec fascitis, but shows e xtensive cellulitis and 2 simple but large fluid collections in anterior tibial and thigh area. 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 COPD: on 2L off and on via NC Recommendations: - Continue IV Cefepime 2 gm q8 hrs - consider US of left lower extremity to assess fluid collections. if they are bigger or similar in size, consider surgical debridement - will switch to a PO option at discharge. anticipate 2 week course given complicated nature of infection - Decolonization with 2% CHG wipes once daily for 5 days, day 4/5. - leg elevation - wound care will follow. Nicko Lazo MD Infectious diseases Time Spent With Patient Time: Total time spent is greater than 50% in coordination of care (as documented) at patient's floor/unit and/or counseling patient: QUALITY VTE Deep Vein Thrombosis/Pulmonary Embolism Present on Admission: No
[2019-09-11 12:12] LABS: Influenza A PRESUMED NEGATIVE; Influenza B PRESUMED NEGATIVE
--- NOTE | 2019-09-11 17:00 | General Surgery Progress Note ---
SUBJECTIVE Subjective Patient information: Note initiated : 09/11/19 at 4:55 pm Service Date, if different from initiated Date: [] Patient: Dmitry Luna 69 y/o M admitted on 09/07/19 for left lower leg swelling. Chief Complaint: [] Additional PMFSH (Level 3 Only): Patient seen on rounds. Reports feeling well. Undergoing MIST treatment and local wound care at this time. Constitutional Vitals: Vital Signs Temp Pulse Resp BP Pulse Ox 97.3 F 75 16 149/86 95 09/11/19 15:59 09/11/19 15:59 09/11/19 15:59 09/11/19 15:59 09/11/19 15:59 Period Temp Pulse Resp BP Sys/Robbins Pulse Ox Last 24 Hr 96.9 F-98.3 F 73-80 12-20 127-157/77-94 91-98 Intake and Output 09/11/19 09/11/19 09/11/19 05:59 13:59 21:59 Intake Total 285 1000 Output Total 880 1175 475 Balance -595 -175 -475 Weight 256 lb 6.4 oz Intake & Output: Intake & Output 09/11/19 09/11/19 09/11/19 05:59 13:59 21:59 Intake Total 285 1000 Output Total 880 1175 475 Balance -595 -175 -475 Weight 256 lb 6.4 oz Intake: IV 65 1000 Sodium Chloride 0.9% 1,000 ml @ 1000 75 mls/hr IV .[id number] [facility] Rx#: [id number] Oral 220 Output: Urine Catheter Amount 300 Void Amount 880 875 475 Other: Meal Breakfast Percent of Meal Consumed 100% Urine Appearance Clear Clear Clear Urine Color Bright Yellow Straw Bright Yellow Urine Odor Normal Normal Exam: No changes in DAISY. Plan of wound care discussed with Hospitalist Physician Dr. Bosch, Infectious Diseases Dr. Lazo and Smiley RN, Will continue with local wound care as of now. A/P Narrative A/P Narrative: Assessment: No acute interval changes. Local wound care and systemic antibiotics are ongoing at this time. Plan: Will check / reassess wounds tomorrow for local bedside debridement VS OR surgical debridement. Time Spent With Patient Time: Total time spent is greater than 50% in coordination of care (as documented) at patient's floor/unit and/or counseling patient: Total time spent with greater than 50% in coordination of care (as documented) at patient's floor/unit and/or counseling patient:: 15 - 24 minutes
[2019-09-11] MEDS: METHOCARBAMOL 750 MG TABLET PO PRN (17:40)
[2019-09-11] MEDS: ATORVASTATIN 40 MG TABLET PO SCH (20:15)
[2019-09-11] MEDS: TAMSULOSIN 0.4 MG CAPSULE PO SCH (20:15)
[2019-09-11] MEDS ORDERED: oxyCODONE 10 MG TAB.ER.12H PO SCH (21:00)
[2019-09-12] MEDS: HYDROcodone/APAP 5/325MG TABLET PO PRN ×3 (01:10→20:27)
[2019-09-12] MEDS: HYDROmorphone 0.5 MG/0.5 ML SYRINGE IV PRN ×3 (02:44→18:02)
[2019-09-12] MEDS: METHADONE 5 MG TABLET PO SCH ×3 (06:13→22:26)
[2019-09-12] MEDS: CEFEPIME 2 GM VIAL IV SCH ×3 (06:13→22:27)
[2019-09-12] MEDS: 0.9 % SODIUM CHLORIDE 10 ML SYRINGE IV SCH ×3 (06:13→23:35)
[2019-09-12 06:50] LABS: Basophils # (Auto) 0.03 K/mcL (0.00-0.30); Basophils % (Auto) 0.6 % (0.0-2.0); Eosinophils # (Auto) 0.38 K/mcL (0.00-0.70); Eosinophils % (Auto) 7.5 % (0.0-7.0); Granulocytes % (Auto) 49.4 % (38.0-78.0); Hematocrit 26.3 % (40.1-51.0); Hemoglobin 8.8 g/dL (13.7-17.5); Lymphocytes # (Auto) 1.69 K/mcL (1.50-4.80); Lymphocytes % (Auto) 33.1 % (15.5-49.0); Mean Cell Volume 96.7 fL (80.0-100.0); Mean Corpuscular HGB Conc 33.5 g/dL (31.0-36.0); Mean Platelet Volume 9.9 fL (7.4-10.4); Monocytes # (Auto) 0.48 K/mcL (0.10-0.90); Monocytes % (Auto) 9.4 % (1.0-12.0); Platelet Count 448 K/mcL (140-440); RBC 2.72 M/mcL (4.63-6.08); Red Cell Distribution Width 12.2 % (11.5-14.5); WBC 5.1 K/mcL (4.50-11.00)
[2019-09-12] MEDS: LEVOTHYROXINE SODIUM 112 MCG TABLET PO SCH (07:36)
[2019-09-12] MEDS: OMEPRAZOLE 20 MG CAPSULE PO SCH (07:36)
[2019-09-12 07:40] LABS: ALT/SGPT 60 U/l (0-40); AST/SGOT 57 U/l (0-37); Albumin 2.3 gm/dL (3.2-5.2); Albumin/Globulin Ratio 0.5 (1.0-2.3); Alkaline Phosphatase 99 U/L (39-117); Bilirubin,Direct < 0.2 mg/dL (0.0-0.3); Bilirubin,Total 0.2 mg/dL (0.0-1.0); Blood Urea Nitrogen 15 mg/dl (8-23); Calcium 8.7 mg/dl (8.6-10.4); Carbon Dioxide 25 mmol/L (22-30); Chloride 99 mmol/L (96-108); Globulin 4.6 gm/dL (2.2-3.7); Glomerular Filtration Rate 78; Glucose 129 mg/dL (70-105); Lactate Dehydrogenase 166 U/L (94-250); Phosphorous 3.1 mg/dL (2.7-4.5); Triglycerides 122 mg/dl (<150); Uric Acid 4.5 mg/dL (2.5-8.0)
--- NOTE | 2019-09-12 10:23 | Internal Med Progress Note ---
SUBJECTIVE Subjective Patient information: Note initiated : 09/12/19 at 10:19 am Service Date, if different from initiated Date: [] Patient: Dmitry Luna 69 y/o M admitted on 09/07/19 for left lower leg swelling. Chief Complaint: [] History of present illness: Mr. Luna is a 69 year old M with a history of CKD stage 3, hepatitis C, COPD, and high blood pressure who was presented to the ER due to left leg redness and pain. As per patient, patient left leg has been red, warm and painful for 2 weeks. He just came back from a trip 3 days before the the symptoms are started. He cannot exclude the possibility of insect bites. Otherwise patient denies headache, dizziness, chest pain, shortness of breath, nausea, vomiting, fever, chills, abdominal pain or dysuria. Patient denies drinking alcohol but he is a alcohol abuser from his medical chart. In the ER, ultrasound Doppler vein was performed. 09/08-patient on broad-spectrum antibiotics. CT lower extremity shows no evidence of neck fashion however extent cellulitis. Wound care on board. On antibiotic coverage including Zosyn/vancomycin. Cultures pending. White count down from 11.2-8.1. Sodium improved to 133, creatinine down from 2-1.5, mild LFT elevation noted 09/09-patient doing well. Status post ultrasound-guided drainage lower extremity abscess. Cultures pending. On antibiotic coverage per ID. Clinically improving but endorses to pain left lower extremity 6-8 out of 10 managed on opioids/. No overnight fever or chills. White count normalized at 5.8 creatinine down to 1.2. Elevated LFTs. 09/10-patient complains of 8 out of 10 10 out of 10 pain and unable to sleep at night. Started breakthrough medication on top of existing methadone. Wound culture Pseudomonas. ID recommends continuing cefepime. Wound care ongoing by Dr. james. Will likely undergo debridement. White count 5.6, LFTs downtrending creatinine at 1 09/11-patient doing well. Persistent pain and tenderness left lower extremity ordered lower extremity ultrasound rule out abscess/thigh ultrasound rule out DVT. Slept well. White count 5.1. Hemoglobin 8.8. Creatinine 1 LFTs downtrending Constitutional Vitals: Vital Signs Temp Pulse Resp BP Pulse Ox 98.2 F 74 20 149/92 95 09/12/19 08:00 09/12/19 08:00 09/12/19 08:00 09/12/19 08:00 09/12/19 08:00 Period Temp Pulse Resp BP Sys/Robbins Pulse Ox Last 24 Hr 96.9 F-98.4 F 68-76 16-20 127-168/77-92 93-95 Intake and Output 09/11/19 09/12/19 09/12/19 21:59 05:59 13:59 Intake Total 465 1696 240 Output Total 2000 414 600 Balance -1535 1221 -360 Weight 116.573 kg 116.573 kg Patient Weight 09/13/19 05:59 Weight 116.573 kg obese Minimal anxiety Alert oriented Swelling/dusky induration left pretibial area/thigh swelling Intake & Output: Intake & Output 09/11/19 09/12/19 09/12/19 21:59 05:59 13:59 Intake Total 465 1696 240 Output Total 2000 110 600 Balance -1535 1221 -360 Weight 116.573 kg 116.573 kg Intake: IV 65 976 Sodium Chloride 0.9% 1,000 ml @ 976 75 mls/hr IV .[id number] [facility] Rx#: [id number] Oral 400 720 240 Output: Void Amount 1999 475 600 Other: Meal Dinner Percent of Meal Consumed 100% Urine Appearance Clear Clear Urine Color Bright Yellow Bright Yellow Bright Yellow Urine Odor Normal Normal Normal Stool Size Moderate Stool Color Brown Stool Consistency Formed # Bowel Movements 1 OBJ DATA Labs CBC & Chem 7: 09/12/19 05:30 09/12/19 05:30 Labs: Abnormal Lab Results 09/12/19 09/12/19 09/11/19 05:30 05:30 08:47 RBC 2.72 L 2.85 L Hgb 8.8 L 9.4 L Hct 26.3 L 28.8 L MCV 101.1 H Plt Count 448 H Eos % (Auto) 7.5 H Glucose 129 H GGT 127 H AST 57 H ALT 60 H Albumin 2.3 L Globulin 4.6 H Albumin/Globulin Ratio 0.5 L 09/11/19 09/10/19 09/10/19 08:47 05:24 05:24 RBC 2.68 L Hgb 8.7 L Hct 28.0 L MCV 104.5 H Plt Count Eos % (Auto) Glucose 107 H 115 H GGT 126 H AST 70 H 94 H ALT 69 H 72 H Albumin 2.5 L 2.1 L Globulin 4.9 H 5.0 H Albumin/Globulin Ratio 0.5 L 0.4 L Meds: Medications Hydrocodone Bitart/Acetaminophen ([place] 5/325mg) 1 - 2 tab PO Q4HP PRN; Protocol PRN Reason: Per Pain Protocol Last Admin: 09/12/19 01:10 Dose: 2 tab Documented by: Albuterol Sulfate (Ventolin) 2 puff INH QID [facility] Last Admin: 09/11/19 21:46 Dose: Not Given Documented by: Albuterol/Ipratropium (Combivent) 1 puff INH QID [facility] Last Admin: 09/11/19 20:15 Dose: 1 puff Documented by: Allopurinol (Zylopriim) 300 mg PO QAM [facility] Last Admin: 09/11/19 07:48 Dose: 300 mg Documented by: Aspirin (Aspirin) 81 mg CHEWED DAILY [facility] Last Admin: 09/11/19 07:48 Dose: 81 mg Documented by: Atorvastatin Calcium (Lipitor) 20 mg PO QHS [facility] Last Admin: 09/11/19 20:15 Dose: 20 mg Documented by: Cefepime HCl (Maxipime) 2 gm IV Q8H [facility]; Protocol Last Admin: 09/12/19 06:13 Dose: 2 gm Documented by: Clopidogrel Bisulfate (Plavix) 75 mg PO DAILY [facility] Last Admin: 09/11/19 07:48 Dose: 75 mg Documented by: Docusate Sodium (Colace) 100 mg PO BID [facility] Last Admin: 09/11/19 21:39 Dose: Not Given Documented by: Heparin Sodium (Porcine) (Heparin) 5,000 unit SQ Q12 [facility] Last Admin: 09/11/19 20:15 Dose: 5,000 unit Documented by: Hydromorphone HCl (Dilaudid) 0.25 mg IV Q4HP PRN; Protocol PRN Reason: Per Pain Protocol Last Admin: 09/12/19 02:44 Dose: 0.25 mg Documented by: Sodium Chloride (Sodium Chloride 0.9%) 1,000 mls @ 75 mls/hr IV .[id number] [facility] Last Admin: 09/11/19 23:31 Dose: 75 mls/hr Documented by: Acetaminophen (Ofirmev) 650 mg in 65 mls @ 130 mls/hr IV Q6HP PRN; Protocol PRN Reason: PAIN/FEVER > 101 Last Infusion: 09/11/19 20:45 Dose: Infused Documented by: Ibuprofen (Motrin) 200 mg PO Q6HP PRN; Protocol PRN Reason: PAIN/FEVER > 101 Last Admin: 09/08/19 04:20 Dose: 200 mg Documented by: Iron Carb/Multivit/Chief Of Anesthesiology/Folic Acid (Multivitamin W/Minerals) 1 tab PO BID [facility] Stop: 09/12/19 21:01 Last Admin: 09/11/19 21:59 Dose: 1 tab Documented by: [facility]othy[facility]ine [facility]) [facility] Last Admin: 09/12/19 07:36 Dose: 112 mcg Documented by: Lorazepam (Ativan) 0.5 mg IV Q6HP PRN PRN Reason: Alcohol Withdrawal Methadone HCl (Dolophine) 20 mg PO Q8 [facility] Last Admin: 09/12/19 06:13 Dose: 20 mg Documented by: Methocarbamol (Robaxin) 750 mg PO BIDP PRN PRN Reason: Muscle Spasm Last Admin: 09/11/19 17:40 Dose: 750 mg Documented by: Mupirocin (Bactroban Oint 2%) 1 dose TOPICAL DAILY [facility] Last Admin: 09/11/19 10:30 Dose: 1 dose Documented by: Omeprazole ([facility]il[facility]c) [facility] Last Admin: 09/12/19 07:36 Dose: 20 mg Documented by: Ondansetron HCl (Zofran) 4 mg IV Q6HP PRN PRN Reason: Nausea And Vomiting Mometasone 1 Puff (Inhaler) 1 dose INH BID [facility] Last Admin: 09/11/19 21:46 Dose: Not Given Documented by: Sodium Chloride (Saline Flush) 10 ml IV Q8 [facility] Last Admin: 09/12/19 06:13 Dose: Not Given Documented by: Sodium Chloride ([place] Nasal) 1 spray GILES Q4HP PRN PRN Reason: Congestion Last Admin: 09/10/19 17:25 Dose: 1 spray Documented by: Tamsulosin HCl (Flomax) 0.8 mg PO QPM [facility] Last Admin: 09/11/19 20:15 Dose: 0.8 mg Documented by: Vitamin B Complex (Vitamin B Complex) 1 cap PO BID [facility] Stop: 09/12/19 21:01 Last Admin: 09/11/19 20:15 Dose: 1 cap Documented by: Vitamin D (Vitamin D3) 2,000 unit PO QAM [facility] Last Admin: 09/11/19 07:48 Dose: 2,000 unit Documented by: A/P Narrative A/P Narrative: A: * Left lower extremity complicated skin-soft tissue infection: Repeat ultrasound today to rule out abscess. Pseudomonas on cultures. Continuing on antibiotic coverage per ID * Severe sepsis secondary to above. Clinically resolved including endorgan dysfunction * Acute on chronic KD: Improving. Creatinine down to baseline from 2 * Anemia hemoglobin stable at 8.8 * History of hep C,/elevated LFTs. Stable * History of COPD continue bronchodilators * History of alcohol abuse-continue MVI/watch for withdrawals * Hypertension continue thiazide/JAMEY inhibitor * Peripheral disease continue aspirin Plavix Lipitor * DVT prophylaxis on heparin Plan * Continue antibiotics per ID * Lower extremity imaging for abscess/DVT * Monitor renal function * pre-existing medical condition management on home medications * Wound care/PT OT/dietary intervention * Discharge planning likely SNF Time Spent With Patient Time: Total time spent is greater than 50% in coordination of care (as documented) at patient's floor/unit and/or counseling patient: QUALITY VTE Deep Vein Thrombosis/Pulmonary Embolism Present on Admission: No
[2019-09-12] MEDS: HEPARIN 5,000 UNIT/ML VIAL SQ SCH ×2 (10:32→20:26)
[2019-09-12] MEDS: IPRATROPIUM/ALBUTEROL SULFATE 1 PUFF INHALER INH SCH ×4 (10:32→20:27)
[2019-09-12] MEDS: ALLOPURINOL 300 MG TABLET PO SCH (10:33)
[2019-09-12] MEDS: VITAMIN B COMPLEX 1 CAPSULE PO SCH ×2 (10:33→20:27)
[2019-09-12] MEDS: VITAMIN D3 1,000 UNIT TABLET PO SCH (10:34)
[2019-09-12] MEDS: MULTIVIT,THER IRON,CA,FA & MIN 1 TABLET PO SCH ×2 (10:34→20:27)
[2019-09-12] MEDS: CLOPIDOGREL 75 MG TABLET PO SCH (10:35)
[2019-09-12] MEDS: ASPIRIN 81 MG TAB.CHEW CHEWED SCH (10:35)
[2019-09-12] MEDS: MUPIROCIN OINT 2% 22GM TOPICAL SCH (10:35)
[2019-09-12] MEDS: METHOCARBAMOL 750 MG TABLET PO PRN (10:35)
[2019-09-12] MEDS: MOMETASONE INH SCH ×2 (10:35→20:28)
[2019-09-12] MEDS: DOCUSATE SODIUM 100 MG CAPSULE PO SCH ×2 (10:35→20:28)
[2019-09-12] MEDS: ALBUTEROL SULFATE 200 PUFF INHALER INH SCH ×4 (10:36→20:28)
--- NOTE | 2019-09-12 11:32 | General Surgery Progress Note ---
SUBJECTIVE Subjective Patient information: Note initiated : 09/12/19 at 11:21 am Service Date, if different from initiated Date: [] Patient: Dmitry Luna 69 y/o M admitted on 09/07/19 for left lower leg swelling. Chief Complaint: [] Additional PMFSH (Level 3 Only): Patient seen with Mildred HAGEN. Reviewed lab results and reports / pictures from reporting studies. WOUNDS of LLE EXAMINED He has well defined areas of tenderness and fluctuance along mid calf / leg. There is pitting edema of LEFT lateral thigh skin. Constitutional Vitals: Vital Signs Temp Pulse Resp BP Pulse Ox 98.2 F 74 20 149/92 95 09/12/19 08:00 09/12/19 08:00 09/12/19 08:00 09/12/19 08:00 09/12/19 08:00 Period Temp Pulse Resp BP Sys/Robbins Pulse Ox Last 24 Hr 96.9 F-98.4 F 68-76 16-20 127-168/77-92 93-95 Intake and Output 09/11/19 09/12/19 09/12/19 21:59 05:59 13:59 Intake Total 465 1696 240 Output Total 1999 475 600 Balance -1535 1221 -360 Weight 257 lb 257 lb Patient Weight 09/13/19 05:59 Weight 257 lb Intake & Output: Intake & Output 09/11/19 09/12/19 09/12/19 21:59 05:59 13:59 Intake Total 465 1696 240 Output Total 1999 475 600 Balance -1535 1221 -360 Weight 257 lb 257 lb Intake: IV 65 976 Sodium Chloride 0.9% 1,000 ml @ 976 75 mls/hr IV .[id number] [facility] Rx#: [id number] Oral 400 720 240 Output: Void Amount 1999 475 600 Other: Meal Dinner Percent of Meal Consumed 100% Urine Appearance Clear Clear Urine Color Bright Yellow Bright Yellow Bright Yellow Urine Odor Normal Normal Normal Stool Size Moderate Stool Color Brown Stool Consistency Formed # Bowel Movements 1 Exam: AVSS> No changes DAISY. Mild to moderate pain over LEFT mid leg and Left lateral thigh. Rest of the LLE inflammation / cellulitis has resolved. Skin Additional comments: DEMARCATED subcutaneous collection/s LEFT leg. NO obvious fluctuance but soft tissue pitting edema of LEFT lateral thigh. A/P Narrative A/P Narrative: Assessment: Will need surgical debridement in OR. D/W Dr. Bosch, Hospitalist Physician. Plan: Will schedule surgery tomorrow for I / D pulse lavage irrigation tissue for c/s and pathology an open packing. Spoke with patient about plan of care. Answered all his questions. Further recommendations as his condition evolves. Time Spent With Patient Time: Total time spent is greater than 50% in coordination of care (as documented) at patient's floor/unit and/or counseling patient: Total time spent with greater than 50% in coordination of care (as documented) at patient's floor/unit and/or counseling patient:: Greater than 35 minutes
[2019-09-12] MEDS: 0.9 % SODIUM CHLORIDE 1,000 ML IV SCH (12:53)
--- NOTE | 2019-09-12 14:16 | XRay Report ---
CLINICAL INFORMATION: Preop COMPARISON: 03/29/2018 FINDINGS: Heart size, mediastinum and pulmonary vessels are normal. Scattered tiny calcified granulomas seen in the periphery of both lungs. There is discoid atelectasis in the left base. Tiny Bochdalek hernia in the left medial supradiaphragmatic region demonstrate long-term stability (seen on [address] CT). No effusion IMPRESSION: Discoid atelectasis left base. No acute disease Interpreted and Authenticated by: Anam Jimenez 09/12/19
[2019-09-12] MEDS: ATORVASTATIN 40 MG TABLET PO SCH (20:27)
[2019-09-12] MEDS: TAMSULOSIN 0.4 MG CAPSULE PO SCH (20:27)
[2019-09-13] MEDS: HYDROmorphone 0.5 MG/0.5 ML SYRINGE IV PRN ×2 (00:41→08:14)
[2019-09-13] MEDS: METHOCARBAMOL 750 MG TABLET PO PRN ×2 (00:41→23:50)
[2019-09-13] MEDS: 0.9 % SODIUM CHLORIDE 1,000 ML IV SCH (02:24)
[2019-09-13] MEDS: METHADONE 5 MG TABLET PO SCH ×3 (06:04→21:17)
[2019-09-13] MEDS: CEFEPIME 2 GM VIAL IV SCH ×3 (06:04→21:16)
[2019-09-13] MEDS: 0.9 % SODIUM CHLORIDE 10 ML SYRINGE IV SCH ×3 (06:04→21:21)
[2019-09-13 06:20] LABS: Basophils # (Auto) 0.03 K/mcL (0.00-0.30); Basophils % (Auto) 0.5 % (0.0-2.0); Eosinophils # (Auto) 0.43 K/mcL (0.00-0.70); Eosinophils % (Auto) 7.5 % (0.0-7.0); Granulocytes % (Auto) 47.8 % (38.0-78.0); Hematocrit 28.3 % (40.1-51.0); Hemoglobin 9.2 g/dL (13.7-17.5); Lymphocytes # (Auto) 1.99 K/mcL (1.50-4.80); Lymphocytes % (Auto) 34.9 % (15.5-49.0); Mean Cell Volume 100.4 fL (80.0-100.0); Mean Corpuscular HGB Conc 32.5 g/dL (31.0-36.0); Mean Platelet Volume 9.7 fL (7.4-10.4); Monocytes # (Auto) 0.53 K/mcL (0.10-0.90); Monocytes % (Auto) 9.3 % (1.0-12.0); Platelet Count 479 K/mcL (140-440); RBC 2.82 M/mcL (4.63-6.08); Red Cell Distribution Width 12.1 % (11.5-14.5); WBC 5.7 K/mcL (4.50-11.00)
[2019-09-13 06:49] LABS: ALT/SGPT 58 U/l (0-40); AST/SGOT 56 U/l (0-37); Albumin 2.6 gm/dL (3.2-5.2); Albumin/Globulin Ratio 0.6 (1.0-2.3); Alkaline Phosphatase 106 U/L (39-117); Bilirubin,Direct < 0.2 mg/dL (0.0-0.3); Bilirubin,Total 0.2 mg/dL (0.0-1.0); Blood Urea Nitrogen 13 mg/dl (8-23); Carbon Dioxide 26 mmol/L (22-30); Chloride 101 mmol/L (96-108); Globulin 4.6 gm/dL (2.2-3.7); Glomerular Filtration Rate 78; Glucose 87 mg/dL (70-105); Lactate Dehydrogenase 189 U/L (94-250); Phosphorous 3.5 mg/dL (2.7-4.5); Triglycerides 106 mg/dl (<150); Uric Acid 4.7 mg/dL (2.5-8.0)
[2019-09-13] MEDS ORDERED: GENTAMICIN SULFATE IR SCH (07:30)
[2019-09-13] MEDS ORDERED: [UNRECOGNIZED DRUG - OTHER] IR SCH (07:30)
[2019-09-13] MEDS ORDERED: BACITRACIN IR SCH (07:30)
[2019-09-13] MEDS ORDERED: CLINDAMYCIN IR SCH (07:30)
[2019-09-13] MEDS: OMEPRAZOLE 20 MG CAPSULE PO SCH (07:53)
[2019-09-13] MEDS: LEVOTHYROXINE SODIUM 112 MCG TABLET PO SCH (07:53)
[2019-09-13] MEDS ORDERED: SCOPOLAMINE 1 PATCH PATCH TOPICAL PRN (09:00)
--- NOTE | 2019-09-13 10:26 | Internal Med Progress Note ---
SUBJECTIVE Subjective Patient information: Note initiated : 09/13/19 at 10:24 am Service Date, if different from initiated Date: [] Patient: Dmitry Luna 69 y/o M admitted on 09/07/19 for left lower leg swelling. Chief Complaint: [] History of present illness: Mr. Luna is a 69 year old M with a history of CKD stage 3, hepatitis C, COPD, and high blood pressure who was presented to the ER due to left leg redness and pain. As per patient, patient left leg has been red, warm and painful for 2 weeks. He just came back from a trip 3 days before the the symptoms are started. He cannot exclude the possibility of insect bites. Otherwise patient denies headache, dizziness, chest pain, shortness of breath, nausea, vomiting, fever, chills, abdominal pain or dysuria. Patient denies drinking alcohol but he is a alcohol abuser from his medical chart. In the ER, ultrasound Doppler vein was performed. 09/08-patient on broad-spectrum antibiotics. CT lower extremity shows no evidence of neck fashion however extent cellulitis. Wound care on board. On antibiotic coverage including Zosyn/vancomycin. Cultures pending. White count down from 11.2-8.1. Sodium improved to 133, creatinine down from 2-1.5, mild LFT elevation noted 09/09-patient doing well. Status post ultrasound-guided drainage lower extremity abscess. Cultures pending. On antibiotic coverage per ID. Clinically improving but endorses to pain left lower extremity 6-8 out of 10 managed on opioids/. No overnight fever or chills. White count normalized at 5.8 creatinine down to 1.2. Elevated LFTs. 09/10-patient complains of 8 out of 10 10 out of 10 pain and unable to sleep at night. Started breakthrough medication on top of existing methadone. Wound culture Pseudomonas. ID recommends continuing cefepime. Wound care ongoing by Dr. james. Will likely undergo debridement. White count 5.6, LFTs downtrending creatinine at 1 09/11-patient doing well. Persistent pain and tenderness left lower extremity ordered lower extremity ultrasound rule out abscess/thigh ultrasound rule out DVT. Slept well. White count 5.1. Hemoglobin 8.8. Creatinine 1 LFTs downtrending 09/12 patient undergoing surgical intervention. No overnight events. No concerns per staff. at bedside. Anticipate continued antibiotics/swing bed transfer to facilitate wound care/antibiotic coverage along with therapies and dietary intervention. Stable labs and hemodynamics. Constitutional Vitals: Vital Signs Temp Pulse Resp BP Pulse Ox 97.6 F 74 18 145/87 96 09/13/19 07:36 09/13/19 07:36 09/13/19 07:36 09/13/19 07:36 09/13/19 08:00 Period Temp Pulse Resp BP Sys/Robbins Pulse Ox Last 24 Hr 97.6 F-99.0 F 71-81 16-20 129-164/81-87 93-97 Intake and Output 09/12/19 09/13/19 09/13/19 21:59 05:59 13:59 Intake Total 1580 1500 Output Total 475 1125 Balance 1105 375 alert oriented No anxiety Nonlabored breathing Intake & Output: Intake & Output 09/12/19 09/13/19 09/13/19 21:59 05:59 13:59 Intake Total 1580 1500 Output Total 475 1125 Balance 1105 375 Intake: IV 1000 Sodium Chloride 0.9% 1,000 ml @ 1000 75 mls/hr IV .[id number] [facility] Rx#: [id number] Oral 1580 500 Output: Void Amount 475 1125 Other: Meal Dinner Percent of Meal Consumed 100% Feeding Ability Independent Urine Appearance Clear Clear Urine Color Bright Yellow Bright Yellow Bright Yellow Urine Odor Normal # Voids 1 # Bowel Movements 1 OBJ DATA Labs CBC & Chem 7: 09/13/19 05:01 09/14/19 05:11 Labs: Abnormal Lab Results 09/13/19 09/13/19 09/12/19 05:02 05:01 05:30 RBC 2.82 L 2.72 L Hgb 9.2 L 8.8 L Hct 28.3 L 26.3 L MCV 100.4 H Plt Count 479 H 448 H Eos % (Auto) 7.5 H 7.5 H Glucose GGT 136 H AST 56 H ALT 58 H Albumin 2.6 L Globulin 4.6 H Albumin/Globulin Ratio 0.6 L 09/12/19 09/11/19 09/11/19 05:30 08:47 08:47 RBC 2.85 L Hgb 9.4 L Hct 28.8 L MCV 101.1 H Plt Count Eos % (Auto) Glucose 129 H 107 H GGT 127 H 126 H AST 57 H 70 H ALT 60 H 69 H Albumin 2.3 L 2.5 L Globulin 4.6 H 4.9 H Albumin/Globulin Ratio 0.5 L 0.5 L Meds: Medications Hydrocodone Bitart/Acetaminophen ([place] 5/325mg) 1 - 2 tab PO Q4HP PRN; Protocol PRN Reason: Per Pain Protocol Last Admin: 09/12/19 20:27 Dose: 2 tab Documented by: Albuterol Sulfate (Ventolin) 2 puff INH QID [facility] Last Admin: 09/12/19 20:28 Dose: Not Given Documented by: Albuterol/Ipratropium (Combivent) 1 puff INH QID [facility] Last Admin: 09/12/19 20:27 Dose: 1 puff Documented by: Allopurinol (Zylopriim) 300 mg PO QAM [facility] Last Admin: 09/12/19 10:33 Dose: 300 mg Documented by: Aspirin (Aspirin) 81 mg CHEWED DAILY [facility] Last Admin: 09/12/19 10:35 Dose: 81 mg Documented by: Atorvastatin Calcium (Lipitor) 20 mg PO QHS [facility] Last Admin: 09/12/19 20:27 Dose: 20 mg Documented by: Cefepime HCl (Maxipime) 2 gm IV Q8H [facility]; Protocol Last Admin: 09/13/19 06:04 Dose: 2 gm Documented by: Clopidogrel Bisulfate (Plavix) 75 mg PO DAILY [facility] Last Admin: 09/12/19 10:35 Dose: 75 mg Documented by: Docusate Sodium (Colace) 100 mg PO BID [facility] Last Admin: 09/12/19 20:28 Dose: Not Given Documented by: Heparin Sodium (Porcine) (Heparin) 5,000 unit SQ Q12 [facility] Last Admin: 09/12/19 20:26 Dose: 5,000 unit Documented by: Hydromorphone HCl (Dilaudid) 0.25 mg IV Q4HP PRN; Protocol PRN Reason: Per Pain Protocol Last Admin: 09/13/19 08:14 Dose: 0.25 mg Documented by: Sodium Chloride (Sodium Chloride 0.9%) 1,000 mls @ 75 mls/hr IV .[id number] [facility] Last Admin: 09/13/19 02:24 Dose: 75 mls/hr Documented by: Acetaminophen (Ofirmev) 650 mg in 65 mls @ 130 mls/hr IV Q6HP PRN; Protocol PRN Reason: PAIN/FEVER > 101 Last Infusion: 09/11/19 20:45 Dose: Infused Documented by: Bacitracin 50,000 unit/Clindamycin Phosphate 600 mg/Gentamicin Sulfate 80 mg/Sodium Chloride 3,006 mls @ 3,006 mls/hr IR ONCE [facility] Stop: 09/13/19 13:00 Ibuprofen (Motrin) 200 mg PO Q6HP PRN; Protocol PRN Reason: PAIN/FEVER > 101 Last Admin: 09/08/19 04:20 Dose: 200 mg Documented by: Levothyroxine Sodium (Synthroid) 112 mcg PO QAMAC [facility] Last Admin: 09/13/19 07:53 Dose: Not Given Documented by: Lorazepam (Ativan) 0.5 mg IV Q6HP PRN PRN Reason: Alcohol Withdrawal Methadone HCl (Dolophine) 20 mg PO Q8 [facility] Last Admin: 09/13/19 06:04 Dose: 20 mg Documented by: Methocarbamol (Robaxin) 750 mg PO BIDP PRN PRN Reason: Muscle Spasm Last Admin: 09/13/19 00:41 Dose: 750 mg Documented by: Mupirocin (Bactroban Oint 2%) 1 dose TOPICAL DAILY [facility] Last Admin: 09/12/19 10:35 Dose: 1 dose Documented by: Omeprazole (Prilosec) 20 mg PO QAMAC [facility] Last Admin: 09/13/19 07:53 Dose: Not Given Documented by: Ondansetron HCl (Zofran) 4 mg IV Q6HP PRN PRN Reason: Nausea And Vomiting Mometasone 1 Puff (Inhaler) 1 dose INH BID [facility] Last Admin: 09/12/19 20:28 Dose: Not Given Documented by: Scopolamine (Transderm-Scop) 1 patch TOPICAL PREOP PRN PRN Reason: Nausea And Vomiting Stop: 09/13/19 14:00 Sodium Chloride (Saline Flush) 10 ml IV Q8 [facility] Last Admin: 09/13/19 06:04 Dose: Not Given Documented by: Sodium Chloride ([place] Nasal) 1 spray GILES Q4HP PRN PRN Reason: Congestion Last Admin: 09/10/19 17:25 Dose: 1 spray Documented by: Tamsulosin HCl (Flomax) 0.8 mg PO QPM [facility] Last Admin: 09/12/19 20:27 Dose: 0.8 mg Documented by: Vitamin D (Vitamin D3) 2,000 unit PO QAM [facility] Last Admin: 09/12/19 10:34 Dose: 2,000 unit Documented by: A/P Narrative A/P Narrative: * Left lower extremity complicated skin-soft tissue infection: On antibiotic coverage. Ongoing debridement today. * Severe sepsis secondary to above. Resolved * Acute on chronic KD: Improving. Now at baseline * Anemia hemoglobin stable at 8.8 * History of hep C,/elevated LFTs. Stable * History of COPD continue bronchodilators * History of alcohol abuse-continue MVI/watch for withdrawals * Hypertension continue thiazide/JAMEY inhibitor * Peripheral disease continue aspirin Plavix Lipitor * DVT prophylaxis on heparin Plan * Continue postop care per wound care * Antibiotics per infectious disease specialist * pre-existing medical condition management on home medications * PT OT/dietary intervention * Discharge planning likely Home Time Spent With Patient Time: Total time spent is greater than 50% in coordination of care (as documented) at patient's floor/unit and/or counseling patient: QUALITY VTE Deep Vein Thrombosis/Pulmonary Embolism Present on Admission: No
[2019-09-13] MEDS ORDERED: ONDANSETRON 4 MG/2 ML VIAL IV ONE (10:53)
[2019-09-13] MEDS ORDERED: DEXAMETHASONE 10 MG/ML VIAL IV ONE (10:53)
[2019-09-13] MEDS ORDERED: fentaNYL 100 MCG/2 ML VIAL IV ONE (10:53)
[2019-09-13] MEDS ORDERED: PROPOFOL 200 MG/20 ML VIAL IV ONE (10:53)
[2019-09-13] MEDS ORDERED: LIDOCAINE HCL/PF 100 MG/5 ML SYRINGE IV ONE (10:53)
[2019-09-13] MEDS ORDERED: KETAMINE 100 MG/ML ML IV ONE (10:53)
[2019-09-13] MEDS ORDERED: GLYCOPYRROLATE 0.2 MG/ML VIAL IV ONE (10:53)
[2019-09-13] MEDS ORDERED: MEPERIDINE 25 MG/ML SYRINGE IV PRN ×2 (11:28→12:12)
[2019-09-13] MEDS ORDERED: fentaNYL 100 MCG/2 ML VIAL IV PRN (11:28)
[2019-09-13] MEDS ORDERED: IPRATROPIUM/ALBUTEROL 3 ML AMPUL.NEB NEB PRN ×2 (11:28→12:12)
[2019-09-13] MEDS ORDERED: ONDANSETRON 4 MG/2 ML VIAL IV PRN ×2 (11:28→12:12)
[2019-09-13] MEDS ORDERED: KETOROLAC 15 MG/ML VIAL IV PRN ×2 (11:28→12:12)
[2019-09-13] MEDS ORDERED: LACTATED RINGERS 1,000 ML IV SCH ×2 (11:30→12:12)
--- NOTE | 2019-09-13 11:43 | Brief Operative Note ---
Brief Operative Note Date of procedure: 09/13/19 Pre-op diagnosis: CSSSI, LEFT LE, leg Resolving Sepsis Syndrome Post-op diagnosis: same Procedure: Exploration and excision debridement of sub cutaneous hematoma, necrotic fat, fascia and blood clot evacuation. Grafts/Implants: No Anesthesia: GLMA Findings: CSSSI Subcutaneous necrotic fat, fascia, blood clots. S/P CT guided aspiration earlier after admission. Complications: none Surgeon: Newton Mead Estimated blood loss (cc): 20 Specimens Removed/Pathology: other (Blood clots, necrotic tissue LEFT leg for c/s and histology) Condition: stable Disposition: PACU
[2019-09-13] MEDS ORDERED: HYDROmorphone 0.5 MG/0.5 ML SYRINGE IV PRN (12:12)
[2019-09-13] MEDS ORDERED: SODIUM CHLORIDE NASAL 1 SPRAY BOTTLE NAS PRN (12:12)
[2019-09-13] MEDS ORDERED: LORazepam 2 MG/ML VIAL IV PRN (12:12)
[2019-09-13] MEDS ORDERED: IBUPROFEN 200 MG TABLET PO PRN (12:12)
[2019-09-13] MEDS ORDERED: ACETAMINOPHEN 650 MG/65 ML BOTTLE IV PRN (12:12)
[2019-09-13] MEDS: ASPIRIN 81 MG TAB.CHEW CHEWED SCH (13:07)
[2019-09-13] MEDS: DOCUSATE SODIUM 100 MG CAPSULE PO SCH ×2 (13:07→21:20)
[2019-09-13] MEDS: MUPIROCIN OINT 2% 22GM TOPICAL SCH (13:07)
[2019-09-13] MEDS: IPRATROPIUM/ALBUTEROL SULFATE 1 PUFF INHALER INH SCH ×4 (13:07→21:20)
[2019-09-13] MEDS: HEPARIN 5,000 UNIT/ML VIAL SQ SCH ×2 (13:08→21:19)
[2019-09-13] MEDS: MOMETASONE INH SCH ×2 (13:08→21:21)
[2019-09-13] MEDS: CLOPIDOGREL 75 MG TABLET PO SCH (13:09)
[2019-09-13] MEDS: ALBUTEROL SULFATE 200 PUFF INHALER INH SCH ×4 (13:09→21:01)
[2019-09-13] MEDS: ALLOPURINOL 300 MG TABLET PO SCH (13:09)
[2019-09-13] MEDS: VITAMIN D3 1,000 UNIT TABLET PO SCH (13:09)
[2019-09-13] MEDS: HYDROcodone/APAP 5/325MG TABLET PO PRN ×2 (17:47→23:49)
[2019-09-13] MEDS: TAMSULOSIN 0.4 MG CAPSULE PO SCH (21:16)
[2019-09-13] MEDS: ATORVASTATIN 40 MG TABLET PO SCH (21:18)
[2019-09-14] MEDS: 0.9 % SODIUM CHLORIDE 10 ML SYRINGE IV SCH ×3 (04:41→21:50)
[2019-09-14] MEDS: HYDROcodone/APAP 5/325MG TABLET PO PRN ×3 (04:41→18:04)
[2019-09-14] MEDS: METHADONE 5 MG TABLET PO SCH ×3 (06:05→21:49)
[2019-09-14] MEDS: CEFEPIME 2 GM VIAL IV SCH ×3 (06:05→21:50)
[2019-09-14 07:01] LABS: ALT/SGPT 54 U/l (0-40); AST/SGOT 45 U/l (0-37); Albumin 2.9 gm/dL (3.2-5.2); Albumin/Globulin Ratio 0.6 (1.0-2.3); Alkaline Phosphatase 106 U/L (39-117); Bilirubin,Direct < 0.2 mg/dL (0.0-0.3); Bilirubin,Total 0.2 mg/dL (0.0-1.0); Blood Urea Nitrogen 15 mg/dl (8-23); Calcium 9.1 mg/dl (8.6-10.4); Carbon Dioxide 26 mmol/L (22-30); Chloride 99 mmol/L (96-108); Globulin 4.6 gm/dL (2.2-3.7); Glomerular Filtration Rate 78; Glucose 127 mg/dL (70-105); Lactate Dehydrogenase 177 U/L (94-250); Phosphorous 2.8 mg/dL (2.7-4.5); Triglycerides 106 mg/dl (<150); Uric Acid 5.4 mg/dL (2.5-8.0)
--- NOTE | 2019-09-14 07:33 | Operative Note ---
DATE OF OPERATION: 09/13/2019 PREOPERATIVE DIAGNOSES: Resolving sepsis syndrome, complicated skin and skin structure infection left leg and thigh. POSTOPERATIVE DIAGNOSES: 1. Resolving sepsis syndrome, complicated skin and skin structure infection left leg and thigh. No evidence of hematoma or abscess in the left thigh. 2. Complex collection of necrotic tissue, fascia, and blood clots, left leg, mid third medial to the rincon. 3. Final wound dimensions: 8 x 2 x 2.5 CM ANESTHESIA: General laryngeal mask. SURGEON: Newton Mead MD. INTRAOPERATIVE FINDINGS: Old blister infection of skin and subcutaneous tissues of left leg. Subcutaneous necrotic fat, and fascia along with blood clots. Past history of percutaneous aspiration under CT guidance for tissue diagnosis and cultures. PROCEDURE IN DETAIL: After obtaining informed consent, patient was taken to the operating room. He was anesthetized uneventfully in supine position using laryngeal mask airway. A timeout was called. He is already on IV antibiotics. Preoperative photograph was taken. Left lower extremity was widely cleaned, prepped and draped in the standard fashion. First, we attempted aspiration of the left posterior lateral thigh area of induration. There was no evidence of subcutaneous collection or abscess. This site was treated with a Tegaderm occlusive dressing. Gloves were changed. Attention was focused on the left leg wounds. First the adherent devitalized skin was removed with pickups. The fluctuant part of the mid leg medial to the rincon area was found to be fluctuant. First, we made a longitudinal incision and later extended this cephalad and caudad. Final dimensions were 8 x 2 x 2.5 cm. A digital exploration of the subcutaneous tissue was carried out and all the devitalized fat, blood clots and necrotic tissue, fascia was performed. Copious irrigation of this wound was carried out with pulse lavage irrigation using 3 liters of normal saline mixed with 50,000 units of bacitracin, 600 mg of clindamycin and 80 mg of gentamicin. Towards completion, the wound bed was clear. There were no residual pockets of any collections or necrotic debris. Hemostasis was achieved with pressure and elevation. We placed a large Xeroform gauze on the wound bed and reinforced this with 2-inch Kerlix packing soaked in Betadine gauze. This was further reinforced with Kerlix bandage, 4 x 4, ABD, Kerlix, Coban and JAMEY wrap from the toes up to the knee. ESTIMATED BLOOD LOSS: 20 mL. INSTRUMENT COUNT: Count of swabs, instruments and needles was reported to be correct. He recovered from anesthesia uneventfully. He was taken to in stable condition. I saw the patient in PACU. Subsequently, I went out and spoke with his , Jessica and updated her of progress. VD:yvonne Job ID: [id number] Doc ID: [id number] Newton WATSON
[2019-09-14] MEDS: OMEPRAZOLE 20 MG CAPSULE PO SCH (08:12)
[2019-09-14] MEDS: LEVOTHYROXINE SODIUM 112 MCG TABLET PO SCH (08:12)
[2019-09-14] MEDS ORDERED: LISINOPRIL/HCTZ 10/12.5MG TABLET PO SCH (09:00)
[2019-09-14] MEDS: VITAMIN D3 1,000 UNIT TABLET PO SCH (09:53)
[2019-09-14] MEDS: ASPIRIN 81 MG TAB.CHEW CHEWED SCH (09:54)
[2019-09-14] MEDS: DOCUSATE SODIUM 100 MG CAPSULE PO SCH ×2 (09:54→21:49)
[2019-09-14] MEDS: HYDROCHLOROTHIAZIDE 25 MG TABLET PO SCH (09:54)
[2019-09-14] MEDS: LISINOPRIL 20 MG TABLET PO SCH (09:54)
[2019-09-14] MEDS: CLOPIDOGREL 75 MG TABLET PO SCH (09:54)
[2019-09-14] MEDS: HEPARIN 5,000 UNIT/ML VIAL SQ SCH ×2 (09:54→21:50)
[2019-09-14] MEDS: IPRATROPIUM/ALBUTEROL SULFATE 1 PUFF INHALER INH SCH ×4 (09:55→21:48)
--- NOTE | 2019-09-14 09:55 | Discharge Summary ---
Discharge Provider Provider Patient information: Note initiated : 09/17/19 at 9:19 am Service Date, if different from initiated Date: [] Patient: Dmitry Luna 69 y/o M admitted on 09/07/19 for left lower leg swelling. Discharge diagnosis * Left lower extremity complicated skin-soft tissue infection: Post debridement day 4. Managed per wound care. Transition to SNF for continued outpatient antibiotic/wound care managed per wound care. * Severe sepsis secondary to above. Resolved * Acute on chronic KD: Clinically resolved * Anemia hemoglobin stable * History of hep C,/elevated LFTs. Stable * History of COPD continue bronchodilators * History of alcohol abuse-no evidence of withdrawals. On MVI/nutrition support * Hypertension continue thiazide/JAMEY inhibitor * Peripheral disease continue aspirin Plavix Lipitor * BPH on Flomax * GERD on PPI Brief hospital course History of present illness: Mr. Luna is a 69 year old M with a history of CKD stage 3, hepatitis C, COPD, and high blood pressure who was presented to the ER due to left leg redness and pain. As per patient, patient left leg has been red, warm and painful for 2 weeks. He just came back from a trip 3 days before the the symptoms are started. He cannot exclude the possibility of insect bites. Otherwise patient denies headache, dizziness, chest pain, shortness of breath, nausea, vomiting, fever, chills, abdominal pain or dysuria. Patient denies drinking alcohol but he is a alcohol abuser from his medical chart. In the ER, ultrasound Doppler vein was performed. 09/08-patient on broad-spectrum antibiotics. CT lower extremity shows no evidence of neck fashion however extent cellulitis. Wound care on board. On antibiotic coverage including Zosyn/vancomycin. Cultures pending. White count down from 11.2-8.1. Sodium improved to 133, creatinine down from 2-1.5, mild LFT elevation noted 09/09-patient doing well. Status post ultrasound-guided drainage lower extremity abscess. Cultures pending. On antibiotic coverage per ID. Clinically improving but endorses to pain left lower extremity 6-8 out of 10 managed on opioids/. No overnight fever or chills. White count normalized at 5.8 creatinine down to 1.2. Elevated LFTs. 09/10-patient complains of 8 out of 10 10 out of 10 pain and unable to sleep at night. Started breakthrough medication on top of existing methadone. Wound culture Pseudomonas. ID recommends continuing cefepime. Wound care ongoing by Dr. james. Will likely undergo debridement. White count 5.6, LFTs downtrending creatinine at 1 09/11-patient doing well. Persistent pain and tenderness left lower extremity ordered lower extremity ultrasound rule out abscess/thigh ultrasound rule out DVT. Slept well. White count 5.1. Hemoglobin 8.8. Creatinine 1 LFTs downtrending 09/12 patient undergoing surgical intervention. No overnight events. No concerns per staff. at bedside. Anticipate continued antibiotics/swing bed transfer to facilitate wound care/antibiotic coverage along with therapies and dietary intervention. Stable labs and hemodynamics. 09/13-patient doing well. Postop day 1. Antibiotic coverage. Per ID continue monitoring for additional 24 hours until operative cultures available. Will likely discharge in 24 to 48 hours on antibiotic de-escalation as per ID. Continue wound care per Dr. Mead 09/14-patient doing well. Postop day 2. No overnight events. No concerns per staff. ID recommends continuation of IV cefepime as outpatient. Case management coordinating SNF transfer versus home health care with outpatient infusion. Anticipate discharge 24 hours. Ongoing wound care per wound physician Dr. Mead. 09/15-patient on cefepime as per ID recommendations. [facility]. 09/16-await discharge to care facility. Continue wound care. ID recommendations as beloRecommendations: - Continue IV Cefepime 2 gm q8 hrs with tentative stop date of 09/21/2019 - leg elevation - wound care - ID clinic f/u in 2 weeksw Date of admission: 09/07/19 23:56 Discharge date: 09/17/19 Primary care physician: Colt Hutchinson Discharge Meds Discharge Medications Home Medications albuterol sulfate 90 mcg/actuation aerosol inhaler 2 puff INHALATION QID g 12/21/16 [History Confirmed 09/07/19 Last Taken 09/07/19] allopurinol 300 mg tablet 300 mg PO QAM tab 12/21/16 [History Confirmed 09/07/19 Last Taken 09/07/19] atorvastatin 40 mg tablet 20 mg PO QHS tab 12/21/16 [History Confirmed 09/07/19 Last Taken 09/06/19] cholecalciferol (vitamin D3) 25 mcg (1,000 unit) tablet 2,000 unit PO QAM tab 12/21/16 [History Confirmed 09/07/19 Last Taken 09/07/19] ipratropium 20 mcg-albuterol 100 mcg/actuation mist for inhalation 1 puff INHALATION QID 12/21/16 [History Confirmed 09/07/19 Last Taken 01/25/19] magnesium oxide 420 mg tablet 420 mg PO BID tab 12/21/16 [History Confirmed 09/07/19 Last Taken 09/07/19] mometasone 1 puff INHALATION BID 12/21/16 [History Confirmed 09/07/19 Last Taken 01/25/19] multivitamin with minerals 1 cap PO DAILY 12/21/16 [History Confirmed 09/08/19 Last Taken 09/07/19] omeprazole 20 mg capsule,delayed release 20 mg PO DAILY cap 12/21/16 [History Confirmed 09/07/19 Last Taken 09/07/19] tamsulosin 0.4 mg capsule 0.8 mg PO QPM cap 12/21/16 [History Confirmed 09/07/19 Last Taken 09/07/19] clopidogrel 75 mg PO DAILY 03/29/18 [History Confirmed 09/07/19 Last Taken 09/06] docusate sodium 100 mg PO BID 03/29/18 [History Confirmed 09/08/19 Last Taken 09/07/19] furosemide 20 mg PO DAILY 11/07/18 [History Confirmed 09/07/19 Last Taken 09/07/19] guaifenesin 400 mg PO PRN PRN 11/07/18 [History Confirmed 09/07/19 Last Taken 01/25/19] levothyroxine 112 mcg PO DAILY 11/07/18 [History Confirmed 09/07/19 Last Taken 09/07/19] lisinopril-hydrochlorothiazide 1 each PO DAILY 11/07/18 [History Confirmed 09/07/19 Last Taken 09/07/19] potassium chloride 10 meq PO TID 11/07/18 [History Confirmed 09/07/19 Last Taken 09/07/19] methadone 20 mg PO Q8H 09/07/19 [History Confirmed 09/07/19 Last Taken 09/07/19] Afrin No Drip(oxymetazolin) 2 spray INTRANASAL Q12H PRN 09/08/19 [History Confirmed 09/08/19 Last Taken 09/07/19] cefepime 2 gm IV Q8H #15 ea 09/17/19 [Rx Last Taken Unknown] COURSE Hospital Course Hospital course: . Discharge diagnosis: . Time Spent with Patient Time attestation: Total time spent providing and/or coordinating discharge services: EXAM Constitutional Vitals: Temp Pulse Resp BP Pulse Ox 96.3 F L 67 20 152/73 96 09/14/19 06:51 09/14/19 06:51 09/14/19 06:51 09/14/19 06:51 09/14/19 08:00 Discharge Data Data Completed and Pending Labs on day of discharge: Labs from last 24 hours 09/14/19 05:11 Sodium 135 Potassium 4.9 Chloride 99 Carbon Dioxide 26 Anion Gap 10.0 BUN 15 Creatinine 1.0 GFR Calculation 78 Glucose 127 H Uric Acid 5.4 Calcium 9.1 Phosphorus 2.8 Magnesium 1.7 Total Bilirubin 0.2 Direct Bilirubin < 0.2 GGT 130 H AST 45 H ALT 54 H Alkaline Phosphatase 106 Lactate Dehydrogenase 177 Total Protein 7.5 Albumin 2.9 L Globulin 4.6 H Albumin/Globulin Ratio 0.6 L Triglycerides 106 Discharge Plan Patient/Caregiver Discharge Instructions Activity: increase activity as tolerated Diet: Renal Instructions: Cellulitis (DC), Sepsis (GEN), Abscess Incision and Drainage (GEN) Activity Restrictions/Additional Instructions: Follow-up PCP in [7] days. Follow-up with wound care clinic as outpatient on Saturday or Saturday following discharge. Keep dressing intact until that appt. NO SHOWERING. Sponge bath only- do not allow left leg dressing to get wet. please schedule appointment prior to discharge. I recommend CBC BMP UA as a posthospital follow-up in 1 week by primary care physician. Continue antibiotics per ID. High protein calorie supplements. All meals on chair sitting upright at 90 degrees to prevent aspiration. Return to ER if worsening fever chills shortness of breath, diarrhea, bleeding. Review risk and side effect profile of medications including antibiotics. Side effect may include mild to severe reaction including rash, diarrhea, cdiff and even which can be prevented by close follow-up with PCP and monitoring for side effects. Refrain from alcohol use. Continue diet and activity as advised. Discussed importance of medication adherence. Please review medication list with patient prior to discharge. Please schedule follow-up with PCP/Providers prior to discharge and provide printouts. Renal Diet. Increase activity as tolerated. Prescriptions: New cefepime 2 gram Recon Soln 2 gm IV Q8H Qty: 15 RF: 0 Continued ipratropium-albuterol 20-100 mcg/actuation mist 1 puff INHALATION QID RF: 0 albuterol sulfate 90 mcg/actuation HFA aerosol inhaler 2 puff INHALATION QID RF: 0 allopurinol 300 mg tablet 300 mg PO QAM RF: 0 atorvastatin 40 mg tablet 20 mg PO QHS RF: 0 cholecalciferol (vitamin D3) 1,000 unit tablet 2,000 unit PO QAM RF: 0 magnesium oxide 420 mg tablet 420 mg PO BID RF: 0 mometasone 1 puff INHALATION BID RF: 0 omeprazole 20 mg capsule,delayed release(DR/EC) 20 mg PO DAILY RF: 0 tamsulosin 0.4 mg capsule,extended release 24hr 0.8 mg PO QPM RF: 0 clopidogrel 75 MG tablet 75 mg PO DAILY RF: 0 docusate sodium 100 MG capsule 100 mg PO BID RF: 0 potassium chloride 10 MEQ tablet 10 meq PO TID RF: 0 lisinopril-hydrochlorothiazide 1 EACH tablet 1 each PO DAILY RF: 0 furosemide 20 MG tablet 20 mg PO DAILY RF: 0 levothyroxine 112 MCG tablet 112 mcg PO DAILY RF: 0 guaifenesin 400 MG tablet 400 mg PO PRN PRN (Reason: Congestion) RF: 0 methadone 10 mg Tablet 20 mg PO Q8H RF: 0 Afrin No Drip(oxymetazolin) 0.05 % Mist 2 spray INTRANASAL Q12H PRN (Reason: Allergic Symptoms) RF: 0 Discontinued sulfamethoxazole-trimethoprim 800-160 mg Tablet 1 tab PO BID Qty: 14 RF: 0 doxycycline monohydrate 100 MG tablet 200 mg PO BID RF: 0 No Action multivitamin with minerals capsule 1 cap PO DAILY RF: 0 Follow Up Plan Follow up with: Newton Mead MD [Physician] - (Please call and schedule a follow up appointment to be seen Sep 17 or .) Colt Hutchinson MD [Primary Care Provider] - (Please call and schedule a hospital follow up.) Patient Disposition: Home, Self-Care Prognosis: Fair Rehab Potential: Fair I certify that the patient requires SNF services: No Overall status at discharge: patient is progressing back to baseline QUALITY VTE Deep Vein Thrombosis/Pulmonary Embolism Present on Admission: No
[2019-09-14] MEDS: MOMETASONE INH SCH ×2 (10:32→21:50)
[2019-09-14] MEDS: ALBUTEROL SULFATE 200 PUFF INHALER INH SCH ×4 (10:33→21:50)
[2019-09-14] MEDS: ALLOPURINOL 300 MG TABLET PO SCH (10:34)
--- NOTE | 2019-09-14 12:07 | Internal Med Progress Note ---
SUBJECTIVE Subjective Patient information: Note initiated : 09/14/19 at 12:01 pm Service Date, if different from initiated Date: [] Patient: Dmitry Luna 69 y/o M admitted on 09/07/19 for left lower leg swelling. Chief Complaint: [Patient feels better after the surgery. Reports that his pain is better as well. Denies any fever, chills, nausea, vomiting, diarrhea. Is eager to go home. Discussed that probably will go home tomorrow.] Constitutional Vitals: Vital Signs Temp Pulse Resp BP Pulse Ox 36.2 C 69 20 146/76 93 09/14/19 11:20 09/14/19 11:20 09/14/19 11:20 09/14/19 11:20 09/14/19 11:20 Period Temp Pulse Resp BP Sys/Robbins Pulse Ox Last 24 Hr 35.7 C-36.5 C 67-95 14-20 132-167/73-94 91-98 Intake and Output 09/13/19 09/14/19 09/14/19 21:59 05:59 13:59 Intake Total 1860 400 560 Output Total 420 1050 920 Balance 1440 -650 -360 Weight 111.782 kg Intake & Output: Intake & Output 09/13/19 09/14/19 09/14/19 21:59 05:59 13:59 Intake Total 1860 400 560 Output Total 420 1050 920 Balance 1440 -650 -360 Weight 111.782 kg Intake: Oral 1860 400 560 Output: Void Amount 420 1050 920 Other: Meal Dinner Breakfast Percent of Meal Consumed 100% 100% Feeding Ability Independent Independent Urine Appearance Clear Clear Clear Urine Color Bright Yellow Dark Yellow Bright Yellow Additional findings Additional findings: ao x 3, in mild discomfort due to leg pain left leg: Wrapped in primary surgical dressing. The marked areas over thigh and the leg show significant receding in redness and swelling. Prominent wrinkles on the skin. No soakage or active pus drainage seen although exam limited by primary surgical dressing in place. OBJ DATA Labs CBC & Chem 7: 09/13/19 05:01 09/14/19 05:11 Labs: Abnormal Lab Results 09/14/19 09/13/19 09/13/19 05:11 05:02 05:01 RBC 2.82 L Hgb 9.2 L Hct 28.3 L MCV 100.4 H Plt Count 479 H Eos % (Auto) 7.5 H Glucose 127 H GGT 130 H 136 H AST 45 H 56 H ALT 54 H 58 H Albumin 2.9 L 2.6 L Globulin 4.6 H 4.6 H Albumin/Globulin Ratio 0.6 L 0.6 L 09/12/19 09/12/19 05:30 05:30 RBC 2.72 L Hgb 8.8 L Hct 26.3 L MCV Plt Count 448 H Eos % (Auto) 7.5 H Glucose 129 H GGT 127 H AST 57 H ALT 60 H Albumin 2.3 L Globulin 4.6 H Albumin/Globulin Ratio 0.5 L Meds: Medications Hydrocodone Bitart/Acetaminophen ([place] 5/325mg) 1 - 2 tab PO Q4HP PRN; Protocol PRN Reason: Per Pain Protocol Last Admin: 09/14/19 09:55 Dose: 2 tab Documented by: Albuterol Sulfate (Ventolin) 2 puff INH QID [facility] Last Admin: 09/14/19 10:33 Dose: Not Given Documented by: Albuterol/Ipratropium (Combivent) 1 puff INH QID [facility] Last Admin: 09/14/19 09:55 Dose: 1 puff Documented by: Allopurinol (Zylopriim) 300 mg PO QAM [facility] Last Admin: 09/14/19 10:34 Dose: 300 mg Documented by: Aspirin (Aspirin) 81 mg CHEWED DAILY [facility] Last Admin: 09/14/19 09:54 Dose: 81 mg Documented by: Atorvastatin Calcium (Lipitor) 20 mg PO QHS [facility] Last Admin: 09/13/19 21:18 Dose: 20 mg Documented by: Cefepime HCl (Maxipime) 2 gm IV Q8H [facility]; Protocol Last Admin: 09/14/19 06:05 Dose: 2 gm Documented by: Clopidogrel Bisulfate (Plavix) 75 mg PO DAILY [facility] Last Admin: 09/14/19 09:54 Dose: 75 mg Documented by: Docusate Sodium (Colace) 100 mg PO BID [facility] Last Admin: 09/14/19 09:54 Dose: 100 mg Documented by: Heparin Sodium (Porcine) (Heparin) 5,000 unit SQ Q12 [facility] Last Admin: 09/14/19 09:54 Dose: 5,000 unit Documented by: Hydrochlorothiazide (Oretic) 25 mg PO DAILY [facility] Last Admin: 09/14/19 09:54 Dose: 25 mg Documented by: Hydromorphone HCl (Dilaudid) 0.25 mg IV Q4HP PRN; Protocol PRN Reason: Per Pain Protocol Acetaminophen (Ofirmev) 650 mg in 65 mls @ 130 mls/hr IV Q6HP PRN; Protocol PRN Reason: PAIN/FEVER > 101 Ibuprofen (Motrin) 200 mg PO Q6HP PRN; Protocol PRN Reason: PAIN/FEVER > 101 [facility] Last Admin: 09/14/19 08:12 Dose: 112 mcg Documented by: Lisinopril (Zestril) 20 mg PO DAILY [facility] Last Admin: 09/14/19 09:54 Dose: 20 mg Documented by: Lorazepam (Ativan) 0.5 mg IV Q6HP PRN PRN Reason: Alcohol Withdrawal Methadone HCl (Dolophine) 20 mg PO Q8 [facility] Last Admin: 09/14/19 06:05 Dose: 20 mg Documented by: Methocarbamol (Robaxin) 750 mg PO BIDP PRN PRN Reason: Muscle Spasm Last Admin: 09/13/19 23:50 Dose: 750 mg Documented by: Omeprazole (Prilosec) 20 mg PO [facility] Last Admin: 09/14/19 08:12 Dose: 20 mg Documented by: Ondansetron HCl (Zofran) 4 mg IV Q6HP PRN PRN Reason: Nausea And Vomiting Mometasone 1 Puff (Inhaler) 1 dose INH BID [facility] Last Admin: 09/14/19 10:32 Dose: Not Given Documented by: Sodium Chloride (Saline Flush) 10 ml IV Q8 [facility] Last Admin: 09/14/19 04:41 Dose: 10 ml Documented by: Sodium Chloride ([place] Nasal) 1 spray GILES Q4HP PRN PRN Reason: Congestion Tamsulosin HCl (Flomax) 0.8 mg PO QPM [facility] Last Admin: 09/13/19 21:16 Dose: 0.8 mg Documented by: Vitamin D (Vitamin D3) 2,000 unit PO QAM [facility] Last Admin: 09/14/19 09:53 Dose: 2,000 unit Documented by: A/P Narrative A/P Narrative: A: 1. Left lower extremity complicated skin-soft tissue infection: - pain disproportionate to exam findings. CT leg neg for nec fascitis, but shows extensive cellulitis and 2 simple but large fluid collections in anterior tibial and thigh area. 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 Overall pt is improving, with further redness, swelling, prominent wrinkles, afebrile and normal WBC. The operative site still under primary dressing 2. COPD: on 2L off and on via NC Recommendations: - Continue IV Cefepime 2 gm q8 hrs. will switch to PO option tomorrow while awaiting operative Cx - anticipate 2 week course given complicated nature of infection - leg elevation - wound care will follow. Nicko Lazo MD Infectious diseases Time Spent With Patient Time: Total time spent is greater than 50% in coordination of care (as documented) at patient's floor/unit and/or counseling patient: QUALITY VTE Deep Vein Thrombosis/Pulmonary Embolism Present on Admission: No
--- NOTE | 2019-09-14 12:16 | Internal Med Progress Note ---
SUBJECTIVE Subjective Patient information: Note initiated : 09/14/19 at 12:13 pm Service Date, if different from initiated Date: [] Patient: Dmitry Luna 69 y/o M admitted on 09/07/19 for left lower leg swelling. Chief Complaint: [] History of present illness: Mr. Luna is a 69 year old M with a history of CKD stage 3, hepatitis C, COPD, and high blood pressure who was presented to the ER due to left leg redness and pain. As per patient, patient left leg has been red, warm and painful for 2 weeks. He just came back from a trip 3 days before the the symptoms are started. He cannot exclude the possibility of insect bites. Otherwise patient denies headache, dizziness, chest pain, shortness of breath, nausea, vomiting, fever, chills, abdominal pain or dysuria. Patient denies drinking alcohol but he is a alcohol abuser from his medical chart. In the ER, ultrasound Doppler vein was performed. 09/08-patient on broad-spectrum antibiotics. CT lower extremity shows no evidence of neck fashion however extent cellulitis. Wound care on board. On antibiotic coverage including Zosyn/vancomycin. Cultures pending. White count down from 11.2-8.1. Sodium improved to 133, creatinine down from 2-1.5, mild LFT elevation noted 09/09-patient doing well. Status post ultrasound-guided drainage lower extremity abscess. Cultures pending. On antibiotic coverage per ID. Clinically improving but endorses to pain left lower extremity 6-8 out of 10 managed on opioids/. No overnight fever or chills. White count normalized at 5.8 creatinine down to 1.2. Elevated LFTs. 09/10-patient complains of 8 out of 10 10 out of 10 pain and unable to sleep at night. Started breakthrough medication on top of existing methadone. Wound culture Pseudomonas. ID recommends continuing cefepime. Wound care ongoing by Dr. james. Will likely undergo debridement. White count 5.6, LFTs downtrending creatinine at 1 09/11-patient doing well. Persistent pain and tenderness left lower extremity ordered lower extremity ultrasound rule out abscess/thigh ultrasound rule out DVT. Slept well. White count 5.1. Hemoglobin 8.8. Creatinine 1 LFTs downtrending 09/12 patient undergoing surgical intervention. No overnight events. No concerns per staff. at bedside. Anticipate continued antibiotics/swing bed transfer to facilitate wound care/antibiotic coverage along with therapies and dietary intervention. Stable labs and hemodynamics. 09/13-patient doing well. Postop day 1. Antibiotic coverage. Per ID continue monitoring for additional 24 hours until operative cultures available. Will likely discharge in 24 to 48 hours on antibiotic de-escalation as per ID. Continue wound care per Dr. ham Constitutional Vitals: Vital Signs Temp Pulse Resp BP Pulse Ox 97.2 F 69 20 146/76 93 09/14/19 11:20 09/14/19 11:20 09/14/19 11:20 09/14/19 11:20 09/14/19 11:20 Period Temp Pulse Resp BP Sys/Robbins Pulse Ox Last 24 Hr 96.3 F-97.7 F 67-95 14-20 132-167/73-94 91-98 Intake and Output 09/13/19 09/14/19 09/14/19 21:59 05:59 13:59 Intake Total 1860 400 560 Output Total 420 1050 920 Balance 1440 -650 -360 Weight 111.782 kg alert oriented No anxiety Postop dressing Nonlabored breathing Intake & Output: Intake & Output 09/13/19 09/14/19 09/14/19 21:59 05:59 13:59 Intake Total 1860 400 560 Output Total 420 1050 920 Balance 1440 -650 -360 Weight 111.782 kg Intake: Oral 1860 400 560 Output: Void Amount 420 1050 920 Other: Meal Dinner Breakfast Percent of Meal Consumed 100% 100% Feeding Ability Independent Independent Urine Appearance Clear Clear Clear Urine Color Bright Yellow Dark Yellow Bright Yellow OBJ DATA Labs CBC & Chem 7: 09/13/19 05:01 09/14/19 05:11 Labs: Abnormal Lab Results 09/14/19 09/13/19 09/13/19 05:11 05:02 05:01 RBC 2.82 L Hgb 9.2 L Hct 28.3 L MCV 100.4 H Plt Count 479 H Eos % (Auto) 7.5 H Glucose 127 H GGT 130 H 136 H AST 45 H 56 H ALT 54 H 58 H Albumin 2.9 L 2.6 L Globulin 4.6 H 4.6 H Albumin/Globulin Ratio 0.6 L 0.6 L 09/12/19 09/12/19 05:30 05:30 RBC 2.72 L Hgb 8.8 L Hct 26.3 L MCV Plt Count 448 H Eos % (Auto) 7.5 H Glucose 129 H GGT 127 H AST 57 H ALT 60 H Albumin 2.3 L Globulin 4.6 H Albumin/Globulin Ratio 0.5 L Meds: Medications Hydrocodone Bitart/Acetaminophen ([place] 5/325mg) 1 - 2 tab PO Q4HP PRN; Protocol PRN Reason: Per Pain Protocol Last Admin: 09/14/19 09:55 Dose: 2 tab Documented by: Albuterol Sulfate (Ventolin) 2 puff INH QID [facility] Last Admin: 09/14/19 10:33 Dose: Not Given Documented by: Albuterol/Ipratropium (Combivent) 1 puff INH QID [facility] Last Admin: 09/14/19 09:55 Dose: 1 puff Documented by: Allopurinol (Zylopriim) 300 mg PO QAM [facility] Last Admin: 09/14/19 10:34 Dose: 300 mg Documented by: Aspirin (Aspirin) 81 mg CHEWED DAILY [facility] Last Admin: 09/14/19 09:54 Dose: 81 mg Documented by: Atorvastatin Calcium (Lipitor) 20 mg PO QHS [facility] Last Admin: 09/13/19 21:18 Dose: 20 mg Documented by: Cefepime HCl (Maxipime) 2 gm IV Q8H [facility]; Protocol Last Admin: 09/14/19 06:05 Dose: 2 gm Documented by: Clopidogrel Bisulfate (Plavix) 75 mg PO DAILY [facility] Last Admin: 09/14/19 09:54 Dose: 75 mg Documented by: Docusate Sodium (Colace) 100 mg PO BID [facility] Last Admin: 09/14/19 09:54 Dose: 100 mg Documented by: Heparin Sodium (Porcine) (Heparin) 5,000 unit SQ Q12 [facility] Last Admin: 09/14/19 09:54 Dose: 5,000 unit Documented by: Hydrochlorothiazide (Oretic) 25 mg PO DAILY [facility] Last Admin: 09/14/19 09:54 Dose: 25 mg Documented by: Hydromorphone HCl (Dilaudid) 0.25 mg IV Q4HP PRN; Protocol PRN Reason: Per Pain Protocol Acetaminophen (Ofirmev) 650 mg in 65 mls @ 130 mls/hr IV Q6HP PRN; Protocol PRN Reason: PAIN/FEVER > 101 Ibuprofen (Motrin) 200 mg PO Q6HP PRN; Protocol PRN Reason: PAIN/FEVER > 101 Levothyroxine Sodium (Synthroid) [facility] Last Admin: 09/14/19 08:12 Dose: 112 mcg Documented by: Lisinopril (Zestril) 20 mg PO DAILY [facility] Last Admin: 09/14/19 09:54 Dose: 20 mg Documented by: Lorazepam (Ativan) 0.5 mg IV Q6HP PRN PRN Reason: Alcohol Withdrawal Methadone HCl (Dolophine) 20 mg PO Q8 [facility] Last Admin: 09/14/19 06:05 Dose: 20 mg Documented by: Methocarbamol (Robaxin) 750 mg PO BIDP PRN PRN Reason: Muscle Spasm Last Admin: 09/13/19 23:50 Dose: 750 mg Documented by: Omeprazole (Prilosec) 20 mg PO [facility] Last Admin: 09/14/19 08:12 Dose: 20 mg Documented by: Ondansetron HCl (Zofran) 4 mg IV Q6HP PRN PRN Reason: Nausea And Vomiting Mometasone 1 Puff (Inhaler) 1 dose INH BID [facility] Last Admin: 09/14/19 10:32 Dose: Not Given Documented by: Sodium Chloride (Saline Flush) 10 ml IV Q8 [facility] Last Admin: 09/14/19 04:41 Dose: 10 ml Documented by: Sodium Chloride ([place] Nasal) 1 spray GILES Q4HP PRN PRN Reason: Congestion Tamsulosin HCl (Flomax) 0.8 mg PO QPM [facility] Last Admin: 09/13/19 21:16 Dose: 0.8 mg Documented by: Vitamin D (Vitamin D3) [facility] Last Admin: 09/14/19 09:53 Dose: 2,000 unit Documented by: A/P Narrative A/P Narrative: * Left lower extremity complicated skin-soft tissue infection: Postop day 1. Managed per wound care. On antibiotic coverage per ID. Operative culture awaited * Severe sepsis secondary to above. Resolved * Acute on chronic KD: Resolved at baseline * Anemia hemoglobin stable * History of hep C,/elevated LFTs. Stable * History of COPD continue bronchodilators * History of alcohol abuse-continue MVI/watch for withdrawals * Hypertension continue thiazide/JAMEY inhibitor * Peripheral disease continue aspirin Plavix Lipitor * BPH on Flomax * GERD on PPI * DVT prophylaxis on heparin Plan * Continue postop care per wound care * Antibiotics per infectious disease specialist * pre-existing medical condition management on home medications * PT OT/dietary intervention * Discharge planning likely Home on antibiotics once clinically improved Time Spent With Patient Time: Total time spent is greater than 50% in coordination of care (as documented) at patient's floor/unit and/or counseling patient: QUALITY VTE Deep Vein Thrombosis/Pulmonary Embolism Present on Admission: No
[2019-09-14] MEDS: ATORVASTATIN 40 MG TABLET PO SCH (21:48)
[2019-09-14] MEDS: TAMSULOSIN 0.4 MG CAPSULE PO SCH (21:49)
[2019-09-15] MEDS: HYDROcodone/APAP 5/325MG TABLET PO PRN ×3 (03:43→17:37)
[2019-09-15] MEDS: CEFEPIME 2 GM VIAL IV SCH ×3 (05:42→21:48)
[2019-09-15] MEDS: 0.9 % SODIUM CHLORIDE 10 ML SYRINGE IV SCH ×3 (05:43→21:49)
[2019-09-15] MEDS: METHADONE 5 MG TABLET PO SCH ×3 (05:43→21:47)
[2019-09-15 06:40] LABS: ALT/SGPT 50 U/l (0-40); AST/SGOT 42 U/l (0-37); Albumin/Globulin Ratio 0.8 (1.0-2.3); Alkaline Phosphatase 92 U/L (39-117); Bilirubin,Direct < 0.2 mg/dL (0.0-0.3); Bilirubin,Total < 0.2 mg/dL (0.0-1.0); Blood Urea Nitrogen 16 mg/dl (8-23); Calcium 8.7 mg/dl (8.6-10.4); Carbon Dioxide 29 mmol/L (22-30); Chloride 99 mmol/L (96-108); Glomerular Filtration Rate 88; Glucose 121 mg/dL (70-105); Lactate Dehydrogenase 155 U/L (94-250); Phosphorous 2.9 mg/dL (2.7-4.5); Triglycerides 151 mg/dl (<150); Uric Acid 5.5 mg/dL (2.5-8.0)
[2019-09-15] MEDS: LEVOTHYROXINE SODIUM 112 MCG TABLET PO SCH (07:59)
[2019-09-15] MEDS: OMEPRAZOLE 20 MG CAPSULE PO SCH (07:59)
[2019-09-15] MEDS ORDERED: MAGNESIUM SULFATE 2 GM/50 ML BAG IV ONE (08:43)
[2019-09-15] MEDS: ALBUTEROL SULFATE 200 PUFF INHALER INH SCH ×4 (09:41→21:49)
[2019-09-15] MEDS: MOMETASONE INH SCH ×2 (09:41→21:49)
[2019-09-15] MEDS: CLOPIDOGREL 75 MG TABLET PO SCH (10:22)
[2019-09-15] MEDS: DOCUSATE SODIUM 100 MG CAPSULE PO SCH ×2 (10:22→21:48)
[2019-09-15] MEDS: HYDROCHLOROTHIAZIDE 25 MG TABLET PO SCH (10:22)
[2019-09-15] MEDS: LISINOPRIL 20 MG TABLET PO SCH (10:22)
[2019-09-15] MEDS: ALLOPURINOL 300 MG TABLET PO SCH (10:23)
[2019-09-15] MEDS: ASPIRIN 81 MG TAB.CHEW CHEWED SCH (10:23)
[2019-09-15] MEDS: HEPARIN 5,000 UNIT/ML VIAL SQ SCH ×2 (10:24→21:48)
[2019-09-15] MEDS: IPRATROPIUM/ALBUTEROL SULFATE 1 PUFF INHALER INH SCH ×4 (10:25→21:48)
[2019-09-15] MEDS: VITAMIN D3 1,000 UNIT TABLET PO SCH (10:26)
--- NOTE | 2019-09-15 11:01 | Surgical Pathology Report ---
HISTOLOGY SPECIMEN MICROSCOPIC DIAGNOSIS SOFT TISSUE, LEFT LOWER LEG, EXCISION: -- SOFT TISSUE WITH MARKED HEMORRHAGE, ACUTE AND CHRONIC INFLAMMATION AND GRANULATION TISSUE. -- NO MALIGNANCY IDENTIFIED. (DMT:adj) PROCEDURAL IMPRESSION Left lower leg hematoma. GROSS DESCRIPTION Received in formalin labeled left lower leg, are three purple-camejo tissue fragments and possible blood clot in aggregate measuring 3 x 2.5 x 0.7 cm. Preload Supervisor sections submitted in one cassette. (STS:sln) Electronically Signed by: Juancarlos Bull M.D.
--- NOTE | 2019-09-15 11:56 | General Surgery Progress Note ---
SUBJECTIVE Subjective Patient information: Note initiated : 09/15/19 at 11:47 am Service Date, if different from initiated Date: [] Patient: Dmitry Luna 69 y/o M admitted on 09/07/19 for left lower leg swelling. Chief Complaint: [] Additional PMFSH (Level 3 Only): Patient seen with Scarlet RN In Patient wound care nurse. Patient reports Feels well. Had an uneventful night. Constitutional Vitals: Vital Signs Temp Pulse Resp BP Pulse Ox 96.8 F L 62 18 135/82 94 09/15/19 07:34 09/15/19 07:34 09/15/19 07:34 09/15/19 07:34 09/15/19 07:34 Period Temp Pulse Resp BP Sys/Robbins Pulse Ox Last 24 Hr 96.8 F-97.6 F 62-67 16-20 122-148/62-88 94-98 Intake and Output 09/14/19 09/15/19 09/15/19 21:59 05:59 13:59 Intake Total 1770 800 Output Total 2300 1500 Balance -530 -700 Weight 229 lb Intake & Output: Intake & Output 09/14/19 09/15/19 09/15/19 21:59 05:59 13:59 Intake Total 1770 800 Output Total 2300 1500 Balance -530 -700 Weight 229 lb Intake: Oral 1770 800 Output: Void Amount 2300 1500 Other: Meal Lunch Percent of Meal Consumed 100% Feeding Ability Independent Urine Appearance Clear Clear Urine Color Pale Dark Yellow Urine Odor Normal Normal General appearance: cooperative and no acute distress Exam: AVSS. No changes DAISY. L/E: Dressing changed. Clean wound bed. NO odor, Granulations are pink and sturdy. Gram Stain and C/s Negative so far. Pathology report reviewed. Acute inflammation / Necrosis. A/P Narrative A/P Narrative: Assessment: Satisfactory post surgical progress. Granulating wound bed. Redressed with Xeroform gauze . Reinforced with bandages. Plan: Await ID recommendations about antibiotics. CM for D/C planning. ?? Short term Rehab for PT. If D/C F/u at wound clinic 09/18/2019 or 09/21/2019 Time Spent With Patient Time: Total time spent is greater than 50% in coordination of care (as documen francisca) at patient's floor/unit and/or counseling patient: Total time spent with greater than 50% in coordination of care (as documented) at patient's floor/unit and/or counseling patient:: 25 - 35 minutes
--- NOTE | 2019-09-15 12:41 | Internal Med Progress Note ---
SUBJECTIVE Subjective Patient information: Note initiated : 09/15/19 at 12:39 pm Service Date, if different from initiated Date: [] Patient: Dmitry Luna 69 y/o M admitted on 09/07/19 for left lower leg swelling. Chief Complaint: History of present illness: Mr. Luna is a 69 year old M with a history of CKD stage 3, hepatitis C, COPD, and high blood pressure who was presented to the ER due to left leg redness and pain. As per patient, patient left leg has been red, warm and painful for 2 weeks. He just came back from a trip 3 days before the the symptoms are started. He cannot exclude the possibility of insect bites. Otherwise patient denies headache, dizziness, chest pain, shortness of breath, nausea, vomiting, fever, chills, abdominal pain or dysuria. Patient denies drinking alcohol but he is a alcohol abuser from his medical chart. In the ER, ultrasound Doppler vein was performed. 09/08-patient on broad-spectrum antibiotics. CT lower extremity shows no evidence of neck fashion however extent cellulitis. Wound care on board. On antibiotic coverage including Zosyn/vancomycin. Cultures pending. White count down from 11.2-8.1. Sodium improved to 133, creatinine down from 2-1.5, mild LFT elevation noted 09/09-patient doing well. Status post ultrasound-guided drainage lower extremity abscess. Cultures pending. On antibiotic coverage per ID. Clinically improving but endorses to pain left lower extremity 6-8 out of 10 managed on opioids/. No overnight fever or chills. White count normalized at 5.8 creatinine down to 1.2. Elevated LFTs. 09/10-patient complains of 8 out of 10 10 out of 10 pain and unable to sleep at night. Started breakthrough medication on top of existing methadone. Wound culture Pseudomonas. ID recommends continuing cefepime. Wound care ongoing by Dr. james. Will likely undergo debridement. White count 5.6, LFTs downtrending creatinine at 1 09/11-patient doing well. Persistent pain and tenderness left lower extremity ordered lower extremity ultrasound rule out abscess/thigh ultrasound rule out DVT. Slept well. White count 5.1. Hemoglobin 8.8. Creatinine 1 LFTs downtrending 09/12 patient undergoing surgical intervention. No overnight events. No concerns per staff. at bedside. Anticipate continued antibiotics/swing bed transfer to facilitate wound care/antibiotic coverage along with therapies and dietary intervention. Stable labs and hemodynamics. 09/13-patient doing well. Postop day 1. Antibiotic coverage. Per ID continue monitoring for additional 24 hours until operative cultures available. Brando rich discharge in 24 to 48 hours on antibiotic de-escalation as per ID. Continue wound care per Dr. Mead 09/14-patient doing well. Postop day 2. No overnight events. No concerns per staff. ID recommends continuation of IV cefepime as outpatient. Case management coordinating SNF transfer versus home health care with outpatient infusion. Anticipate discharge 24 hours. Ongoing wound care per wound physician Dr. Mead. Constitutional Vitals: Vital Signs Temp Pulse Resp BP Pulse Ox 96.8 F L 62 18 135/82 94 09/15/19 07:34 09/15/19 07:34 09/15/19 07:34 09/15/19 07:34 09/15/19 07:34 Period Temp Pulse Resp BP Sys/Robbins Pulse Ox Last 24 Hr 96.8 F-97.6 F 62-67 16-20 122-148/62-88 94-98 Intake and Output 09/14/19 09/15/19 09/15/19 21:59 05:59 13:59 Intake Total 1770 800 Output Total 2300 1500 Balance -530 -700 Weight 103.873 kg alert oriented No anxiety Nonlabored breathing Left lower extremity much improved with resolution of erythema/surrounding erythematous change Intake & Output: Intake & Output 09/14/19 09/15/19 09/15/19 21:59 05:59 13:59 Intake Total 1770 800 Output Total 2300 1500 Balance -530 -700 Weight 103.873 kg Intake: Oral 1770 800 Output: Void Amount 2300 1500 Other: Meal Lunch Percent of Meal Consumed 100% Feeding Ability Independent Urine Appearance Clear Clear Urine Color Pale Dark Yellow Urine Odor Normal Normal OBJ DATA Labs CBC & Chem 7: 09/13/19 05:01 09/15/19 05:30 Labs: Abnormal Lab Results 09/15/19 09/14/19 09/13/19 05:30 05:11 05:02 RBC Hgb Hct MCV Plt Count Eos % (Auto) Glucose 121 H 127 H Magnesium 1.5 L GGT 121 H 130 H 136 H AST 42 H 45 H 56 H ALT 50 H 54 H 58 H Albumin 3.0 L 2.9 L 2.6 L Globulin 4.0 H 4.6 H 4.6 H Albumin/Globulin Ratio 0.8 L 0.6 L 0.6 L Triglycerides 151 H 09/13/19 05:01 RBC 2.82 L Hgb 9.2 L Hct 28.3 L MCV 100.4 H Plt Count 479 H Eos % (Auto) 7.5 H Glucose Magnesium GGT AST ALT Albumin Globulin Albumin/Globulin Ratio Triglycerides Meds: Medications Hydrocodone Bitart/Acetaminophen ([place] 5/325mg) 1 - 2 tab PO Q4HP PRN; Protocol PRN Reason: Per Pain Protocol Last Admin: 09/15/19 10:25 Dose: 2 tab Documented by: Albuterol Sulfate (Ventolin) 2 puff INH QID [facility] Last Admin: 09/15/19 09:41 Dose: Not Given Documented by: Albuterol/Ipratropium (Combivent) 1 puff INH QID [facility] Last Admin: 09/15/19 10:25 Dose: 1 puff Documented by: Allopurinol (Zylopriim) 300 mg PO QAM [facility] Last Admin: 09/15/19 10:23 Dose: 300 mg Documented by: Aspirin (Aspirin) 81 mg CHEWED DAILY [facility] Last Admin: 09/15/19 10:23 Dose: 81 mg Documented by: Atorvastatin Calcium (Lipitor) 20 mg PO QHS [facility] Last Admin: 09/14/19 21:48 Dose: 20 mg Documented by: Cefepime HCl (Maxipime) 2 gm IV Q8H [facility]; Protocol Last Admin: 09/15/19 05:42 Dose: 2 gm Documented by: Clopidogrel Bisulfate (Plavix) 75 mg PO DAILY [facility] Last Admin: 09/15/19 10:22 Dose: 75 mg Documented by: Docusate Sodium (Colace) 100 mg PO BID [facility] Last Admin: 09/15/19 10:22 Dose: 100 mg Documented by: Heparin Sodium (Porcine) (Heparin) 5,000 unit SQ Q12 [facility] Last Admin: 09/15/19 10:24 Dose: 5,000 unit Documented by: Hydrochlorothiazide (Oretic) 25 mg PO DAILY [facility] Last Admin: 09/15/19 10:22 Dose: 25 mg Documented by: Hydromorphone HCl (Dilaudid) 0.25 mg IV Q4HP PRN; Protocol PRN Reason: Per Pain Protocol Last Admin: 09/14/19 13:17 Dose: 0.25 mg Documented by: Acetaminophen (Ofirmev) 650 mg in 65 mls @ 130 mls/hr IV Q6HP PRN; Protocol PRN Reason: PAIN/FEVER > 101 Ibuprofen (Motrin) 200 mg PO Q6HP PRN; Protocol PRN Reason: PAIN/FEVER > 101 [facility]) [facility] Last Admin: 09/15/19 07:59 Dose: 112 mcg Documented by: Lisinopril (Zestril) 20 mg PO DAILY [facility] Last Admin: 09/15/19 10:22 Dose: 20 mg Documented by: Lorazepam (Ativan) 0.5 mg IV Q6HP PRN PRN Reason: Alcohol Withdrawal Methadone HCl (Dolophine) 20 mg PO Q8 [facility] Last Admin: 09/15/19 05:43 Dose: 20 mg Documented by: Methocarbamol (Robaxin) 750 mg PO BIDP PRN PRN Reason: Muscle Spasm Last Admin: 09/13/19 23:50 Dose: 750 mg Documented by: Omeprazole (Prilosec) [address] [facility] Last Admin: 09/15/19 07:59 Dose: 20 mg Documented by: Ondansetron HCl (Zofran) 4 mg IV Q6HP PRN PRN Reason: Nausea And Vomiting Mometasone 1 Puff (Inhaler) 1 dose INH BID [facility] Last Admin: 09/15/19 09:41 Dose: Not Given Documented by: Sodium Chloride (Saline Flush) 10 ml IV Q8 [facility] Last Admin: 09/15/19 05:43 Dose: 10 ml Documented by: Sodium Chloride ([place] Nasal) 1 spray GILES Q4HP PRN PRN Reason: Congestion Tamsulosin HCl (Flomax) 0.8 mg PO QPM [facility] Last Admin: 09/14/19 21:49 Dose: 0.8 mg Documented by: Vitamin D (Vitamin D3) 2,000 unit PO QAM [facility] Last Admin: 09/15/19 10:26 Dose: 2,000 unit Documented by: A/P Narrative A/P Narrative: * Left lower extremity complicated skin-soft tissue infection: Postop day 2. Managed per wound care. Continuing IV cefepime per ID. Operative culture negative so far * Severe sepsis secondary to above. Resolved * Acute on chronic KD: Resolved at baseline * Anemia hemoglobin stable * History of hep C,/elevated LFTs. Stable * History of COPD continue bronchodilators * History of alcohol abuse-continue MVI/watch for withdrawals * Hypertension continue thiazide/JAMEY inhibitor * Peripheral disease continue aspirin Plavix Lipitor * BPH on Flomax * GERD on PPI * DVT prophylaxis on heparin Plan * Continue postop care per wound care * Rocephin for additional 7 days * pre-existing medical condition management on home medications * PT OT/dietary intervention * Discharge planning to facilitate IV outpatient antibiotic infusion Time Spent With Patient Time: Total time spent is greater than 50% in coordination of care (as documented) at patient's floor/unit and/or counseling patient: Total time spent with greater than 50% in coordination of care (as documented) at patient's floor/unit and/or counseling patient:: Greater than 35 minutes QUALITY VTE Deep Vein Thrombosis/Pulmonary Embolism Present on Admission: No
--- NOTE | 2019-09-15 15:18 | Internal Med Progress Note ---
SUBJECTIVE Subjective Patient information: Note initiated : 09/15/19 at 3:16 pm Service Date, if different from initiated Date: [] Patient: Dmitry Luna 69 y/o M admitted on 09/07/19 for left lower leg swelling. Chief Complaint: [] Patient feels better. Denies any fever, chills, nausea, vomiting, diarrhea. Constitutional Vitals: Vital Signs Temp Pulse Resp BP Pulse Ox 36.0 C L 67 18 128/76 95 09/15/19 12:00 09/15/19 12:00 09/15/19 12:00 09/15/19 14:00 09/15/19 12:00 Period Temp Pulse Resp BP Sys/Robbins Pulse Ox Last 24 Hr 36.0 C-36.1 C 62-67 16-18 97-142/62-88 94-98 Intake and Output 09/15/19 09/15/19 09/15/19 05:59 13:59 21:59 Intake Total 800 Output Total 1500 Balance -700 Intake & Output: Intake & Output 09/15/19 09/15/19 09/15/19 05:59 13:59 21:59 Intake Total 800 Output Total 1500 Balance -700 Intake: Oral 800 Output: Void Amount 1500 Other: Urine Appearance Clear Urine Color Dark Yellow Urine Odor Normal Additional findings Additional findings: ao x 3, in mild distress left thigh: no redness. Still has swelling due to dependent edema left leg: the leg appears minimally red around the site of surgical debridement. Still some tenderness, no warmth, no swelling. prominent skin wrinkles. The ulcer at site of surgical debridement is linear, 4-5 cm long and about 1 cm wide. The base consists of exposed subcutaneous tissue and muscle. Bleeds to touch. left foot: no swelling or redness. OBJ DATA Labs CBC & Chem 7: 09/13/19 05:01 09/15/19 05:30 Labs: Abnormal Lab Results 09/15/19 09/14/19 09/13/19 05:30 05:11 05:02 RBC Hgb Hct MCV Plt Count Eos % (Auto) Glucose 121 H 127 H Magnesium 1.5 L GGT 121 H 130 H 136 H AST 42 H 45 H 56 H ALT 50 H 54 H 58 H Albumin 3.0 L 2.9 L 2.6 L Globulin 4.0 H 4.6 H 4.6 H Albumin/Globulin Ratio 0.8 L 0.6 L 0.6 L Triglycerides 151 H 09/13/19 05:01 RBC 2.82 L Hgb 9.2 L Hct 28.3 L MCV 100.4 H Plt Count 479 H Eos % (Auto) 7.5 H Glucose Magnesium GGT AST ALT Albumin Globulin Albumin/Globulin Ratio Triglycerides Meds: Medications Hydrocodone Bitart/Acetaminophen ([place] 5/325mg) 1 - 2 tab PO Q4HP PRN; Protocol PRN Reason: Per Pain Protocol Last Admin: 09/15/19 10:25 Dose: 2 tab Documented by: Albuterol Sulfate (Ventolin) 2 puff INH QID [facility] Last Admin: 09/15/19 14:36 Dose: Not Given Documented by: Albuterol/Ipratropium (Combivent) 1 puff INH QID [facility] Last Admin: 09/15/19 14:36 Dose: 1 puff Documented by: Allopurinol (Zylopriim) 300 mg PO QAM [facility] Last Admin: 09/15/19 10:23 Dose: 300 mg Documented by: Aspirin (Aspirin) 81 mg CHEWED DAILY [facility] Last Admin: 09/15/19 10:23 Dose: 81 mg Documented by: Atorvastatin Calcium (Lipitor) 20 mg PO QHS [facility] Last Admin: 09/14/19 21:48 Dose: 20 mg Documented by: Cefepime HCl (Maxipime) 2 gm IV Q8H [facility]; Protocol Last Admin: 09/15/19 14:33 Dose: 2 gm Documented by: Clopidogrel Bisulfate (Plavix) 75 mg PO DAILY [facility] Last Admin: 09/15/19 10:22 Dose: 75 mg Documented by: Docusate Sodium (Colace) 100 mg PO BID [facility] Last Admin: 09/15/19 10:22 Dose: 100 mg Documented by: Heparin Sodium (Porcine) (Heparin) 5,000 unit SQ Q12 [facility] Last Admin: 09/15/19 10:24 Dose: 5,000 unit Documented by: Hydrochlorothiazide (Oretic) 25 mg PO DAILY [facility] Last Admin: 09/15/19 10:22 Dose: 25 mg Documented by: Hydromorphone HCl (Dilaudid) 0.25 mg IV Q4HP PRN; Protocol PRN Reason: Per Pain Protocol Last Admin: 09/14/19 13:17 Dose: 0.25 mg Documented by: Acetaminophen (Ofirmev) 650 mg in 65 mls @ 130 mls/hr IV Q6HP PRN; Protocol PRN Reason: PAIN/FEVER > 101 Ibuprofen (Motrin) 200 mg PO Q6HP PRN; Protocol PRN Reason: PAIN/FEVER > 101 Levothyroxine Sodium (Synthroid) 112 mcg [facility] Last Admin: 09/15/19 07:59 Dose: 112 mcg Documented by: Lisinopril (Zestril) 20 mg PO DAILY [facility] Last Admin: 09/15/19 10:22 Dose: 20 mg Documented by: Lorazepam (Ativan) 0.5 mg IV Q6HP PRN PRN Reason: Alcohol Withdrawal Methadone HCl (Dolophine) 20 mg PO Q8 [facility] Last Admin: 09/15/19 14:34 Dose: 20 mg Documented by: Methocarbamol (Robaxin) 750 mg PO BIDP PRN PRN Reason: Muscle Spasm Last Admin: 09/13/19 23:50 Dose: 750 mg Documented by: Omeprazole (Prilosec) 20 mg PO [facility] Last Admin: 09/15/19 07:59 Dose: 20 mg Documented by: Ondansetron HCl (Zofran) 4 mg IV Q6HP PRN PRN Reason: Nausea And Vomiting Mometasone 1 Puff (Inhaler) 1 dose INH BID [facility] Last Admin: 09/15/19 09:41 Dose: Not Given Documented by: Sodium Chloride (Saline Flush) 10 ml IV Q8 [facility] Last Admin: 09/15/19 14:34 Dose: 10 ml Documented by: Sodium Chloride ([place] Nasal) 1 spray GILES Q4HP PRN PRN Reason: Congestion Tamsulosin HCl (Flomax) 0.8 mg PO QPM [facility] Last Admin: 09/14/19 21:49 Dose: 0.8 mg Documented by: Vitamin D (Vitamin D3) [facility] Last Admin: 09/15/19 10:26 Dose: 2,000 unit Documented by: A/P Narrative A/P Narrative: A: 1. Left lower extremity complicated skin-soft tissue infection: - pain disproportionate to exam findings. CT leg neg for nec fascitis, but shows extensive cellulitis and 2 simple but large fluid collections in anterior tibial and thigh area. 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 Operative Cx NGTD. Overall pt is much better, with minimal residual redness, swelling. presence of prominent wrinkles, afebrile and normal WBC. Patient could be switched to p.o. fluoroquinolones but since he has been on methadone for last 16 years it could potentially lead to QT prolongation in both levofloxacin and methadone are being taken by patient. Since patient still needs antibiotics and there is no oral option other than flouroquinolone to cover Pseudomonas; will continue with IV Cefepime. Pt might have to go to a [place] [facility] [place] for completing rest course of treatment. 2. COPD: on 2L off and on via [place] Recommendations: - Continue IV Cefepime 2 gm q8 hrs with tentative stop date of 09/21/2019 - midline placement - leg elevation - wound care - ID clinic f/u in 2 weeks Nicko Lazo MD Infectious diseases Time Spent With Patient Time: Total time spent is greater than 50% in coordination of care (as documented) at patient's floor/unit and/or counseling patient: QUALITY VTE Deep Vein Thrombosis/Pulmonary Embolism Present on Admission: No
[2019-09-15] MEDS: TAMSULOSIN 0.4 MG CAPSULE PO SCH (21:47)
[2019-09-15] MEDS: ATORVASTATIN 40 MG TABLET PO SCH (21:48)
[2019-09-16] MEDS: CEFEPIME 2 GM VIAL IV SCH ×3 (05:52→22:03)
[2019-09-16] MEDS: 0.9 % SODIUM CHLORIDE 10 ML SYRINGE IV SCH ×4 (05:53→22:04)
[2019-09-16] MEDS: METHADONE 5 MG TABLET PO SCH ×3 (05:53→22:03)
[2019-09-16] MEDS: HEPARIN 5,000 UNIT/ML VIAL SQ SCH ×2 (09:47→20:34)
[2019-09-16] MEDS: LISINOPRIL 20 MG TABLET PO SCH (09:47)
[2019-09-16] MEDS: CLOPIDOGREL 75 MG TABLET PO SCH (09:47)
[2019-09-16] MEDS: OMEPRAZOLE 20 MG CAPSULE PO SCH (09:48)
[2019-09-16] MEDS: ASPIRIN 81 MG TAB.CHEW CHEWED SCH (09:48)
[2019-09-16] MEDS: ALLOPURINOL 300 MG TABLET PO SCH (09:48)
[2019-09-16] MEDS: LEVOTHYROXINE SODIUM 112 MCG TABLET PO SCH (09:48)
[2019-09-16] MEDS: DOCUSATE SODIUM 100 MG CAPSULE PO SCH ×2 (09:48→20:33)
[2019-09-16] MEDS: HYDROCHLOROTHIAZIDE 25 MG TABLET PO SCH (09:48)
[2019-09-16] MEDS: ALBUTEROL SULFATE 200 PUFF INHALER INH SCH ×4 (09:49→22:04)
[2019-09-16] MEDS: IPRATROPIUM/ALBUTEROL SULFATE 1 PUFF INHALER INH SCH ×4 (09:49→20:33)
[2019-09-16] MEDS: MOMETASONE INH SCH ×2 (09:49→20:44)
[2019-09-16] MEDS: VITAMIN D3 1,000 UNIT TABLET PO SCH (09:49)
--- NOTE | 2019-09-16 12:41 | Internal Med Progress Note ---
SUBJECTIVE Subjective Patient information: Note initiated : 09/16/19 at 12:38 pm Service Date, if different from initiated Date: [] Patient: Dmitry Luna 69 y/o M admitted on 09/07/19 for left lower leg swelling. Chief Complaint: [] History of present illness: Mr. Luna is a 69 year old M with a history of CKD stage 3, hepatitis C, COPD, and high blood pressure who was presented to the ER due to left leg redness and pain. As per patient, patient left leg has been red, warm and painful for 2 weeks. He just came back from a trip 3 days before the the symptoms are started. He cannot exclude the possibility of insect bites. Otherwise patient denies headache, dizziness, chest pain, shortness of breath, nausea, vomiting, fever, chills, abdominal pain or dysuria. Patient denies drinking alcohol but he is a alcohol abuser from his medical chart. In the ER, ultrasound Doppler vein was performed. 09/08-patient on broad-spectrum antibiotics. CT lower extremity shows no evidence of neck fashion however extent cellulitis. Wound care on board. On antibiotic coverage including Zosyn/vancomycin. Cultures pending. White count down from 11.2-8.1. Sodium improved to 133, creatinine down from 2-1.5, mild LFT elevation noted 09/09-patient doing well. Status post ultrasound-guided drainage lower extremity abscess. Cultures pending. On antibiotic coverage per ID. Clinically improving but endorses to pain left lower extremity 6-8 out of 10 managed on opioids/. No overnight fever or chills. White count normalized at 5.8 creatinine down to 1.2. Elevated LFTs. 09/10-patient complains of 8 out of 10 10 out of 10 pain and unable to sleep at night. Started breakthrough medication on top of existing methadone. Wound culture Pseudomonas. ID recommends continuing cefepime. Wound care ongoing by Dr. james. Will likely undergo debridement. White count 5.6, LFTs downtrending creatinine at 1 09/11-patient doing well. Persistent pain and tenderness left lower extremity ordered lower extremity ultrasound rule out abscess/thigh ultrasound rule out DVT. Slept well. White count 5.1. Hemoglobin 8.8. Creatinine 1 LFTs downtrending 09/12 patient undergoing surgical intervention. No overnight events. No concerns per staff. at bedside. Anticipate continued antibiotics/swing bed transfer to facilitate wound care/antibiotic coverage along with therapies and dietary intervention. Stable labs and hemodynamics. 09/13-patient doing well. Postop day 1. Antibiotic coverage. Per ID continue monitoring for additional 24 hours until operative cultures available. Will likely discharge in 24 to 48 hours on antibiotic de-escalation as per ID. Continue wound care per Dr. Mead 09/14-patient doing well. Postop day 2. No overnight events. No concerns per staff. ID recommends continuation of IV cefepime as outpatient. Case management coordinating SNF transfer versus home health care with outpatient infusion. Anticipate discharge 24 hours. Ongoing wound care per wound physician Dr. Mead. 09/15-patient on cefepime as per ID recommendations. Case management coordinating transfer to [place] for continued outpatient antibiotics/wound care. Constitutional Vitals: Vital Signs Temp Pulse Resp BP Pulse Ox 96.0 F L 67 16 131/84 94 09/16/19 08:00 09/16/19 08:00 09/16/19 08:00 09/16/19 08:00 09/16/19 08:00 Period Temp Pulse Resp BP Sys/Robbins Pulse Ox Last 24 Hr 96.0 F-97.9 F 60-68 16-18 115-152/70-90 94-97 Intake and Output 09/15/19 09/16/19 09/16/19 21:59 05:59 13:59 Intake Total 2440 600 Output Total 1020 1625 Balance 1420 -1025 Weight 105.097 kg ambulating with assistance Tolerating diet No fever chills No anxiety Intake & Output: Intake & Output 09/15/19 09/16/19 09/16/19 21:59 05:59 13:59 Intake Total 2440 600 Output Total 1020 1625 Balance 1420 -1025 Weight 105.097 kg Intake: Oral 2440 600 Output: Void Amount 1020 1625 Other: Meal Dinner Percent of Meal Consumed 100% Feeding Ability Independent Urine Appearance Clear Clear Urine Color Pale Bright Yellow OBJ DATA Labs CBC & Chem 7: 09/13/19 05:01 09/15/19 05:30 Labs: Abnormal Lab Results 09/15/19 09/14/19 05:30 05:11 Glucose 121 H 127 H Magnesium 1.5 L GGT 121 H 130 H AST 42 H 45 H ALT 50 H 54 H Albumin 3.0 L 2.9 L Globulin 4.0 H 4.6 H Albumin/Globulin Ratio 0.8 L 0.6 L Triglycerides 151 H Meds: Medications Hydrocodone Bitart/Acetaminophen (Thurman 5/325mg) 1 - 2 tab PO Q4HP PRN; Protocol PRN Reason: Per Pain Protocol Last Admin: 09/15/19 17:37 Dose: 2 tab Documented by: Albuterol Sulfate (Ventolin) 2 puff INH QID [facility] Last Admin: 09/16/19 12:37 Dose: Not Given Documented by: Albuterol/Ipratropium (Combivent) 1 puff INH QID [facility] Last Admin: 09/16/19 09:49 Dose: 1 puff Documented by: Allopurinol (Zylopriim) 300 mg PO QAM [facility] Last Admin: 09/16/19 09:48 Dose: 300 mg Documented by: Aspirin (Aspirin) 81 mg CHEWED DAILY [facility] Last Admin: 09/16/19 09:48 Dose: 81 mg Documented by: Atorvastatin Calcium (Lipitor) 20 mg PO QHS [facility] Last Admin: 09/15/19 21:48 Dose: 20 mg Documented by: Cefepime HCl (Maxipime) 2 gm IV Q8H [facility]; Protocol Last Admin: 09/16/19 05:52 Dose: 2 gm Documented by: Clopidogrel Bisulfate (Plavix) 75 mg PO DAILY [facility] Last Admin: 09/16/19 09:47 Dose: 75 mg Documented by: Docusate Sodium (Colace) 100 mg PO BID [facility] Last Admin: 09/16/19 09:48 Dose: 100 mg Documented by: Heparin Sodium (Porcine) (Heparin) 5,000 unit SQ Q12 [facility] Last Admin: 09/16/19 09:47 Dose: 5,000 unit Documented by: Hydrochlorothiazide (Oretic) 25 mg PO DAILY [facility] Last Admin: 09/16/19 09:48 Dose: 25 mg Documented by: Hydromorphone HCl (Dilaudid) 0.25 mg IV Q4HP PRN; Protocol PRN Reason: Per Pain Protocol Last Admin: 09/14/19 13:17 Dose: 0.25 mg Documented by: Acetaminophen (Ofirmev) 650 mg in 65 mls @ 130 mls/hr IV Q6HP PRN; Protocol PRN Reason: PAIN/FEVER > 101 Ibuprofen (Motrin) 200 mg PO Q6HP PRN; Protocol PRN Reason: PAIN/FEVER > 101 Levothyroxine Sodium (Synthroid) 112 mcg PO [facility] Last Admin: 09/16/19 09:48 Dose: 112 mcg Documented by: Lisinopril (Zestril) 20 mg PO DAILY [facility] Last Admin: 09/16/19 09:47 Dose: 20 mg Documented by: Lorazepam (Ativan) 0.5 mg IV Q6HP PRN PRN Reason: Alcohol Withdrawal Methadone HCl (Dolophine) 20 mg PO Q8 [facility] Last Admin: 09/16/19 05:53 Dose: 20 mg Documented by: Methocarbamol (Robaxin) 750 mg PO BIDP PRN PRN Reason: Muscle Spasm Last Admin: 09/13/19 23:50 Dose: 750 mg Documented by: Omeprazole (Prilosec) 20 mg PO [facility] Last Admin: 09/16/19 09:48 Dose: 20 mg Documented by: Ondansetron HCl (Zofran) 4 mg IV Q6HP PRN PRN Reason: Nausea And Vomiting Mometasone 1 Puff (Inhaler) 1 dose INH BID [facility] Last Admin: 09/16/19 09:49 Dose: Not Given Documented by: Sodium Chloride (Saline Flush) 10 ml IV Q8 [facility] Last Admin: 09/16/19 05:53 Dose: 10 ml Documented by: Sodium Chloride (Cavalier Nasal) 1 spray GILES Q4HP PRN PRN Reason: Congestion Tamsulosin HCl (Flomax) 0.8 mg PO QPM [facility] Last Admin: 09/15/19 21:47 Dose: 0.8 mg Documented by: Vitamin D (Vitamin D3) 2,000 unit PO [facility] Last Admin: 09/16/19 09:49 Dose: 2,000 unit Documented by: A/P Narrative A/P Narrative: * Left lower extremity complicated skin-soft tissue infection: Post debridement day 3. Managed per wound care. Dissipate [facility] to [facility] for outpatient [facility]/wound care managed per wound care. * Severe sepsis secondary to above. Resolved * Acute on chronic KD: Clinically resolved * Anemia hemoglobin stable * History of hep C,/elevated LFTs. Stable * History of COPD continue bronchodilators * History of alcohol abuse-no evidence of withdrawals. On MVI/nutrition support * Hypertension continue thiazide/JAMEY inhibitor * Peripheral disease continue aspirin Plavix Lipitor * BPH on Flomax * GERD on PPI * DVT prophylaxis on heparin Plan * Continue wound care per Dr. ham * Anticipate discharge on IV cefepime as per ID recommendations * pre-existing medical condition management on home medications * PT OT/dietary intervention * PICC line placement Infectious disease specialist recommendations: - Continue IV Cefepime 2 gm q8 hrs with tentative stop date of 09/21/2019 - midline placement - leg elevation - wound care - ID clinic f/u in 2 weeks Time Spent With Patient Time: Total time spent is greater than 50% in coordination of care (as documented) at patient's floor/unit and/or counseling patient: QUALITY VTE Deep Vein Thrombosis/Pulmonary Embolism Present on Admission: No
[2019-09-16] MEDS: HYDROcodone/APAP 5/325MG TABLET PO PRN (17:12)
[2019-09-16] MEDS: TAMSULOSIN 0.4 MG CAPSULE PO SCH (20:33)
[2019-09-16] MEDS: ATORVASTATIN 40 MG TABLET PO SCH (20:33)
[2019-09-17] MEDS: HYDROcodone/APAP 5/325MG TABLET PO PRN ×2 (04:25→09:29)
[2019-09-17] MEDS: CEFEPIME 2 GM VIAL IV SCH ×2 (06:13→14:13)
[2019-09-17] MEDS: 0.9 % SODIUM CHLORIDE 10 ML SYRINGE IV SCH ×3 (06:13→14:14)
[2019-09-17] MEDS: METHADONE 5 MG TABLET PO SCH ×2 (06:13→14:08)
[2019-09-17] MEDS: LEVOTHYROXINE SODIUM 112 MCG TABLET PO SCH (07:03)
[2019-09-17] MEDS: OMEPRAZOLE 20 MG CAPSULE PO SCH (07:03)
[2019-09-17] MEDS: DOCUSATE SODIUM 100 MG CAPSULE PO SCH (08:53)
[2019-09-17] MEDS: IPRATROPIUM/ALBUTEROL SULFATE 1 PUFF INHALER INH SCH ×2 (08:53→14:09)
[2019-09-17] MEDS: CLOPIDOGREL 75 MG TABLET PO SCH (08:54)
[2019-09-17] MEDS: ASPIRIN 81 MG TAB.CHEW CHEWED SCH (08:56)
[2019-09-17] MEDS: LISINOPRIL 20 MG TABLET PO SCH (08:57)
[2019-09-17] MEDS: ALLOPURINOL 300 MG TABLET PO SCH (08:57)
[2019-09-17] MEDS: HYDROCHLOROTHIAZIDE 25 MG TABLET PO SCH (08:57)
[2019-09-17] MEDS: HEPARIN 5,000 UNIT/ML VIAL SQ SCH (09:03)
[2019-09-17] MEDS: VITAMIN D3 1,000 UNIT TABLET PO SCH (09:07)
[2019-09-17] MEDS: MOMETASONE INH SCH (09:09)
[2019-09-17] MEDS: ALBUTEROL SULFATE 200 PUFF INHALER INH SCH ×2 (09:14→14:09)
[2019-09-17 09:20] LABS: Basophils # (Auto) 0.05 K/mcL (0.00-0.30); Basophils % (Auto) 0.8 % (0.0-2.0); Eosinophils # (Auto) 0.48 K/mcL (0.00-0.70); Eosinophils % (Auto) 7.9 % (0.0-7.0); Granulocytes % (Auto) 49.3 % (38.0-78.0); Hematocrit 31.9 % (40.1-51.0); Hemoglobin 10.4 g/dL (13.7-17.5); Lymphocytes # (Auto) 1.95 K/mcL (1.50-4.80); Lymphocytes % (Auto) 32.2 % (15.5-49.0); Mean Cell Volume 99.7 fL (80.0-100.0); Mean Corpuscular HGB Conc 32.6 g/dL (31.0-36.0); Mean Platelet Volume 9.8 fL (7.4-10.4); Monocytes # (Auto) 0.59 K/mcL (0.10-0.90); Monocytes % (Auto) 9.8 % (1.0-12.0); Platelet Count 436 K/mcL (140-440); Red Cell Distribution Width 12.6 % (11.5-14.5); WBC 6.1 K/mcL (4.50-11.00)
[2019-09-17 09:57] LABS: ALT/SGPT 41 U/l (0-40); AST/SGOT 34 U/l (0-37); Albumin 3.4 gm/dL (3.2-5.2); Albumin/Globulin Ratio 0.7 (1.0-2.3); Alkaline Phosphatase 98 U/L (39-117); Bilirubin,Direct < 0.2 mg/dL (0.0-0.3); Bilirubin,Total 0.2 mg/dL (0.0-1.0); Blood Urea Nitrogen 17 mg/dl (8-23); Calcium 9.6 mg/dl (8.6-10.4); Carbon Dioxide 30 mmol/L (22-30); Globulin 4.6 gm/dL (2.2-3.7); Glomerular Filtration Rate 78; Glucose 117 mg/dL (70-105); Lactate Dehydrogenase 169 U/L (94-250); Phosphorous 3.4 mg/dL (2.7-4.5); Triglycerides 235 mg/dl (<150); Uric Acid 5.6 mg/dL (2.5-8.0)
[2019-09-17 09:58] LABS: Chloride 95 mmol/L (96-108)
[2019-09-17] MEDS: METHOCARBAMOL 750 MG TABLET PO PRN (10:28)
[2019-09-17] MEDS ORDERED: MAGNESIUM SULFATE 2 GM/50 ML BAG IV ONE (11:04)
== END 2019-09-17 14:30 | DRG 853 ==
LOC: ED 18:45 → MEDSUR 23:56
PROVIDERS: ADMIT Internal Medicine; ATTEND Internal Medicine

== ENCOUNTER 2019-10-03 01:03 | Inpatient (IN) ==
[2019-10-03] MEDS ORDERED: ONDANSETRON 4 MG/2 ML VIAL IV ONE (01:28)
[2019-10-03] MEDS ORDERED: 0.9 % SODIUM CHLORIDE 1,000 ML IV ONE (01:28)
[2019-10-03] MEDS: HYDROmorphone 0.5 MG/0.5 ML SYRINGE IV PRN ×2 (02:06→03:46)
[2019-10-03 02:36] LABS: Basophils # (Auto) 0.03 K/mcL (0.00-0.30); Basophils % (Auto) 0.4 % (0.0-2.0); Eosinophils # (Auto) 0.35 K/mcL (0.00-0.70); Eosinophils % (Auto) 4.2 % (0.0-7.0); Hemoglobin 11.7 g/dL (13.7-17.5); Lymphocytes # (Auto) 1.92 K/mcL (1.50-4.80); Lymphocytes % (Auto) 23.2 % (15.5-49.0); Mean Cell Volume 96.4 fL (80.0-100.0); Mean Corpuscular HGB Conc 33.4 g/dL (31.0-36.0); Monocytes # (Auto) 0.51 K/mcL (0.10-0.90); Monocytes % (Auto) 6.2 % (1.0-12.0); Platelet Count 159 K/mcL (140-440); RBC 3.63 M/mcL (4.63-6.08); Red Cell Distribution Width 12.9 % (11.5-14.5); WBC 8.3 K/mcL (4.50-11.00)
[2019-10-03 02:54] LABS: ALT/SGPT 35 U/l (0-40); AST/SGOT 39 U/l (0-37); Albumin 4.2 gm/dL (3.2-5.2); Albumin/Globulin Ratio 1.1 (1.0-2.3); Alkaline Phosphatase 101 U/L (39-117); Amylase 59 U/L (28-100); Bilirubin,Total 0.3 mg/dL (0.0-1.0); Blood Urea Nitrogen 34 mg/dl (8-23); Calcium 9.8 mg/dl (8.6-10.4); Carbon Dioxide 27 mmol/L (22-30); Glomerular Filtration Rate 69; Glucose 128 mg/dL (70-105)
[2019-10-03 03:02] LABS: Chloride 95 mmol/L (96-108)
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
[2019-10-03] MEDS ORDERED: ONDANSETRON 4 MG/2 ML VIAL IV PRN (03:46)
[2019-10-03] MEDS: 0.9 % SODIUM CHLORIDE 1,000 ML IV SCH ×3 (05:21→23:50)
[2019-10-03] MEDS: morphine 2 MG/ML VIAL IV PRN ×4 (05:30→13:01)
--- NOTE | 2019-10-03 06:33 | Cat Scan Report ---
INDICATION: distended abdomen with severe pain COMPARISON: Previous CT scan dated 12/26/2009 TECHNIQUE: Axial images were obtained through the abdomen and pelvis. Sagittally and coronally reformatted images. 90 mL Isovue 370 injected intravenously. Oral contrast material was not administered FINDINGS: Lung bases:Negative. No pulmonary parenchymal nodule. No pleural fluid or pericardial fluid Liver:Negative. No focal intrahepatic mass. No focal abnormality. Liver contour is smooth. No evidence for cirrhosis Gallbladder, bilary:No calcified gallstones. No gallbladder wall thickening. No dilated intra or extrahepatic bile ducts. Spleen:No splenomegaly. Normal enhancement of splenic and portal veins. Pancreas:No pancreatic mass. No peripancreatic abnormality Adrenal glands:Negative Kidneys, ureters, bladder: 8 mm low-density abnormality in the inferior pole of the right kidney. This is probably a cyst. Kidneys are otherwise negative. No hydronephrosis. There is no hydroureter. No ureteral stone No bladder calculi or detectable mass Gastrointestinal: Anastomotic suture line in the rectum. Colon is otherwise negative. No perirectal soft tissue mass or adenopathy Mildly distended jejunum and portion of the ileum. Small bowel is fluid-filled small bowel measures approximately 3.0 cm in cross-sectional diameter. Distal ileum is not distended. There is some small bowel feces in the ileum and pelvis actual transition point is somewhat poorly defined but is in the pelvis, probably just to the left of midline. There is mild mesenteric infiltration and minimal free fluid. There is no closed loop obstruction. There is no detectable mass Stomach and duodenum are unremarkable Appendix: The appendix is not well visualized. No evidence for appendicitis Vascular:Extensive atherosclerotic calcification. No abdominal aortic aneurysm. Lymphatic:No retroperitoneal or mesenteric adenopathy Mesentery, peritoneum: Minimal free pelvic fluid. No intra-abdominal abscess. No pneumoperitoneum. Reproductive:Prostate is not significantly enlarged Musculoskeletal:Multilevel degenerative disc disease. No lumbar compression fracture. There is a left paramidline anterior abdominal wall hernia. Hernia defect measures 2.6 cm. This contains mesenteric fat. There is no protruding bowel. There is no inguinal hernia IMPRESSION: 1. Mechanical small bowel obstruction with transition point somewhat poorly defined but within the pelvis. No closed loop obstruction. No evidence for significant bowel ischemia 2. Previous surgery at the level of the rectum 3. Small anterior abdominal wall hernia containing only mesenteric fat 4. Atherosclerotic calcification. No abdominal aortic aneurysm The exam was performed using radiation dose optimization techniques including, but not limited to, automated exposure control, adjustment of the mA and/or kV according to patient size and use of iterative reconstruction technique. Interpreted and Authenticated by: Anam Mccarthy 10/03/19
[2019-10-03] MEDS ORDERED: LEVOTHYROXINE 125 MCG TABLET PO SCH (07:30)
[2019-10-03] MEDS ORDERED: BISACODYL 10 MG SUPP.RECT PR PRN (12:49)
[2019-10-03] MEDS ORDERED: MAGNESIUM HYDROXIDE 30 ML ORAL.SUSP PO PRN (12:49)
[2019-10-03] MEDS ORDERED: BISACODYL 5 MG TABLET PO PRN (12:49)
[2019-10-03] MEDS ORDERED: FLEETS ADULT ENEMA PR PRN (12:49)
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
[2019-10-03] MEDS: ALBUTEROL SULFATE 200 PUFF INHALER INH SCH ×3 (14:05→21:00)
[2019-10-03] MEDS: IPRATROPIUM/ALBUTEROL SULFATE 1 PUFF INHALER INH SCH ×2 (14:05→15:58)
[2019-10-03] MEDS: POLYETHYLENE GLYCOL 3350 17 GM PACKET PO SCH ×3 (14:11→21:24)
[2019-10-03] MEDS: METOCLOPRAMIDE 10 MG/2 ML VIAL IV SCH ×2 (14:13→17:38)
[2019-10-03] MEDS: METHADONE 5 MG TABLET PO SCH ×2 (14:17→21:25)
[2019-10-03] MEDS: METHYLNALTREXONE BROMIDE 12 MG/0.6 ML SYRINGE SQ SCH (14:19)
[2019-10-03] MEDS: HYDROCODONE/APAP 7.5/325MG TABLET PO PRN (14:39)
[2019-10-03] MEDS ORDERED: ALBUTEROL SULFATE 2.5 MG/3 ML NEBULIZER NEB PRN (15:23)
[2019-10-03] MEDS: POTASSIUM CHLORIDE 10 MEQ TABLET PO SCH (17:36)
[2019-10-03] MEDS: IPRATROPIUM/ALBUTEROL 3 ML AMPUL.NEB NEB SCH ×2 (18:44→19:00)
[2019-10-03] MEDS: TAMSULOSIN 0.4 MG CAPSULE PO SCH (21:24)
[2019-10-03] MEDS: ATORVASTATIN 40 MG TABLET PO SCH (21:24)
[2019-10-03] MEDS: DOCUSATE SODIUM 100 MG CAPSULE PO SCH (21:24)
[2019-10-03] MEDS: MAGNESIUM OXIDE 400 MG TABLET PO SCH (21:25)
[2019-10-04] MEDS: POLYETHYLENE GLYCOL 3350 17 GM PACKET PO SCH ×3 (04:38→18:29)
[2019-10-04] MEDS: METHADONE 5 MG TABLET PO SCH ×3 (05:14→20:00)
[2019-10-04] MEDS: METOCLOPRAMIDE 10 MG/2 ML VIAL IV SCH ×5 (05:14→23:44)
[2019-10-04] MEDS: IPRATROPIUM/ALBUTEROL SULFATE 1 PUFF INHALER INH SCH ×5 (05:51→21:06)
[2019-10-04 06:52] LABS: Basophils # (Auto) 0.02 K/mcL (0.00-0.30); Basophils % (Auto) 0.4 % (0.0-2.0); Eosinophils # (Auto) 0.47 K/mcL (0.00-0.70); Eosinophils % (Auto) 8.5 % (0.0-7.0); Granulocytes % (Auto) 44.9 % (38.0-78.0); Hematocrit 30.2 % (40.1-51.0); Hemoglobin 9.6 g/dL (13.7-17.5); Lymphocytes # (Auto) 2.04 K/mcL (1.50-4.80); Lymphocytes % (Auto) 36.8 % (15.5-49.0); Mean Corpuscular HGB Conc 31.8 g/dL (31.0-36.0); Mean Platelet Volume 10.9 fL (7.4-10.4); Monocytes # (Auto) 0.52 K/mcL (0.10-0.90); Monocytes % (Auto) 9.4 % (1.0-12.0); Platelet Count 118 K/mcL (140-440); RBC 2.99 M/mcL (4.63-6.08); Red Cell Distribution Width 13.1 % (11.5-14.5); WBC 5.6 K/mcL (4.50-11.00)
[2019-10-04] MEDS: LEVOTHYROXINE SODIUM 112 MCG TABLET PO SCH (07:06)
[2019-10-04] MEDS: PANTOPRAZOLE 40 MG TABLET PO SCH (07:06)
[2019-10-04 07:16] LABS: ALT/SGPT 30 U/l (0-40); AST/SGOT 34 U/l (0-37); Albumin 3.4 gm/dL (3.2-5.2); Alkaline Phosphatase 86 U/L (39-117); Bilirubin,Direct < 0.2 mg/dL (0.0-0.3); Bilirubin,Total 0.4 mg/dL (0.0-1.0); Calcium 8.7 mg/dl (8.6-10.4); Carbon Dioxide 27 mmol/L (22-30); Chloride 100 mmol/L (96-108); Globulin 3.5 gm/dL (2.2-3.7); Glucose 86 mg/dL (70-105); Lactate Dehydrogenase 175 U/L (94-250); Phosphorous 3.5 mg/dL (2.7-4.5); Triglycerides 135 mg/dl (<150); Uric Acid 5.7 mg/dL (2.5-8.0)
[2019-10-04 07:24] LABS: Blood Urea Nitrogen 27 mg/dl (8-23); Glomerular Filtration Rate 78
--- NOTE | 2019-10-04 07:40 | XRay Report ---
INDICATION: FOLLOW -UP OF SMALL BOWEL OBSTRUCTION TECHNIQUE: Supine and upright abdomen. COMPARISON: Previous CT scans dated 10/03/2019 and 12/26/2009 FINDINGS:There is gas within the colon. There is some small bowel gas. No significant air-fluid levels. Appearance may be consistent with mild partial mechanical small bowel obstruction or resolving small bowel obstruction. No significant small bowel dilatation. There is no pneumoperitoneum. No biliary or portal venous gas. No pneumatosis. No focal IMPRESSION: Findings are considered consistent with mild partial or resolving mechanical small bowel obstruction Interpreted and Authenticated by: Anam Mccarthy 10/04/19
[2019-10-04] MEDS: IPRATROPIUM/ALBUTEROL 3 ML AMPUL.NEB NEB SCH ×4 (08:21→21:10)
[2019-10-04] MEDS ORDERED: LISINOPRIL HYDROCHLOROTHIAZIDE PO SCH (09:00)
[2019-10-04] MEDS: MULTIVIT,THER IRON,CA,FA & MIN 1 TABLET PO SCH (09:18)
[2019-10-04] MEDS: MAGNESIUM OXIDE 400 MG TABLET PO SCH ×2 (09:18→20:00)
[2019-10-04] MEDS: VITAMIN D3 1,000 UNIT TABLET PO SCH (09:18)
[2019-10-04] MEDS: FUROSEMIDE 20 MG TABLET PO SCH (09:18)
[2019-10-04] MEDS: POTASSIUM CHLORIDE 10 MEQ TABLET PO SCH ×3 (09:19→18:30)
[2019-10-04] MEDS: DOCUSATE SODIUM 100 MG CAPSULE PO SCH ×2 (09:19→20:01)
[2019-10-04] MEDS: ALLOPURINOL 300 MG TABLET PO SCH (09:19)
[2019-10-04] MEDS: CLOPIDOGREL 75 MG TABLET PO SCH (09:19)
[2019-10-04] MEDS: HYDROCHLOROTHIAZIDE 25 MG TABLET PO SCH (09:19)
[2019-10-04] MEDS: LISINOPRIL 20 MG TABLET PO SCH (09:20)
[2019-10-04] MEDS: HYDROCODONE/APAP 7.5/325MG TABLET PO PRN ×2 (09:20→18:30)
[2019-10-04] MEDS: ALBUTEROL SULFATE 200 PUFF INHALER INH SCH ×4 (09:21→23:27)
[2019-10-04] MEDS: METHYLNALTREXONE BROMIDE 12 MG/0.6 ML SYRINGE SQ SCH (09:31)
[2019-10-04] MEDS: 0.9 % SODIUM CHLORIDE 1,000 ML IV SCH (10:48)
--- NOTE | 2019-10-04 11:00 | General Surgery Progress Note ---
SUBJECTIVE Subjective Patient information: Note initiated : 10/04/19 at 10:52 am Service Date, if different from initiated Date: [] Patient: Dmitry Luna 69 y/o M admitted on 10/03/19 for ABD pain. Chief Complaint: [] Principal diagnosis: severe constipation and partial bowel obstruction Interval history: patient is significantly improved. He passed lots of flatus and has had bowel movements. His only complaint is that he gets crampy abdominal pain after the Relistor was given. This is followed by bowel movements. This is the anticipated effect. He denies nausea. He has major gas throughout the small bowel and colon on his x-rays today. The gas extends down to his rectum and effectively rules out obstruction. White blood count 3.6, hemoglobin 9.6, hematocrit 30.2, BUN 27, creatinine 1, potassium 4.4. His nasal swab was positive for MRSA and he will be treated accordingly. Constitutional Vitals: Vital Signs Temp Pulse Resp BP Pulse Ox 97.7 F 69 16 160/93 96 10/04/19 07:23 10/04/19 07:23 10/04/19 07:23 10/04/19 07:23 10/04/19 07:23 Period Temp Pulse Resp BP Sys/Robbins Pulse Ox Last 24 Hr 97.1 F-98.6 F 67-79 16-20 99-160/66-93 93-96 Intake and Output 10/03/19 10/04/19 10/04/19 21:59 05:59 13:59 Intake Total 9679 661 0176 Output Total 800 350 Balance 1365 163 930 Weight 254 lb 3 oz Intake & Output: Intake & Output 10/03/19 10/04/19 10/04/19 21:59 05:59 13:59 Intake Total 5247 859 1988 Output Total 800 350 Balance 1365 163 930 Weight 254 lb 3 oz Intake: Nourishment/Supplement quantity 240 (ml) IV 885 963 Sodium Chloride 0.9% 1,000 ml @ 885 963 100 mls/hr IV .Q10H [facility] Rx#: [id number] Oral 480 1040 Output: Void Amount 800 350 Other: Meal Breakfast Percent of Meal Consumed 100% Nourishment/Supplement name ensure Urine Appearance Clear Urine Color Bright Yellow Dark Yellow Urine Odor Normal Stool Size Small Large Stool Color Yellow Brown Stool Consistency Formed Liquid # Bowel Movements 1 2 Head Head exam: Present normal inspection and normocephalic Eye Eye exam: Present EOMI and normal appearance Pupils: Present normal accommodation and PERRL ENT ENT exam: Present mucous membranes moist and normal oropharynx Additional comments: edentulous Neck Neck exam: Present full ROM and normal inspection; Absent tenderness and thyromegaly Respiratory Respiratory exam: Present normal respiratory exam and CTAB; Absent rales, rhonchi and wheezes Cardiovascular Cardiovascular exam: Present normal rate and rhythm, +S1 and +S2 GI/Abdominal GI/Abdominal exam: Present normal bowel sounds, soft, distended (moderate distention but soft and pliable) and hyperactive bowel sounds Extremities Exam Extremities exam: Present full ROM Additional comments: left leg and closed and dressing and not examined Back Exam Back exam: Absent tenderness Neurological Exam Neurological exam: Present alert, CN II-XII intact, motor sensory deficit and oriented X3 Psychiatric Psychiatric exam: Present normal affect and normal mood A/P Assessment and plan (1) Therapeutic opioid-induced constipation (OIC): Status: Acute (2) Partial small bowel obstruction: Status: Acute (3) Dehydration: Status: Acute (4) Cellulitis of left leg: Status: Acute (5) Chronic obstructive pulmonary disease: Status: Chronic Qualifiers: COPD type: emphysema Emphysema type: panlobular Qualified Code(s): J43.1 - Panlobular emphysema (6) Hypertension: Status: Chronic Qualifiers: Hypertension type: essential hypertension Qualified Code(s): I10 - Essential (primary) hypertension (7) Peripheral arterial occlusive disease: Status: Chronic Narrative A/P Narrative: patient will be continued on full liquids MiraLAX 3 times daily Bactroban. Nares per protocol for positive MRSA Follow-up abdominal x-ray in the morning Probable transfer to nursing care facility tomorrow Time Spent With Patient Time: Total time spent is greater than 50% in coordination of care (as documented) at patient's floor/unit and/or counseling patient:
[2019-10-04] MEDS: MUPIROCIN OINT 2% 22GM NARES SCH ×2 (12:05→20:01)
[2019-10-04] MEDS: TAMSULOSIN 0.4 MG CAPSULE PO SCH (20:00)
[2019-10-04] MEDS: ATORVASTATIN 40 MG TABLET PO SCH (20:00)
[2019-10-04] MEDS ORDERED: MUPIROCIN OINT 2% 22GM NARES SCH (21:00)
[2019-10-05] MEDS: METOCLOPRAMIDE 10 MG/2 ML VIAL IV SCH ×2 (05:43→12:03)
[2019-10-05 06:10] LABS: Basophils # (Auto) 0.03 K/mcL (0.00-0.30); Basophils % (Auto) 0.6 % (0.0-2.0); Eosinophils # (Auto) 0.47 K/mcL (0.00-0.70); Eosinophils % (Auto) 9.6 % (0.0-7.0); Granulocytes % (Auto) 39.1 % (38.0-78.0); Hemoglobin 9.6 g/dL (13.7-17.5); Lymphocytes # (Auto) 2.04 K/mcL (1.50-4.80); Lymphocytes % (Auto) 41.5 % (15.5-49.0); Mean Corpuscular HGB Conc 33.1 g/dL (31.0-36.0); Monocytes # (Auto) 0.45 K/mcL (0.10-0.90); Monocytes % (Auto) 9.2 % (1.0-12.0); Platelet Count 125 K/mcL (140-440); RBC 2.99 M/mcL (4.63-6.08); Red Cell Distribution Width 12.8 % (11.5-14.5); WBC 4.9 K/mcL (4.50-11.00)
--- NOTE | 2019-10-05 07:03 | XRay Report ---
INDICATION: FOR F/U OF ILEUS TECHNIQUE: Supine and upright abdomen. COMPARISON: Previous examination dated 10/04/2019. Previous CT scan dated 10/03/2019 FINDINGS:Gas within the colon. There is some small bowel gas with out dilatation. Bowel gas pattern is improved since 10/03/2019. No pneumatosis. No biliary or portal venous gas. No pneumoperitoneum. IMPRESSION: Improved bowel gas pattern as above Interpreted and Authenticated by: Anam Mccarthy 10/05/19
[2019-10-05 07:08] LABS: ALT/SGPT 30 U/l (0-40); AST/SGOT 36 U/l (0-37); Albumin 3.7 gm/dL (3.2-5.2); Albumin/Globulin Ratio 1.2 (1.0-2.3); Alkaline Phosphatase 85 U/L (39-117); Bilirubin,Direct < 0.2 mg/dL (0.0-0.3); Bilirubin,Total 0.4 mg/dL (0.0-1.0); Calcium 9.1 mg/dl (8.6-10.4); Carbon Dioxide 29 mmol/L (22-30); Chloride 102 mmol/L (96-108); Globulin 3.2 gm/dL (2.2-3.7); Glomerular Filtration Rate 88; Glucose 95 mg/dL (70-105); Lactate Dehydrogenase 166 U/L (94-250); Phosphorous 3.4 mg/dL (2.7-4.5); Triglycerides 99 mg/dl (<150); Uric Acid 5.5 mg/dL (2.5-8.0)
[2019-10-05 07:10] LABS: Blood Urea Nitrogen 16 mg/dl (8-23)
[2019-10-05] MEDS: POLYETHYLENE GLYCOL 3350 17 GM PACKET PO SCH ×2 (07:13→12:02)
[2019-10-05] MEDS: METHADONE 5 MG TABLET PO SCH ×2 (07:14→13:59)
[2019-10-05] MEDS: PANTOPRAZOLE 40 MG TABLET PO SCH (07:15)
[2019-10-05] MEDS: LEVOTHYROXINE SODIUM 112 MCG TABLET PO SCH (07:15)
[2019-10-05] MEDS: IPRATROPIUM/ALBUTEROL 3 ML AMPUL.NEB NEB SCH ×3 (07:41→18:31)
[2019-10-05] MEDS: FUROSEMIDE 20 MG TABLET PO SCH (09:16)
[2019-10-05] MEDS: POTASSIUM CHLORIDE 10 MEQ TABLET PO SCH ×2 (09:17→12:03)
[2019-10-05] MEDS: LISINOPRIL 20 MG TABLET PO SCH (09:18)
[2019-10-05] MEDS: DOCUSATE SODIUM 100 MG CAPSULE PO SCH (09:18)
[2019-10-05] MEDS: HYDROCHLOROTHIAZIDE 25 MG TABLET PO SCH (09:18)
[2019-10-05] MEDS: CLOPIDOGREL 75 MG TABLET PO SCH (09:18)
[2019-10-05] MEDS: VITAMIN D3 1,000 UNIT TABLET PO SCH (09:19)
[2019-10-05] MEDS: MAGNESIUM OXIDE 400 MG TABLET PO SCH (09:19)
[2019-10-05] MEDS: ALLOPURINOL 300 MG TABLET PO SCH (09:20)
[2019-10-05] MEDS: MUPIROCIN OINT 2% 22GM NARES SCH (09:20)
[2019-10-05] MEDS: METHYLNALTREXONE BROMIDE 12 MG/0.6 ML SYRINGE SQ SCH (09:20)
[2019-10-05] MEDS: MULTIVIT,THER IRON,CA,FA & MIN 1 TABLET PO SCH (09:20)
[2019-10-05] MEDS: ALBUTEROL SULFATE 200 PUFF INHALER INH SCH ×3 (09:20→18:30)
[2019-10-05] MEDS: IPRATROPIUM/ALBUTEROL SULFATE 1 PUFF INHALER INH SCH ×3 (09:21→18:30)
[2019-10-05] MEDS: HYDROCODONE/APAP 7.5/325MG TABLET PO PRN (12:03)
--- NOTE | 2019-10-05 13:20 | Discharge Summary ---
Discharge Provider Provider Patient information: Note initiated : 10/05/19 at 1:10 pm Service Date, if different from initiated Date: [] Patient: Dmitry Luna 69 y/o M admitted on 10/03/19 for ABD pain. Chief Complaint: [] Date of admission: 10/03/19 04:20 Discharge date: 10/05/19 Primary care physician: Colt Hutchinson Admitting clinician: Marilu Lowery Attending physician on admission: Marliu Lowery Consults: 10/03/19 03:53 Consult to Physician [CONS] Routine Comment: Consulting Provider: Newton Mead Reason For Exam: Physician to Consult 10/03/19 06:51 Consult to Physician [CONS] Routine Comment: Consulting Provider: Marilu Lowery Reason For Exam: Physician to Consult 10/05/19 12:01 Consult to Physician [CONS] Routine Comment: Consulting Provider: Keshia Weinberg Reason For Exam: Physician to Consult Attending physician on discharge: Marilu Lowery Discharging clinician: Marilu Lowery COURSE Hospital Course Hospital course: 69-year-old male admitted on 02 October with partial intestinal obstruction. He had x-rays done which showed partial small bowel obstruction but there was gas in the distal colon. It was felt that the patient had slow transit constipation aggravated by narcotic analgesics. The patient was treated with IV fluids started on Relistor and was given MiraLAX. He started passing flatus and the MiraLAX dose was increased. Over the next 24 hours he evacuated his entire intestines and is now asymptomatic. Patient is clinically stable and cleared for discharge home Discharge diagnosis: Partial small bowel obstruction Secondary discharge diagnosis: Narcotic induced constipation Chronic obstructive lung disease History of hepatitis C Gastroesophageal reflux disease Prior history of diverticulitis Reason for admission: Partial intestinal obstruction Procedures: None Pertinent studies/significant findings: CT of abdomen and pelvis with contrast Complications: None Time Spent with Patient Time attestation: Total time spent providing and/or coordinating discharge services: Physical Examination Vital Signs Vital signs: Temp Pulse Resp BP Pulse Ox 97.7 F 70 20 153/92 92 10/05/19 07:57 10/05/19 07:57 10/05/19 07:57 10/05/19 07:57 10/05/19 07:57 General physical appearance General physical exam: well developed, well nourished, no distress, moderate pain, chronically ill and obese Eyes Eye exam: PERRL and normal ocular movement ENT ENT exam: decreased hearing Head Head exam IM: Present atraumatic, normal inspection and normocephalic Cardiovascular Cardiovascular exam IM: Present normal rate and rhythm, RRR, +S1 and +S2; Absent JVD Respiratory Respiratory exam: normal expansion, normal respiratory effort and other (bilateral coarse rales rhonchi wheezes which do not clear with cough) Abdomen Abdomen: Present tender (mild diffuse midabdominal tenderness), bowel sounds, surgical scars and distended Integumentary Integumentary: Present no rash, no growths, no abnormal pigmentation and other Neurologic Neurologic: Present normal coordination, normal sensation, deep tendon reflexes and memory loss Musculoskeletal Musculoskeletal: Present normal gait and normal posture Psychiatric Psychiatric: Present oriented to time, oriented to person, oriented to place, speech is normal and memory intact Discharge Plan Patient/Caregiver Discharge Instructions Activity: increase activity as tolerated and resume usual activities as tolerated Diet: Regular Diet Activity Restrictions/Additional Instructions: MiraLAX 17 g in 8 ounces of liquid 3 times daily every day Prescriptions: No Action ipratropium-albuterol 20-100 mcg/actuation mist 1 puff INHALATION QID RF: 0 albuterol sulfate 90 mcg/actuation HFA aerosol inhaler 2 puff INHALATION QID RF: 0 allopurinol 300 mg tablet 300 mg PO QAM RF: 0 atorvastatin 40 mg tablet 20 mg PO QHS RF: 0 cholecalciferol (vitamin D3) 1,000 unit tablet 2,000 unit PO QAM RF: 0 magnesium oxide 420 mg tablet 420 mg PO BID RF: 0 multivitamin with minerals capsule 1 cap PO DAILY RF: 0 tamsulosin 0.4 mg capsule,extended release 24hr 0.8 mg PO QPM RF: 0 clopidogrel 75 MG tablet 75 mg PO DAILY RF: 0 docusate sodium 100 MG capsule 100 mg PO BID RF: 0 potassium chloride 10 MEQ tablet 10 meq PO TID RF: 0 lisinopril-hydrochlorothiazide 1 EACH tablet 1 each PO DAILY RF: 0 furosemide 20 MG tablet 20 mg PO DAILY RF: 0 levothyroxine 112 MCG tablet 112 mcg PO DAILY RF: 0 guaifenesin 400 MG tablet 400 mg PO QDAY PRN (Reason: Congestion) RF: 0 methadone 10 mg Tablet 20 mg PO Q8H RF: 0 pantoprazole 20 mg Tablet,Delayed Release (Dr/Ec) 20 mg PO QDAY RF: 0 hydrocodone-acetaminophen 7.5-325 mg Tablet 2 tab PO Q8H PRN (Reason: Pain) RF: 0 bisacodyl [Dulcolax (bisacodyl)] 10 mg Suppository 10 mg OH QDAY PRN (Reason: Constipation) RF: 0 bisacodyl [Dulcolax (bisacodyl)] 5 mg Tablet,Delayed Release (Dr/Ec) 10 mg PO ONCE PRN (Reason: Constipation) RF: 0 magnesium hydroxide [Milk of Magnesia] 400 mg/5 mL Suspension 30 ml PO QDAY PRN (Reason: Constipation) RF: 0 heparin lock flush (porcine) 10 unit/mL Solution 10 unit IV Q12H RF: 0 Fleet Enema 19-7 gram/118 mL Enema 118 ml OH ONCE PRN (Reason: Constipation) RF: 0 Follow Up Plan Follow up with: Colt Hutchinson MD [Primary Care Provider] - Patient Disposition: Home, Self-Care Prognosis: Serious Rehab Potential: Good I certify that the patient requires SNF services: Yes Overall status at discharge: patient is progressing back to baseline Discharge Orders: Discharge Order (Routine); Ordered 10/05/19 Ordered By: Marilu Lowery Pending Pending Pending: Resuscitation Status Full Code Diet Full Liquid Diet Start Sat Oct 02 1257 Hydrocodone Bitart/Acetaminophen ([place] 7.5/325mg) 2 tab PO Q8HP PRN; Protocol PRN Reason: Pain Last Admin: 10/05/19 12:03 Dose: 2 tab Documented by: Admin: 10/04/19 18:30 Dose: 2 tab Documented by: Admin: 10/04/19 09:20 Dose: 2 tab Documented by: Admin: 10/03/19 14:39 Dose: 2 tab Documented by: ZAID Albuterol Sulfate (Ventolin) 2 puff INH QID BHAKTI Last Admin: 10/05/19 09:20 Dose: Not Given Documented by: Admin: 10/04/19 23:27 Dose: 2 puff Documented by: Admin: 10/04/19 18:31 Dose: Not Given Documented by: Admin: 10/04/19 13:20 Dose: Not Given Documented by: Admin: 10/04/19 09:21 Dose: Not Given Documented by: Admin: 10/03/19 21:00 Dose: 2 puff Documented by: Admin: 10/03/19 15:59 Dose: Not Given Documented by: Admin: 10/03/19 14:05 Dose: Not Given Documented by: ZAID Albuterol/Ipratropium (Combivent) 1 puff INH QID COUNT INCLUDES THE [facility] Last Admin: 10/05/19 09:21 Dose: Not Given Documented by: Admin: 10/04/19 21:06 Dose: Not Given Documented by: Admin: 10/04/19 18:31 Dose: Not Given Documented by: Admin: 10/04/19 13:19 Dose: Not Given Documented by: Admin: 10/04/19 09:21 Dose: Not Given Documented by: Admin: 10/04/19 05:51 Dose: Not Given Documented by: Admin: 10/03/19 15:58 Dose: Not Given Documented by: Admin: 10/03/19 14:05 Dose: Not Given Documented by: ZAID Albuterol/Ipratropium (Duoneb) 3 ml NEB QID COUNT INCLUDES THE [facility] Last Admin: 10/05/19 12:05 Dose: Not Given Documented by: Admin: 10/05/19 07:41 Dose: Not Given Documented by: Admin: 10/04/19 21:10 Dose: Not Given Documented by: Admin: 10/04/19 18:31 Dose: Not Given Documented by: Admin: 10/04/19 13:20 Dose: Not Given Documented by: Admin: 10/04/19 08:21 Dose: Not Given Documented by: Admin: 10/03/19 19:00 Dose: 3 ml Documented by: Admin: 10/03/19 18:44 Dose: Not Given Documented by: MYLES Allopurinol (Zylopriim) 300 mg PO QAM COUNT INCLUDES THE [facility] Last Admin: 10/05/19 09:20 Dose: 300 mg Documented by: Admin: 10/04/19 09:19 Dose: 300 mg Documented by: ZAID Atorvastatin Calcium (Lipitor) 20 mg PO QHS COUNT INCLUDES THE [facility] Last Admin: 10/04/19 20:00 Dose: 20 mg Documented by: Admin: 10/03/19 21:24 Dose: 20 mg Documented by: MARQUISE Clopidogrel Bisulfate (Plavix) 75 mg PO DAILY COUNT INCLUDES THE [facility] Last Admin: 10/05/19 09:18 Dose: 75 mg Documented by: Admin: 10/04/19 09:19 Dose: 75 mg Documented by: ZAID Docusate Sodium (Colace) 100 mg PO BID COUNT INCLUDES THE [facility] Last Admin: 10/05/19 09:18 Dose: 100 mg Documented by: Admin: 10/04/19 20:01 Dose: 100 mg Documented by: Admin: 10/04/19 09:19 Dose: 100 mg Documented by: Admin: 10/03/19 21:24 Dose: 100 mg Documented by: MARQUISE Furosemide (Lasix) 20 mg PO DAILY COUNT INCLUDES THE [facility] Last Admin: 10/05/19 09:16 Dose: 20 mg Documented by: Admin: 10/04/19 09:18 Dose: 20 mg Documented by: ZAID Hydrochlorothiazide (Oretic) 25 mg PO DAILY COUNT INCLUDES THE [facility] Last Admin: 10/05/19 09:18 Dose: 25 mg Documented by: Admin: 10/04/19 09:19 Dose: 25 mg Documented by: ZAID Iron Carb/Multivit/[place]/Folic Acid (Multivitamin W/Minerals) 1 tab PO DAILY COUNT INCLUDES THE [facility] Last Admin: 10/05/19 09:20 Dose: 1 tab Documented by: Admin: 10/04/19 09:18 Dose: 1 tab Documented by: ZAID Levothyroxine Sodium (Synthroid) 112 mcg PO ACB COUNT INCLUDES THE [facility] Last Admin: 10/05/19 07:15 Dose: 112 mcg Documented by: Admin: 10/04/19 07:06 Dose: 112 mcg Documented by: ZAID Lisinopril (Zestril) 20 mg PO DAILY COUNT INCLUDES THE [facility] Last Admin: 10/05/19 09:18 Dose: 20 mg Documented by: Admin: 10/04/19 09:20 Dose: 20 mg Documented by: ZAID Magnesium Oxide (Magnesium Oxide) 400 mg PO BID COUNT INCLUDES THE [facility] Last Admin: 10/05/19 09:19 Dose: 400 mg Documented by: Admin: 10/04/19 20:00 Dose: 400 mg Documented by: Admin: 10/04/19 09:18 Dose: 400 mg Documented by: Admin: 10/03/19 21:25 Dose: 400 mg Documented by: MARQUISE Methadone HCl (Dolophine) 20 mg PO Q8H COUNT INCLUDES THE [facility] Last Admin: 10/05/19 07:14 Dose: 20 mg Documented by: Admin: 10/04/19 20:00 Dose: 20 mg Documented by: Admin: 10/04/19 14:48 Dose: 20 mg Documented by: Admin: 10/04/19 05:14 Dose: 20 mg Documented by: Admin: 10/03/19 21:25 Dose: 20 mg Documented by: Admin: 10/03/19 14:17 Dose: 20 mg Documented by: ZAID Metoclopramide HCl (Reglan) 10 mg IV Q6 COUNT INCLUDES THE [facility] Last Admin: 10/05/19 12:03 Dose: 10 mg Documented by: Admin: 10/05/19 05:43 Dose: 10 mg Documented by: Admin: 10/04/19 23:44 Dose: 10 mg Documented by: Admin: 10/04/19 18:29 Dose: 10 mg Documented by: Admin: 10/04/19 12:04 Dose: 10 mg Documented by: Admin: 10/04/19 05:14 Dose: 10 mg Documented by: Admin: 10/04/19 00:00 Dose: Not Given Documented by: Admin: 10/03/19 17:38 Dose: 10 mg Documented by: Admin: 10/03/19 14:13 Dose: 10 mg Documented by: ZAID Morphine Sulfate (Morphine) 2 mg IV Q1HP PRN; Protocol PRN Reason: Chest Pain Last Admin: 10/03/19 13:01 Dose: 2 mg Documented by: Admin: 10/03/19 10:24 Dose: 2 mg Documented by: Admin: 10/03/19 07:57 Dose: 2 mg Documented by: Admin: 10/03/19 05:30 Dose: 2 mg Documented by: MARQUISE Mupirocin (Bactroban Oint 2%) 1 dose NARES BID COUNT INCLUDES THE [facility] Last Admin: 10/05/19 09:20 Dose: 1 dose Documented by: Admin: 10/04/19 20:01 Dose: 1 dose Documented by: Admin: 10/04/19 12:05 Dose: 1 dose Documented by: ZAID Pantoprazole Sodium (Protonix) 40 mg PO QAMAC COUNT INCLUDES THE [facility] Last Admin: 10/05/19 07:15 Dose: 40 mg Documented by: Admin: 10/04/19 07:06 Dose: 40 mg Documented by: ZAID Polyethylene Glycol (Miralax) 17 gm PO AC COUNT INCLUDES THE [facility] Last Admin: 10/05/19 12:02 Dose: 17 gm Documented by: Admin: 10/05/19 07:13 Dose: 17 gm Documented by: Admin: 10/04/19 18:29 Dose: 17 gm Documented by: Admin: 10/04/19 12:03 Dose: 17 gm Documented by: ZAID Potassium Chloride (Kdur) 10 meq PO TIDCC COUNT INCLUDES THE [facility] Last Admin: 10/05/19 12:03 Dose: 10 meq Documented by: Admin: 10/05/19 09:17 Dose: 10 meq Documented by: Admin: 10/04/19 18:30 Dose: 10 meq Documented by: Admin: 10/04/19 12:05 Dose: 10 meq Documented by: Admin: 10/04/19 09:19 Dose: 10 meq Documented by: Admin: 10/03/19 17:36 Dose: Not Given Documented by: ZAID Tamsulosin HCl (Flomax) 0.8 mg PO QPM COUNT INCLUDES THE [facility] Last Admin: 10/04/19 20:00 Dose: 0.8 mg Documented by: Admin: 10/03/19 21:24 Dose: 0.8 mg Documented by: MARQUISE Vitamin D (Vitamin D3) 2,000 unit PO DAILY COUNT INCLUDES THE [facility] Last Admin: 10/05/19 09:19 Dose: 2,000 unit Documented by: Admin: 10/04/19 09:18 Dose: 2,000 unit Documented by: ZAID Shift Summary 10/05/19 05:30 Shift Summary by Caterina Mart Pt is A&O x4, cooperative, hard of hearing. VSS. Pt is tolerating a full liquid diet with no nausea. He has had multiple loose BMs this shift, he is passing gas, and his distention is improving. He has received [place] x1 for abdominal pain with good relief. Pt has LLE wound (planning to have surgery Saturday) and JAMEY wrap is clean, dry and intact/ but he did scratch his leg and had small bleeding. Pt ambulates without device or gait belt and is steady on his feet with standby assist but, does not call for help. 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 He is saline locked and voiding adequately. Pt wears 2L O2 when sleeping PRN. Plan is for surgery on Saturday and back to [facility] home with home health?? Will update at bedside. Initialized on 10/05/19 05:30 - END OF NOTE
== END 2019-10-05 16:35 | disposition home or self-care (01) | DRG 389 ==
LOC: ED 01:03 → MEDSUR 04:20
PROVIDERS: ADMIT Family Medicine Adult Medicine; ATTEND Family Medicine Adult Medicine

== ENCOUNTER 2020-10-21 09:41 | Inpatient (IN) ==
[2020-10-21] MEDS ORDERED: IOPAMIDOL 100 ML BOTTLE IV ONE ×2 (09:42→17:43)
[2020-10-21] MEDS ORDERED: VANCOMYCIN 2,000 MG in 0.9 % SODIUM CHLORIDE 500 ML IV ONE (11:11)
[2020-10-21] MEDS ORDERED: 0.9 % SODIUM CHLORIDE 1,000 ML IV ONE (11:11)
[2020-10-21] MEDS ORDERED: cefTRIAXone 1 GM in DEXTROSE 5% IN WATER 50 ML IV ONE (11:11)
[2020-10-21 12:05] LABS: POC Creatinine 1.2 mg/dL (0.6-1.2)
--- NOTE | 2020-10-21 12:05 | XRay Report ---
CLINICAL INFORMATION: FEVER COMPARISON: 06/08/2020 FINDINGS: The heart is borderline enlarged. Rounded density in the retrocardiac region represents a small Bochdalek hernia. This is clinically insignificant and long-standing. The remaining mediastinum and pulmonary vessels are normal. Chronic bronchitis and scattered tiny calcified granulomas seen throughout both lungs. There are no infiltrates. Minor left basilar scarring noted. IMPRESSION: Chronic bronchitis. No acute disease Interpreted and Authenticated by: Anam Jimenez 10/21/20
[2020-10-21 12:44] LABS: Basophils # (Auto) 0.03 K/mcL (0.00-0.30); Basophils % (Auto) 0.7 % (0.0-2.0); Eosinophils # (Auto) 0.58 K/mcL (0.00-0.70); Eosinophils % (Auto) 12.6 % (0.0-7.0); Hematocrit 32.4 % (40.1-51.0); Hemoglobin 10.9 g/dL (13.7-17.5); Lymphocytes # (Auto) 1.64 K/mcL (1.50-4.80); Lymphocytes % (Auto) 35.6 % (15.5-49.0); Mean Cell Volume 96.1 fL (80.0-100.0); Mean Corpuscular HGB Conc 33.6 g/dL (31.0-36.0); Mean Platelet Volume 9.8 fL (7.4-10.4); Monocytes # (Auto) 0.42 K/mcL (0.10-0.90); Monocytes % (Auto) 9.1 % (1.0-12.0); Platelet Count 316 K/mcL (140-440); RBC 3.37 M/mcL (4.63-6.08); Red Cell Distribution Width 12.2 % (11.5-14.5); WBC 4.6 K/mcL (4.5-11.0)
[2020-10-21 12:51] LABS: Prothrombin Time 13.7 sec (11.9-14.5)
[2020-10-21 13:01] LABS: ALT/SGPT 21 U/L (<40); AST/SGOT 28 U/L (<40); Albumin 3.6 gm/dL (3.2-5.2); Albumin/Globulin Ratio 0.8 (1.0-2.3); Alkaline Phosphatase 92 U/L (39-117); Bilirubin,Total 0.2 mg/dL (0.1-1.0); Blood Urea Nitrogen 19 mg/dL (8-23); Calcium 9.3 mg/dL (8.6-10.4); Carbon Dioxide 28 mmol/L (22-30); Chloride 99 mmol/L (96-108); Globulin 4.3 gm/dL (2.2-3.7); Glomerular Filtration Rate 61; Glucose 100 mg/dL (70-105)
--- NOTE | 2020-10-21 13:14 | Cat Scan Report ---
CLINICAL INFORMATION: R Foot cellulitis RO Osteo COMPARISON: 08/31/2019 TECHNIQUE: 0.625 helical slices were obtained of the left foot and ankle. Following reconstruction, 2.5 mm sagittal coronal axial reformatted images were processed and reviewed in bone and soft tissue windows.The exam was performed using radiation dose optimization techniques including, but not limited to, automated exposure control, adjustment of the mA and/or kV according to patient size and use of iterative reconstruction technique. FINDINGS: There is subtotal osteolytic destruction the first distal phalanx with only remnant of the phalangeal base remaining. A 5 mm erosion of the dorsal aspect of the first proximal phalanx is also noted. This could represent chronic osteomyelitis. The bone lesions were seen on the previous exam, in retrospect, and are unchanged. Moderate cellulitis in the first ray soft tissues are compatible with adjacent cellulitis. There is a 11 mm bilobed well-circumscribed juxta-articular erosion in the medial metaphysis of the first metatarsal. This may be degenerative or due to gout. No change from prior exam. Mild degenerative change noted in the second through fifth interphalangeal joints. Mild diffuse cellulitis appreciated in the forefoot and hindfoot and midfoot. IMPRESSION: 1. Chronic osteomyelitis resulting in subtotal destruction of the first distal phalanx with only base remnant remains. A 5 mm erosion in the dorsal aspect of the adjacent first proximal phalanx. Moderate adjacent cellulitis in the soft tissues. The bone lesions are unchanged since the CT over one year prior. No new osseous lesions identified. 2. 11 mm bilobed well-circumscribed erosion first metatarsal neck also stable. This is likely either degenerative or due to gout. 3. Diffuse cellulitis throughout the foot. Interpreted and Authenticated by: Anam Jimenez 10/21/20
--- NOTE | 2020-10-21 13:30 | EKG ---
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
[2020-10-21 14:05] LABS: Erythrocyte Sedimentation Rate 66 mm/hr (0-15)
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
[2020-10-21] MEDS ORDERED: ACETAMINOPHEN 325 MG TABLET PO ONE (15:09)
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
[2020-10-21] MEDS ORDERED: METHADONE 5 MG TABLET PO ONE ×2 (16:47→17:05)
[2020-10-21] MEDS ORDERED: VANCOMYCIN PER PHARMACY IV ONE (17:43)
[2020-10-21] MEDS ORDERED: ZOLPIDEM 5 MG TABLET PO PRN (17:43)
[2020-10-21] MEDS ORDERED: ONDANSETRON 4 MG/2 ML VIAL IV PRN (17:43)
[2020-10-21] MEDS: 0.9 % SODIUM CHLORIDE 1,000 ML IV SCH (20:22)
[2020-10-21] MEDS: PIPERACILLIN SODIUM/TAZOBACTAM 3.375 GM in DEXTROSE 5% IN WATER 50 ML IV SCH ×2 (20:31→23:44)
[2020-10-21] MEDS ORDERED: VANCOMYCIN 1,000 MG in 0.9 % SODIUM CHLORIDE 250 ML IV ONE (21:00)
[2020-10-21] MEDS: METHADONE 5 MG TABLET PO PRN (21:34)
[2020-10-21] MEDS: 0.9 % SODIUM CHLORIDE 10 ML SYRINGE IV SCH (22:00)
[2020-10-21] MEDS: DOCUSATE SODIUM 100 MG CAPSULE PO SCH (22:03)
[2020-10-21] MEDS: SENNOSIDES 1 TABLET PO SCH (22:03)
[2020-10-22] MEDS: ACETAMINOPHEN 325 MG TABLET PO PRN ×2 (03:36→20:56)
[2020-10-22] MEDS: oxyCODONE HCL 5 MG TABLET PO PRN ×2 (03:36→20:56)
[2020-10-22] MEDS: 0.9 % SODIUM CHLORIDE 1,000 ML IV SCH ×3 (05:06→23:31)
[2020-10-22] MEDS: 0.9 % SODIUM CHLORIDE 10 ML SYRINGE IV SCH ×3 (05:06→22:29)
[2020-10-22] MEDS: PIPERACILLIN SODIUM/TAZOBACTAM 3.375 GM in DEXTROSE 5% IN WATER 50 ML IV SCH ×3 (05:30→18:05)
[2020-10-22 07:39] LABS: ALT/SGPT 17 U/L (<40); AST/SGOT 28 U/L (<40); Albumin 3.4 gm/dL (3.2-5.2); Alkaline Phosphatase 76 U/L (39-117); Bilirubin,Total 0.2 mg/dL (0.1-1.0); Blood Urea Nitrogen 17 mg/dL (8-23); Calcium 9.2 mg/dL (8.6-10.4); Carbon Dioxide 25 mmol/L (22-30); Chloride 103 mmol/L (96-108); Globulin 3.4 gm/dL (2.2-3.7); Glomerular Filtration Rate 61; Glucose 101 mg/dL (70-105)
[2020-10-22] MEDS ORDERED: VANCOMYCIN PER PHARMACY IV SCH (08:00)
[2020-10-22] MEDS: METHADONE 5 MG TABLET PO PRN ×2 (08:08→16:32)
[2020-10-22 09:00] LABS: Basophils # (Auto) 0.02 K/mcL (0.00-0.30); Basophils % (Auto) 0.6 % (0.0-2.0); Eosinophils # (Auto) 0.37 K/mcL (0.00-0.70); Eosinophils % (Auto) 11.2 % (0.0-7.0); Hematocrit 58.9 % (40.1-51.0); Hemoglobin 19.5 g/dL (13.7-17.5); Lymphocytes # (Auto) 1.72 K/mcL (1.50-4.80); Mean Cell Volume 95.2 fL (80.0-100.0); Mean Corpuscular HGB Conc 33.1 g/dL (31.0-36.0); Monocytes # (Auto) 0.18 K/mcL (0.10-0.90); Monocytes % (Auto) 5.4 % (1.0-12.0); Neutrophils % (Auto) 30.8 % (38.0-78.0); RBC 6.19 M/mcL (4.63-6.08); Red Cell Distribution Width 12.6 % (11.5-14.5); WBC 3.3 K/mcL (4.5-11.0)
[2020-10-22] MEDS: VANCOMYCIN 1,500 MG in 0.9 % SODIUM CHLORIDE 500 ML IV SCH ×2 (11:58→20:57)
[2020-10-22] MEDS: DOCUSATE SODIUM 100 MG CAPSULE PO SCH ×2 (12:00→20:49)
[2020-10-22] MEDS ORDERED: NON FORMULARY MEDICATION 1 DOSE MISCELL (Methadone 10 mg tablet) PO PRN (12:18)
--- NOTE | 2020-10-22 12:53 | Internal Med Progress Note ---
SUBJECTIVE Subjective Patient information: Note initiated : 10/22/20 at 12:47 pm Service Date, if different from initiated Date: [] Patient: Dmitry Luna 70 y/o M admitted on 10/21/20 for Infection To Feet. Chief Complaint: [Osteomyelitis of the right great toe] Interval history: History of present illness: Mr. Luna is a 70 year old M history of morbid obesity, essential hypertension, mixed dyslipidemia, bilateral lower extremities polyneuropathy, presenting with 2 weeks history of worsening of right first toe swelling, erythema, and pain. Had a similar problem on his left great toe about a year ago. Over the last 2 weeks he is noticing , erythema, and pain of his right first toe. The pain is described as 9 out of 10, sharp, intermittent, and localized in his right first toe and this basis. He denies systemic symptoms such as nausea, vomiting, fever, shaking chills, diaphoresis, general body weakness, GI upset such as nausea vomiting, or change in appetite. He has noticed further worsening of his symptoms over the past few days to the point that he notified Dr. Mead, who sent him to our ED for further evaluation. Vital signs at ED presentation were within normal limits. Labs significant for lack of leukocytosis with WBC 4.6. CT of the right foot showing chronic osteomyelitis resulting in subtotal destruction of the first distal phalanx with only base remnant remains. 10/22: Blood and wound cultures no growth to date. Afebrile overnight. c/o severe sharp intermittent pain right great toe. Denies any fever chills or sweating. Denies any nausea vomiting diarrhea or constipation. Denies general body weakness. Pertinent ROS: History of present illness: Mr. Luna is a 70 year old M history of morbid obesity, essential hypertension, mixed dyslipidemia, bilateral lower extremities polyneuropathy, presenting with 2 weeks history of Constitutional Vitals: Vital Signs Temp Pulse Resp BP Pulse Ox 36.2 C 67 16 136/76 94 10/22/20 12:00 10/22/20 12:00 10/22/20 12:00 10/22/20 12:00 10/22/20 12:00 Period Temp Pulse Resp BP Sys/Robbins Pulse Ox Last 24 Hr 36.2 C-36.4 C 67-83 16-18 108-164/59-102 91-97 Intake and Output 10/21/20 10/22/20 10/22/20 21:59 05:59 13:59 Intake Total 1550 500 50 Output Total 825 850 Balance 1550 -325 -800 Weight 114.362 kg Intake & Output: Intake & Output 10/21/20 10/22/20 10/22/20 21:59 05:59 13:59 Intake Total 1550 500 50 Output Total 825 850 Balance 1550 -325 -800 Weight 114.362 kg Intake: IV 1550 300 50 Sodium Chloride 0.9% 1,000 ml @ 1000 Wide Open IV .Q0M ONE Rx#: [id number] Zosyn 3.375 gm In Dextrose 5% 50 50 50 in Water 50 ml @ 100 mls/hr IV Q6H [facility] Rx#:[id number] Vancomycin 1,000 mg In Sodium 250 Chloride 0.9% 250 ml @ 250 mls/ hr IV ONCE ONE Rx#:[id number] Vancomycin 2,000 mg In Sodium 500 Chloride 0.9% 500 ml @ 250 mls/ hr IV ONCE ONE Rx#:[id number] Oral 200 Output: Void Amount 825 850 Other: Urine Appearance Clear Clear Clear Urine Color [facility] Bright Yellow Bright Yellow Urine Odor Normal Normal General appearance: cooperative, morbidly obese and no acute distress Head Head exam: Present atraumatic and normocephalic Eye Eye exam: Present EOMI and PERRL ENT ENT exam: Present mucous membranes moist, normal exam and normal external ear e xam Neck Neck exam: Present normal inspection; Absent lymphadenopathy, tenderness and thyromegaly Respiratory Respiratory exam: Absent accessory muscle use, respiratory distress and wheezes Cardiovascular Cardiovascular exam: Present normal rate and rhythm; Absent JVD GI/Abdominal GI/Abdominal exam: Present normal bowel sounds and soft; Absent organomegaly and tenderness Rectal Rectal exam: Present deferred Extremities Exam Extremities exam: Present full ROM, joint swelling, normal capillary refill and tenderness; Absent normal inspection Additional comments: ulcer of right great toe with surrounding erythema and swelling and tenderness to touch Neurological Exam Neurological exam: Present alert, CN II-XII intact, motor sensory deficit and oriented X3 Additional comments: deficit to touch touch bilateral lower extremities up to knees Psychiatric Psychiatric exam: Present normal affect and normal mood; Absent anxious and depressed Skin Skin exam: Present dry and erythema; Absent intact Additional comments: ulcer of right great toe with surrounding erythema and swelling and tenderness to touch OBJ DATA Labs CBC & Chem 7: 10/22/20 05:07 10/22/20 05:06 Labs: Abnormal Lab Results 10/22/20 10/21/20 10/21/20 05:07 16:08 11:57 WBC 3.3 L RBC 6.19 H 3.37 L Hgb 19.5 H 10.9 L Hct 58.9 H 32.4 L Neut % (Auto) 30.8 L Lymph % (Auto) 52.0 H Eos % (Auto) 11.2 H 12.6 H Absolute Neutrophils 1.02 L ESR 66 H C-Reactive Protein 1.20 H Globulin Albumin/Globulin Ratio 10/21/20 11:57 WBC RBC Hgb Hct Neut % (Auto) Lymph % (Auto) Eos % (Auto) Absolute Neutrophils ESR C-Reactive Protein 1.20 H Globulin 4.3 H Albumin/Globulin Ratio 0.8 L Meds: Medications Acetaminophen (Acetaminophen 325 Mg Tablet) 650 mg PO Q6HP PRN; Protocol PRN Reason: Per Pain Protocol/Fever > 101 Last Admin: 10/22/20 03:36 Dose: 650 mg Documented by: Albuterol Sulfate (Albuterol Sulfate 200 Puff Inhaler) 1 puff INH QID PRN PRN Reason: Shortness Of Breath Albuterol/Ipratropium (Ipratropium/Albuterol Sulfate 1 Puff Inhaler) 1 puff INH QID [facility] Allopurinol (Allopurinol 300 Mg Tablet) 300 mg PO QAM [facility] Atorvastatin Calcium (Atorvastatin 40 Mg Tablet) 20 mg PO QHS [facility] Bisacodyl (Bisacodyl 5 Mg Tablet) 10 mg PO BID [facility] Carvedilol (Carvedilol 6.25 Mg Tablet) 6.25 mg PO QDAY [facility] Clopidogrel Bisulfate (Clopidogrel 75 Mg Tablet) 75 mg PO DAILY [facility] Docusate Sodium (Docusate Sodium 100 Mg Capsule) 100 mg PO BID [facility] Last Admin: 10/22/20 12:00 Dose: 100 mg Documented by: Furosemide (Furosemide 20 Mg Tablet) 20 mg PO DAILY [facility] Hydralazine HCl (Hydralazine 20 Mg/Ml Vial) 10 mg IV Q4-6HP PRN PRN Reason: Hypertension Sodium Chloride (Sodium Chloride 0.9%) 1,000 mls @ 100 mls/hr IV .Q10H [facility] Last Admin: 10/22/20 05:06 Dose: Not Given Documented by: Piperacillin Sod/Tazobactam (Sod 3.375 gm/ Dextrose) 50 mls @ 100 mls/hr IV Q6H [facility]; Protocol Last Infusion: 10/22/20 06:14 Dose: Infused Documented by: Vancomycin HCl 1,500 mg/ (Sodium Chloride) 500 mls @ 333.3 mls/hr IV Q12H [facility] Last Admin: 10/22/20 11:58 Dose: 333.3 mls/hr Documented by: Levothyroxine Sodium (Levothyroxine Sodium 112 Mcg Tablet) 112 mcg PO DAILY [facility] Lisinopril (Lisinopril 10 Mg Tablet) 10 mg PO QAM [facility] Methadone HCl (Methadone 5 Mg Tablet) 20 mg PO Q8H PRN PRN Reason: Per Pain Protocol Last Admin: 10/22/20 08:08 Dose: 20 mg Documented by: Methocarbamol (Methocarbamol 500 Mg Tablet) 500 mg PO BID [facility] Morphine Sulfate (Morphine 4 Mg/Ml Vial) 4 mg IV Q4HP PRN; Protocol PRN Reason: Per Pain Protocol Non-Formulary Medication (Cilostazol) 50 mg PO BID [facility] Non-Formulary Medication (Methadone) 20 mg PO Q8H PRN PRN Reason: Pain Non-Formulary Medication (Guaifenesin) 400 mg PO QDAY PRN PRN Reason: Congestion Non-Formulary Medication (Magnesium Oxide) 420 mg PO BID [facility] Non-Formulary Medication (Multivitamin With Minerals) 1 cap PO DAILY [facility] Omeprazole (Omeprazole 20 Mg Capsule) 20 mg PO QAM [facility] Ondansetron HCl (Ondansetron 4 Mg/2 Ml Vial) 4 mg IV Q6HP PRN PRN Reason: Nausea And Vomiting Oxycodone HCl (Oxycodone Hcl 5 Mg Tablet) 5 mg PO Q4HP PRN; Protocol PRN Reason: Per Pain Protocol Last Admin: 10/22/20 03:36 Dose: 5 mg Documented by: Potassium Chloride (Potassium Chloride 10 Meq Tablet) 10 meq PO BID [facility] Senna (Sennosides 1 Tablet) 2 tab PO HS [facility] Last Admin: 10/21/20 22:03 Dose: Not Given Documented by: Sodium Chloride (0.9 % Sodium Chloride 10 Ml Syringe) 10 ml IV Q8 [facility] Last Admin: 10/22/20 05:06 Dose: Not Given Documented by: Vancomycin HCl (Vancomycin Per Pharmacy) 1 order IV UD [facility]; Protocol Vitamin D (Vitamin D3 1,000 Unit Tablet) [facility] [place] Zolpidem Tartrate (Zolpidem 5 Mg Tablet) 5 mg PO HSP PRN PRN Reason: Insomnia A/P Assessment and plan (1) Acute osteomyelitis of toe of right foot: Status: Acute (2) Hyperlipidemia: Status: Acute (3) Hypertension: Status: Chronic Qualifiers: Hypertension type: essential hypertension Qualified Code(s): I10 - Essential (primary) hypertension (4) Polyneuropathy: Status: Acute (5) Morbid obesity: Status: Acute (6) Anemia, normocytic normochromic: Status: Acute Narrative A/P Narrative: Assessment and Plans: 1. Chronic osteomyelitis of right 1st toe, associated with polyneuropathy: Stays in inpatient med surg Dr. Crump consulted for wound debridement, intra-operative wound culture, amputated, and other indicated procedure(s) Dr. Murphy consulted, recs. appreciated Lactic acid Procalcitonin CRP Blood culture, no growth to date Wound culture, no growth to date Vancomycin Zosyn Tylenol PRN fever/mild pain Oxycodone PRN moderate pain Morphine IV PRN severe pain cbc w/ auto diff in the AM to trend WBC level Physical therapy Occupational therapy MRI right foot w/o contrast to aid in deciding timing for surgery 2. Essential HTN: Continue current home regimen of oral antihypertensives Hydralazine IV PRN SBP>=180mmHg and/or DBP>=110mmHg 3. Mixed dyslipidemia: Continue statin therapy 4. Anemia, normocytic normochromic: cbc w/ auto diff in the morning to trend H/H; transfuse pRBC if hemoglobin <7.0, active bleeding, or symptomatic 5. 

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
--- NOTE | 2020-10-22 14:28 | Orthopedic Progress Note ---
SUBJECTIVE Subjective Patient information: Note initiated : 10/22/20 at 2:27 pm Service Date, if different from initiated Date: [] Patient: Dmitry Luna 70 y/o M admitted on 10/21/20 for Infection To Feet. Chief Complaint: [Right great toe infection] Constitutional Vitals: Vital Signs Temp Pulse Resp BP Pulse Ox 97.1 F 67 16 136/76 94 10/22/20 12:00 10/22/20 12:00 10/22/20 12:00 10/22/20 12:00 10/22/20 12:00 Period Temp Pulse Resp BP Sys/Robbins Pulse Ox Last 24 Hr 97.1 F-97.5 F 67-83 16-18 108-162/59-91 91-96 Intake and Output 10/22/20 10/22/20 10/22/20 05:59 13:59 21:59 Intake Total 500 50 Output Total 825 850 Balance -325 -800 Intake & Output: Intake & Output 10/22/20 10/22/20 10/22/20 05:59 13:59 21:59 Intake Total 500 50 Output Total 825 850 Balance -325 -800 Intake: IV 300 50 Zosyn 3.375 gm In Dextrose 5% 50 50 in Water 50 ml @ 100 mls/hr IV Q6H [facility] Rx#:[id number] Vancomycin 1,000 mg In Sodium 250 Chloride 0.9% 250 ml @ 250 mls/ hr IV ONCE ONE Rx#:[id number] Oral 200 Output: Void Amount 825 850 Other: Urine Appearance Clear Clear Urine Color Bright Yellow Bright Yellow Urine Odor Normal OBJ DATA Labs CBC & Chem 7: 10/22/20 05:07 10/22/20 05:06 Labs: Abnormal Lab Results 10/22/20 10/21/20 10/21/20 05:07 16:08 11:57 WBC 3.3 L RBC 6.19 H 3.37 L Hgb 19.5 H 10.9 L Hct 58.9 H 32.4 L Neut % (Auto) 30.8 L Lymph % (Auto) 52.0 H Eos % (Auto) 11.2 H 12.6 H Absolute Neutrophils 1.02 L ESR 66 H C-Reactive Protein 1.20 H Globulin Albumin/Globulin Ratio 10/21/20 11:57 WBC RBC Hgb Hct Neut % (Auto) Lymph % (Auto) Eos % (Auto) Absolute Neutrophils ESR C-Reactive Protein 1.20 H Globulin 4.3 H Albumin/Globulin Ratio 0.8 L Meds: Medications Acetaminophen (Acetaminophen 325 Mg Tablet) 650 mg PO Q6HP PRN; Protocol PRN Reason: Per Pain Protocol/Fever > 101 Last Admin: 10/22/20 03:36 Dose: 650 mg Documented by: Albuterol Sulfate (Albuterol Sulfate 200 Puff Inhaler) 1 puff INH QIDP PRN PRN Reason: Shortness Of Breath Albuterol/Ipratropium (Ipratropium/Albuterol Sulfate 1 Puff Inhaler) 1 puff INH QID [facility] Allopurinol (Allopurinol 300 Mg Tablet) 300 mg PO QAM [facility] Atorvastatin Calcium (Atorvastatin 40 Mg Tablet) 20 mg PO QHS [facility] Bisacodyl (Bisacodyl 5 Mg Tablet) 10 mg PO BID [facility] Carvedilol (Carvedilol 6.25 Mg Tablet) 6.25 mg PO QAMCC [facility] Cilostazol (Cilostazol 100 Mg Tablet) 50 mg PO BIDAC [facility] Docusate Sodium (Docusate Sodium 100 Mg Capsule) 100 mg PO BID [facility] Last Admin: 10/22/20 12:00 Dose: 100 mg Documented by: Furosemide (Furosemide 20 Mg Tablet) 20 mg PO DAILY [facility] Hydralazine HCl (Hydralazine 20 Mg/Ml Vial) 10 mg IV Q4-6HP PRN PRN Reason: Hypertension Sodium Chloride (Sodium Chloride 0.9%) 1,000 mls @ 100 mls/hr IV .Q10H [facility] Last Admin: 10/22/20 05:06 Dose: Not Given Documented by: Piperacillin Sod/Tazobactam (Sod 3.375 gm/ Dextrose) 50 mls @ 100 mls/hr IV Q6H [facility]; Protocol Last Infusion: 10/22/20 06:14 Dose: Infused Documented by: Vancomycin HCl 1,500 mg/ (Sodium Chloride) 500 mls @ 333.3 mls/hr IV Q12H [facility] Last Admin: 10/22/20 11:58 Dose: 333.3 mls/hr Documented by: Iron Carb/Multivit/Canadian/Folic Acid (Multivit,Ther Iron,Ca,Fa & Min 1 Tablet) 1 tab PO DAILY [facility] Levothyroxine Sodium (Levothyroxine Sodium 112 Mcg Tablet) 112 mcg PO QAMAC [facility] Lisinopril (Lisinopril 10 Mg Tablet) 10 mg PO QAM [facility] Magnesium Oxide (Magnesium Oxide 400 Mg Tablet) 400 mg PO BID [facility] Methadone HCl (Methadone 5 Mg Tablet) 20 mg PO Q8H PRN PRN Reason: Per Pain Protocol Last Admin: 10/22/20 08:08 Dose: 20 mg Documented by: Methocarbamol (Methocarbamol 500 Mg Tablet) 500 mg PO BID [facility] Morphine Sulfate (Morphine 4 Mg/Ml Vial) 4 mg IV Q4HP PRN; Protocol PRN Reason: Per Pain Protocol Omeprazole (Omeprazole 20 Mg Capsule) 20 mg PO QAMAC [facility] Ondansetron HCl (Ondansetron 4 Mg/2 Ml Vial) 4 mg IV Q6HP PRN PRN Reason: Nausea And Vomiting Oxycodone HCl (Oxycodone Hcl 5 Mg Tablet) 5 mg PO Q4HP PRN; Protocol PRN Reason: Per Pain Protocol Last Admin: 10/22/20 03:36 Dose: 5 mg Documented by: Guaifenesin 400 Mg (Tablet) 1 dose PO QDAY PRN PRN Reason: Congestion Potassium Chloride (Potassium Chloride 10 Meq Tablet) 10 meq PO BIDCC [facility] Senna (Sennosides 1 Tablet) 2 tab PO HS [facility] Last Admin: 10/21/20 22:03 Dose: Not Given Documented by: Sodium Chloride (0.9 % Sodium Chloride 10 Ml Syringe) 10 ml IV Q8 [facility] Last Admin: 10/22/20 05:06 Dose: Not Given Documented by: Vancomycin HCl (Vancomycin Per Pharmacy) 1 order IV [facility]; Protocol Vitamin D (Vitamin D3 1,000 Unit Tablet) 2,000 unit PO QAM [facility] Zolpidem Tartrate (Zolpidem 5 Mg Tablet) 5 mg PO HSP PRN PRN Reason: Insomnia A/P Time Spent With Patient Time: Total time spent is greater than 50% in coordination of care (as documented) at patient's floor/unit and/or counseling patient: Osteo on MRI to MTPJ 1st, right foot HEART: s1, s1, no murmur LUNG: labored breathing on deep respiration Amputation of right great toe planed for tomorrow (10/23/20)
--- NOTE | 2020-10-22 14:57 | Magnetic Resonance Report ---
History: Osteomyelitis the first toe, polyneuropathy TECHNIQUE: Multiplanar imaging was performed using multiple pulse sequences. FINDINGS: There is erosion and near complete destruction of the bone in the distal phalanx of the great toe due to osteomyelitis. There is surrounding cellulitis but no abscess is present. The infection extends across the interphalangeal joint and there is a small zone of osteomyelitis along the dorsal side of the distal head of the proximal phalanx. There is edema in the marrow throughout the proximal phalanx. Infection does not appear to extend across the metatarsal phalangeal joint. Along the medial side of the head of the first metatarsal there is a subcortical cyst with well-defined borders. This was seen on the recent CT done on 10/21/20. There is no surrounding inflammation or bone marrow edema. The remainder of the toes, metatarsals and tarsal bones are normal. There is generalized edema throughout the foot extending to the ankle. IMPRESSION: Osteomyelitis involving the proximal and distal phalanges of the first toe. There is destruction of bone in the distal phalanx with surrounding cellulitis Interpreted and Authenticated by: Jordi Herrera 10/22/20
[2020-10-22] MEDS: IPRATROPIUM/ALBUTEROL SULFATE 1 PUFF INHALER INH SCH ×3 (15:45→20:50)
[2020-10-22] MEDS: CILOSTAZOL 100 MG TABLET PO SCH (16:31)
[2020-10-22] MEDS: POTASSIUM CHLORIDE 10 MEQ TABLET PO SCH (16:32)
[2020-10-22] MEDS: ATORVASTATIN 40 MG TABLET PO SCH (20:48)
[2020-10-22] MEDS: METHOCARBAMOL 500 MG TABLET PO SCH (20:49)
[2020-10-22] MEDS: BISACODYL 5 MG TABLET PO SCH (20:50)
[2020-10-22] MEDS: SENNOSIDES 1 TABLET PO SCH (20:50)
[2020-10-22] MEDS ORDERED: DOCUSATE SODIUM 100 MG CAPSULE PO SCH (21:00)
[2020-10-22] MEDS: MAGNESIUM OXIDE 400 MG TABLET PO SCH (21:12)
[2020-10-23] MEDS: METHADONE 5 MG TABLET PO PRN ×4 (00:35→23:59)
[2020-10-23] MEDS: PIPERACILLIN SODIUM/TAZOBACTAM 3.375 GM in DEXTROSE 5% IN WATER 50 ML IV SCH ×5 (00:37→23:55)
[2020-10-23] MEDS: 0.9 % SODIUM CHLORIDE 10 ML SYRINGE IV SCH ×3 (04:22→21:48)
[2020-10-23 06:48] LABS: Appearance,Urine CLEAR (Clear); Bilirubin,Urine Negative (Negative); Color,Urine STRAW; Culture Indicated,Urine No; Glucose,Urine (UA) Negative (Negative); Ketones,Urine Negative (Negative); Leukocyte Esterase,Urine Negative /ug (Negative); Nitrate,Urine Negative (Negative); Protein,Urine Negative (Negative); Specific Gravity,Urine 1.011 (1.000-1.035); Urine Blood Negative (Negative); Urobilinogen,Urine Negative
[2020-10-23] MEDS ORDERED: SCOPOLAMINE 1 PATCH PATCH TOPICAL PRN (07:00)
[2020-10-23] MEDS: IPRATROPIUM/ALBUTEROL SULFATE 1 PUFF INHALER INH SCH ×5 (07:11→21:49)
[2020-10-23 07:25] LABS: ALT/SGPT 23 U/L (<40); AST/SGOT 38 U/L (<40); Albumin 3.7 gm/dL (3.2-5.2); Alkaline Phosphatase 84 U/L (39-117); Bilirubin,Total 0.2 mg/dL (0.1-1.0); Blood Urea Nitrogen 17 mg/dL (8-23); Calcium 9.3 mg/dL (8.6-10.4); Carbon Dioxide 26 mmol/L (22-30); Chloride 103 mmol/L (96-108); Globulin 3.7 gm/dL (2.2-3.7); Glomerular Filtration Rate 61; Glucose 93 mg/dL (70-105)
[2020-10-23 07:50] LABS: Basophils # (Auto) 0.04 K/mcL (0.00-0.30); Basophils % (Auto) 0.9 % (0.0-2.0); Eosinophils # (Auto) 0.75 K/mcL (0.00-0.70); Eosinophils % (Auto) 16.3 % (0.0-7.0); Hematocrit 33.2 % (40.1-51.0); Lymphocytes # (Auto) 1.91 K/mcL (1.50-4.80); Lymphocytes % (Auto) 41.4 % (15.5-49.0); Mean Cell Volume 97.1 fL (80.0-100.0); Mean Corpuscular HGB Conc 33.1 g/dL (31.0-36.0); Mean Platelet Volume 10.2 fL (7.4-10.4); Monocytes # (Auto) 0.54 K/mcL (0.10-0.90); Monocytes % (Auto) 11.7 % (1.0-12.0); Neutrophils % (Auto) 29.7 % (38.0-78.0); Platelet Count 271 K/mcL (140-440); RBC 3.42 M/mcL (4.63-6.08); Red Cell Distribution Width 12.5 % (11.5-14.5); WBC 4.6 K/mcL (4.5-11.0)
[2020-10-23] MEDS ORDERED: CLOPIDOGREL 75 MG TABLET PO SCH (09:00)
[2020-10-23] MEDS: LEVOTHYROXINE SODIUM 112 MCG TABLET PO SCH (09:49)
[2020-10-23] MEDS: CARVEDILOL 6.25 MG TABLET PO SCH (09:50)
[2020-10-23] MEDS: LISINOPRIL 10 MG TABLET PO SCH (09:53)
[2020-10-23] MEDS: DOCUSATE SODIUM 100 MG CAPSULE PO SCH ×2 (09:53→21:41)
[2020-10-23] MEDS: BISACODYL 5 MG TABLET PO SCH ×2 (09:57→21:42)
[2020-10-23] MEDS: POTASSIUM CHLORIDE 10 MEQ TABLET PO SCH ×2 (09:57→18:01)
[2020-10-23] MEDS: FUROSEMIDE 20 MG TABLET PO SCH (09:57)
[2020-10-23] MEDS: MAGNESIUM OXIDE 400 MG TABLET PO SCH ×2 (09:57→21:43)
[2020-10-23] MEDS: OMEPRAZOLE 20 MG CAPSULE PO SCH (09:57)
[2020-10-23] MEDS: VITAMIN D3 1,000 UNIT TABLET PO SCH (09:58)
[2020-10-23] MEDS: CILOSTAZOL 100 MG TABLET PO SCH ×2 (09:58→18:05)
[2020-10-23] MEDS: METHOCARBAMOL 500 MG TABLET PO SCH ×2 (09:58→21:42)
[2020-10-23] MEDS: ALLOPURINOL 300 MG TABLET PO SCH (09:58)
[2020-10-23] MEDS: MULTIVIT,THER IRON,CA,FA & MIN 1 TABLET PO SCH (09:58)
[2020-10-23] MEDS: ALBUTEROL SULFATE 200 PUFF INHALER INH PRN (10:00)
[2020-10-23] MEDS: VANCOMYCIN 1,500 MG in 0.9 % SODIUM CHLORIDE 500 ML IV SCH (10:01)
--- NOTE | 2020-10-23 11:09 | Internal Med Progress Note ---
SUBJECTIVE Subjective Patient information: Note initiated : 10/23/20 at 11:06 am Service Date, if different from initiated Date: [] Patient: Dmitry Luna 70 y/o M admitted on 10/21/20 for Infection To Feet. Chief Complaint: [right great toe osteomyelitis] Interval history: History of present illness: Mr. Luna is a 70 year old M history of morbid obesity, essential hypertension, mixed dyslipidemia, bilateral lower extremities polyneuropathy, presenting with 2 weeks history of worsening of right first toe swelling, erythema, and pain. Had a similar problem on his left great toe about a year ago. Over the last 2 weeks he is noticing , erythema, and pain of his right first toe. The pain is described as 9 out of 10, sharp, intermittent, and localized in his right first toe and this basis. He denies systemic symptoms such as nausea, vomiting, fever, shaking chills, diaphoresis, general body weakness, GI upset such as nausea vomiting, or change in appetite. He has noticed further worsening of his symptoms over the past few days to the p oint that he notified Dr. Mead, who sent him to our ED for further evaluation. Vital signs at ED presentation were within normal limits. Labs significant for lack of leukocytosis with WBC 4.6. CT of the right foot showing chronic osteomyelitis resulting in subtotal destruction of the first distal phalanx with only base remnant remains. 10/22: Blood and wound cultures no growth to date. Afebrile overnight. c/o severe sharp intermittent pain right great toe. Denies any fever chills or sweating. Denies any nausea vomiting diarrhea or constipation. Denies general body weakness. 10/23: Blood and wound cultures no growth to date. MRI right foot w/o againg showing osteomyelitis of the right great toe. Afebrile overnight. c/o ,ild sharp intermittent pain right great toe. Denies any fever chills or sweating. Denies any nausea vomiting diarrhea or constipation. Denies general body weakness. Constitutional Vitals: Vital Signs Temp Pulse Resp BP Pulse Ox 36.1 C L 76 18 154/91 91 10/23/20 07:19 10/23/20 07:19 10/23/20 07:19 10/23/20 07:19 10/23/20 07:19 Period Temp Pulse Resp BP Sys/Robbins Pulse Ox Last 24 Hr 35.8 C-36.5 C 67-85 16-18 112-154/61-91 91-98 Intake and Output 10/22/20 10/23/20 10/23/20 21:59 05:59 13:59 Intake Total 450 1550 50 Output Total 1025 1200 350 Balance -575 350 -300 Weight 114.362 kg Intake & Output: Intake & Output 10/22/20 10/23/20 10/23/20 21:59 05:59 13:59 Intake Total 450 1550 50 Output Total 1025 1200 350 Balance -575 350 -300 Weight 114.362 kg Intake: IV 100 1550 50 Sodium Chloride 0.9% 1,000 ml @ 1000 100 mls/hr IV .Q10H BHAKTI Rx#: [id number] Zosyn 3.375 gm In Dextrose 5% 100 50 50 in Water 50 ml @ 100 mls/hr IV Q6H BHAKTI Rx#:[id number] Vancomycin 1,500 mg In Sodium 500 Chloride 0.9% 500 ml @ 333.3 mls/hr IV Q12H BHAKTI Rx#: [id number] Oral 350 Output: Void Amount 1025 1200 350 Other: Meal Lunch Percent of Meal Consumed 100% Feeding Ability Independent Urine Appearance Clear Clear Urine Color Bright Yellow Bright Yellow Urine Odor Normal Stool Size Moderate Stool Color Brown Stool Consistency Soft Formed # Bowel Movements 1 General appearance: cooperative and no acute distress Head Head exam: Present atraumatic and normocephalic Eye Eye exam: Present EOMI and PERRL ENT ENT exam: Present mucous membranes moist, normal exam and normal external ear exam Neck Neck exam: Present normal inspection; Absent lymphadenopathy, tenderness and thyromegaly Respiratory Respiratory exam: Absent accessory muscle use, respiratory distress and wheezes Cardiovascular Cardiovascular exam: Present normal rate and rhythm; Absent JVD GI/Abdominal GI/Abdominal exam: Present normal bowel sounds and soft; Absent organomegaly and tenderness Rectal Rectal exam: Present deferred Extremities Exam Extremities exam: Present full ROM, joint swelling, normal capillary refill and tenderness; Absent normal inspection Additional comments: Erythema, swelling, warmth, tenderness to palpation right great toe. Neurological Exam Neurological exam: Present alert, CN II-XII intact and oriented X3; Absent motor sensory deficit Psychiatric Psychiatric exam: Present normal affect and normal mood; Absent anxious and depressed Skin Skin exam: Present dry, erythema and warm; Absent intact Additional comments: Erythema, swelling, warmth, tenderness to palpation right great toe. OBJ DATA Labs CBC & Chem 7: 10/23/20 05:19 10/23/20 05:19 Labs: Abnormal Lab Results 10/23/20 10/23/20 10/22/20 08:07 05:19 05:07 WBC 3.3 L RBC 3.42 L 6.19 H Hgb 11.0 L 19.5 H Hct 33.2 L 58.9 H Neut % (Auto) 29.7 L 30.8 L Lymph % (Auto) 52.0 H Eos % (Auto) 16.3 H 11.2 H Eos # (Auto) 0.75 H Absolute Neutrophils 1.37 L 1.02 L ESR C-Reactive Protein Globulin Albumin/Globulin Ratio Vancomycin Trough 25.7 H* 10/21/20 10/21/20 10/21/20 16:08 11:57 11:57 WBC RBC 3.37 L Hgb 10.9 L Hct 32.4 L Neut % (Auto) Lymph % (Auto) Eos % (Auto) 12.6 H Eos # (Auto) Absolute Neutrophils ESR 66 H C-Reactive Protein 1.20 H 1.20 H Globulin 4.3 H Albumin/Globulin Ratio 0.8 L Vancomycin Trough Meds: Medications Acetaminophen (Acetaminophen 325 Mg Tablet) 650 mg PO Q6HP PRN; Protocol PRN Reason: Per Pain Protocol/Fever > 101 Last Admin: 10/22/20 20:56 Dose: 650 mg Documented by: Albuterol Sulfate (Albuterol Sulfate 200 Puff Inhaler) 1 puff INH QIDP PRN PRN Reason: Shortness Of Breath Last Admin: 10/23/20 10:00 Dose: 1 puff Documented by: Albuterol/Ipratropium (Ipratropium/Albuterol Sulfate 1 Puff Inhaler) 1 puff INH QID [facility]AKTI Last Admin: 10/23/20 09:59 Dose: 1 puff Documented by: Allopurinol (Allopurinol 300 Mg Tablet) 300 mg PO QAM [facility] Last Admin: 10/23/20 09:58 Dose: Not Given Documented by: Atorvastatin Calcium (Atorvastatin 40 Mg Tablet) 20 mg PO QHS BHAKTI Last Admin: 10/22/20 20:48 Dose: 20 mg Documented by: Bisacodyl (Bisacodyl 5 Mg Tablet) 10 mg PO BID [facility] Last Admin: 10/23/20 09:57 Dose: Not Given Documented by: Carvedilol (Carvedilol 6.25 Mg Tablet) 6.25 mg PO QAC [facility] Last Admin: 10/23/20 09:50 Dose: 6.25 mg Documented by: Cilostazol (Cilostazol 100 Mg Tablet) 50 mg PO BIDAC [facility] Last Admin: 10/23/20 09:58 Dose: Not Given Documented by: Docusate Sodium (Docusate Sodium 100 Mg Capsule) 100 mg PO BID [facility] Last Admin: 10/23/20 09:53 Dose: 100 mg Documented by: Furosemide (Furosemide 20 Mg Tablet) 20 mg PO DAILY [facility] Last Admin: 10/23/20 09:57 Dose: Not Given Documented by: Hydralazine HCl (Hydralazine 20 Mg/Ml Vial) 10 mg IV Q4-6HP PRN PRN Reason: Hypertension Sodium Chloride (Sodium Chloride 0.9%) 1,000 mls @ 100 mls/hr IV .Q10H [facility] Last Infusion: 10/23/20 04:00 Dose: Infused Documented by: Piperacillin Sod/Tazobactam (Sod 3.375 gm/ Dextrose) 50 mls @ 100 mls/hr IV Q6H [facility]; Protocol Last Infusion: 10/23/20 06:05 Dose: Infused Documented by: Iron Carb/Multivit/[place]/Folic Acid (Multivit,Ther Iron,Ca,Fa & Min 1 Tablet) 1 tab PO DAILY [facility] Last Admin: 10/23/20 09:58 Dose: Not Given Documented by: Levothyroxine Sodium (Levothyroxine Sodium 112 Mcg Tablet) 112 mcg PO QAMAC [facility] Last Admin: 10/23/20 09:49 Dose: 112 mcg Documented by: Lisinopril (Lisinopril 10 Mg Tablet) 10 mg PO QAM [facility] Last Admin: 10/23/20 09:53 Dose: 10 mg Documented by: Magnesium Oxide (Magnesium Oxide 400 Mg Tablet) 400 mg PO BID [facility] Last Admin: 10/23/20 09:57 Dose: Not Given Documented by: Methadone HCl (Methadone 5 Mg Tablet) 20 mg PO Q8H PRN PRN Reason: Per Pain Protocol Last Admin: 10/23/20 09:47 Dose: 20 mg Documented by: Methocarbamol (Methocarbamol 500 Mg Tablet) 500 mg PO BID [facility] Last Admin: 10/23/20 09:58 Dose: Not Given Documented by: Morphine Sulfate (Morphine 4 Mg/Ml Vial) 4 mg IV Q4HP PRN; Protocol PRN Reason: Per Pain Protocol Omeprazole (Omeprazole 20 Mg Capsule) 20 mg PO QAMAC [facility] Last Admin: 10/23/20 09:57 Dose: Not Given Documented by: Ondansetron HCl (Ondansetron 4 Mg/2 Ml Vial) 4 mg IV Q6HP PRN PRN Reason: Nausea And Vomiting Oxycodone HCl (Oxycodone Hcl 5 Mg Tablet) 5 mg PO Q4HP PRN; Protocol PRN Reason: Per Pain Protocol Last Admin: 10/22/20 20:56 Dose: 5 mg Documented by: Guaifenesin 400 Mg (Tablet) 1 dose PO QDAY PRN PRN Reason: Congestion Potassium Chloride (Potassium Chloride 10 Meq Tablet) 10 meq PO BIDCC [facility] Last Admin: 10/23/20 09:57 Dose: Not Given Documented by: Scopolamine (Scopolamine 1 Patch Patch) 1 patch TOPICAL PREOP PRN PRN Reason: Nausea And Vomiting Stop: 10/23/20 15:00 Senna (Sennosides 1 Tablet) 2 tab PO HS [facility] Last Admin: 10/22/20 20:50 Dose: 2 tab Documented by: Sodium Chloride (0.9 % Sodium Chloride 10 Ml Syringe) 10 ml IV Q8 [facility] Last Admin: 10/23/20 04:22 Dose: Not Given Documented by: Vancomycin HCl (Vancomycin Per Pharmacy) 1 order [place] [facility] [place] Vitamin D (Vitamin D3 1,000 Unit Tablet) [facility] [place] Last Admin: 10/23/20 09:58 Dose: Not Given Documented by: Zolpidem Tartrate (Zolpidem 5 Mg Tablet) 5 mg PO HSP PRN PRN Reason: Insomnia A/P Assessment and plan (1) Acute osteomyelitis of toe of right foot: Status: Acute (2) Hyperlipidemia: Status: Acute (3) Hypertension: Status: Chronic Qualifiers: Hypertension type: essential hypertension Qualified Code(s): I10 - Essential (primary) hypertension (4) Polyneuropathy: Status: Acute (5) Morbid obesity: Status: Acute (6) Anemia, normocytic normochromic: Status: Acute Narrative A/P Narrative: Assessment and Plans: 1. Chronic osteomyelitis of right 1st toe, associated with polyneuropathy: Stays in inpatient med surg Dr. Crump consulted, planned for right great toe amputation on 10/23 Dr. Murphy consulted, recs. appreciated Lactic acid Procalcitonin CRP Blood culture, no growth to date Wound culture, no growth to date Vancomycin Zosyn Tylenol PRN fever/mild pain Oxycodone PRN moderate pain Morphine IV PRN severe pain cbc w/ auto diff in the AM to trend WBC level Physical therapy Occupational therapy MRI right foot w/o again showing osteomyelitis of the right great toe 2. Essential HTN: Continue current home regimen of oral antihypertensives Hydralazine IV PRN SBP>=180mmHg and/or DBP>=110mmHg 3. Mixed dyslipidemia: Continue statin therapy 4. Anemia, normocytic normochromic: cbc w/ auto diff in the morning to trend H/H; transfuse pRBC if hemoglobin <7.0, active bleeding, or symptomatic 5. Morbid obesity: Direct Care Counselor patient on life style modifications including healthy diet and regular exercise in order to lose weight GI ppx: continue oral PPI from home regimen DVT ppx: SCDs Code status: Full Prognosis: Stable Disposition: inpatient med surg; PT OT Time Spent With Patient Time: Total time spent is greater than 50% in coordination of care (as documented) at patient's floor/unit and/or counseling patient: QUALITY VTE Deep Vein Thrombosis/Pulmonary Embolism Present on Admission: No
[2020-10-23] MEDS ORDERED: DEXAMETHASONE 10 MG/ML VIAL ONE (12:09)
[2020-10-23] MEDS ORDERED: ONDANSETRON 4 MG/2 ML VIAL ONE (12:09)
[2020-10-23] MEDS ORDERED: MAGNESIUM SULFATE 2 GM/50 ML BAG IV ONE (12:09)
[2020-10-23] MEDS ORDERED: fentaNYL 100 MCG/2 ML VIAL IV ONE (12:09)
[2020-10-23] MEDS ORDERED: KETAMINE 50 MG/ML Syringe (ANEST) IV ONE (12:09)
[2020-10-23] MEDS ORDERED: PROPOFOL 200 MG/20 ML VIAL IV ONE (12:09)
[2020-10-23] MEDS ORDERED: LIDOCAINE HCL/PF 100 MG/5 ML SYRINGE IV ONE (12:09)
[2020-10-23] MEDS ORDERED: MIDAZOLAM 2 MG/2 ML VIAL ONE (12:09)
[2020-10-23] MEDS ORDERED: PHENYLephrine 1 MG/10 ML SYRINGE (ANEST) ONE (12:09)
[2020-10-23] MEDS ORDERED: GLYCOPYRROLATE 0.2 MG/ML VIAL IV ONE (12:09)
[2020-10-23] MEDS: 0.9 % SODIUM CHLORIDE 1,000 ML IV SCH ×4 (12:12→23:57)
[2020-10-23] MEDS ORDERED: fentaNYL 100 MCG/2 ML VIAL IV PRN (12:28)
[2020-10-23] MEDS ORDERED: IPRATROPIUM/ALBUTEROL 3 ML AMPUL.NEB NEB PRN (12:28)
[2020-10-23] MEDS ORDERED: ePHEDrine 50 MG/ML AMPUL IV PRN (12:28)
[2020-10-23] MEDS ORDERED: MEPERIDINE 25 MG/ML VIAL IV PRN (12:28)
[2020-10-23] MEDS ORDERED: BENZOCAINE/MENTHOL 1 LOZENGE PO PRN (12:28)
[2020-10-23] MEDS ORDERED: LACTATED RINGERS 1,000 ML IV SCH (12:30)
--- NOTE | 2020-10-23 13:05 | Brief Operative Note ---
Brief Operative Note Date of procedure: 10/23/20 Pre-op diagnosis: Osteomyelitis right hallux Post-op diagnosis: same Procedure: Amputation right hallux Grafts/Implants: No Anesthesia: GETA Complications: none Surgeon: Dirk Crump Estimated blood loss (cc): 100 Specimens Removed/Pathology: other (Bone culture, deep tissue culture, right hallux specimen) Condition: other (fair) Disposition: floor
[2020-10-23] MEDS ORDERED: VANCOMYCIN 1 GM VIAL TOPICAL ONE (13:15)
[2020-10-23] MEDS: morphine 4 MG/ML VIAL IV PRN ×2 (17:30→21:43)
[2020-10-23] MEDS: SENNOSIDES 1 TABLET PO SCH (21:41)
[2020-10-23] MEDS: ATORVASTATIN 40 MG TABLET PO SCH (21:41)
[2020-10-24] MEDS: 0.9 % SODIUM CHLORIDE 1,000 ML IV SCH ×2 (03:58→15:45)
[2020-10-24] MEDS: 0.9 % SODIUM CHLORIDE 10 ML SYRINGE IV SCH ×3 (04:44→22:46)
[2020-10-24] MEDS: morphine 4 MG/ML VIAL IV PRN (05:05)
[2020-10-24] MEDS: PIPERACILLIN SODIUM/TAZOBACTAM 3.375 GM in DEXTROSE 5% IN WATER 50 ML IV SCH ×4 (05:11→23:34)
[2020-10-24] MEDS: OMEPRAZOLE 20 MG CAPSULE PO SCH (06:42)
[2020-10-24] MEDS: LEVOTHYROXINE SODIUM 112 MCG TABLET PO SCH (06:42)
[2020-10-24] MEDS: METHADONE 5 MG TABLET PO PRN ×2 (06:43→16:57)
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
--- NOTE | 2020-10-24 07:42 | Operative Note ---
DATE OF OPERATION: 10/23/2020 PREOPERATIVE DIAGNOSIS: Osteomyelitis, right hallux. POSTOPERATIVE DIAGNOSIS: Osteomyelitis, right hallux. PROCEDURE: Amputation, right hallux. IMPLANTS: None. ANESTHESIA: GETA. COMPLICATIONS: None. BLOOD LOSS: 100 mL SPECIMENS: Bone culture, deep tissue culture, right hallux. CONDITION: Fair. DISPOSITION: Floor. PROCEDURE IN DETAIL: The patient was transferred to the operative room. He remained on the inpatient bed throughout the procedure. General anesthesia was established. The right lower extremity was scrubbed, prepped and draped in the usual aseptic fashion. A a fishmouth incision was created around the right hallux, entering the first metatarsophalangeal joint. Blunt dissection was performed. A consistent flap was created, superficial bleeding arteries and veins were cauterized. Pulse lavage of 3000 mL bag was used with normal saline under pulse lavage to this tissue. A deep tissue culture was taken. Bone from the distal phalanx was also sent for culture and a deep tissue swab was taken as well. The area was then closed loosely with 4-0 Vicryl and 4-0 nylon in a horizontal interrupted suture fashion. Xeroform, 4 x 4 gauze, ABD pads, Coban, and Mauri wrap were applied. He has orders to remain nonweightbearing and will continue to receive antibiotic therapy on the floor. The patient tolerated the procedure and anesthesia well and was transferred to the postoperative care unit with vital signs stable and the vascular status intact to his foot. LETICIA:yvonne Job ID: [id number] Doc ID: [id number] Dirk Crump DPM
[2020-10-24 07:56] LABS: Basophils # (Auto) 0.02 K/mcL (0.00-0.30); Basophils % (Auto) 0.4 % (0.0-2.0); Eosinophils # (Auto) 0.01 K/mcL (0.00-0.70); Eosinophils % (Auto) 0.2 % (0.0-7.0); Hematocrit 31.4 % (40.1-51.0); Hemoglobin 10.3 g/dL (13.7-17.5); Lymphocytes # (Auto) 1.14 K/mcL (1.50-4.80); Lymphocytes % (Auto) 21.5 % (15.5-49.0); Mean Cell Volume 99.4 fL (80.0-100.0); Mean Corpuscular HGB Conc 32.8 g/dL (31.0-36.0); Mean Platelet Volume 10.2 fL (7.4-10.4); Monocytes # (Auto) 0.35 K/mcL (0.10-0.90); Monocytes % (Auto) 6.6 % (1.0-12.0); Neutrophils % (Auto) 71.3 % (38.0-78.0); Platelet Count 280 K/mcL (140-440); RBC 3.16 M/mcL (4.63-6.08); Red Cell Distribution Width 12.3 % (11.5-14.5); WBC 5.3 K/mcL (4.5-11.0)
[2020-10-24] MEDS: BISACODYL 5 MG TABLET PO SCH ×2 (08:39→19:40)
[2020-10-24] MEDS: DOCUSATE SODIUM 100 MG CAPSULE PO SCH ×2 (08:39→19:25)
[2020-10-24] MEDS: FUROSEMIDE 20 MG TABLET PO SCH (08:40)
[2020-10-24] MEDS: MAGNESIUM OXIDE 400 MG TABLET PO SCH ×2 (08:40→19:44)
[2020-10-24] MEDS: ALLOPURINOL 300 MG TABLET PO SCH (08:40)
[2020-10-24] MEDS: CARVEDILOL 6.25 MG TABLET PO SCH (08:40)
[2020-10-24] MEDS: LISINOPRIL 10 MG TABLET PO SCH (08:40)
[2020-10-24] MEDS: MULTIVIT,THER IRON,CA,FA & MIN 1 TABLET PO SCH (08:40)
[2020-10-24] MEDS: METHOCARBAMOL 500 MG TABLET PO SCH ×2 (08:40→19:44)
[2020-10-24] MEDS: VITAMIN D3 1,000 UNIT TABLET PO SCH (08:40)
[2020-10-24] MEDS: POTASSIUM CHLORIDE 10 MEQ TABLET PO SCH ×2 (08:40→17:02)
[2020-10-24 08:46] LABS: ALT/SGPT 27 U/L (<40); AST/SGOT 43 U/L (<40); Albumin 3.8 gm/dL (3.2-5.2); Alkaline Phosphatase 80 U/L (39-117); Bilirubin,Total 0.2 mg/dL (0.1-1.0); Blood Urea Nitrogen 17 mg/dL (8-23); Calcium 9.2 mg/dL (8.6-10.4); Carbon Dioxide 20 mmol/L (22-30); Chloride 103 mmol/L (96-108); Globulin 3.9 gm/dL (2.2-3.7); Glomerular Filtration Rate 68; Glucose 107 mg/dL (70-105)
[2020-10-24 08:47] LABS: Vancomycin,Random 10.9 ug/mL
--- NOTE | 2020-10-24 11:19 | Internal Med Progress Note ---
SUBJECTIVE Subjective Patient information: Note initiated : 10/24/20 at 11:18 am Service Date, if different from initiated Date: [] Patient: Dmitry Luna 70 y/o M admitted on 10/21/20 for Infection To Feet. Chief Complaint: [] Interval history: History of present illness: Mr. Luna is a 70 year old M history of morbid obesity, essential hypertension, mixed dyslipidemia, bilateral lower extremities polyneuropathy, presenting with 2 weeks history of worsening of right first toe swelling, erythema, and pain. Had a similar problem on his left great toe about a year ago. Over the last 2 weeks he is noticing , erythema, and pain of his right first toe. The pain is described as 9 out of 10, sharp, intermittent, and localized in his right first toe and this basis. He denies systemic symptoms such as nausea, vomiting, fever, shaking chills, diaphoresis, general body weakness, GI upset such as nausea vomiting, or change in appetite. He has noticed further worsening of his symptoms over the past few days to the point that he notified Dr. Mead, who sent him to our ED for further evaluation. Vital signs at ED presentation were within normal limits. Labs significant for lack of leukocytosis with WBC 4.6. CT of the right foot showing chronic osteomyelitis resulting in subtotal destruction of the first distal phalanx with only base remnant remains. 10/22: Blood and wound cultures no growth to date. Afebrile overnight. c/o severe sharp intermittent pain right great toe. Denies any fever chills or sweating. Denies any nausea vomiting diarrhea or constipation. Denies general body weakness. 10/23: Blood and wound cultures no growth to date. MRI right foot w/o againg showing osteomyelitis of the right great toe. Afebrile overnight. c/o ,ild sharp intermittent pain right great toe. Denies any fever chills or sweating. Denies any nausea vomiting diarrhea or constipation. Denies general body weakness. 10/24: s/p right 1st toe amputation by Dr. Crump. Afebrile overnight. Currently s/p 6/10 intermittent throbbing pain of his right foot with radiation to the right ankle. Denies any fever or chills. Good appetite. Constitutional Vitals: Vital Signs Temp Pulse Resp BP Pulse Ox 36.1 C L 79 20 140/84 94 10/24/20 07:01 10/24/20 07:01 10/24/20 07:01 10/24/20 07:01 10/24/20 07:01 Period Temp Pulse Resp BP Sys/Robbins Pulse Ox Last 24 Hr 36.0 C-36.6 C 62-86 9-20 107-146/58-93 85-100 Intake and Output 10/23/20 10/24/20 10/24/20 21:59 05:59 13:59 Intake Total 50 1850 50 Output Total 770 Balance -720 1850 50 Weight 114.362 kg Intake & Output: Intake & Output 10/23/20 10/24/20 10/24/20 21:59 05:59 13:59 Intake Total 50 1850 50 Output Total 770 Balance -720 1850 50 Weight 114.362 kg Intake: IV 50 1050 50 Sodium Chloride 0.9% 1,000 ml @ 1000 100 mls/hr IV .Q10H [facility] Rx#: [id number] Zosyn 3.375 gm In Dextrose 5% 50 50 50 in Water 50 ml @ 100 mls/hr IV Q6H [facility] Rx#:[id number] Oral 0 800 Output: Void Amount 770 Other: Urine Appearance Clear Urine Color Bright Yellow Stool Size Moderate Moderate Stool Color Brown Brown Stool Consistency Formed # Voids 1 # Bowel Movements 1 1 General appearance: cooperative and no acute distress Head Head exam: Present atraumatic and normocephalic Eye Eye exam: Present EOMI and PERRL ENT ENT exam: Present mucous membranes moist, normal exam and normal external ear exam Neck Neck exam: Present normal inspection; Absent lymphadenopathy, tenderness and thyromegaly Respiratory Respiratory exam: Absent accessory muscle use, respiratory distress and wheezes Cardiovascular Cardiovascular exam: Present normal rate and rhythm; Absent JVD GI/Abdominal GI/Abdominal exam: Present normal bowel sounds and soft; Absent organomegaly and tenderness Rectal Rectal exam: Present deferred Extremities Exam Extremities exam: Present full ROM, normal capillary refill and tenderness; Absent normal inspection Additional comments: Right foot covered by surgical dressing and boot Neurological Exam Neurological exam: Present alert, CN II-XII intact and oriented X3; Absent motor sensory deficit Psychiatric Psychiatric exam: Present normal affect and normal mood; Absent anxious and depressed Skin Skin exam: Present dry and intact OBJ DATA Labs CBC & Chem 7: 10/24/20 06:49 10/24/20 05:24 Labs: Abnormal Lab Results 10/24/20 10/24/20 10/23/20 06:49 05:24 08:07 WBC RBC 3.16 L Hgb 10.3 L Hct 31.4 L Neut % (Auto) Lymph % (Auto) Eos % (Auto) Lymph # (Auto) 1.14 L Eos # (Auto) Absolute Neutrophils ESR Carbon Dioxide 20 L Glucose 107 H AST 43 H C-Reactive Protein Globulin 3.9 H Albumin/Globulin Ratio Vancomycin Trough 25.7 H* 10/23/20 10/22/20 10/21/20 05:19 05:07 16:08 WBC 3.3 L RBC 3.42 L 6.19 H Hgb 11.0 L 19.5 H Hct 33.2 L 58.9 H Neut % (Auto) 29.7 L 30.8 L Lymph % (Auto) 52.0 H Eos % (Auto) 16.3 H 11.2 H Lymph # (Auto) Eos # (Auto) 0.75 H Absolute Neutrophils 1.37 L 1.02 L ESR Carbon Dioxide Glucose AST C-Reactive Protein 1.20 H Globulin Albumin/Globulin Ratio Vancomycin Trough 10/21/20 10/21/20 11:57 11:57 WBC RBC 3.37 L Hgb 10.9 L Hct 32.4 L Neut % (Auto) Lymph % (Auto) Eos % (Auto) 12.6 H Lymph # (Auto) Eos # (Auto) Absolute Neutrophils ESR 66 H Carbon Dioxide Glucose AST C-Reactive Protein 1.20 H Globulin 4.3 H Albumin/Globulin Ratio 0.8 L Vancomycin Trough Meds: Medications Acetaminophen (Acetaminophen 325 Mg Tablet) 650 mg PO Q6HP PRN; Protocol PRN Reason: Per Pain Protocol/Fever > 101 Last Admin: 10/22/20 20:56 Dose: 650 mg Documented by: Albuterol Sulfate (Albuterol Sulfate 200 Puff Inhaler) 1 puff INH QIDP PRN PRN Reason: Shortness Of Breath Last Admin: 10/23/20 10:00 Dose: 1 puff Documented by: Albuterol/Ipratropium (Ipratropium/Albuterol Sulfate 1 Puff Inhaler) 1 puff INH QID [facility] Last Admin: 10/23/20 21:49 Dose: Not Given Documented by: Allopurinol (Allopurinol 300 Mg Tablet) 300 mg PO QAM [facility] Last Admin: 10/24/20 08:40 Dose: 300 mg Documented by: Atorvastatin Calcium (Atorvastatin 40 Mg Tablet) 20 mg PO QHS [facility] Last Admin: 10/23/20 21:41 Dose: 20 mg Documented by: Bisacodyl (Bisacodyl 5 Mg Tablet) 10 mg PO BID [facility] Last Admin: 10/24/20 08:39 Dose: Not Given Documented by: Carvedilol (Carvedilol 6.25 Mg Tablet) 6.25 mg PO QAC [facility] Last Admin: 10/24/20 08:40 Dose: 6.25 mg Documented by: Cilostazol (Cilostazol 100 Mg Tablet) 50 mg PO BIDAC [facility] Last Admin: 10/23/20 18:05 Dose: Not Given Documented by: Docusate Sodium (Docusate Sodium 100 Mg Capsule) 100 mg PO BID [facility] Last Admin: 10/24/20 08:39 Dose: Not Given Documented by: Enoxaparin Sodium (Enoxaparin 40 Mg/0.4 Ml Syringe) 40 mg SQ DAILY [facility] Furosemide (Furosemide 20 Mg Tablet) 20 mg PO DAILY [facility] Last Admin: 10/24/20 08:40 Dose: 20 mg Documented by: Hydralazine HCl (Hydralazine 20 Mg/Ml Vial) 10 mg IV Q4-6HP PRN PRN Reason: Hypertension Sodium Chloride (Sodium Chloride 0.9%) 1,000 mls @ 100 mls/hr IV .Q10H [facility] Last Admin: 10/24/20 03:58 Dose: Not Given Documented by: Piperacillin Sod/Tazobactam (Sod 3.375 gm/ Dextrose) 50 mls @ 100 mls/hr IV Q6H [facility]; Protocol Last Infusion: 10/24/20 06:01 Dose: Infused Documented by: Vancomycin HCl 1,500 mg/ (Sodium Chloride) 500 mls @ 333.3 mls/hr IV Q24H [facility] Iron Carb/Multivit/Hardwick/Folic Acid (Multivit,Ther Iron,Ca,Fa & Min 1 Tablet) 1 tab PO DAILY [facility] Last Admin: 10/24/20 08:40 Dose: 1 tab Documented by: Levothyroxine Sodium (Levothyroxine Sodium 112 Mcg Tablet) [facility] Last Admin: 10/24/20 06:42 Dose: 112 mcg Documented by: Lisinopril (Lisinopril 10 Mg Tablet) [facility] [place] Last Admin: 10/24/20 08:40 Dose: 10 mg Documented by: Magnesium Oxide (Magnesium Oxide 400 Mg Tablet) 400 mg PO BID [facility] Last Admin: 10/24/20 08:40 Dose: 400 mg Documented by: Methadone HCl (Methadone 5 Mg Tablet) 20 mg PO Q8H PRN PRN Reason: Per Pain Protocol Last Admin: 10/24/20 06:43 Dose: 20 mg Documented by: Methocarbamol (Methocarbamol 500 Mg Tablet) 500 mg PO BID [facility] Last Admin: 10/24/20 08:40 Dose: 500 mg Documented by: Morphine Sulfate (Morphine 4 Mg/Ml Vial) 4 mg IV Q4HP PRN; Protocol PRN Reason: Per Pain Protocol Last Admin: 10/24/20 05:05 Dose: 4 mg Documented by: Omeprazole (Om[facility] 20 Mg Capsule) [facility] Last Admin: 10/24/20 06:42 Dose: 20 mg Documented by: Ondansetron HCl (Ondansetron 4 Mg/2 Ml Vial) 4 mg IV Q6HP PRN PRN Reason: Nausea And Vomiting Oxycodone HCl (Oxycodone Hcl 5 Mg Tablet) 5 mg PO Q4HP PRN; Protocol PRN Reason: Per Pain Protocol Last Admin: 10/22/20 20:56 Dose: 5 mg Documented by: Guaifenesin 400 Mg (Tablet) 1 dose PO QDAY PRN PRN Reason: Congestion Potassium Chloride (Potassium Chloride 10 Meq Tablet) [facility] Last Admin: 10/24/20 08:40 Dose: 10 meq Documented by: Senna (Sennosides 1 Tablet) 2 tab PO HS [facility] Last Admin: 10/23/20 21:41 Dose: 2 tab Documented by: Sodium Chloride (0.9 % Sodium Chloride 10 Ml Syringe) 10 ml IV Q8 [facility] Last Admin: 10/24/20 04:44 Dose: Not Given Documented by: Vancomycin HCl (Vancomycin Per Pharmacy) 1 order IV [facility]; Protocol Vitamin D (Vitamin D3 1,000 Unit Tablet) 2,000 [facility] [place] Last Admin: 10/24/20 08:40 Dose: 2,000 unit Documented by: Zolpidem Tartrate (Zolpidem 5 Mg Tablet) 5 mg PO HSP PRN PRN Reason: Insomnia A/P Assessment and plan (1) Acute osteomyelitis of toe of right foot: Status: Acute Comment: Dmitry is a 70-year-old man with peripheral vascular disease and peripheral neuropathy. He is postop day 1 right great toe amputation for osteomyelitis. Cultures are pending. He is currently receiving IV Vanco plus IV Rocephin. He denies right foot pain. No known history of antibiotic allergies. He is tolerating current regimen. (2) Hyperlipidemia: Status: Acute (3) Hypertension: Status: Chronic Qualifiers: Hypertension type: essential hypertension Qualified Code(s): I10 - Essential (primary) hypertension (4) Polyneuropathy: Status: Acute Comment: Peripheral neuropathy. No pain in either foot. No history of diabetes. He reports alcohol use approximately 3 times annually. Further recommendations to follow for duration of treatment. Depending on culture of right foot and evaluation of left foot. Thank you very much. Please call for questions. (5) Morbid obesity: Status: Acute (6) Anemia, normocytic normochromic: Status: Acute Narrative A/P Narrative: Assessment and Plans: 1. Chronic osteomyelitis of right 1st toe, associated with polyneuropathy: Stays in inpatient med surg Dr. Crump consulted, s/p right 1st toe amputation Dr. Murphy consulted, recs. appreciated Lactic acid Procalcitonin CRP Blood culture, no growth to date Wound culture, no growth to date Intraoperative culture with pathology, results pending Vancomycin Rocephin Duration of therapy pending final recommendation by Dr. Murphy Tylenol PRN fever/mild pain Oxycodone PRN moderate pain Morphine IV PRN severe pain cbc w/ auto diff in the AM to trend WBC level Physical therapy---> patient refused Occupational therapy 2. Essential HTN: Continue current home regimen of oral antihypertensives Hydralazine IV PRN SBP>=180mmHg and/or DBP>=110mmHg 3. Mixed dyslipidemia: Continue statin therapy 4. Anemia, normocytic normochromic: cbc w/ auto diff in the morning to trend H/H; transfuse pRBC if hemoglobin <7.0, active bleeding, or symptomatic 5. Morbid obesity: Administrator patient on life style modifications including healthy diet and regular exercise in order to lose weight GI ppx: continue oral PPI from home regimen DVT ppx: SCDs Code status: Full Prognosis: Stable Disposition: inpatient med surg; PT OT Time Spent With Patient Time: Total time spent is greater than 50% in coordination of care (as documented) at patient's floor/unit and/or counseling patient: QUALITY VTE Deep Vein Thrombosis/Pulmonary Embolism Present on Admission: No
[2020-10-24] MEDS: IPRATROPIUM/ALBUTEROL SULFATE 1 PUFF INHALER INH SCH ×4 (11:43→22:45)
[2020-10-24] MEDS: VANCOMYCIN 1,500 MG in 0.9 % SODIUM CHLORIDE 500 ML IV SCH (11:46)
[2020-10-24] MEDS: CILOSTAZOL 100 MG TABLET PO SCH ×2 (11:49→17:01)
[2020-10-24] MEDS: oxyCODONE HCL 5 MG TABLET PO PRN ×2 (11:51→19:29)
[2020-10-24] MEDS: ENOXAPARIN 40 MG/0.4 ML SYRINGE SQ SCH (11:57)
--- NOTE | 2020-10-24 18:40 | Internal Med Progress Note ---
SUBJECTIVE Subjective Patient information: Note initiated : 10/25/20 at 6:30 pm Service Date, if different from initiated Date: [] Patient: Dmitry Luna 70 y/o M admitted on 10/21/20 for Infection To Feet. Chief Complaint: [] Interval history: Mr. Luna is a 70 year old M history of obesity, essential hypertension, mixed dyslipidemia, bilateral lower extremities polyneuropathy, presenting with 2 weeks history of worsening of right first toe swelling, erythema, and pain. Had a similar problem on his left great toe about a year ago. Over the last 2 weeks he is noticing , erythema, and pain of his right first toe. The pain is described as 9 out of 10, sharp, intermittent, and localized in his right first toe and this basis. He denies systemic symptoms such as nausea, vomiting, fever, shaking chills, diaphoresis, general body weakness, GI upset such as nausea vomiting, or change in appetite. He has noticed further worsening of his symptoms over the past few days to the point that he notified Dr. Mead, who sent him to our ED for further evaluation. Vital signs at ED presentation were within normal limits. Labs significant for lack of leukocytosis with WBC 4.6. CT of the right foot showing chronic osteomyelitis resulting in subtotal destruction of the first distal phalanx with only base remnant remains. 10/22: Blood and wound cultures no growth to date. Afebrile overnight. c/o severe sharp intermittent pain right great toe. Denies any fever chills or sweating. Denies any nausea vomiting diarrhea or constipation. Denies general body weakness. 10/23: Blood and wound cultures no growth to date. MRI right foot w/o again showing osteomyelitis of the right great toe. Afebrile overnight. c/o mild sharp intermittent pain right great toe. Denies any fever chills or sweating. Denies any nausea vomiting diarrhea or constipation. Denies general body weakness. 10/24: s/p right 1st toe amputation by Dr. Crump. Afebrile overnight. Currently s/p 6/10 intermittent throbbing pain of his right foot with radiation to the right ankle. Denies any fever or chills. Good appetite. 10/25: Started Ceftriaxone and discontinued Zosyn, continued Vancomycin. MRI of left foot ordered for chronic nonhealing wound, concern for possible underlying osteomyelitis. Physical exam Head: Atraumatic, normal inspection. Eyes: normal appearance, no scleral icterus. Neck: full ROM Respiratory: no respiratory distress. Cardiovascular: normal rate and rhythm, S1, S2. GI/Abdominal: soft, nontender, no guarding. Extremities: full range of motion, nontender. Neurological: CN II-XII intact, intact motor, intact sensation. Psychiatric: normal mood. Skin: warm, normal color Constitutional Vitals: Vital Signs Temp Pulse Resp BP Pulse Ox 96.9 F L 87 16 147/82 95 10/24/20 15:46 10/24/20 15:46 10/24/20 15:46 10/24/20 15:46 10/24/20 15:46 Period Temp Pulse Resp BP Sys/Robbins Pulse Ox Last 24 Hr 96.8 F-97.3 F 71-87 16-20 107-147/58-84 90-96 Intake and Output 10/24/20 10/24/20 10/24/20 05:59 13:59 21:59 Intake Total 1850 2350 340 Output Total 300 Balance 1850 2350 40 Intake & Output: Intake & Output 10/24/20 10/24/20 10/24/20 05:59 13:59 21:59 Intake Total 1850 2350 340 Output Total 300 Balance 1850 2350 40 Intake: IV 1050 1550 100 Sodium Chloride 0.9% 1,000 ml @ 1000 1000 100 mls/hr IV .Q10H [facility] Rx#: [id number] Zosyn 3.375 gm In Dextrose 5% 50 50 100 in Water 50 ml @ 100 mls/hr IV Q6H [facility] Rx#:[id number] Vancomycin 1,500 mg In Sodium 500 Chloride 0.9% 500 ml @ 333.3 mls/hr IV Q24H [facility] Rx#: [id number] Oral 800 800 240 Output: Void Amount 300 Other: Urine Appearance Clear Urine Color Bright Yellow Stool Size Moderate Moderate Stool Color Brown Brown Stool Consistency Formed # Voids 1 # Bowel Movements 1 1 OBJ DATA Labs CBC & Chem 7: 10/24/20 06:49 10/24/20 05:24 Labs: Abnormal Lab Results 10/24/20 10/24/20 10/23/20 06:49 05:24 08:07 WBC RBC 3.16 L Hgb 10.3 L Hct 31.4 L Neut % (Auto) Lymph % (Auto) Eos % (Auto) Lymph # (Auto) 1.14 L Eos # (Auto) Absolute Neutrophils Carbon Dioxide 20 L Glucose 107 H AST 43 H C-Reactive Protein Globulin 3.9 H Vancomycin Trough 25.7 H* 10/23/20 10/22/20 10/21/20 05:19 05:07 16:08 WBC 3.3 L RBC 3.42 L 6.19 H Hgb 11.0 L 19.5 H Hct 33.2 L 58.9 H Neut % (Auto) 29.7 L 30.8 L Lymph % (Auto) 52.0 H Eos % (Auto) 16.3 H 11.2 H Lymph # (Auto) Eos # (Auto) 0.75 H Absolute Neutrophils 1.37 L 1.02 L Carbon Dioxide Glucose AST C-Reactive Protein 1.20 H Globulin Vancomycin Trough Meds: Medications Acetaminophen (Acetaminophen 325 Mg Tablet) 650 mg PO Q6HP PRN; Protocol PRN Reason: Per Pain Protocol/Fever > 101 Last Admin: 10/22/20 20:56 Dose: 650 mg Documented by: Albuterol Sulfate (Albuterol Sulfate 200 Puff Inhaler) 1 puff INH QIDP PRN PRN Reason: Shortness Of Breath Last Admin: 10/23/20 10:00 Dose: 1 puff Documented by: Albuterol/Ipratropium (Ipratropium/Albuterol Sulfate 1 Puff Inhaler) 1 puff INH QID [facility] Last Admin: 10/24/20 16:18 Dose: Not Given Documented by: Allopurinol (Allopurinol 300 Mg Tablet) 300 mg PO [facility] Last Admin: 10/24/20 08:40 Dose: 300 mg Documented by: Atorvastatin Calcium (Atorvastatin 40 Mg Tablet) 20 mg PO QHS [facility] Last Admin: 10/23/20 21:41 Dose: 20 mg Documented by: Bisacodyl (Bisacodyl 5 Mg Tablet) 10 mg PO BID [facility] Last Admin: 10/24/20 08:39 Dose: Not Given Documented by: Carvedilol (Carvedilol 6.25 Mg Tablet) [facility] Last Admin: 10/24/20 08:40 Dose: 6.25 mg Documented by: Cilostazol (Cilostazol 100 Mg Tablet) [facility] Last Admin: 10/24/20 17:01 Dose: 50 mg Documented by: Docusate Sodium (Docusate Sodium 100 Mg Capsule) 100 mg PO BID [facility] Last Admin: 10/24/20 08:39 Dose: Not Given Documented by: Enoxaparin Sodium (Enoxaparin 40 Mg/0.4 Ml Syringe) 40 mg SQ DAILY [facility] Last Admin: 10/24/20 11:57 Dose: 40 mg Documented by: Furosemide (Furosemide 20 Mg Tablet) 20 mg PO DAILY [facility] Last Admin: 10/24/20 08:40 Dose: 20 mg Documented by: Hydralazine HCl (Hydralazine 20 Mg/Ml Vial) 10 mg IV Q4-6HP PRN PRN Reason: Hypertension Sodium Chloride (Sodium Chloride 0.9%) 1,000 mls @ 100 mls/hr IV .Q10H [facility] Last Admin: 10/24/20 15:45 Dose: 100 mls/hr Documented by: Piperacillin Sod/Tazobactam (Sod 3.375 gm/ Dextrose) 50 mls @ 100 mls/hr IV Q6H [facility]; Protocol Last Infusion: 10/24/20 17:35 Dose: Infused Documented by: Vancomycin HCl 1,500 mg/ (Sodium Chloride) 500 mls @ 333.3 mls/hr IV Q24H [facility] Last Infusion: 10/24/20 13:20 Dose: Infused Documented by: Iron Carb/Multivit/Electrical Logging Operator/Folic Acid (Multivit,Ther Iron,Ca,Fa & Min 1 Tablet) 1 tab PO DAILY [facility] Last Admin: 10/24/20 08:40 Dose: 1 tab Documented by: Levothyroxine Sodium (Levothyroxine Sodium 112 Mcg Tablet) 112 mcg PO QAMAC [facility] Last Admin: 10/24/20 06:42 Dose: 112 mcg Documented by: Lisinopril (Lisinopril 10 Mg Tablet) 10 mg PO QAM [facility] Last Admin: 10/24/20 08:40 Dose: 10 mg Documented by: Magnesium Oxide (Magnesium Oxide 400 Mg Tablet) 400 mg PO BID [facility] Last Admin: 10/24/20 08:40 Dose: 400 mg Documented by: Methadone HCl (Methadone 5 Mg Tablet) 20 mg PO Q8H PRN PRN Reason: Per Pain Protocol Last Admin: 10/24/20 16:57 Dose: 20 mg Documented by: Methocarbamol (Methocarbamol 500 Mg Tablet) 500 mg PO BID [facility] Last Admin: 10/24/20 08:40 Dose: 500 mg Documented by: Morphine Sulfate (Morphine 4 Mg/Ml Vial) 4 mg IV Q4HP PRN; Protocol PRN Reason: Per Pain Protocol Last Admin: 10/24/20 05:05 Dose: 4 mg Documented by: Omeprazole (Omeprazole 20 Mg Capsule) 20 mg PO QAMAC [facility] Last Admin: 10/24/20 06:42 Dose: 20 mg Documented by: Ondansetron HCl (Ondansetron 4 Mg/2 Ml Vial) 4 mg IV Q6HP PRN PRN Reason: Nausea And Vomiting Oxycodone HCl (Oxycodone Hcl 5 Mg Tablet) 5 mg PO Q4HP PRN; Protocol PRN Reason: Per Pain Protocol Last Admin: 10/24/20 11:51 Dose: 5 mg Documented by: Guaifenesin 400 Mg (Tablet) 1 dose PO QDAY PRN PRN Reason: Congestion Potassium Chloride (Potassium Chloride 10 Meq Tablet) 10 meq PO BIDCC [facility] Last Admin: 10/24/20 17:02 Dose: 10 meq Documented by: Senna (Sennosides 1 Tablet) 2 tab PO HS [facility] Last Admin: 10/23/20 21:41 Dose: 2 tab Documented by: Sodium Chloride (0.9 % Sodium Chloride 10 Ml Syringe) 10 ml IV Q8 [facility] Last Admin: 10/24/20 13:32 Dose: Not Given Documented by: Vancomycin HCl (Vancomycin Per Pharmacy) 1 [place] [facility] Protocol Vitamin D (Vitamin D3 1,000 Unit Tablet) 2,000 unit PO [facility] Last Admin: 10/24/20 08:40 Dose: 2,000 unit Documented by: Zolpidem Tartrate (Zolpidem 5 Mg Tablet) 5 mg PO HSP PRN PRN Reason: Insomnia A/P Narrative A/P Narrative: Assessment: 70 year old M history of obesity, essential hypertension, mixed dyslipidemia, bilateral lower extremities polyneuropathy, presenting with 2 weeks history of worsening of right first toe swelling, caitlyn thema, and pain and found to have osteomyelitis of the right proximal and distal phalanges of the first toe. The patient had an amputation and deep cultures taken no 10/23/20. ID was consulted for antibiotic recommendations. #Osteomyelitis of right first toe s/p amputation 10/23/20 #Nonhealing wound of left toe #Essential hypertension #Hyperlipidemia #Peripheral artery disease #Peripheral neuropathy #Obesity with BMI 34 Plan -Vancomycin and Ceftriaxone. -Follow all cultures. -MRI left foot. -Monitor wound healing and vascular supply. -ID and podiatry following. -DVT ppx: Lovenox -Code status: Sports Lawyer Spent With Patient Time: Total time spent is greater than 50% in coordination of care (as documented) at patient's floor/unit and/or counseling patient: QUALITY VTE Deep Vein Thrombosis/Pulmonary Embolism Present on Admission: No
[2020-10-24] MEDS: SENNOSIDES 1 TABLET PO SCH (19:25)
[2020-10-24] MEDS: ATORVASTATIN 40 MG TABLET PO SCH (19:43)
[2020-10-25] MEDS: METHADONE 5 MG TABLET PO PRN ×3 (01:52→17:57)
[2020-10-25] MEDS: 0.9 % SODIUM CHLORIDE 1,000 ML IV SCH ×3 (03:07→15:02)
[2020-10-25] MEDS: morphine 4 MG/ML VIAL IV PRN (05:11)
[2020-10-25] MEDS: 0.9 % SODIUM CHLORIDE 10 ML SYRINGE IV SCH ×3 (05:38→20:19)
[2020-10-25] MEDS: PIPERACILLIN SODIUM/TAZOBACTAM 3.375 GM in DEXTROSE 5% IN WATER 50 ML IV SCH (06:19)
[2020-10-25] MEDS: ALBUTEROL SULFATE 200 PUFF INHALER INH PRN ×2 (08:05→18:19)
[2020-10-25] MEDS: ENOXAPARIN 40 MG/0.4 ML SYRINGE SQ SCH (08:09)
[2020-10-25] MEDS: CILOSTAZOL 100 MG TABLET PO SCH ×2 (08:10→17:54)
[2020-10-25] MEDS: CARVEDILOL 6.25 MG TABLET PO SCH (08:10)
[2020-10-25] MEDS: FUROSEMIDE 20 MG TABLET PO SCH (08:10)
[2020-10-25] MEDS: ALLOPURINOL 300 MG TABLET PO SCH (08:10)
[2020-10-25] MEDS: MAGNESIUM OXIDE 400 MG TABLET PO SCH ×2 (08:10→20:18)
[2020-10-25] MEDS: LISINOPRIL 10 MG TABLET PO SCH (08:10)
[2020-10-25] MEDS: MULTIVIT,THER IRON,CA,FA & MIN 1 TABLET PO SCH (08:10)
[2020-10-25] MEDS: VITAMIN D3 1,000 UNIT TABLET PO SCH (08:10)
[2020-10-25] MEDS: POTASSIUM CHLORIDE 10 MEQ TABLET PO SCH ×2 (08:10→17:54)
[2020-10-25] MEDS: OMEPRAZOLE 20 MG CAPSULE PO SCH (08:11)
[2020-10-25] MEDS: LEVOTHYROXINE SODIUM 112 MCG TABLET PO SCH (08:11)
[2020-10-25] MEDS: IPRATROPIUM/ALBUTEROL SULFATE 1 PUFF INHALER INH SCH ×4 (08:11→20:19)
[2020-10-25] MEDS: BISACODYL 5 MG TABLET PO SCH ×2 (08:11→20:19)
[2020-10-25] MEDS: DOCUSATE SODIUM 100 MG CAPSULE PO SCH ×2 (08:11→20:19)
[2020-10-25] MEDS: METHOCARBAMOL 500 MG TABLET PO SCH ×2 (08:12→20:18)
[2020-10-25] MEDS: VANCOMYCIN 1,500 MG in 0.9 % SODIUM CHLORIDE 500 ML IV SCH (08:12)
[2020-10-25] MEDS: cefTRIAXone 2 GM in DEXTROSE 5% IN WATER 50 ML IV SCH (09:58)
[2020-10-25] MEDS: oxyCODONE HCL 5 MG TABLET PO PRN ×2 (13:01→20:30)
[2020-10-25] MEDS: ATORVASTATIN 40 MG TABLET PO SCH (20:18)
[2020-10-25] MEDS: SENNOSIDES 1 TABLET PO SCH (20:19)
[2020-10-26] MEDS: METHADONE 5 MG TABLET PO PRN ×3 (02:23→20:02)
[2020-10-26] MEDS: hydrALAZINE 20 MG/ML VIAL IV PRN (03:40)
[2020-10-26] MEDS: ALBUTEROL SULFATE 200 PUFF INHALER INH PRN (04:22)
[2020-10-26] MEDS: 0.9 % SODIUM CHLORIDE 10 ML SYRINGE IV SCH ×3 (04:22→20:02)
[2020-10-26] MEDS: OMEPRAZOLE 20 MG CAPSULE PO SCH (07:49)
[2020-10-26] MEDS: LEVOTHYROXINE SODIUM 112 MCG TABLET PO SCH (07:49)
[2020-10-26] MEDS: CILOSTAZOL 100 MG TABLET PO SCH ×2 (07:49→17:20)
[2020-10-26] MEDS: oxyCODONE HCL 5 MG TABLET PO PRN ×4 (07:55→21:20)
[2020-10-26] MEDS: CARVEDILOL 6.25 MG TABLET PO SCH (10:00)
[2020-10-26] MEDS: POTASSIUM CHLORIDE 10 MEQ TABLET PO SCH ×2 (10:00→17:20)
[2020-10-26] MEDS: ENOXAPARIN 40 MG/0.4 ML SYRINGE SQ SCH (10:00)
[2020-10-26] MEDS: cefTRIAXone 2 GM in DEXTROSE 5% IN WATER 50 ML IV SCH (10:00)
[2020-10-26] MEDS: METHOCARBAMOL 500 MG TABLET PO SCH ×2 (10:01→20:02)
[2020-10-26] MEDS: FUROSEMIDE 20 MG TABLET PO SCH (10:01)
[2020-10-26] MEDS: IPRATROPIUM/ALBUTEROL SULFATE 1 PUFF INHALER INH SCH ×4 (10:01→19:56)
[2020-10-26] MEDS: MAGNESIUM OXIDE 400 MG TABLET PO SCH ×2 (10:01→20:02)
[2020-10-26] MEDS: ALLOPURINOL 300 MG TABLET PO SCH (10:01)
[2020-10-26] MEDS: VITAMIN D3 1,000 UNIT TABLET PO SCH (10:01)
[2020-10-26] MEDS: MULTIVIT,THER IRON,CA,FA & MIN 1 TABLET PO SCH (10:01)
[2020-10-26] MEDS: LISINOPRIL 10 MG TABLET PO SCH (10:01)
[2020-10-26] MEDS: BISACODYL 5 MG TABLET PO SCH ×2 (10:01→19:56)
[2020-10-26] MEDS: DOCUSATE SODIUM 100 MG CAPSULE PO SCH ×2 (10:01→19:56)
--- NOTE | 2020-10-26 11:42 | Magnetic Resonance Report ---
History: Chronic left foot infection, evaluate for osteomyelitis TECHNIQUE: Multiplanar imaging was performed using multiple pulse sequences. FINDINGS: There is a surgically implanted metallic device in the interphalangeal joint of the first toe. This is creating susceptibility artifact, making evaluation of bone on both sides of the joint somewhat difficult. On the coronal T1-weighted views there is a small zone of decreased signal intensity in the bone marrow along the lateral side at the base of the distal phalanx which has slightly increased signal on T2. There is cellulitis/edema in the soft tissues around the first toe. The greatest edema is along the dorsal side of the metatarsals, predominantly along the lateral side of the foot. The metatarsals and the remainder the phalanges are normal without evidence of osteomyelitis. 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 This is a chronic stable finding. No abscess is present. IMPRESSION: Prosthesis in the interphalangeal joint of the first toe. There is a small zone of altered signal in the bone marrow laterally at the base of the distal phalanx of the first toe. This is a nonspecific finding which may be post operative remodeling of bone or focal area of osteomyelitis. There is no apparent bone destruction. Edema/cellulitis throughout the foot, predominantly dorsal to the lateral metatarsals Interpreted and Authenticated by: Jordi Herrera 10/26/20
[2020-10-26] MEDS: VANCOMYCIN 1,500 MG in 0.9 % SODIUM CHLORIDE 500 ML IV SCH (12:08)
--- NOTE | 2020-10-26 15:07 | Surgical Pathology Report ---
Histology Microscopic Diagnosis Specimen A- DIGIT, RIGHT GREAT TOE, AMPUTATION: --- GANGRENOUS ULCER WITH ASSOCIATED UNDERLYING ACUTE OSTEOMYELITIS. --- SKIN, SOFT TISSUE AND BONE ARTICULAR SURFACE MARGINS VIABLE. Gross Description Received in formalin labeled right great toe, is a toe with nail bed present that measures 7.2 x 4.3 x 3.3 cm. The margin is inked black. Bone margin has an articular surface. The closest skin margin is 0.7 cm from the bone margin. On the underside of the toe there is a 2 x 1.3 cm area of ulceration. The toe has a 4.5 cm partially transected area. A cash posting representative section is trisected and submitted in three cassettes, following decalcification. Microscopic Diagnosis Specimen B- BONE, RIGHT DISTAL PHALANX, BIOPSY: --- NECROTIZING ACUTE OSTEOMYELITIS. (DMT) Gross Description Received in formalin labeled right distal phalanx bone biopsy, is a portion of bone that measures 1 x 1 x 0.6 cm. The surface is roughened and possibly ulcerated. Trisected, entirely submitted in one cassette, following decalcification. (SCB:lucas) Electronically Signed Juancarlos Bull MD, FCAP Electronically Signed 10/26/2020 15:05
[2020-10-26] MEDS: ACETAMINOPHEN 325 MG TABLET PO PRN ×2 (16:15→21:19)
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
--- NOTE | 2020-10-26 18:47 | Internal Med Progress Note ---
SUBJECTIVE Subjective Patient information: Note initiated : 10/26/20 at 6:44 pm Service Date, if different from initiated Date: [] Patient: Dmitry Luna 70 y/o M admitted on 10/21/20 for Infection To Feet. Chief Complaint: [] Interval history: Mr. Luna is a 70 year old M history of obesity, essential hypertension, mixed dyslipidemia, bilateral lower extremities polyneuropathy, presenting with 2 weeks history of worsening of right first toe swelling, erythema, and pain. Had a similar problem on his left great toe about a year ago. Over the last 2 weeks he is noticing , erythema, and pain of his right first toe. The pain is described as 9 out of 10, sharp, intermittent, and localized in his right first toe and this basis. He denies systemic symptoms such as nausea, vomiting, fever, shaking chills, diaphoresis, general body weakness, GI upset such as nausea vomiting, or change in appetite. He has noticed further worsening of his symptoms over the past few days to the point that he notified Dr. Mead, who sent him to our ED for further evaluation. Vital signs at ED presentation were within normal limits. Labs significant for lack of leukocytosis with WBC 4.6. CT of the right foot showing chronic osteomyelitis resulting in subtotal destruction of the first distal phalanx with only base remnant remains. 10/22: Blood and wound cultures no growth to date. Afebrile overnight. c/o severe sharp intermittent pain right great toe. Denies any fever chills or sweating. Denies any nausea vomiting diarrhea or constipation. Denies general body weakness. 10/23: Blood and wound cultures no growth to date. MRI right foot w/o again showing osteomyelitis of the right great toe. Afebrile overnight. c/o mild sharp intermittent pain right great toe. Denies any fever chills or sweating. Denies any nausea vomiting diarrhea or constipation. Denies general body weakness. 10/24: s/p right 1st toe amputation by Dr. Crump. Afebrile overnight. Currently s/p 6/10 intermittent throbbing pain of his right foot with radiation to the right ankle. Denies any fever or chills. Good appetite. 10/25: Started Ceftriaxone and discontinued Zosyn, continued Vancomycin. MRI of left foot ordered for chronic nonhealing wound, concern for possible underlying osteomyelitis vs hardware signal change. 10/26: ID does not feel the MRI is consistent with osteomyelitis, recommended starting Augmentin tomorrow for two weeks then follow up in ID clinic. Physical exam Head: Atraumatic, normal inspection. Eyes: normal appearance, no scleral icterus. Neck: full ROM Respiratory: no respiratory distress. Cardiovascular: normal rate and rhythm, S1, S2. GI/Abdominal: soft, nontender, no guarding. Extremities: full range of motion, nontender. Neurological: CN II-XII intact, intact motor, intact sensation. Psychiatric: normal mood. Skin: warm, normal color Constitutional Vitals: Vital Signs Temp Pulse Resp BP Pulse Ox 97.2 F 95 H 16 170/90 95 10/26/20 16:00 10/26/20 16:00 10/26/20 16:00 10/26/20 16:00 10/26/20 16:00 Period Temp Pulse Resp BP Sys/Robbins Pulse Ox Last 24 Hr 97.2 F-98.4 F 75-95 12-16 158-183/87-98 94-98 Intake and Output 10/26/20 10/26/20 10/26/20 05:59 13:59 21:59 Intake Total 480 290 620 Output Total 600 350 Balance -120 -60 620 Intake & Output: Intake & Output 10/26/20 10/26/20 10/26/20 05:59 13:59 21:59 Intake Total 480 290 620 Output Total 600 350 Balance -120 -60 620 Intake: IV 50 500 Vancomycin 1,500 mg In Sodium 500 Chloride 0.9% 500 ml @ 333.3 mls/hr IV Q24H [facility]AK[facility] Rx#: [id number] Rocephin 2 gm In Dextrose 5% in 50 Water 50 ml @ 100 mls/hr IV DAILY [facility]AK[facility] Rx#:[id number] Oral 480 240 120 Output: Void Amount 600 350 Other: Meal Breakfast Dinner Percent of Meal Consumed 100% 50% Feeding Ability Independent Urine Appearance Clear Clear Urine Color Bright Yellow Bright Yellow Stool Size Large Moderate Stool Color Brown Stool Consistency Soft Loose # Bowel Movements 1 OBJ DATA Labs CBC & Chem 7: 10/24/20 06:49 10/24/20 05:24 Labs: Abnormal Lab Results 10/24/20 10/24/20 06:49 05:24 RBC 3.16 L Hgb 10.3 L Hct 31.4 L Lymph # (Auto) 1.14 L Carbon Dioxide 20 L Glucose 107 H AST 43 H Globulin 3.9 H Meds: Medications Acetaminophen (Acetaminophen 325 Mg Tablet) 650 mg PO Q6HP PRN; Protocol PRN Reason: Per Pain Protocol/Fever > 101 Last Admin: 10/26/20 16:15 Dose: 650 mg Documented by: Albuterol Sulfate (Albuterol Sulfate 200 Puff Inhaler) 1 puff INH QIDP PRN PRN Reason: Shortness Of Breath Last Admin: 10/26/20 04:22 Dose: 1 puff Documented by: Albuterol/Ipratropium (Ipratropium/Albuterol Sulfate 1 Puff Inhaler) [address] [facility] Last Admin: 10/26/20 17:22 Dose: Not Given Documented by: Allopurinol (Allopurinol 300 Mg Tablet) [address] [facility] Last Admin: 10/26/20 10:01 Dose: 300 mg Documented by: Atorvastatin Calcium (Atorvastatin 40 Mg Tablet) [address] [facility] Last Admin: 10/25/20 20:18 Dose: 20 mg Documented by: Bisacodyl (Bisacodyl 5 Mg Tablet) [address] [facility] Last Admin: 10/26/20 10:01 Dose: Not Given Documented by: Carvedilol (Carvedilol 6.25 Mg Tablet) 6.[address] [facility] Last Admin: 10/26/20 10:00 Dose: 6.25 mg Documented by: Cilostazol (Cilostazol 100 Mg Tablet) [address] [facility] Last Admin: 10/26/20 17:20 Dose: 50 mg Documented by: Docusate Sodium (Docusate Sodium 100 Mg Capsule) [address] [facility] Last Admin: 10/26/20 10:01 Dose: Not Given Documented by: Enoxaparin Sodium (Enoxaparin 40 Mg/0.4 Ml Syringe) [address] [facility] Last Admin: 10/26/20 10:00 Dose: 40 mg Documented by: Furosemide (Furosemide 20 Mg Tablet) [address] [facility] Last Admin: 10/26/20 10:01 Dose: 20 mg Documented by: Hydralazine HCl (Hydralazine 20 Mg/Ml Vial) 10 mg IV Q4-6HP PRN PRN Reason: Hypertension Last Admin: 10/26/20 03:40 Dose: 10 mg Documented by: Vancomycin HCl 1,500 mg/ (Sodium Chloride) 500 mls @ 333.3 mls/hr IV Q24H [facility] Last Infusion: 10/26/20 14:35 Dose: Infused Documented by: Ceftriaxone Sodium 2 gm/ (Dextrose) 50 mls @ 100 mls/hr IV DAILY [facility] Last Infusion: 10/26/20 12:28 Dose: Infused Documented by: Iron Carb/Multivit/[place]/Folic Acid (Multivit,Ther Iron,Ca,Fa & Min 1 Tablet) [address] [facility] Last Admin: 10/26/20 10:01 Dose: 1 tab Documented by: Levothyroxine Sodium (Levothyroxine Sodium 112 Mcg Tablet) 112 mcg PO [facility] Last Admin: 10/26/20 07:49 Dose: 112 mcg Documented by: Lisinopril (Lisinopril 10 Mg Tablet) 10 mg PO [facility] Last Admin: 10/26/20 10:01 Dose: 10 mg Documented by: Magnesium Oxide (Magnesium Oxide 400 Mg Tablet) [address] [facility] Last Admin: 10/26/20 10:01 Dose: 400 mg Documented by: Methadone HCl (Methadone 5 Mg Tablet) 20 mg PO Q8HP PRN PRN Reason: Per Pain Protocol Last Admin: 10/26/20 11:14 Dose: 20 mg Documented by: Methocarbamol (Methocarbamol 500 Mg Tablet) [address] [facility] Last Admin: 10/26/20 10:01 Dose: 500 mg Documented by: Morphine Sulfate (Morphine 4 Mg/Ml Vial) 4 mg IV Q4HP PRN; Protocol PRN Reason: Per Pain Protocol Last Admin: 10/25/20 05:11 Dose: 4 mg Documented by: [facility] ([facility] 20 Mg [facility]apsule) [facility] Admin: 10/26/20 07:49 Dose: 20 mg Documented by: Ondansetron HCl (Ondansetron 4 Mg/2 Ml Vial) 4 mg IV Q6HP PRN PRN Reason: Nausea And Vomiting Oxycodone HCl (Oxycodone Hcl 5 Mg Tablet) 5 mg PO Q4HP PRN; Protocol PRN Reason: Per Pain Protocol Last Admin: 10/26/20 17:20 Dose: 5 mg Documented by: Guaifenesin 400 Mg (Tablet) 1 dose PO DAILYP PRN PRN Reason: Congestion Potassium Chloride (Potassium Chloride 10 Meq Tablet) [address] [facility] Last Admin: 10/26/20 17:20 Dose: 10 meq Documented by: Senna (Sennosides 1 Tablet) [address] [facility] Last Admin: 10/25/20 20:19 Dose: Not Given Documented by: Sodium Chloride (0.9 % Sodium Chloride 10 Ml Syringe) [address] [facility] Last Admin: 10/26/20 12:09 Dose: 10 ml Documented by: Vancomycin HCl (Vancomycin Per Pharmacy) [address] [facility]; Protocol Vitamin D (Vitamin D3 1,000 Unit Tablet) 2,[address] [facility] Last Admin: 10/26/20 10:01 Dose: 2,000 unit Documented by: Zolpidem Tartrate (Zolpidem 5 Mg Tablet) 5 mg PO HSP PRN PRN Reason: Insomnia A/P Narrative A/P Narrative: Assessment: 70 year old M history of obesity, essential hypertension, mixed dyslipidemia, bilateral lower extremities polyneuropathy, presenting with 2 weeks history of worsening of right first toe swelling, erythema, and pain and found to have osteomyelitis of the right proximal and distal phalanges of the first toe. The patient had an amputation and deep cultures taken no 10/23/20. ID was consulted for antibiotic recommendations. #Osteomyelitis of right first toe s/p amputation 10/23/20 #Nonhealing wound of left toe #Essential hypertension #Hyperlipidemia #Peripheral artery disease #Peripheral neuropathy #Obesity with BMI 34 Plan -Start Augmentin tomorrow for two weeks and follow up with ID. -Follow all cultures. -Monitor wound healing and vascular supply. -ID and podiatry following. -DVT ppx: Lovenox -Code status: Full -Disposition: home Time Spent With Patient Time: Total time spent is greater than 50% in coordination of care (as documented) at patient's floor/unit and/or counseling patient: QUALITY VTE Deep Vein Thrombosis/Pulmonary Embolism Present on Admission: No
[2020-10-26] MEDS: SENNOSIDES 1 TABLET PO SCH (19:57)
[2020-10-26] MEDS: ATORVASTATIN 40 MG TABLET PO SCH (20:01)
[2020-10-27] MEDS: hydrALAZINE 20 MG/ML VIAL IV PRN ×3 (00:04→09:00)
[2020-10-27] MEDS: oxyCODONE HCL 5 MG TABLET PO PRN ×3 (00:47→12:49)
[2020-10-27] MEDS: ACETAMINOPHEN 325 MG TABLET PO PRN ×2 (02:23→08:55)
[2020-10-27] MEDS: METHADONE 5 MG TABLET PO PRN ×2 (03:56→12:54)
[2020-10-27] MEDS: 0.9 % SODIUM CHLORIDE 10 ML SYRINGE IV SCH ×2 (04:51→14:02)
[2020-10-27] MEDS: ALBUTEROL SULFATE 200 PUFF INHALER INH PRN (06:07)
[2020-10-27] MEDS: CILOSTAZOL 100 MG TABLET PO SCH (07:00)
[2020-10-27] MEDS: LEVOTHYROXINE SODIUM 112 MCG TABLET PO SCH (07:00)
[2020-10-27] MEDS: OMEPRAZOLE 20 MG CAPSULE PO SCH (07:01)
[2020-10-27] MEDS: LISINOPRIL 10 MG TABLET PO SCH (08:53)
[2020-10-27] MEDS: METHOCARBAMOL 500 MG TABLET PO SCH (08:53)
[2020-10-27] MEDS: FUROSEMIDE 20 MG TABLET PO SCH (08:53)
[2020-10-27] MEDS: MULTIVIT,THER IRON,CA,FA & MIN 1 TABLET PO SCH (08:54)
[2020-10-27] MEDS: VITAMIN D3 1,000 UNIT TABLET PO SCH (08:54)
[2020-10-27] MEDS: ALLOPURINOL 300 MG TABLET PO SCH (08:54)
[2020-10-27] MEDS: MAGNESIUM OXIDE 400 MG TABLET PO SCH (08:54)
[2020-10-27] MEDS: DOCUSATE SODIUM 100 MG CAPSULE PO SCH (08:54)
[2020-10-27] MEDS: BISACODYL 5 MG TABLET PO SCH (08:55)
[2020-10-27] MEDS: ENOXAPARIN 40 MG/0.4 ML SYRINGE SQ SCH (08:55)
[2020-10-27] MEDS: IPRATROPIUM/ALBUTEROL SULFATE 1 PUFF INHALER INH SCH ×2 (10:24→14:01)
[2020-10-27] MEDS: CARVEDILOL 6.25 MG TABLET PO SCH (10:27)
[2020-10-27] MEDS: POTASSIUM CHLORIDE 10 MEQ TABLET PO SCH (10:28)
--- NOTE | 2020-10-27 13:21 | Discharge Summary ---
Discharge Provider Provider Patient information: Note initiated : 10/27/20 at 1:19 pm Service Date, if different from initiated Date: [] Patient: Dmitry Luna 70 y/o M admitted on 10/21/20 for Infection To Feet. Chief Complaint: [] Date of admission: 10/21/20 17:17 Discharge date: 10/27/20 Primary care physician: Ayaka Calabrese Consults: 10/21/20 Consult to Physician [CONS] Stat Comment: Consulting Provider: Tray Monson Reason For Exam: Physician to Consult 10/21/20 17:43 Consult to Physician [CONS] Stat Comment: Consulting Provider: Dirk Crump Reason For Exam: Physician to Consult Consult to Physician [CONS] Stat Comment: Consulting Provider: Juancarlos Murphy Reason For Exam: Physician to Consult Discharge Meds Discharge Medications Home Medications allopurinol 300 mg tablet 300 mg PO QAM tab 12/21/16 [History Confirmed 10/21/20 Last Taken 10/06/19] atorvastatin 40 mg tablet 20 mg PO QHS tab 12/21/16 [History Confirmed 10/21/20 Last Taken 10/06/19] cholecalciferol (vitamin D3) 25 mcg (1,000 unit) tablet 2,000 unit PO QAM tab 12/21/16 [History Confirmed 10/21/20 Last Taken 10/06/19] ipratropium 20 mcg-albuterol 100 mcg/actuation mist for inhalation 1 puff INHALATION QID 12/21/16 [History Confirmed 10/21/20 Last Taken 10/07/19 07:36] magnesium oxide 420 mg tablet 420 mg PO BID tab 12/21/16 [History Confirmed 10/21/20 Last Taken 10/06/19] multivitamin with minerals 1 cap PO DAILY 12/21/16 [History Confirmed 10/21/20 Last Taken 10/06/19] tamsulosin 0.4 mg capsule 0.8 mg PO QPM cap 12/21/16 [History Confirmed 10/21/20 Last Taken 10/06/19] clopidogrel 75 mg PO DAILY 03/29/18 [History Confirmed 10/21/20 Last Taken 10/02/19] docusate sodium 100 mg PO BID 03/29/18 [History Confirmed 10/21/20 Last Taken 10/06/19] furosemide 20 mg PO DAILY 11/07/18 [History Confirmed 10/21/20 Last Taken 10/06/19] guaifenesin 400 mg PO QDAY PRN 11/07/18 [History Confirmed 10/21/20 Last Taken 10/06/19] levothyroxine 112 mcg PO DAILY 11/07/18 [History Confirmed 10/21/20 Last Taken 10/06/19] albuterol sulfate 90 mcg/actuation aerosol inhaler 1 puff INHALATION QID PRN g 08/11/20 [History Confirmed 10/21/20 Last Taken Unknown] cilostazol 50 mg tablet 50 mg PO BID 08/11/20 [History Confirmed 10/21/20 Last Taken Unknown] lisinopril 10 mg tablet 10 mg PO QAM tab 08/11/20 [History Confirmed 10/21/20 Last Taken Unknown] omeprazole 20 mg capsule,delayed release 20 mg PO QAM cap 08/11/20 [History Confirmed 10/21/20 Last Taken Unknown] aspirin 81 mg tablet,delayed release 81 mg PO QDAY 09/14/20 [History Confirmed 10/21/20 Last Taken Unknown] bisacodyl 5 mg tablet,delayed release 10 mg PO BID tab 09/14/20 [History Confirmed 10/21/20 Last Taken Unknown] carvedilol 6.25 mg tablet 6.25 mg PO QDAY tab 09/14/20 [History Confirmed 10/21/20 Last Taken Unknown] methocarbamol 500 mg tablet 500 mg PO BID tab 09/14/20 [History Confirmed 10/21/20 Last Taken Unknown] potassium chloride 10 mEq tablet,extended release 10 meq PO BID tab 09/14/20 [History Confirmed 10/21/20 Last Taken Unknown] methadone 20 mg PO Q8H 10/21/20 [History Confirmed 10/22/20 Last Taken 10/22/20 08:08] amoxicillin-pot clavulanate 1 tab PO BIDCC 14 Days #28 tab 10/27/20 [Rx Last Taken Unknown] COURSE Hospital Course Hospital course: Mr. Luna is a 70 year old M history of obesity, essential hypertension, mixed dyslipidemia, bilateral lower extremities polyneuropathy, presenting with 2 weeks history of worsening of right first toe swelling, erythema, and pain. Had a similar problem on his left great toe about a year ago. Over the last 2 weeks he is noticing , erythema, and pain of his right first toe. The pain is described as 9 out of 10, sharp, intermittent, and localized in his right first toe and this basis. He denies systemic symptoms such as nausea, vomiting, fever, shaking chills, diaphoresis, general body weakness, GI upset such as nausea vomiting, or change in appetite. He has noticed further worsening of his symptoms over the past few days to the point that he notified Dr. Mead, who sent him to our ED for further evaluation. Vital signs at ED presentation were within normal limits. Labs significant for lack of leukocytosis with WBC 4.6. CT of the right foot showing chronic osteomyelitis resulting in subtotal destruction of the first distal phalanx with only base remnant remains. 10/22: Blood and wound cultures no growth to date. Afebrile overnight. c/o severe sharp intermittent pain right great toe. Denies any fever chills or sweating. Denies any nausea vomiting diarrhea or constipation. Denies general body weakness. 10/23: Blood and wound cultures no growth to date. MRI right foot w/o again showing osteomyelitis of the right great toe. Afebrile overnight. c/o mild sharp interm ittent pain right great toe. Denies any fever chills or sweating. Denies any nausea vomiting diarrhea or constipation. Denies general body weakness. 10/24: s/p right 1st toe amputation by Dr. Crump. Afebrile overnight. Currently s/p 6/10 intermittent throbbing pain of his right foot with radiation to the right ankle. Denies any fever or chills. Good appetite. 10/25: Started Ceftriaxone and discontinued Zosyn, continued Vancomycin. MRI of left foot ordered for chronic nonhealing wound, concern for possible underlying osteomyelitis vs hardware signal change. 10/26: ID does not feel the MRI is consistent with osteomyelitis, recommended starting Augmentin tomorrow for two weeks then follow up in ID clinic. 10/27 Discharged to home on Augmentin 875-125 mg BID for two weeks, two week follow up with ID. Follow up with Dr. Chappell in clinic. Physical exam Head: Atraumatic, normal inspection. Eyes: normal appearance, no scleral icterus. Neck: full ROM Respiratory: no respiratory distress. Cardiovascular: normal rate and rhythm, S1, S2. GI/Abdominal: soft, nontender, no guarding. Extremities: Right foot in boot. Neurological: CN II-XII intact, intact motor, intact sensation. Psychiatric: normal mood. Skin: warm, normal color Discharge diagnosis: Osteomyelitis of right toe Time Spent with Patient Time attestation: Total time spent providing and/or coordinating discharge services: EXAM Constitutional Vitals: Temp Pulse Resp BP Pulse Ox 97.0 F 82 16 185/102 93 10/27/20 12:00 10/27/20 12:00 10/27/20 12:00 10/27/20 12:00 10/27/20 12:00 Discharge Data Data Completed and Pending Labs on day of discharge: Preliminary micro results at discharge 10/23/20 13:56 Gram Stain - Preliminary Toe - First Anaerobic Culture - Preliminary Discharge Plan Patient/Caregiver Discharge Instructions Activity: increase activity as tolerated Diet: Consistent Carbohydrate Instructions: Osteomyelitis (ED) Activity Restrictions/Additional Instructions: Follow up with podiatry within a week. Prescriptions: New amoxicillin-pot clavulanate 875-125 mg Tablet 1 tab PO BIDCC 14 Days Qty: 28 RF: 0 Continued ipratropium-albuterol 20-100 mcg/actuation mist 1 puff INHALATION QID RF: 0 allopurinol 300 mg tablet 300 mg PO QAM RF: 0 atorvastatin 40 mg tablet 20 mg PO QHS RF: 0 cholecalciferol (vitamin D3) 1,000 unit tablet 2,000 unit PO QAM RF: 0 magnesium oxide 420 mg tablet 420 mg PO BID RF: 0 multivitamin with minerals capsule 1 cap PO DAILY RF: 0 tamsulosin 0.4 mg capsule,extended release 24hr 0.8 mg PO QPM RF: 0 cilostazol 50 mg tablet 50 mg PO BID RF: 0 albuterol sulfate 90 mcg/actuation HFA aerosol inhaler 1 puff inhalation QID PRN (Reason: Shortness Of Breath) RF: 0 lisinopril 10 mg tablet 10 mg PO QAM RF: 0 omeprazole 20 mg capsule,delayed release(DR/EC) 20 mg PO QAM RF: 0 methocarbamol 500 mg tablet 500 mg PO BID RF: 0 aspirin [Adult Aspirin Regimen] 81 mg tablet,delayed release (DR/EC) 81 mg PO QDAY RF: 0 carvedilol 6.25 mg tablet 6.25 mg PO QDAY RF: 0 clopidogrel 75 MG tablet 75 mg PO DAILY RF: 0 docusate sodium 100 MG capsule 100 mg PO BID RF: 0 furosemide 20 MG tablet 20 mg PO DAILY RF: 0 levothyroxine 112 MCG tablet 112 mcg PO DAILY RF: 0 guaifenesin 400 MG tablet 400 mg PO QDAY PRN (Reason: Congestion) RF: 0 potassium chloride 10 mEq tablet extended release 10 meq PO BID RF: 0 bisacodyl [Dulcolax (bisacodyl)] 5 mg tablet,delayed release (DR/EC) 10 mg PO BID RF: 0 methadone 10 mg tablet 20 mg PO Q8H RF: 0 Follow Up Plan Follow up with: Ayaka Calabrese [Primary Care Provider] - Newton Mead MD [Physician] - 10/31/20 (Right foot wound complicated by osteomyelitis s/p hallux amputation. ) Juancarlos Murphy MD [Physician] - 11/10/20 Patient Disposition: Home, Self-Care Overall status at discharge: patient is progressing back to baseline Discharge Orders: Discharge Order (Routine); Ordered 10/27/20 Ordered By: Jules Houston QUALITY VTE Deep Vein Thrombosis/Pulmonary Embolism Present on Admission: No
[2020-10-27] MEDS ORDERED: AMOXICILLIN/POTASSIUM CLAV 875 MG TABLET PO SCH (17:30)
== END 2020-10-27 16:45 | disposition home or self-care (01) | DRG 504 ==
LOC: ED 09:41 → MEDSUR 17:17
PROVIDERS: ADMIT Internal Medicine; ATTEND Internal Medicine

== ENCOUNTER 2024-04-20 14:26 | Inpatient (IN) ==
[2024-04-20 15:56] LABS: Basophils # (Auto) 0.06 K/mcL (0.00-0.30); Basophils % (Auto) 0.9 % (0.0-2.0); Eosinophils # (Auto) 0.31 K/mcL (0.00-0.70); Eosinophils % (Auto) 4.7 % (0.0-7.0); Hematocrit 28.7 % (40.1-51.0); Lymphocytes # (Auto) 1.28 K/mcL (1.50-4.80); Lymphocytes % (Auto) 19.5 % (15.5-49.0); Mean Cell Volume 90.3 fL (80.0-100.0); Mean Corpuscular HGB Conc 27.9 g/dL (31.0-36.0); Mean Platelet Volume 10.7 fL (8.8-12.5); Monocytes # (Auto) 0.66 K/mcL (0.10-0.90); Neutrophils % (Auto) 64.6 % (38.0-78.0); Platelet Count 205 K/mcL (140-440); RBC 3.18 M/mcL (4.63-6.08); Red Cell Distribution Width 15.6 % (11.5-14.5); WBC 6.6 K/mcL (4.5-11.0)
[2024-04-20 16:19] LABS: ALT/SGPT 95 U/L (<40); AST/SGOT 133 U/L (<40); Albumin 4.1 gm/dL (3.2-5.2); Albumin/Globulin Ratio 1.2 (1.0-2.3); Alkaline Phosphatase 128 U/L (39-117); Bilirubin,Total 0.8 mg/dL (0.1-1.0); Blood Urea Nitrogen 18 mg/dL (8-23); Carbon Dioxide 32 mmol/L (22-30); Chloride 90 mmol/L (96-108); Globulin 3.4 gm/dL (2.2-3.7); Glomerular Filtration Rate 60; Glucose 138 mg/dL (70-105); Potassium 3.9 mmol/L (3.3-5.1); Sodium 140 mmol/L (133-145)
[2024-04-20] MEDS: MAGNESIUM OXIDE 400 MG TABLET PO ONE (16:42)
[2024-04-20] MEDS: cefTRIAXone 1 GM VIAL IV ONE (16:43)
[2024-04-20] MEDS: 0.9 % SODIUM CHLORIDE 500 ML IV ONE (16:48)
[2024-04-20] MEDS: FUROSEMIDE 20 MG/2 ML VIAL IV ONE (20:00)
[2024-04-20] MEDS: amLODIPine 5 MG TABLET PO ONE (20:23)
[2024-04-20] MEDS: VANCOMYCIN 1,500 MG in 0.9 % SODIUM CHLORIDE 500 ML IV ONE (21:30)
[2024-04-20 22:16] LABS: Appearance,Urine HAZY (Clear); Bilirubin,Urine Negative (Negative); Color,Urine YELLOW; Glucose,Urine (UA) Negative (Negative); Ketones,Urine Negative (Negative); Leukocyte Esterase,Urine 250 /uL (Negative); Mucus,Urine FEW /hpf; Nitrate,Urine Negative (Negative); Protein,Urine Negative (Negative); Urine Blood Negative (Negative); Urine RBC 1 /hpf (0-3); Urine Squamous Epithelial Cell 0 /hpf (0-4); Urine WBC 120 /hpf (0-4); Urobilinogen,Urine Negative
[2024-04-20 22:35] LABS: Creatinine, Spot Urine 47.5 mg/dL (39.0-259.0); Pro:Crea Ratio 0.46 (<0.20)
[2024-04-20] MEDS ORDERED: DEXTROSE 31 GM ORAL.SUSP PO PRN (23:16)
[2024-04-20] MEDS ORDERED: ONDANSETRON 4 MG/2 ML VIAL IV PRN (23:16)
[2024-04-20] MEDS ORDERED: DEXTROSE 50% 50 ML VIAL IV PRN (23:16)
[2024-04-20] MEDS ORDERED: SENNOSIDES 1 TABLET PO PRN (23:16)
[2024-04-20] MEDS ORDERED: LACTULOSE 20 GM/30 ML ORAL.SOL PO PRN (23:16)
[2024-04-20] MEDS: 0.9 % SODIUM CHLORIDE 10 ML SYRINGE IV SCH (23:34)
[2024-04-21 00:10] LABS: ALT/SGPT 88 U/L (<40); AST/SGOT 118 U/L (<40); Albumin/Globulin Ratio 1.1 (1.0-2.3); Alkaline Phosphatase 124 U/L (39-117); Bilirubin,Direct 0.5 mg/dL (<0.3); Bilirubin,Total 0.8 mg/dL (0.1-1.0); Blood Urea Nitrogen 19 mg/dL (8-23); Calcium 8.8 mg/dL (8.6-10.4); Carbon Dioxide 34 mmol/L (22-30); Chloride 90 mmol/L (96-108); Globulin 3.6 gm/dL (2.2-3.7); Glomerular Filtration Rate 67; Glucose 162 mg/dL (70-105); Lactate Dehydrogenase 316 U/L (135-225); Phosphorous 2.1 mg/dL (2.5-4.5); Potassium 3.6 mmol/L (3.3-5.1); Sodium 138 mmol/L (133-145); Triglycerides 131 mg/dL (<150); Uric Acid 6.1 mg/dL (2.5-8.0)
[2024-04-21] MEDS: VANCOMYCIN PER PHARMACY IV ONE (00:54)
[2024-04-21] MEDS: MAGNESIUM SULFATE 2 GM/50 ML BAG IV ONE ×2 (01:19→01:29)
[2024-04-21] MEDS: IPRATROPIUM/ALBUTEROL 3 ML AMPUL.NEB NEB PRN (01:28)
[2024-04-21] MEDS: IPRATROPIUM/ALBUTEROL 3 ML AMPUL.NEB NEB ONE (01:28)
[2024-04-21 06:04] LABS: Basophils # (Auto) 0.04 K/mcL (0.00-0.30); Basophils % (Auto) 0.7 % (0.0-2.0); Eosinophils # (Auto) 0.29 K/mcL (0.00-0.70); Eosinophils % (Auto) 4.7 % (0.0-7.0); Hematocrit 29.1 % (40.1-51.0); Hemoglobin 7.9 g/dL (13.7-17.5); Lymphocytes # (Auto) 1.31 K/mcL (1.50-4.80); Lymphocytes % (Auto) 21.4 % (15.5-49.0); Mean Cell Volume 91.8 fL (80.0-100.0); Mean Corpuscular HGB Conc 27.1 g/dL (31.0-36.0); Mean Platelet Volume 11.1 fL (8.8-12.5); Monocytes # (Auto) 0.75 K/mcL (0.10-0.90); Monocytes % (Auto) 12.3 % (1.0-12.0); Neutrophils % (Auto) 60.7 % (38.0-78.0); Platelet Count 186 K/mcL (140-440); RBC 3.17 M/mcL (4.63-6.08); Red Cell Distribution Width 15.9 % (11.5-14.5); WBC 6.1 K/mcL (4.5-11.0)
[2024-04-21 06:41] LABS: ALT/SGPT 80 U/L (<40); AST/SGOT 107 U/L (<40); Albumin 3.8 gm/dL (3.2-5.2); Albumin/Globulin Ratio 1.2 (1.0-2.3); Alkaline Phosphatase 116 U/L (39-117); Bilirubin,Direct 0.4 mg/dL (<0.3); Bilirubin,Total 0.7 mg/dL (0.1-1.0); Blood Urea Nitrogen 19 mg/dL (8-23); Calcium 8.8 mg/dL (8.6-10.4); Carbon Dioxide 33 mmol/L (22-30); Chloride 91 mmol/L (96-108); Globulin 3.3 gm/dL (2.2-3.7); Glomerular Filtration Rate 67; Glucose 128 mg/dL (70-105); Lactate Dehydrogenase 298 U/L (135-225); Phosphorous 2.5 mg/dL (2.5-4.5); Potassium 3.3 mmol/L (3.3-5.1); Sodium 138 mmol/L (133-145); Triglycerides 120 mg/dL (<150); Uric Acid 6.3 mg/dL (2.5-8.0)
[2024-04-21 06:43] LABS: Prothrombin Time 14.2 sec (11.9-14.5)
[2024-04-21] MEDS ORDERED: POLYETHYLENE GLYCOL 3350 17 GM PACKET PO PRN (07:10)
[2024-04-21] MEDS: POTASSIUM CHLORIDE 20 MEQ TABLET PO ONE (07:59)
[2024-04-21] MEDS: METHOCARBAMOL 500 MG TABLET PO SCH (07:59)
[2024-04-21] MEDS: INSULIN LISPRO 1 UNIT/0.01 ML UNIT SQ SCH (08:00)
[2024-04-21] MEDS ORDERED: FUROSEMIDE 40 MG/4 ML VIAL IV SCH (08:00)
[2024-04-21] MEDS: FUROSEMIDE 100 MG/10 ML VIAL IV SCH (08:00)
[2024-04-21] MEDS ORDERED: VANCOMYCIN PER PHARMACY IV SCH (08:15)
[2024-04-21 08:20] LABS: Hemoglobin A1C 6.8 % Hgb (4.0-6.0)
[2024-04-21 08:45] LABS: Ferritin 71.5 ng/mL (30.0-400.0)
[2024-04-21] MEDS: SPIRONOLACTONE 25 MG TABLET PO SCH (09:44)
[2024-04-21] MEDS: METHADONE 5 MG TABLET PO SCH ×2 (09:44→17:43)
[2024-04-21] MEDS: DOCUSATE SODIUM 100 MG CAPSULE PO SCH (09:44)
[2024-04-21] MEDS: HYDROCODONE/APAP 7.5/325MG TABLET PO PRN (09:45)
[2024-04-21] MEDS: acetaZOLAMIDE SOD 500 MG VIAL IV SCH (09:46)
[2024-04-21] MEDS: ENOXAPARIN 40 MG/0.4 ML SYRINGE SQ SCH (09:46)
[2024-04-21] MEDS: PANTOPRAZOLE 40 MG VIAL IV SCH (10:28)
[2024-04-21] MEDS: HYDROCODONE/APAP 7.5/325MG TABLET PO SCH ×2 (10:29→17:44)
[2024-04-21] MEDS: CARVEDILOL 12.5 MG TABLET PO SCH (10:29)
[2024-04-21] MEDS: cefTRIAXone 1 GM VIAL IV SCH (10:29)
[2024-04-21] MEDS: VANCOMYCIN 1,500 MG in 0.9 % SODIUM CHLORIDE 500 ML IV SCH (10:30)
[2024-04-21] MEDS: Ipratropium-Albuterol [Combivent Respimat] 20-100 mcg Inhaler INH SCH (13:42)
[2024-04-21] MEDS: levETIRAcetam 500 MG TABLET PO SCH (14:19)
[2024-04-21] MEDS: PANTOPRAZOLE 40 MG PACKET PO SCH (16:35)
[2024-04-21] MEDS: TAMSULOSIN 0.4 MG CAPSULE PO SCH (20:32)
[2024-04-21] MEDS: MUPIROCIN OINT 2% 22GM NARES SCH (20:32)
[2024-04-21] MEDS: VANCOMYCIN 1,500 MG in DEXTROSE 5% IN WATER 500 ML IV SCH (20:32)
[2024-04-21] MEDS: ATORVASTATIN 40 MG TABLET PO SCH (20:33)
[2024-04-21] MEDS: amLODIPine 5 MG TABLET PO SCH (20:33)
[2024-04-21] MEDS: ALLOPURINOL 300 MG TABLET PO SCH (20:33)
[2024-04-21] MEDS ORDERED: OMEPRAZOLE 20 MG CAPSULE PO SCH (21:00)
[2024-04-21] MEDS ORDERED: LEVOTHYROXINE SODIUM 112 MCG TABLET PO SCH (21:00)
[2024-04-22] MEDS ORDERED: KETAMINE 50 MG/ML ML IV PRN (08:37)
[2024-04-22 09:10] LABS: Basophils # (Auto) 0.05 K/mcL (0.00-0.30); Basophils % (Auto) 0.8 % (0.0-2.0); Eosinophils # (Auto) 0.43 K/mcL (0.00-0.70); Hematocrit 28.2 % (40.1-51.0); Hemoglobin 7.8 g/dL (13.7-17.5); Lymphocytes # (Auto) 1.66 K/mcL (1.50-4.80); Lymphocytes % (Auto) 26.9 % (15.5-49.0); Mean Cell Volume 90.7 fL (80.0-100.0); Mean Corpuscular HGB Conc 27.7 g/dL (31.0-36.0); Monocytes # (Auto) 0.69 K/mcL (0.10-0.90); Monocytes % (Auto) 11.2 % (1.0-12.0); Neutrophils % (Auto) 53.9 % (38.0-78.0); Platelet Count 225 K/mcL (140-440); RBC 3.11 M/mcL (4.63-6.08); Red Cell Distribution Width 16.1 % (11.5-14.5); WBC 6.2 K/mcL (4.5-11.0)
[2024-04-22 09:23] LABS: ALT/SGPT 68 U/L (<40); AST/SGOT 94 U/L (<40); Albumin/Globulin Ratio 1.1 (1.0-2.3); Alkaline Phosphatase 117 U/L (39-117); Bilirubin,Direct 0.5 mg/dL (<0.3); Bilirubin,Total 0.7 mg/dL (0.1-1.0); Blood Urea Nitrogen 19 mg/dL (8-23); Carbon Dioxide 32 mmol/L (22-30); Chloride 92 mmol/L (96-108); Globulin 3.5 gm/dL (2.2-3.7); Glomerular Filtration Rate 54; Glucose 138 mg/dL (70-105); Lactate Dehydrogenase 292 U/L (135-225); Phosphorous 2.7 mg/dL (2.5-4.5); Potassium 3.3 mmol/L (3.3-5.1); Sodium 138 mmol/L (133-145); Triglycerides 103 mg/dL (<150); Uric Acid 6.7 mg/dL (2.5-8.0)
[2024-04-22] MEDS: PROPOFOL 200 MG/20 ML VIAL IV SCH (09:46)
[2024-04-22] MEDS: MIDAZOLAM 2 MG/2 ML VIAL IV SCH (09:46)
[2024-04-22] MEDS: MAGNESIUM SULFATE 2 GM/50 ML BAG IV ONE (10:48)
[2024-04-22] MEDS: LEVOTHYROXINE 125 MCG TABLET PO SCH (11:06)
[2024-04-22] MEDS: HYDROCODONE/APAP 7.5/325MG TABLET PO SCH (11:06)
[2024-04-22] MEDS: METHADONE 5 MG TABLET PO SCH (11:07)
[2024-04-22] MEDS: IRON SUCROSE COMPLEX 100 MG/5 ML VIAL IV SCH (11:08)
[2024-04-22] MEDS: PEG 3350/NA SULF,BICARB,CL/KCL 4,000 ML ORAL.SOL PO ONE ×2 (11:32→18:58)
[2024-04-22] MEDS: POTASSIUM CHLORIDE 20 MEQ TABLET PO ONE (11:35)
[2024-04-22] MEDS: LINEZOLID 600 MG TABLET PO SCH (11:35)
[2024-04-22] MEDS: SENNOSIDES/DOCUSATE SODIUM 1 TAB TABLET PO ONE ×2 (11:39→20:23)
[2024-04-22] MEDS ORDERED: POTASSIUM CHLORIDE 20 MEQ TABLET PO ONE (14:00)
[2024-04-23 05:49] LABS: Basophils # (Auto) 0.04 K/mcL (0.00-0.30); Basophils % (Auto) 0.8 % (0.0-2.0); Eosinophils # (Auto) 0.43 K/mcL (0.00-0.70); Eosinophils % (Auto) 8.3 % (0.0-7.0); Hemoglobin 8.2 g/dL (13.7-17.5); Lymphocytes # (Auto) 1.43 K/mcL (1.50-4.80); Lymphocytes % (Auto) 27.6 % (15.5-49.0); Mean Cell Volume 90.1 fL (80.0-100.0); Mean Corpuscular HGB Conc 28.3 g/dL (31.0-36.0); Mean Platelet Volume 10.5 fL (8.8-12.5); Monocytes # (Auto) 0.56 K/mcL (0.10-0.90); Monocytes % (Auto) 10.8 % (1.0-12.0); Neutrophils % (Auto) 52.3 % (38.0-78.0); Platelet Count 252 K/mcL (140-440); RBC 3.22 M/mcL (4.63-6.08); Red Cell Distribution Width 16.1 % (11.5-14.5); WBC 5.2 K/mcL (4.5-11.0)
[2024-04-23 06:14] LABS: ALT/SGPT 70 U/L (<40); AST/SGOT 113 U/L (<40); Albumin 4.2 gm/dL (3.2-5.2); Albumin/Globulin Ratio 1.2 (1.0-2.3); Alkaline Phosphatase 124 U/L (39-117); Bilirubin,Direct 0.5 mg/dL (<0.3); Bilirubin,Total 0.7 mg/dL (0.1-1.0); Blood Urea Nitrogen 18 mg/dL (8-23); Calcium 9.3 mg/dL (8.6-10.4); Carbon Dioxide 33 mmol/L (22-30); Chloride 90 mmol/L (96-108); Globulin 3.6 gm/dL (2.2-3.7); Glomerular Filtration Rate 50; Glucose 125 mg/dL (70-105); Lactate Dehydrogenase 289 U/L (135-225); Sodium 137 mmol/L (133-145); Triglycerides 127 mg/dL (<150)
[2024-04-23] MEDS ORDERED: KETAMINE 50 MG/ML ML IV PRN (08:52)
[2024-04-23] MEDS ORDERED: LEVOFLOXACIN 750 MG TABLET PO SCH (09:00)
[2024-04-23] MEDS: MIDAZOLAM 2 MG/2 ML VIAL IV SCH (09:41)
[2024-04-23] MEDS: PROPOFOL 200 MG/20 ML VIAL IV SCH (09:41)
[2024-04-23] MEDS ORDERED: cefTRIAXone 1 GM VIAL IV SCH (10:00)
[2024-04-23] MEDS: POTASSIUM CHLORIDE 20 MEQ TABLET PO ONE (10:39)
[2024-04-23] MEDS: FUROSEMIDE 40 MG TABLET PO SCH (10:40)
[2024-04-23] MEDS: PEG 3350/NA SULF,BICARB,CL/KCL 4,000 ML ORAL.SOL PO ONE (10:41)
[2024-04-23] MEDS: AMOXICILLIN/POTASSIUM CLAV 875 MG TABLET PO SCH (10:41)
[2024-04-23] MEDS: MAGNESIUM CITRATE 300 ML ORAL.SOL PO ONE (10:43)
[2024-04-23] MEDS: DOXYCYCLINE HYCLATE 100 MG TABLET.ORL PO SCH (10:52)
[2024-04-23] MEDS: MAGNESIUM OXIDE 400 MG TABLET PO SCH (20:27)
[2024-04-24] MEDS: ACETAMINOPHEN 325 MG TABLET PO PRN (01:43)
[2024-04-24 06:49] LABS: ALT/SGPT 64 U/L (<40); AST/SGOT 103 U/L (<40); Albumin/Globulin Ratio 1.2 (1.0-2.3); Alkaline Phosphatase 120 U/L (39-117); Bilirubin,Direct 0.3 mg/dL (<0.3); Bilirubin,Total 0.5 mg/dL (0.1-1.0); Blood Urea Nitrogen 18 mg/dL (8-23); Calcium 9.7 mg/dL (8.6-10.4); Carbon Dioxide 33 mmol/L (22-30); Chloride 98 mmol/L (96-108); Globulin 3.3 gm/dL (2.2-3.7); Glomerular Filtration Rate 54; Glucose 157 mg/dL (70-105); Lactate Dehydrogenase 329 U/L (135-225); Phosphorous 2.1 mg/dL (2.5-4.5); Potassium 3.1 mmol/L (3.3-5.1); Sodium 141 mmol/L (133-145); Triglycerides 96 mg/dL (<150); Uric Acid 7.1 mg/dL (2.5-8.0)
[2024-04-24] MEDS: POTASSIUM CHLORIDE 20 MEQ TABLET PO SCH (08:55)
[2024-04-24] MEDS: MAGNESIUM SULFATE 2 GM/50 ML BAG IV ONE (10:11)
[2024-04-24 13:53] VITALS: TEMP 98; O2SAT 97
== END 2024-04-24 13:40 | disposition home or self-care (01) | DRG 291 ==
LOC: ED 14:26 → ICU 23:10
PROVIDERS: ADMIT Internal Medicine; ATTEND Internal Medicine